=== PATIENT | male | born 1945 | race African-American/Black ===

== ENCOUNTER → 2017-08-14 | Outpatient (CLI) | payer MEDICARE ==
[2017-08-14] MEDS: REGADENOSON 0.4 MG/5 ML DISP.SYRIN. IV ×2 (11:06)
== END | disposition home or self-care (01) ==
LOC: ECHO 07:37
DX: R06.09 Other forms of dyspnea (principal); I10 Essential (primary) hypertension; E11.9 Type 2 diabetes mellitus without complications
CPT/HCPCS: 78452; 93017; 93306; 93925; 96374; 96375; 96376; A9500; J2785

== ENCOUNTER → 2018-01-22 | Outpatient (CLI) | payer MEDICARE ==
[~2018-01-22] MED LIST: BARIUM SULFATE 340 GM SUSPENSION. PO
[2018-01-22] MEDS: BARIUM SULFATE 60% 355 ML SUSP PO ×2 (11:15)
[2018-01-22] MEDS: BARIUM SULFATE 40% (APPLE) 148 GM PWD. PO ×2 (11:15)
== END | disposition home or self-care (01) ==
LOC: RAD 12:53
DX: R13.10 Dysphagia, unspecified (principal); I12.9 Hypertensive chronic kidney disease with stage 1 through stage 4 chronic kidney disease, or unspecified chronic kidney disease; E11.22 Type 2 diabetes mellitus with diabetic chronic kidney disease; N18.9 Chronic kidney disease, unspecified; E11.9 Type 2 diabetes mellitus without complications
CPT/HCPCS: 74220; 74230; 92611-GN

== ENCOUNTER 2018-02-06 13:49 | Emergency (ER) | payer MEDICARE ==
[2018-02-06 14:22] LABS: ADD MAN DIFF? NO
[2018-02-06 14:24] LABS: BASO # 0.1 x10^3/uL (0.0-0.2); BASO % 1 % (0-3); EOS # 0.2 x10^3/uL (0.0-0.7); EOS % 3 % (0-3); HEMATOCRIT 25.3 % (39.0-53.0); HEMOGLOBIN 8.8 g/dL (13.0-17.5); LYMPH # 0.8 x10^3/uL (1.0-4.8); LYMPH % 12 % (24-48); MEAN CORPUSCULAR HEMOGLOBIN 34 pg (25-35); MEAN CORPUSCULAR HGB CONC 35 g/dL (31-37); MEAN CORPUSCULAR VOLUME 99 fL (79-100); MONO # 0.7 x10^3/uL (0.0-1.1); MONO % 10 % (0-9); NEUT # 5.1 x10^3uL (1.8-7.7); NEUT % 74 % (31-73); PLATELET COUNT 162 x10^3/uL (140-400); RED BLOOD COUNT 2.56 x10^6/uL (4.30-5.70); RED CELL DISTRIBUTION WIDTH 18.8 % (11.5-14.5); WHITE BLOOD COUNT 6.9 x10^3/uL (4.0-11.0)
[2018-02-06 14:39] LABS: ANION GAP 15 (6-14); BLOOD UREA NITROGEN 51 mg/dL (8-26); BUN/CREATININE RATIO 3 (6-20); CALCIUM 9.8 mg/dL (8.5-10.1); CARBON DIOXIDE 26 mmol/L (21-32); CHLORIDE 97 mmol/L (98-107); CREATININE 16.9 mg/dL (0.7-1.3); GFR 3.4; GLUCOSE 186 mg/dL (70-99); POTASSIUM 4.1 mmol/L (3.5-5.1); SODIUM 138 mmol/L (136-145)
[2018-02-06 14:46] LABS: ALBUMIN 3.3 g/dL (3.4-5.0); ALBUMIN/GLOBULIN RATIO 0.8 (1.0-1.7); ALK PHOS 90 U/L (46-116); ALT (SGPT) 20 U/L (16-63); AST (SGOT) 12 U/L (15-37); MAGNESIUM 2.9 mg/dL (1.8-2.4); TOTAL BILIRUBIN 0.4 mg/dL (0.2-1.0); TOTAL PROTEIN 7.3 g/dL (6.4-8.2)
[2018-02-06 14:48] LABS: TROPONINI < 0.017 ng/mL (0.000-0.055)
[2018-02-06 14:54] LABS: NT-PRO BNP 1759 pg/mL (0-124)
== END 2018-02-06 16:02 | disposition home or self-care (01) ==
LOC: ER 13:49
DX: R53.1 Weakness (principal); I95.1 Orthostatic hypotension; E10.22 Type 1 diabetes mellitus with diabetic chronic kidney disease; I12.0 Hypertensive chronic kidney disease with stage 5 chronic kidney disease or end stage renal disease; N18.6 End stage renal disease; E78.00 Pure hypercholesterolemia, unspecified; Z99.2 Dependence on renal dialysis
CPT/HCPCS: 36415; 71045; 80053; 83735; 83880; 84484; 85025; 93005; 99285-25

== ENCOUNTER → 2018-03-11 | Outpatient (CLI) | payer MEDICARE ==
[2018-03-05 11:00] VITALS: BP 140/49
[~2018-03-11] MED LIST changes: +AMLO10TA6 PO; +ASPI-482 PO; -BARIUM SULFATE 340 GM SUSPENSION. PO; +CALC0.25 PO; +CHOL500016 PO; +CINA30TA2 PO; +CLON0.2T PO; +FERR210T PO; +FOLI0.8T3 PO; +HYDR-971 PO; +INSU100C4 SQ; +INSU100V31 CONT INF; +INSU100V31 SQ; +INSU100V8 SQ; +INSU200I4 SQ; +LIRA0.6P2 SQ; +LOPE2TAB27 PO; +LOSA100T7 PO; +OMEP40CA5 PO; +OXYC-323 PO; +POLY17PO29 PO; +POTA20TA84 PO; +SERT50TA8 PO; +SEVE800T9 PO
== END | disposition home or self-care (01) ==
LOC: PMGWOUND 11:25
PROVIDERS: ATTEND Emergency Medicine Undersea and Hyperbaric Medicine
DX: E11.622 Type 2 diabetes mellitus with other skin ulcer (principal); L97.324 Non-pressure chronic ulcer of left ankle with necrosis of bone; I12.0 Hypertensive chronic kidney disease with stage 5 chronic kidney disease or end stage renal disease; E11.22 Type 2 diabetes mellitus with diabetic chronic kidney disease; N18.6 End stage renal disease; E11.51 Type 2 diabetes mellitus with diabetic peripheral angiopathy without gangrene; E11.36 Type 2 diabetes mellitus with diabetic cataract; E11.42 Type 2 diabetes mellitus with diabetic polyneuropathy; E11.69 Type 2 diabetes mellitus with other specified complication; M86.8X6 Other osteomyelitis, lower leg; M86.172 Other acute osteomyelitis, left ankle and foot; K21.9 Gastro-esophageal reflux disease without esophagitis; G47.30 Sleep apnea, unspecified; E03.9 Hypothyroidism, unspecified; M19.90 Unspecified osteoarthritis, unspecified site; B96.5 Pseudomonas (aeruginosa) (mallei) (pseudomallei) as the cause of diseases classified elsewhere; E78.00 Pure hypercholesterolemia, unspecified; I25.10 Atherosclerotic heart disease of native coronary artery without angina pectoris; F32.9 Major depressive disorder, single episode, unspecified; Z90.5 Acquired absence of kidney; Z90.49 Acquired absence of other specified parts of digestive tract; Z99.2 Dependence on renal dialysis; Z79.4 Long term (current) use of insulin; Z85.528 Personal history of other malignant neoplasm of kidney
CPT/HCPCS: 11042; 93923; 97605

== ENCOUNTER → 2018-03-25 | Outpatient (CLI) | payer MEDICARE ==
[2018-03-05 11:00] VITALS: BP 140/49
== END | disposition home or self-care (01) ==
LOC: PMGWOUND 12:59
PROVIDERS: ATTEND Emergency Medicine Undersea and Hyperbaric Medicine
DX: E11.621 Type 2 diabetes mellitus with foot ulcer (principal); L97.324 Non-pressure chronic ulcer of left ankle with necrosis of bone; B96.5 Pseudomonas (aeruginosa) (mallei) (pseudomallei) as the cause of diseases classified elsewhere; E11.69 Type 2 diabetes mellitus with other specified complication; M86.172 Other acute osteomyelitis, left ankle and foot; I12.0 Hypertensive chronic kidney disease with stage 5 chronic kidney disease or end stage renal disease; E11.22 Type 2 diabetes mellitus with diabetic chronic kidney disease; N18.6 End stage renal disease; E11.36 Type 2 diabetes mellitus with diabetic cataract; E11.42 Type 2 diabetes mellitus with diabetic polyneuropathy; E11.51 Type 2 diabetes mellitus with diabetic peripheral angiopathy without gangrene; F32.9 Major depressive disorder, single episode, unspecified; E21.3 Hyperparathyroidism, unspecified; G47.30 Sleep apnea, unspecified; K21.9 Gastro-esophageal reflux disease without esophagitis; E03.9 Hypothyroidism, unspecified; E78.00 Pure hypercholesterolemia, unspecified; I25.10 Atherosclerotic heart disease of native coronary artery without angina pectoris; M19.90 Unspecified osteoarthritis, unspecified site; E66.9 Obesity, unspecified; Z68.35 Body mass index [BMI] 35.0-35.9, adult; Z79.4 Long term (current) use of insulin; Z99.2 Dependence on renal dialysis; Z90.49 Acquired absence of other specified parts of digestive tract; Z85.528 Personal history of other malignant neoplasm of kidney
CPT/HCPCS: 11042; 97605

== ENCOUNTER → 2018-04-01 | Outpatient (CLI) | payer MEDICARE ==
[2018-03-05 11:00] VITALS: BP 140/49
== END | disposition home or self-care (01) ==
LOC: PMGWOUND 13:16
PROVIDERS: ATTEND Emergency Medicine Undersea and Hyperbaric Medicine
DX: E11.622 Type 2 diabetes mellitus with other skin ulcer (principal); L97.414 Non-pressure chronic ulcer of right heel and midfoot with necrosis of bone; E11.69 Type 2 diabetes mellitus with other specified complication; M86.172 Other acute osteomyelitis, left ankle and foot; E11.51 Type 2 diabetes mellitus with diabetic peripheral angiopathy without gangrene; B96.5 Pseudomonas (aeruginosa) (mallei) (pseudomallei) as the cause of diseases classified elsewhere; E11.36 Type 2 diabetes mellitus with diabetic cataract; E11.42 Type 2 diabetes mellitus with diabetic polyneuropathy; I12.0 Hypertensive chronic kidney disease with stage 5 chronic kidney disease or end stage renal disease; E11.22 Type 2 diabetes mellitus with diabetic chronic kidney disease; N18.6 End stage renal disease; F32.9 Major depressive disorder, single episode, unspecified; K21.9 Gastro-esophageal reflux disease without esophagitis; E03.9 Hypothyroidism, unspecified; M19.90 Unspecified osteoarthritis, unspecified site; E78.00 Pure hypercholesterolemia, unspecified; G47.30 Sleep apnea, unspecified; E21.3 Hyperparathyroidism, unspecified; I25.10 Atherosclerotic heart disease of native coronary artery without angina pectoris; E66.9 Obesity, unspecified; Z68.35 Body mass index [BMI] 35.0-35.9, adult; Z99.2 Dependence on renal dialysis; Z79.4 Long term (current) use of insulin; Z90.49 Acquired absence of other specified parts of digestive tract; Z85.528 Personal history of other malignant neoplasm of kidney
CPT/HCPCS: 99214; G0463

== ENCOUNTER → 2018-04-08 | Outpatient (CLI) | payer MEDICARE ==
[2018-03-05 11:00] VITALS: BP 140/49
== END | disposition home or self-care (01) ==
LOC: PMGWOUND 13:00
PROVIDERS: ATTEND Emergency Medicine Undersea and Hyperbaric Medicine
DX: E11.622 Type 2 diabetes mellitus with other skin ulcer (principal); L97.414 Non-pressure chronic ulcer of right heel and midfoot with necrosis of bone; E11.69 Type 2 diabetes mellitus with other specified complication; M86.172 Other acute osteomyelitis, left ankle and foot; E11.51 Type 2 diabetes mellitus with diabetic peripheral angiopathy without gangrene; B96.5 Pseudomonas (aeruginosa) (mallei) (pseudomallei) as the cause of diseases classified elsewhere; E11.36 Type 2 diabetes mellitus with diabetic cataract; E11.42 Type 2 diabetes mellitus with diabetic polyneuropathy; I12.0 Hypertensive chronic kidney disease with stage 5 chronic kidney disease or end stage renal disease; E11.22 Type 2 diabetes mellitus with diabetic chronic kidney disease; N18.6 End stage renal disease; F32.9 Major depressive disorder, single episode, unspecified; K21.9 Gastro-esophageal reflux disease without esophagitis; E03.9 Hypothyroidism, unspecified; M19.90 Unspecified osteoarthritis, unspecified site; E78.00 Pure hypercholesterolemia, unspecified; G47.30 Sleep apnea, unspecified; E21.3 Hyperparathyroidism, unspecified; I25.10 Atherosclerotic heart disease of native coronary artery without angina pectoris; E66.9 Obesity, unspecified; Z68.35 Body mass index [BMI] 35.0-35.9, adult; Z99.2 Dependence on renal dialysis; Z79.4 Long term (current) use of insulin; Z90.49 Acquired absence of other specified parts of digestive tract; Z85.528 Personal history of other malignant neoplasm of kidney
CPT/HCPCS: 11042

== ENCOUNTER 2018-04-19 13:36 | Inpatient (IN) | payer MEDICARE ==
[~2018-04-19] VITALS: Ht 177.8 cm; Wt 104.9 kg
--- NOTE | 2018-04-19 14:02 | EKG ---
[facility] [address] [place] [address] Test Date: 2018-04-19 Test Time: 13:50:56 Pat Name: JUAN F MOLINA Department: Room: Gender: Male Wood Setter: : 1945 Requested By: TERRA MITCHELL Order Number: [id number] Reading MD: Heron Thorne MD Measurements Intervals [place] Rate: 44 P: 90 [place]: 164 QRS: -73 QRSD: 138 T: 60 QT: 580 QTc: 500 Interpretive Statements ATRIAL FIBRILLATION/FLUTTER SLOW VENTRICULAR RESPONSE RBBB Electronically Signed On 04-22-2018 11:08:11 CDT by Heron Thorne MD
[2018-04-19 14:09] LABS: BASO # 0.1 x10^3/uL (0.0-0.2); BASO % 1 % (0-3); EOS # 0.4 x10^3/uL (0.0-0.7); EOS % 6 % (0-3); HEMATOCRIT 35.5 % (39.0-53.0); HEMOGLOBIN 12.1 g/dL (13.0-17.5); LYMPH % 16 % (24-48); MEAN CORPUSCULAR HEMOGLOBIN 32 pg (25-35); MEAN CORPUSCULAR HGB CONC 34 g/dL (31-37); MEAN CORPUSCULAR VOLUME 95 fL (79-100); MONO # 0.7 x10^3/uL (0.0-1.1); MONO % 10 % (0-9); NEUT # 4.5 x10^3uL (1.8-7.7); NEUT % 68 % (31-73); PLATELET COUNT 152 x10^3/uL (140-400); RED BLOOD COUNT 3.73 x10^6/uL (4.30-5.70); RED CELL DISTRIBUTION WIDTH 16.2 % (11.5-14.5); WHITE BLOOD COUNT 6.7 x10^3/uL (4.0-11.0)
[2018-04-19 14:33] LABS: CREATININE 17.9 mg/dL (0.7-1.3); GFR 3.2; POTASSIUM 3.4 mmol/L (3.5-5.1)
--- NOTE | 2018-04-19 14:35 | RAD ---
Examination: PORTABLE CHEST 1V History: NEAR SYNCOPE, A-FIB. HX DIABETES, HTN, RENAL FAILURE Comparison/Correlation: 03/04/2018 two-view chest x-ray exam Findings: Portable upright frontal view of the chest was obtained. Heart size normal. Elevation of the right hemidiaphragm is notable but similar to the prior exam. No pneumothorax or definite effusion. Discoid atelectasis at the right lung base is present but less than prior exam. Right internal jugular catheter is overlying the superior vena cava-right atrium junction. Bony structures are unremarkable. Impression: No infiltrate. Electronically signed by: Luis Manuel Islas MD (04/19/2018 2:32 PM) [id number]
[2018-04-19 14:39] LABS: ALBUMIN 3.3 g/dL (3.4-5.0); ALBUMIN/GLOBULIN RATIO 0.8 (1.0-1.7); TOTAL BILIRUBIN 0.4 mg/dL (0.2-1.0); TOTAL PROTEIN 7.5 g/dL (6.4-8.2)
[2018-04-19] MEDS ORDERED: DOCUSATE SODIUM 100 MG CAPSULE. PO PRN (15:45)
[2018-04-19] MEDS ORDERED: MORPHINE SULFATE 2 MG/ML VIAL. IV PRN (15:45)
[2018-04-19] MEDS ORDERED: ONDANSETRON PF 4 MG/2 ML VIAL. IV PRN (15:45)
[2018-04-19] MEDS ORDERED: DEXTROSE 50% 25 GM / 50ML DISP.SYRIN. IV PRN (15:45)
[2018-04-19] MEDS ORDERED: cloNIDine HCL 0.1 MG TABLET PO PRN (15:45)
--- NOTE | 2018-04-19 15:46 | PDOC1 ---
History and Physical Date of Admission Date of Admission 04/19/18 Identification/Chief Complaint Chief Complaint syncope Source Source: Caregiver, Chart review, Patient History of Present Illness History of Present Illness 72yo M, was sent from wound clinic for syncope. Pt said he didnot sycope, said he was walking against the wall with help and dont know why just fell. at bedside said he might not remember. Pt denies dizzy, chest pain, sob, N/V, Pt syncoped 2 times at home with choking as per , lying on the ground and said he was not sure what happened. Pt was found aflutter in dr. Gerber office yesterday, cannot tell me if tachycardia, was given amiodarone to take and took his 1st dose today. HR 30-40s in ER, with aflutter/afib. HR 170-180s systolic. said his BP usually is low, not taking HTN meds. pt is on PD for 4years, CR baseline 16. has chronic loose BM/diarrhea. was dced 6weeks ago for left foot osteo with i and d with wound vac, just finished meropenum with HD yesterday as per , and said saw dr. John on Sun and said the wound was ok. Past Medical History Cardiovascular: CAD, HTN, Other Pulmonary: No pertinent hx GI: No pertinent hx Heme/Onc: Anemia NOS Psych: No pertinent hx Rheumatologic: No pertinent hx Infectious disease: No pertinent hx Renal/: Chronic renal failure Endocrine: Diabetes, Hyperparathyroidism Past Surgical History Past Surgical History: Other Family History Family History: Diabetes, Hypertension Social History Smoke: No ALCOHOL: none Drugs: None Allergies Allergies Allergies Coded Allergies Type Severity Reaction Last Updated Verified No Known Drug Allergies 02/27/18 No ROS Review of System CONSTITUTIONAL: No fever or chills EYES: No recent changes SKIN: No rash or itching CARDIOVASCULAR: No chest pain, syncope, palpitations, or edema RESPIRATORY: No SOB or cough GASTROINTESTINAL: No nausea, vomiting or abdominal pain NEUROLOGICAL: No headaches or weakness ENDOCRINE: No cold or heat intolerance GENITOURINARY: No urgency or frequency of urination MUSCULOSKELETAL: No back pain or joint pain LYMPHATICS: No enlarged lymph nodes PSYCHIATRIC: No anxiety or depression Physical Exam Physical Exam GEN.: No apparent distress. Alert and oriented. HEENT: Head is normocephalic, atraumatic NECK: Supple. LUNGS: Clear to auscultation. upper chest has a central line for iv access. HEART: RRR, S1, S2 present. Peripheral pulses intact ABDOMEN: Soft, nontender. Positive bowel sounds. has PD cath. EXTREMITIES: Without any cyanosis. left leg has wound vac on. no redness or warmth, + pulse. NEUROLOGIC: Normal speech, normal tone PSYCHIATRIC: Normal affect, normal mood. SKIN: No ulcerations Vitals Vitals Vital Signs Date Time Temp Pulse Resp B/P (MAP) Pulse Ox O2 Delivery O2 Flow Rate FiO2 04/19/18 13:47 97.0 50 18 174/63 (100) 100 Room Air 97.0 Labs Labs Laboratory Tests Test 04/19/18 13:57 White Blood Count 6.7 x10^3/uL (4.0-11.0) Red Blood Count 3.73 x10^6/uL (4.30-5.70) Hemoglobin 12.1 g/dL (13.0-17.5) Hematocrit 35.5 % (39.0-53.0) Mean Corpuscular Volume 95 fL (79-100) Mean Corpuscular Hemoglobin 32 pg (25-35) Mean Corpuscular Hemoglobin Concent 34 g/dL (31-37) Red Cell Distribution Width 16.2 % (11.5-14.5) Platelet Count 152 x10^3/uL (140-400) Neutrophils (%) (Auto) 68 % (31-73) Lymphocytes (%) (Auto) 16 % (24-48) Monocytes (%) (Auto) 10 % (0-9) Eosinophils (%) (Auto) 6 % (0-3) Basophils (%) (Auto) 1 % (0-3) Neutrophils # (Auto) 4.5 x10^3uL (1.8-7.7) Lymphocytes # (Auto) 1.0 x10^3/uL (1.0-4.8) Monocytes # (Auto) 0.7 x10^3/uL (0.0-1.1) Eosinophils # (Auto) 0.4 x10^3/uL (0.0-0.7) Basophils # (Auto) 0.1 x10^3/uL (0.0-0.2) Sodium Level 143 mmol/L (136-145) Potassium Level 3.4 mmol/L (3.5-5.1) Chloride Level 100 mmol/L (98-107) Carbon Dioxide Level 27 mmol/L (21-32) Anion Gap 16 (6-14) Blood Urea Nitrogen 62 mg/dL (8-26) Creatinine 17.9 mg/dL (0.7-1.3) Estimated GFR (Cockcroft-Gault) 3.2 BUN/Creatinine Ratio 3 (6-20) Glucose Level 144 mg/dL (70-99) Calcium Level 9.0 mg/dL (8.5-10.1) Total Bilirubin 0.4 mg/dL (0.2-1.0) Aspartate Amino Transf (AST/SGOT) 17 U/L (15-37) Alanine Aminotransferase (ALT/SGPT) 18 U/L (16-63) Alkaline Phosphatase 101 U/L (46-116) Troponin I Quantitative < 0.017 ng/mL (0.000-0.055) HV-Rod-O-Type Natriuretic Peptide 6162 pg/mL (0-124) Total Protein 7.5 g/dL (6.4-8.2) Albumin 3.3 g/dL (3.4-5.0) Albumin/Globulin Ratio 0.8 (1.0-1.7) Laboratory Tests Test 04/19/18 13:57 White Blood Count 6.7 x10^3/uL (4.0-11.0) Red Blood Count 3.73 x10^6/uL (4.30-5.70) Hemoglobin 12.1 g/dL (13.0-17.5) Hematocrit 35.5 % (39.0-53.0) Mean Corpuscular Volume 95 fL (79-100) Mean Corpuscular Hemoglobin 32 pg (25-35) Mean Corpuscular Hemoglobin Concent 34 g/dL (31-37) Red Cell Distribution Width 16.2 % (11.5-14.5) Platelet Count 152 x10^3/uL (140-400) Neutrophils (%) (Auto) 68 % (31-73) Lymphocytes (%) (Auto) 16 % (24-48) Monocytes (%) (Auto) 10 % (0-9) Eosinophils (%) (Auto) 6 % (0-3) Basophils (%) (Auto) 1 % (0-3) Neutrophils # (Auto) 4.5 x10^3uL (1.8-7.7) Lymphocytes # (Auto) 1.0 x10^3/uL (1.0-4.8) Monocytes # (Auto) 0.7 x10^3/uL (0.0-1.1) Eosinophils # (Auto) 0.4 x10^3/uL (0.0-0.7) Basophils # (Auto) 0.1 x10^3/uL (0.0-0.2) Sodium Level 143 mmol/L (136-145) Potassium Level 3.4 mmol/L (3.5-5.1) Chloride Level 100 mmol/L (98-107) Carbon Dioxide Level 27 mmol/L (21-32) Anion Gap 16 (6-14) Blood Urea Nitrogen 62 mg/dL (8-26) Creatinine 17.9 mg/dL (0.7-1.3) Estimated GFR (Cockcroft-Gault) 3.2 BUN/Creatinine Ratio 3 (6-20) Glucose Level 144 mg/dL (70-99) Calcium Level 9.0 mg/dL (8.5-10.1) Total Bilirubin 0.4 mg/dL (0.2-1.0) Aspartate Amino Transf (AST/SGOT) 17 U/L (15-37) Alanine Aminotransferase (ALT/SGPT) 18 U/L (16-63) Alkaline Phosphatase 101 U/L (46-116) Troponin I Quantitative < 0.017 ng/mL (0.000-0.055) SG-Gis-O-Type Natriuretic Peptide 6162 pg/mL (0-124) Total Protein 7.5 g/dL (6.4-8.2) Albumin 3.3 g/dL (3.4-5.0) Albumin/Globulin Ratio 0.8 (1.0-1.7) VTE Prophylaxis Ordered VTE Prophylaxis Devices: Yes VTE Pharmacological Prophylaxi: Yes Assessment/Plan Assessment/Plan syncope , likely 2/2 asymptomatic bradycardia aflutter/afib with bradycardia, was on amiodarone x1 today ESRD on PD hypokalemia moribid obesity dm2 on insulin htn urgency recent left leg osteo s/p i and d abx done, wound vac on plan; card, renal, wound care consult finished abx, wound vac care cont home meds, pt not on humalog as per pt , ssi, lantus 50u qhs hold amiodarone or bb, clonidine for HTN prn, if cont high , may need po meds ptot dvt ppx if pt has tachy/slow HR , may need PPM. discussed a little bit with pt and , defer to card. labs tmr ANISH LIZ MD Apr 19, 2018 15:46
--- NOTE | 2018-04-19 15:50 | PHYS DOC ---
Past Medical History Past Medical History: Diabetes-Type I, High Cholesterol, Hypertension, Renal Failure, Other Additional Past Medical Histor: RENAL CANCER, NIGHTLY PERITONEAL DIALYSIS Past Surgical History: Appendectomy, Cholecystectomy Additional Past Surgical Histo: LEFT NEPHRECTOMY, DIALYSIS SHUNT, RIGHT CHEST Alcohol Use: None Drug Use: None Adult General Chief Complaint Chief Complaint: NEAR SYNCOPE HPI HPI Patient is a 72 year old AA male who presents today to the emergency Department via wheelchair after syncopal episode while in wound care today. Patient denies and chest pain, or shortness of breath, he denies any complaints at this time. The wound care nurse reports that he also had a syncopal episode after coughing on water yesterday per his . He took his first dose of amiodarone 400 mg today. Pt states that he was seen in Dr. Gerber's office yesterday and he was prescribed the amiodarone then. Review of Systems Review of Systems Constitutional: Denies fever or chills [] Eyes: Denies change in visual acuity, redness, or eye pain [] HENT: Denies nasal congestion or sore throat [] Respiratory: Denies cough or shortness of breath [] Cardiovascular: denies chest pain or palpitations, reports syncopal episode at wound care GI: Denies abdominal pain, nausea, vomiting, or diarrhea [] Musculoskeletal: Denies back pain or joint pain [] Integument: Denies rash or skin lesions [] Neurologic: Denies headache, focal weakness or sensory changes [] All other systems were reviewed and found to be within normal limits, except as documented in this note. Current Medications Current Medications Allergies Allergies Allergies Coded Allergies Type Severity Reaction Last Updated Verified No Known Drug Allergies 02/27/18 No Physical Exam Physical Exam Constitutional: Well developed, well nourished, no acute distress, non-toxic appearance. [] HENT: Normocephalic, atraumatic, bilateral external ears normal, oropharynx moist, no oral exudates, nose normal. [] Eyes: PERRLA, conjunctiva normal, no discharge. [] Neck: Normal range of motion, no tenderness, supple, no stridor. [] Cardiovascular:Heart rate IRREGULAR, ATRIAL FLUTTER, no murmur [] Lungs & Thorax: Bilateral breath sounds clear to auscultation [] Abdomen: soft, no tenderness, no masses, no pulsatile masses. [] Skin: Warm, dry, no erythema, no rash. [] Extremities: No tenderness, no cyanosis, no clubbing, ROM intact, no edema; WOUND VAC IN PLACE TO LOWER LEFT EXTREMITY. [] Neurologic: Alert and oriented X 3, normal motor function, normal sensory function, no focal deficits noted. [] Psychologic: Affect normal, judgement normal, mood normal. [] Current Patient Data Vital Signs Vital Signs Date Time Temp Pulse Resp B/P (MAP) Pulse Ox O2 Delivery O2 Flow Rate FiO2 04/19/18 15:00 48 18 100 04/19/18 13:47 97.0 174/63 (100) Room Air 97.0 Lab Values Laboratory Tests Test 04/19/18 13:57 White Blood Count 6.7 x10^3/uL (4.0-11.0) Red Blood Count 3.73 x10^6/uL (4.30-5.70) L Hemoglobin 12.1 g/dL (13.0-17.5) L Hematocrit 35.5 % (39.0-53.0) L Mean Corpuscular Volume 95 fL (79-100) Mean Corpuscular Hemoglobin 32 pg (25-35) Mean Corpuscular Hemoglobin Concent 34 g/dL (31-37) Red Cell Distribution Width 16.2 % (11.5-14.5) H Platelet Count 152 x10^3/uL (140-400) Neutrophils (%) (Auto) 68 % (31-73) Lymphocytes (%) (Auto) 16 % (24-48) L Monocytes (%) (Auto) 10 % (0-9) H Eosinophils (%) (Auto) 6 % (0-3) H Basophils (%) (Auto) 1 % (0-3) Neutrophils # (Auto) 4.5 x10^3uL (1.8-7.7) Lymphocytes # (Auto) 1.0 x10^3/uL (1.0-4.8) Monocytes # (Auto) 0.7 x10^3/uL (0.0-1.1) Eosinophils # (Auto) 0.4 x10^3/uL (0.0-0.7) Basophils # (Auto) 0.1 x10^3/uL (0.0-0.2) Sodium Level 143 mmol/L (136-145) Potassium Level 3.4 mmol/L (3.5-5.1) L Chloride Level 100 mmol/L (98-107) Carbon Dioxide Level 27 mmol/L (21-32) Anion Gap 16 (6-14) H Blood Urea Nitrogen 62 mg/dL (8-26) H Creatinine 17.9 mg/dL (0.7-1.3) H Estimated GFR (Cockcroft-Gault) 3.2 BUN/Creatinine Ratio 3 (6-20) L Glucose Level 144 mg/dL (70-99) H Calcium Level 9.0 mg/dL (8.5-10.1) Total Bilirubin 0.4 mg/dL (0.2-1.0) Aspartate Amino Transferase (AST) 17 U/L (15-37) Alanine Aminotransferase (ALT) 18 U/L (16-63) Alkaline Phosphatase 101 U/L (46-116) Troponin I Quantitative < 0.017 ng/mL (0.000-0.055) YP-Iqx-K-Type Natriuretic Peptide 6162 pg/mL (0-124) H Total Protein 7.5 g/dL (6.4-8.2) Albumin 3.3 g/dL (3.4-5.0) L Albumin/Globulin Ratio 0.8 (1.0-1.7) L Thyroid Stimulating Hormone (TSH) 3.892 uIU/mL (0.358-3.74) H Laboratory Tests 04/19/18 13:57 Laboratory Tests 04/19/18 13:57 EKG EKG Atrial flutter, bradycardia, no STEMI read by Dr. Holcomb[] Radiology/Procedures Radiology/Procedures ROCEDURE: PORTABLE CHEST 1V Examination: PORTABLE CHEST 1V History: NEAR SYNCOPE, A-FIB. HX DIABETES, HTN, RENAL FAILURE Comparison/Correlation: 03/04/2018 two-view chest x-ray exam Findings: Portable upright frontal view of the chest was obtained. Heart size normal. Elevation of the right hemidiaphragm is notable but similar to the prior exam. No pneumothorax or definite effusion. Discoid atelectasis at the right lung base is present but less than prior exam. Right internal jugular catheter is overlying the superior vena cava-right atrium junction. Bony structures are unremarkable. Impression: No infiltrate.[] Course & Med Decision Making Course & Med Decision Making Pertinent Labs and Imaging studies reviewed. (See chart for details) Dx: syncope EKG changes and rate concerning for a-flutter and bradycardia. Labs reveal BNP 6162, normal troponin, potassium 3.4, Bun 62, Nail Making Machine Setter 17.9, anion gap 16, glucose 144. 1506- Spoke with Tiffani LOAD DROPPER gila Gerber about EKG, consulted infectious disease Dr. John, and nephrology Dr. John per research instructor request, as pt will likely need pacemaker placed. 1520- Spoke with Dr. Lowry will admit patient for syncope Dragon Disclaimer Dragon Disclaimer This electronic medical record was generated, in whole or in part, using a voice recognition dictation system. Departure Departure Impression: Primary Impression: Syncope Disposition: ADMITTED INPATIENT Admitting Physician: Xie. Stringer Condition: STABLE Referrals: ABDIFATAH GODFREY MD (PCP) Attending Signature Attending Signature I have reviewed the PA/LOAD DROPPER's note and plan of care. I was available for consultation as needed during the patient's visit in the emergency department. I agree with the clinical impression, plan, and disposition. Problem Qualifiers Primary Impression: Syncope Syncope type: unspecified Qualified Codes: R55 - Syncope and collapse TERRA MITCHELL APRN Apr 19, 2018 15:50 ERNESTO HOLCOMB DO Apr 21, 2018 11:58
--- NOTE | 2018-04-19 16:44 | PDOC2 ---
STEFANI SALAS WELL SITE DRILLING ENGINEER 04/19/18 1643: CARDIAC CONSULT DATE OF CONSULT Date of Consult DATE: 04/19/18 TIME: 16:16 REASON FOR CONSULT Reason for Consult: syncope REFERRING PHYSICIAN Referring Physician: Clarence SOURCE Source: Chart review, Patient HISTORY OF PRESENT ILLNESS HISTORY OF PRESENT ILLNESS This is a pleasant 72 yo male admitted for complains of passing out. In the last 6 months he has been having intermittent episodes of lightheadedness but no apparent injury. He has fallen 6 times since then. Sometimes he gets dizzy with positional changes but sometimes he gets dizzy after some walking. There was no associated palpitations, SOA or chest pain. Last night he was noted to be coughing after he drank some water and the next thing he remembered was waking up on the floor looking up seeing his . There was no seizure episodes related to this and no incontinence or significant confusion. He decided to stay home and not go to urgent care since he thought this is becoming his usual and no injury at that time. No hypoglycemic symptoms noted at that time although he did not check his BG, he did eat dinner. He is diabetic and compliant with his insulin. He also has 1-2 loose stools a day. His losartan was taken off a month ago due to low BP. To add he has been noted very recently during hyperbaric treatment for his left ankle wound with atrial flutter but rate controlled. No anticoagulation was started due to his multiple falls and high risk for injury. He was seen by Dr. Bundy yesterday and was noted still with atrial flutter so he was started on amiodarone which he took a dose at 9 AM today. He went to hyperbaric therapy today for his left heel wound which diabetic neuropathy is the contributor and no significant PAD was noted from past arterial study. He finished the therapy and while he was standing up he started leaning to the wall and he was told that he was caught by one of the staff and then he was brought to ED. This was sudden. He was noted with atrial flutter in the 30s and currently his HR fluctuates at 40 to 70. I also checked him for orthostasis and noted him with high BP supine and lower BP sitting. He also just got done with his 6 week antibiotic treatment and has a right chest central line. PAST MEDICAL HISTORY Cardiovascular: AFIB (atrial flutter), HTN, Hyperlipidemia Pulmonary: No pertinent hx CENTRAL NERVOUS SYSTEM: Periperal neuropathy GI: Other (chronic diarrhea) Heme/Onc: Anemia NOS, Cancer (renal) Hepatobiliary: Cholelithiasis Psych: No pertinent hx Musculoskeletal: Osteoarthritis Rheumatologic: No pertinent hx Infectious disease: Other (osteomyelitis) ENT: Other (cataract) Renal/: Chronic renal failure Endocrine: Diabetes, Other (hypogonadism) Dermatology: Other (left ankle wound with wound vac) PAST SURGICAL HISTORY Past Surgical History: Appendectomy, Cholecystectomy, Cataract Removal, Hernia Repair (left inguinal and right inguinal), Other (PD cath, right chest CL placement; left nephrectomy due to CA; vasectomy) FAMILY HISTORY Family History: Diabetes, Hypertension SOCIAL HISTORY Smoke: No ALCOHOL: none Drugs: None Lives: with Family ALLERGIES ALLERGIES: Coded Allergies: No Known Drug Allergies (Unverified , 02/27/18) ROS Review of System 14 point ROS evaluated with pertinent positives noted per HPI PHYSICAL EXAM General: Alert, Oriented X3, Cooperative, No acute distress HEENT: Atraumatic, Mucous membr. moist/pink Heart: Other (atrial flutter; 2/6 sytolic murmur to LLS border) Skin: Other (left ankle wound with wound vac) Neuro: Normal speech, Sensation intact Psych/Mental Status: Mental status NL, Mood NL MUSCULOSKELETAL: Osteoarthritic changes both hands VITALS VITALS Vital Signs Date Time Temp Pulse Resp B/P (MAP) Pulse Ox O2 Delivery O2 Flow Rate FiO2 04/19/18 16:00 48 16 100 04/19/18 13:47 97.0 174/63 (100) Room Air 97.0 LABS Lab: Laboratory Tests Test 04/19/18 13:57 White Blood Count 6.7 x10^3/uL (4.0-11.0) Red Blood Count 3.73 x10^6/uL (4.30-5.70) Hemoglobin 12.1 g/dL (13.0-17.5) Hematocrit 35.5 % (39.0-53.0) Mean Corpuscular Volume 95 fL (79-100) Mean Corpuscular Hemoglobin 32 pg (25-35) Mean Corpuscular Hemoglobin Concent 34 g/dL (31-37) Red Cell Distribution Width 16.2 % (11.5-14.5) Platelet Count 152 x10^3/uL (140-400) Neutrophils (%) (Auto) 68 % (31-73) Lymphocytes (%) (Auto) 16 % (24-48) Monocytes (%) (Auto) 10 % (0-9) Eosinophils (%) (Auto) 6 % (0-3) Basophils (%) (Auto) 1 % (0-3) Neutrophils # (Auto) 4.5 x10^3uL (1.8-7.7) Lymphocytes # (Auto) 1.0 x10^3/uL (1.0-4.8) Monocytes # (Auto) 0.7 x10^3/uL (0.0-1.1) Eosinophils # (Auto) 0.4 x10^3/uL (0.0-0.7) Basophils # (Auto) 0.1 x10^3/uL (0.0-0.2) Sodium Level 143 mmol/L (136-145) Potassium Level 3.4 mmol/L (3.5-5.1) Chloride Level 100 mmol/L (98-107) Carbon Dioxide Level 27 mmol/L (21-32) Anion Gap 16 (6-14) Blood Urea Nitrogen 62 mg/dL (8-26) Creatinine 17.9 mg/dL (0.7-1.3) Estimated GFR (Cockcroft-Gault) 3.2 BUN/Creatinine Ratio 3 (6-20) Glucose Level 144 mg/dL (70-99) Calcium Level 9.0 mg/dL (8.5-10.1) Total Bilirubin 0.4 mg/dL (0.2-1.0) Aspartate Amino Transf (AST/SGOT) 17 U/L (15-37) Alanine Aminotransferase (ALT/SGPT) 18 U/L (16-63) Alkaline Phosphatase 101 U/L (46-116) Troponin I Quantitative < 0.017 ng/mL (0.000-0.055) JN-Sye-I-Type Natriuretic Peptide 6162 pg/mL (0-124) Total Protein 7.5 g/dL (6.4-8.2) Albumin 3.3 g/dL (3.4-5.0) Albumin/Globulin Ratio 0.8 (1.0-1.7) IMAGES IMAGES <Conclusion> LE duplex 1. No significant obstructive disease noted on the right lower extremity with three-vessel runoff below the knee. 2. No significant objective disease noted in the left lower extremity with three -vessel runoff of the below-knee vessels, but there is mild to moderate velocity acceleration with monophasic waveforms suggestive of diffuse disease without any focal high-grade stenosis. DATE: 08/14/17 1053 ECHOCARDIOGRAM ECHOCARDIOGRAM <Conclusion> The left ventricular systolic function is normal. The ejection fraction is estimated at 65-70%. There is normal LV segmental wall motion. Transmitral Doppler flow pattern is Grade I-abnormal relaxation pattern. Trace to mild mitral regurgitation. Trace tricuspid regurgitation. There is no evidence of significant pericardial effusion. DATE: 08/14/17 1106 STRESS TEST STRESS TEST Conclusion 1. Regadenoson cardioisotope stress test did not show any evidence of ischemia or infarct. 2. Normal left ventricular systolic function with ejection fraction calculated at 71%. 3. Low risk for cardiac events. DATE: 08/14/17 1322 ASSESSMENT/PLAN ASSESSMENT/PLAN 1. Symptomatic persistent Atrial flutter: slow rate with syncope. QTc 500. 2. Suspect SSS: Past EKG noted with chronic RBBB/LAFB. 3. ESRD: PD 4. DM2 with DPN: per PCP 5. SH-OH syndrome 6. HLP 7. Chronic left ankle wound: sees wound care clinic 8. Left ankle Osteomyelitis: just completed 6 week of IV antibiotic therapy Recommendations 1. Replace K. Check TSH and lipids 2. Consult ID and will need clearance for PPM. Will benefit from CLS. 3. Consult nephrology 4. DC amiodarone. Hydralazine po PRN. Stop PRN clonidine. Will keep HOB at semi fowlers. 5. Would not be able to utilize compressions stockings and abdominal binder at this time with PD cath and wound vac in place. 6. Not a candidate for anticoagulation with multiple falls and high risk for injury. ASA for stroke prevention CARMELA BUNDY MD 04/19/18 3324: CARDIAC CONSULT ASSESSMENT/PLAN ASSESSMENT/PLAN Patient seen and examined. Agree with HEAD MEN'S TENNIS COACH's assessment and plan. Patient admitted with recurrent syncope most probably from sick sinus syndrome Atrial flutter, newly diagnosed recently, with slow ventricular response Patient had syncope even prior to initiation of amiodarone yesterday Recent 2-D echo showed normal LV function Agree with permanent pacemaker implantation once cleared by ID team Continue dialysis per nephrology team Thank you for your consultation STEFANI SALAS APRN Apr 19, 2018 16:43 CARMELA BUNDY MD Apr 19, 2018 16:47
[2018-04-19] MEDS ORDERED: POTASSIUM CHLORIDE 20 MEQ TABLET.ER. PO ONE (16:45)
[2018-04-19] MEDS ORDERED: hydrALAZINE 25 MG TABLET PO PRN (16:45)
[2018-04-19] MEDS: INSULIN LISPRO 300 UNITS/3 ML INSULN.PEN. SQ SCH (17:00)
[2018-04-19] MEDS: FERRIC CITRATE 210 MG PO SCH (17:00)
[2018-04-19 19:15] VITALS: BP 153/51
[2018-04-19] MEDS ORDERED: ALPR0.254 PO (19:32)
[2018-04-19] MEDS ORDERED: LOSA25TA5 PO (19:32)
[2018-04-19] MEDS ORDERED: INSULIN GLARGINE 300 UNITS/3 ML INSULN.PEN. SQ SCH (21:00)
[2018-04-19] MEDS: CINACALCET HCL 30 MG TABLET PO SCH (21:45)
[2018-04-19] MEDS: INSULIN GLARGINE 300 UNITS/3 ML INSULN.PEN. SQ SCH (21:48)
[2018-04-19] MEDS: HEPARIN PF for SUB-Q USE 5,000 UNIT/0.5 ML VIAL. SQ SCH (21:49)
[2018-04-19 23:43] VITALS: BP 131/53
[2018-04-20 03:10] VITALS: BP 147/53
[2018-04-20] MEDS: HEPARIN PF for SUB-Q USE 5,000 UNIT/0.5 ML VIAL. SQ SCH ×3 (06:05→21:39)
[2018-04-20 06:24] LABS: CALCIUM 8.4 mg/dL (8.5-10.1); CREATININE 17.1 mg/dL (0.7-1.3); GFR 3.4; POTASSIUM 3.3 mmol/L (3.5-5.1)
[2018-04-20 06:33] LABS: CHOLESTEROL/HDL RATIO 4.1
[2018-04-20 06:34] LABS: BASO # 0.1 x10^3/uL (0.0-0.2); BASO % 1 % (0-3); EOS # 0.3 x10^3/uL (0.0-0.7); EOS % 6 % (0-3); HEMATOCRIT 31.4 % (39.0-53.0); HEMOGLOBIN 10.7 g/dL (13.0-17.5); LYMPH % 20 % (24-48); MEAN CORPUSCULAR HEMOGLOBIN 33 pg (25-35); MEAN CORPUSCULAR HGB CONC 34 g/dL (31-37); MEAN CORPUSCULAR VOLUME 95 fL (79-100); MONO # 0.7 x10^3/uL (0.0-1.1); MONO % 13 % (0-9); NEUT # 3.1 x10^3uL (1.8-7.7); NEUT % 60 % (31-73); PLATELET COUNT 130 x10^3/uL (140-400); RED BLOOD COUNT 3.31 x10^6/uL (4.30-5.70); RED CELL DISTRIBUTION WIDTH 16.4 % (11.5-14.5); WHITE BLOOD COUNT 5.2 x10^3/uL (4.0-11.0)
[2018-04-20 07:00] VITALS: BP 135/59
[2018-04-20] MEDS: INSULIN LISPRO 300 UNITS/3 ML INSULN.PEN. SQ SCH ×3 (08:00→17:32)
[2018-04-20] MEDS: FERRIC CITRATE 210 MG PO SCH ×3 (08:00→17:29)
[2018-04-20] MEDS: SERTRALINE 50 MG TABLET. PO SCH (08:19)
[2018-04-20] MEDS: CHOLECALCIFEROL (VITAMIN D3) 5,000 UNIT CAPSULE PO SCH (08:20)
[2018-04-20] MEDS: FOLIC/VIT B COMP W-C (RENAL) TABLET. PO SCH (08:20)
[2018-04-20] MEDS: CALCITRIOL 0.25 MCG CAPSULE. PO SCH (08:20)
[2018-04-20] MEDS: ASPIRIN ENTERIC COATED 81 MG TABLET.DR. PO SCH (08:20)
--- NOTE | 2018-04-20 10:14 | PDOC ---
Infectious Disease Note Vital Sign Vital Signs Vital Signs Date Time Temp Pulse Resp B/P (MAP) Pulse Ox O2 Delivery O2 Flow Rate FiO2 04/20/18 07:40 Room Air 04/20/18 07:00 98.2 47 18 135/59 (84) 97 98.2 Labs Lab Laboratory Tests Test 04/19/18 13:57 04/19/18 17:46 04/19/18 20:40 04/20/18 06:00 White Blood Count 6.7 x10^3/uL (4.0-11.0) 5.2 x10^3/uL (4.0-11.0) Red Blood Count 3.73 x10^6/uL (4.30-5.70) 3.31 x10^6/uL (4.30-5.70) Hemoglobin 12.1 g/dL (13.0-17.5) 10.7 g/dL (13.0-17.5) Hematocrit 35.5 % (39.0-53.0) 31.4 % (39.0-53.0) Mean Corpuscular Volume 95 fL (79-100) 95 fL (79-100) Mean Corpuscular Hemoglobin 32 pg (25-35) 33 pg (25-35) Mean Corpuscular Hemoglobin Concent 34 g/dL (31-37) 34 g/dL (31-37) Red Cell Distribution Width 16.2 % (11.5-14.5) 16.4 % (11.5-14.5) Platelet Count 152 x10^3/uL (140-400) 130 x10^3/uL (140-400) Neutrophils (%) (Auto) 68 % (31-73) 60 % (31-73) Lymphocytes (%) (Auto) 16 % (24-48) 20 % (24-48) Monocytes (%) (Auto) 10 % (0-9) 13 % (0-9) Eosinophils (%) (Auto) 6 % (0-3) 6 % (0-3) Basophils (%) (Auto) 1 % (0-3) 1 % (0-3) Neutrophils # (Auto) 4.5 x10^3uL (1.8-7.7) 3.1 x10^3uL (1.8-7.7) Lymphocytes # (Auto) 1.0 x10^3/uL (1.0-4.8) 1.0 x10^3/uL (1.0-4.8) Monocytes # (Auto) 0.7 x10^3/uL (0.0-1.1) 0.7 x10^3/uL (0.0-1.1) Eosinophils # (Auto) 0.4 x10^3/uL (0.0-0.7) 0.3 x10^3/uL (0.0-0.7) Basophils # (Auto) 0.1 x10^3/uL (0.0-0.2) 0.1 x10^3/uL (0.0-0.2) Sodium Level 143 mmol/L (136-145) 144 mmol/L (136-145) Potassium Level 3.4 mmol/L (3.5-5.1) 3.3 mmol/L (3.5-5.1) Chloride Level 100 mmol/L (98-107) 102 mmol/L (98-107) Carbon Dioxide Level 27 mmol/L (21-32) 25 mmol/L (21-32) Anion Gap 16 (6-14) 17 (6-14) Blood Urea Nitrogen 62 mg/dL (8-26) 61 mg/dL (8-26) Creatinine 17.9 mg/dL (0.7-1.3) 17.1 mg/dL (0.7-1.3) Estimated GFR (Cockcroft-Gault) 3.2 3.4 BUN/Creatinine Ratio 3 (6-20) Glucose Level 144 mg/dL (70-99) 145 mg/dL (70-99) Calcium Level 9.0 mg/dL (8.5-10.1) 8.4 mg/dL (8.5-10.1) Total Bilirubin 0.4 mg/dL (0.2-1.0) Aspartate Amino Transf (AST/SGOT) 17 U/L (15-37) Alanine Aminotransferase (ALT/SGPT) 18 U/L (16-63) Alkaline Phosphatase 101 U/L (46-116) Troponin I Quantitative < 0.017 ng/mL (0.000-0.055) IK-Jjk-L-Type Natriuretic Peptide 6162 pg/mL (0-124) Total Protein 7.5 g/dL (6.4-8.2) Albumin 3.3 g/dL (3.4-5.0) Albumin/Globulin Ratio 0.8 (1.0-1.7) Thyroid Stimulating Hormone (TSH) 3.892 uIU/mL (0.358-3.74) Glucose (Fingerstick) 130 mg/dL (70-99) 182 mg/dL (70-99) Triglycerides Level 223 mg/dL (0-150) Cholesterol Level 147 mg/dL (0-200) LDL Cholesterol, Calculated 66 mg/dL (0-100) VLDL Cholesterol, Calculated 45 mg/dL (0-40) Non-HDL Cholesterol Calculated 111 mg/dL (0-129) HDL Cholesterol 36 mg/dL (40-60) Cholesterol/HDL Ratio 4.1 Test 04/20/18 07:49 Glucose (Fingerstick) 132 mg/dL (70-99) Objective Assessment 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 -Completed about 7 weeks of Merrem on 04/17. Tunnelled central line remains in place. -Followed by [facility] Recurrent syncope probably from sick sinus syndrome per cardiology A-flutter recent amiodarone CKD/peritoneal dialysis Thrombocytopenia Diabetes Plan Plan of Care Continue to observe off antibiotics Local wound care From ID standpoint may proceed with pacemaker placement Recommend pre-op dose of meropenem Thank you [id number] Attending Co-Sign Attending Co-Sign The patient was seen and interviewed as well as examined at the bedside. The chart was reviewed. The case was discussed. Agree with the plan of care. BRIA MATA APRN Apr 20, 2018 10:14 JANIS ORTIZ MD Apr 20, 2018 15:43
[2018-04-20 11:00] VITALS: BP 118/58
--- NOTE | 2018-04-20 13:18 | PDOC ---
PROGRESS NOTES Subjective Subjective No new complaints Objective Objective Vital Signs Date Time Temp Pulse Resp B/P (MAP) Pulse Ox O2 Delivery O2 Flow Rate FiO2 04/20/18 11:00 97.8 84 18 118/58 (78) 99 Room Air 97.8 Intake and Output 04/20/18 07:00 Intake Total 350 ml Balance 350 ml Intake Oral 350 ml Physical Exam Heart: Other (atrial flutter; 2/6 sytolic murmur to LLS border) General: Alert, Oriented X3, Cooperative, No acute distress HEENT: Atraumatic, Mucous membr. moist/pink Neuro: Normal speech, Sensation intact Psych/Mental Status: Mental status NL, Mood NL Skin: Other (left ankle wound with wound vac) Assessment Assessment 1. Persistent atrial flutter: Heart rate controlled. Patient poor candidate for long-term anticoagulation secondary to fall risk. Recent 2-D echo showed normal LV systolic function. 2. Sick sinus syndrome and recurrent syncope. Plan for permanent pacemaker implantation on Sunday. 3. ESRD: PD per nephrology team 4. DM2 with DPN: per IM 5. Chronic left ankle wound: sees wound care clinic 6. Left ankle Osteomyelitis: just completed 6 week of IV antibiotic therapy. Okay to proceed with PPM per ID team Comment Review of Relevant I have reviewed the following items roger (where applicable) has been applied. Labs Laboratory Tests Test 04/19/18 13:57 04/19/18 17:46 04/19/18 20:40 04/20/18 06:00 White Blood Count 6.7 x10^3/uL (4.0-11.0) 5.2 x10^3/uL (4.0-11.0) Red Blood Count 3.73 x10^6/uL (4.30-5.70) 3.31 x10^6/uL (4.30-5.70) Hemoglobin 12.1 g/dL (13.0-17.5) 10.7 g/dL (13.0-17.5) Hematocrit 35.5 % (39.0-53.0) 31.4 % (39.0-53.0) Mean Corpuscular Volume 95 fL (79-100) 95 fL (79-100) Mean Corpuscular Hemoglobin 32 pg (25-35) 33 pg (25-35) Mean Corpuscular Hemoglobin Concent 34 g/dL (31-37) 34 g/dL (31-37) Red Cell Distribution Width 16.2 % (11.5-14.5) 16.4 % (11.5-14.5) Platelet Count 152 x10^3/uL (140-400) 130 x10^3/uL (140-400) Neutrophils (%) (Auto) 68 % (31-73) 60 % (31-73) Lymphocytes (%) (Auto) 16 % (24-48) 20 % (24-48) Monocytes (%) (Auto) 10 % (0-9) 13 % (0-9) Eosinophils (%) (Auto) 6 % (0-3) 6 % (0-3) Basophils (%) (Auto) 1 % (0-3) 1 % (0-3) Neutrophils # (Auto) 4.5 x10^3uL (1.8-7.7) 3.1 x10^3uL (1.8-7.7) Lymphocytes # (Auto) 1.0 x10^3/uL (1.0-4.8) 1.0 x10^3/uL (1.0-4.8) Monocytes # (Auto) 0.7 x10^3/uL (0.0-1.1) 0.7 x10^3/uL (0.0-1.1) Eosinophils # (Auto) 0.4 x10^3/uL (0.0-0.7) 0.3 x10^3/uL (0.0-0.7) Basophils # (Auto) 0.1 x10^3/uL (0.0-0.2) 0.1 x10^3/uL (0.0-0.2) Sodium Level 143 mmol/L (136-145) 144 mmol/L (136-145) Potassium Level 3.4 mmol/L (3.5-5.1) 3.3 mmol/L (3.5-5.1) Chloride Level 100 mmol/L (98-107) 102 mmol/L (98-107) Carbon Dioxide Level 27 mmol/L (21-32) 25 mmol/L (21-32) Anion Gap 16 (6-14) 17 (6-14) Blood Urea Nitrogen 62 mg/dL (8-26) 61 mg/dL (8-26) Creatinine 17.9 mg/dL (0.7-1.3) 17.1 mg/dL (0.7-1.3) Estimated GFR (Cockcroft-Gault) 3.2 3.4 BUN/Creatinine Ratio 3 (6-20) Glucose Level 144 mg/dL (70-99) 145 mg/dL (70-99) Calcium Level 9.0 mg/dL (8.5-10.1) 8.4 mg/dL (8.5-10.1) Total Bilirubin 0.4 mg/dL (0.2-1.0) Aspartate Amino Transf (AST/SGOT) 17 U/L (15-37) Alanine Aminotransferase (ALT/SGPT) 18 U/L (16-63) Alkaline Phosphatase 101 U/L (46-116) Troponin I Quantitative < 0.017 ng/mL (0.000-0.055) AY-Wdp-A-Type Natriuretic Peptide 6162 pg/mL (0-124) Total Protein 7.5 g/dL (6.4-8.2) Albumin 3.3 g/dL (3.4-5.0) Albumin/Globulin Ratio 0.8 (1.0-1.7) Thyroid Stimulating Hormone (TSH) 3.892 uIU/mL (0.358-3.74) Glucose (Fingerstick) 130 mg/dL (70-99) 182 mg/dL (70-99) Triglycerides Level 223 mg/dL (0-150) Cholesterol Level 147 mg/dL (0-200) LDL Cholesterol, Calculated 66 mg/dL (0-100) VLDL Cholesterol, Calculated 45 mg/dL (0-40) Non-HDL Cholesterol Calculated 111 mg/dL (0-129) HDL Cholesterol 36 mg/dL (40-60) Cholesterol/HDL Ratio 4.1 Test 04/20/18 07:49 04/20/18 11:40 Glucose (Fingerstick) 132 mg/dL (70-99) 166 mg/dL (70-99) Medications Current Medications Acetaminophen (Tylenol) 650 mg PRN Q6HRS PRN PO FEVER; Start 04/19/18 at 15:45 Aspirin (Ecotrin) 81 mg DAILY08 PO Last administered on 04/20/18at 08:20; Start 04/20/18 at 08:00 Calcitriol (Rocaltrol) 0.25 mcg DAILY PO Last administered on 04/20/18at 08:20; Start 04/20/18 at 09:00 Cinacalcet (Sensipar) 30 mg HS PO Last administered on 04/19/18at 21:45; Start 04/19/18 at 21:00 Clonidine HCl (Catapres) 0.1 mg PRN Q2HR PRN PO HYPERTENSION, SEE COMMENTS; Start 04/19/18 at 15:45; Stop 04/19/18 at 16:42; Status DC Dextrose (Dextrose 50%-Water Syringe) 12.5 gm PRN Q15MIN PRN IV SEE COMMENTS; Start 04/19/18 at 15:45 Docusate Sodium (Colace) 100 mg PRN DAILY PRN PO HARD STOOLS; Start 04/19/18 at 15:45 Heparin Sodium (Porcine) (Heparin Sq) 5,000 unit Q8HRS SQ Last administered on 04/20/18at 06:05; Start 04/19/18 at 22:00 Hydralazine HCl (Apresoline) 25 mg PRN Q6HRS PRN PO ELEVATED BP, SEE COMMENTS; Start 04/19/18 at 16:45 Insulin Glargine (Lantus) 40 units QHS SQ Last administered on 04/19/18at 21:48 ; Start 04/19/18 at 21:00 Insulin Glargine (Lantus) 50 units QHS SQ ; Start 04/19/18 at 21:00; Stop at 21:00; Status DC Insulin Human Lispro (HumaLOG) 0-9 UNITS TIDWMEALS SQ Last administered on 04/20at 12:26; Start 04/19/18 at 17:00 Morphine Sulfate (Morphine Sulfate) 2 mg PRN Q2HR PRN IV MODERATE TO SEVERE PAIN; Start 04/19/18 at 15:45 Non-Formulary Medication (Ferric Citrate ) 2 tab TIDWMEALS PO ; Start 04/19/18 at 17:00 Ondansetron HCl (Zofran) 4 mg PRN Q6HRS PRN IV NAUSEA/VOMITING 1ST CHOICE; Start 04/19/18 at 15:45 Potassium Chloride (Klor-Con) 20 meq 1X ONCE PO Last administered on at 16:45; Start 04/19/18 at 16:45; Stop 04/19/18 at 16:48; Status DC Sertraline HCl (Zoloft) 50 mg DAILY PO Last administered on 04/20/18at 08:19; Start 04/20/18 at 09:00 Tramadol HCl (Ultram) 50 mg PRN Q6HRS PRN PO MILD TO MODERATE PAIN; Start 04/19 at 15:45 Vitamin B Complex/ Vitamin C (Rocio-Taylor) 1 tab DAILY PO Last administered on at 08:20; Start 04/20/18 at 09:00 Vitamin D (Vitamin D3) 5,000 unit DAILY PO Last administered on 04/20/18at 08:20 ; Start 04/20/18 at 09:00 Vitals/I & O Vital Sign - Last 24 Hours 04/19/18 04/19/18 04/19/18 04/19/18 13:47 14:00 14:30 15:00 Temp 97.0 97.0 Pulse 50 46 44 48 Resp 18 18 20 18 B/P (MAP) 174/63 (100) Pulse Ox 100 100 100 100 O2 Delivery Room Air 04/19/18 04/19/18 04/19/18 04/19/18 15:30 16:00 19:15 20:46 Temp 98.3 98.3 Pulse 48 48 50 Resp 16 16 22 B/P (MAP) 153/51 (85) Pulse Ox 100 100 93 O2 Delivery Room Air Room Air 04/19/18 04/20/18 04/20/18 04/20/18 23:43 03:10 07:00 07:40 Temp 98.9 98.1 98.2 98.9 98.1 98.2 Pulse 59 39 47 Resp 18 17 18 B/P (MAP) 131/53 (79) 147/53 (84) 135/59 (84) Pulse Ox 96 96 97 O2 Delivery Room Air Room Air Room Air Room Air 04/20/18 11:00 Temp 97.8 97.8 Pulse 84 Resp 18 B/P (MAP) 118/58 (78) Pulse Ox 99 O2 Delivery Room Air Intake and Output 04/19/18 04/19/18 04/20/18 15:00 23:00 07:00 Intake Total 350 ml Balance 350 ml PASNOORI,CARMELA R MD Apr 20, 2018 13:18
--- NOTE | 2018-04-20 13:21 | PDOC ---
PROGRESS NOTES Chief Complaint Chief Complaint syncope , likely 2/2 symptomatic bradycardia aflutter/afib with bradycardia, was on amiodarone x1 today at home ESRD on PD hypokalemia moribid obesity dm2 on insulin htn urgency recent left leg osteo s/p i and d abx done, wound vac on plan; card, renal, wound care consult finished abx, wound vac care cont home meds, pt not on humalog as per pt , ssi, lantus decreased to 40u qhs hold amiodarone or bb, clonidine for HTN prn, cont home med losartan ptot dvt ppx if pt has tachy/slow HR , may need PPM. discussed a little bit with pt and , defer to card. labs tmr PD daily Vitals Vitals Vital Signs Date Time Temp Pulse Resp B/P (MAP) Pulse Ox O2 Delivery O2 Flow Rate FiO2 04/20/18 11:00 97.8 84 18 118/58 (78) 99 Room Air 97.8 Physical Exam General: Alert, Oriented X3, Cooperative, No acute distress Heart: Normal S1, Normal S2, Other (irregular) Lungs: Clear Abdomen: Normal bowel sounds, Soft Extremities: No clubbing, No cyanosis Skin: No rashes, Other (left ankle wound with wound vac) Labs LABS Laboratory Tests Test 04/19/18 13:57 04/19/18 17:46 04/19/18 20:40 04/20/18 06:00 White Blood Count 6.7 x10^3/uL (4.0-11.0) 5.2 x10^3/uL (4.0-11.0) Red Blood Count 3.73 x10^6/uL (4.30-5.70) 3.31 x10^6/uL (4.30-5.70) Hemoglobin 12.1 g/dL (13.0-17.5) 10.7 g/dL (13.0-17.5) Hematocrit 35.5 % (39.0-53.0) 31.4 % (39.0-53.0) Mean Corpuscular Volume 95 fL (79-100) 95 fL (79-100) Mean Corpuscular Hemoglobin 32 pg (25-35) 33 pg (25-35) Mean Corpuscular Hemoglobin Concent 34 g/dL (31-37) 34 g/dL (31-37) Red Cell Distribution Width 16.2 % (11.5-14.5) 16.4 % (11.5-14.5) Platelet Count 152 x10^3/uL (140-400) 130 x10^3/uL (140-400) Neutrophils (%) (Auto) 68 % (31-73) 60 % (31-73) Lymphocytes (%) (Auto) 16 % (24-48) 20 % (24-48) Monocytes (%) (Auto) 10 % (0-9) 13 % (0-9) Eosinophils (%) (Auto) 6 % (0-3) 6 % (0-3) Basophils (%) (Auto) 1 % (0-3) 1 % (0-3) Neutrophils # (Auto) 4.5 x10^3uL (1.8-7.7) 3.1 x10^3uL (1.8-7.7) Lymphocytes # (Auto) 1.0 x10^3/uL (1.0-4.8) 1.0 x10^3/uL (1.0-4.8) Monocytes # (Auto) 0.7 x10^3/uL (0.0-1.1) 0.7 x10^3/uL (0.0-1.1) Eosinophils # (Auto) 0.4 x10^3/uL (0.0-0.7) 0.3 x10^3/uL (0.0-0.7) Basophils # (Auto) 0.1 x10^3/uL (0.0-0.2) 0.1 x10^3/uL (0.0-0.2) Sodium Level 143 mmol/L (136-145) 144 mmol/L (136-145) Potassium Level 3.4 mmol/L (3.5-5.1) 3.3 mmol/L (3.5-5.1) Chloride Level 100 mmol/L (98-107) 102 mmol/L (98-107) Carbon Dioxide Level 27 mmol/L (21-32) 25 mmol/L (21-32) Anion Gap 16 (6-14) 17 (6-14) Blood Urea Nitrogen 62 mg/dL (8-26) 61 mg/dL (8-26) Creatinine 17.9 mg/dL (0.7-1.3) 17.1 mg/dL (0.7-1.3) Estimated GFR (Cockcroft-Gault) 3.2 3.4 BUN/Creatinine Ratio 3 (6-20) Glucose Level 144 mg/dL (70-99) 145 mg/dL (70-99) Calcium Level 9.0 mg/dL (8.5-10.1) 8.4 mg/dL (8.5-10.1) Total Bilirubin 0.4 mg/dL (0.2-1.0) Aspartate Amino Transf (AST/SGOT) 17 U/L (15-37) Alanine Aminotransferase (ALT/SGPT) 18 U/L (16-63) Alkaline Phosphatase 101 U/L (46-116) Troponin I Quantitative < 0.017 ng/mL (0.000-0.055) VI-Xjm-O-Type Natriuretic Peptide 6162 pg/mL (0-124) Total Protein 7.5 g/dL (6.4-8.2) Albumin 3.3 g/dL (3.4-5.0) Albumin/Globulin Ratio 0.8 (1.0-1.7) Thyroid Stimulating Hormone (TSH) 3.892 uIU/mL (0.358-3.74) Glucose (Fingerstick) 130 mg/dL (70-99) 182 mg/dL (70-99) Triglycerides Level 223 mg/dL (0-150) Cholesterol Level 147 mg/dL (0-200) LDL Cholesterol, Calculated 66 mg/dL (0-100) VLDL Cholesterol, Calculated 45 mg/dL (0-40) Non-HDL Cholesterol Calculated 111 mg/dL (0-129) HDL Cholesterol 36 mg/dL (40-60) Cholesterol/HDL Ratio 4.1 Test 04/20/18 07:49 04/20/18 11:40 Glucose (Fingerstick) 132 mg/dL (70-99) 166 mg/dL (70-99) Comment Review of Relevant I have reviewed the following items roger (where applicable) has been applied. Labs Laboratory Tests Test 04/19/18 13:57 04/19/18 17:46 04/19/18 20:40 04/20/18 06:00 White Blood Count 6.7 x10^3/uL (4.0-11.0) 5.2 x10^3/uL (4.0-11.0) Red Blood Count 3.73 x10^6/uL (4.30-5.70) 3.31 x10^6/uL (4.30-5.70) Hemoglobin 12.1 g/dL (13.0-17.5) 10.7 g/dL (13.0-17.5) Hematocrit 35.5 % (39.0-53.0) 31.4 % (39.0-53.0) Mean Corpuscular Volume 95 fL (79-100) 95 fL (79-100) Mean Corpuscular Hemoglobin 32 pg (25-35) 33 pg (25-35) Mean Corpuscular Hemoglobin Concent 34 g/dL (31-37) 34 g/dL (31-37) Red Cell Distribution Width 16.2 % (11.5-14.5) 16.4 % (11.5-14.5) Platelet Count 152 x10^3/uL (140-400) 130 x10^3/uL (140-400) Neutrophils (%) (Auto) 68 % (31-73) 60 % (31-73) Lymphocytes (%) (Auto) 16 % (24-48) 20 % (24-48) Monocytes (%) (Auto) 10 % (0-9) 13 % (0-9) Eosinophils (%) (Auto) 6 % (0-3) 6 % (0-3) Basophils (%) (Auto) 1 % (0-3) 1 % (0-3) Neutrophils # (Auto) 4.5 x10^3uL (1.8-7.7) 3.1 x10^3uL (1.8-7.7) Lymphocytes # (Auto) 1.0 x10^3/uL (1.0-4.8) 1.0 x10^3/uL (1.0-4.8) Monocytes # (Auto) 0.7 x10^3/uL (0.0-1.1) 0.7 x10^3/uL (0.0-1.1) Eosinophils # (Auto) 0.4 x10^3/uL (0.0-0.7) 0.3 x10^3/uL (0.0-0.7) Basophils # (Auto) 0.1 x10^3/uL (0.0-0.2) 0.1 x10^3/uL (0.0-0.2) Sodium Level 143 mmol/L (136-145) 144 mmol/L (136-145) Potassium Level 3.4 mmol/L (3.5-5.1) 3.3 mmol/L (3.5-5.1) Chloride Level 100 mmol/L (98-107) 102 mmol/L (98-107) Carbon Dioxide Level 27 mmol/L (21-32) 25 mmol/L (21-32) Anion Gap 16 (6-14) 17 (6-14) Blood Urea Nitrogen 62 mg/dL (8-26) 61 mg/dL (8-26) Creatinine 17.9 mg/dL (0.7-1.3) 17.1 mg/dL (0.7-1.3) Estimated GFR (Cockcroft-Gault) 3.2 3.4 BUN/Creatinine Ratio 3 (6-20) Glucose Level 144 mg/dL (70-99) 145 mg/dL (70-99) Calcium Level 9.0 mg/dL (8.5-10.1) 8.4 mg/dL (8.5-10.1) Total Bilirubin 0.4 mg/dL (0.2-1.0) Aspartate Amino Transf (AST/SGOT) 17 U/L (15-37) Alanine Aminotransferase (ALT/SGPT) 18 U/L (16-63) Alkaline Phosphatase 101 U/L (46-116) Troponin I Quantitative < 0.017 ng/mL (0.000-0.055) EZ-Hjj-J-Type Natriuretic Peptide 6162 pg/mL (0-124) Total Protein 7.5 g/dL (6.4-8.2) Albumin 3.3 g/dL (3.4-5.0) Albumin/Globulin Ratio 0.8 (1.0-1.7) Thyroid Stimulating Hormone (TSH) 3.892 uIU/mL (0.358-3.74) Glucose (Fingerstick) 130 mg/dL (70-99) 182 mg/dL (70-99) Triglycerides Level 223 mg/dL (0-150) Cholesterol Level 147 mg/dL (0-200) LDL Cholesterol, Calculated 66 mg/dL (0-100) VLDL Cholesterol, Calculated 45 mg/dL (0-40) Non-HDL Cholesterol Calculated 111 mg/dL (0-129) HDL Cholesterol 36 mg/dL (40-60) Cholesterol/HDL Ratio 4.1 Test 04/20/18 07:49 04/20/18 11:40 Glucose (Fingerstick) 132 mg/dL (70-99) 166 mg/dL (70-99) Laboratory Tests Test 04/19/18 13:57 04/19/18 17:46 04/19/18 20:40 04/20/18 06:00 White Blood Count 6.7 x10^3/uL (4.0-11.0) 5.2 x10^3/uL (4.0-11.0) Red Blood Count 3.73 x10^6/uL (4.30-5.70) 3.31 x10^6/uL (4.30-5.70) Hemoglobin 12.1 g/dL (13.0-17.5) 10.7 g/dL (13.0-17.5) Hematocrit 35.5 % (39.0-53.0) 31.4 % (39.0-53.0) Mean Corpuscular Volume 95 fL (79-100) 95 fL (79-100) Mean Corpuscular Hemoglobin 32 pg (25-35) 33 pg (25-35) Mean Corpuscular Hemoglobin Concent 34 g/dL (31-37) 34 g/dL (31-37) Red Cell Distribution Width 16.2 % (11.5-14.5) 16.4 % (11.5-14.5) Platelet Count 152 x10^3/uL (140-400) 130 x10^3/uL (140-400) Neutrophils (%) (Auto) 68 % (31-73) 60 % (31-73) Lymphocytes (%) (Auto) 16 % (24-48) 20 % (24-48) Monocytes (%) (Auto) 10 % (0-9) 13 % (0-9) Eosinophils (%) (Auto) 6 % (0-3) 6 % (0-3) Basophils (%) (Auto) 1 % (0-3) 1 % (0-3) Neutrophils # (Auto) 4.5 x10^3uL (1.8-7.7) 3.1 x10^3uL (1.8-7.7) Lymphocytes # (Auto) 1.0 x10^3/uL (1.0-4.8) 1.0 x10^3/uL (1.0-4.8) Monocytes # (Auto) 0.7 x10^3/uL (0.0-1.1) 0.7 x10^3/uL (0.0-1.1) Eosinophils # (Auto) 0.4 x10^3/uL (0.0-0.7) 0.3 x10^3/uL (0.0-0.7) Basophils # (Auto) 0.1 x10^3/uL (0.0-0.2) 0.1 x10^3/uL (0.0-0.2) Sodium Level 143 mmol/L (136-145) 144 mmol/L (136-145) Potassium Level 3.4 mmol/L (3.5-5.1) 3.3 mmol/L (3.5-5.1) Chloride Level 100 mmol/L (98-107) 102 mmol/L (98-107) Carbon Dioxide Level 27 mmol/L (21-32) 25 mmol/L (21-32) Anion Gap 16 (6-14) 17 (6-14) Blood Urea Nitrogen 62 mg/dL (8-26) 61 mg/dL (8-26) Creatinine 17.9 mg/dL (0.7-1.3) 17.1 mg/dL (0.7-1.3) Estimated GFR (Cockcroft-Gault) 3.2 3.4 BUN/Creatinine Ratio 3 (6-20) Glucose Level 144 mg/dL (70-99) 145 mg/dL (70-99) Calcium Level 9.0 mg/dL (8.5-10.1) 8.4 mg/dL (8.5-10.1) Total Bilirubin 0.4 mg/dL (0.2-1.0) Aspartate Amino Transf (AST/SGOT) 17 U/L (15-37) Alanine Aminotransferase (ALT/SGPT) 18 U/L (16-63) Alkaline Phosphatase 101 U/L (46-116) Troponin I Quantitative < 0.017 ng/mL (0.000-0.055) EM-Yim-T-Type Natriuretic Peptide 6162 pg/mL (0-124) Total Protein 7.5 g/dL (6.4-8.2) Albumin 3.3 g/dL (3.4-5.0) Albumin/Globulin Ratio 0.8 (1.0-1.7) Thyroid Stimulating Hormone (TSH) 3.892 uIU/mL (0.358-3.74) Glucose (Fingerstick) 130 mg/dL (70-99) 182 mg/dL (70-99) Triglycerides Level 223 mg/dL (0-150) Cholesterol Level 147 mg/dL (0-200) LDL Cholesterol, Calculated 66 mg/dL (0-100) VLDL Cholesterol, Calculated 45 mg/dL (0-40) Non-HDL Cholesterol Calculated 111 mg/dL (0-129) HDL Cholesterol 36 mg/dL (40-60) Cholesterol/HDL Ratio 4.1 Test 04/20/18 07:49 04/20/18 11:40 Glucose (Fingerstick) 132 mg/dL (70-99) 166 mg/dL (70-99) Medications Current Medications Aspirin (Ecotrin) 81 mg DAILY08 PO Last administered on 04/20/18 08:20; Start 04/20/18 at 08:00 Cinacalcet (Sensipar) 30 mg HS PO Last administered on 04/19/18at 21:45; Start 04/19/18 at 21:00 Vitamin B Complex/ Vitamin C (Rocio-Taylor) 1 tab DAILY PO Last administered on 08:20; Start 04/20/18 at 09:00 Sertraline HCl (Zoloft) 50 mg DAILY PO Last administered on 04/20/18 08:19; Start 04/20/18 at 09:00 Calcitriol (Rocaltrol) 0.25 mcg DAILY PO Last administered on 04/20/18 08:20; Start 04/20/18 at 09:00 Vitamin D (Vitamin D3) 5,000 unit DAILY PO Last administered on 04/20/18 08:20 ; Start 04/20/18 at 09:00 Non-Formulary Medication (Ferric Citrate ) 2 tab TIDWMEALS PO ; Start 04/19/18 at 17:00 Insulin Glargine (Lantus) 50 units QHS SQ ; Start 04/19/18 at 21:00; Stop at 21:00; Status DC Acetaminophen (Tylenol) 650 mg PRN Q6HRS PRN PO FEVER; Start 04/19/18 at 15:45 Ondansetron HCl (Zofran) 4 mg PRN Q6HRS PRN IV NAUSEA/VOMITING 1ST CHOICE; Start 04/19/18 at 15:45 Morphine Sulfate (Morphine Sulfate) 2 mg PRN Q2HR PRN IV MODERATE TO SEVERE PAIN; Start 04/19/18 at 15:45 Tramadol HCl (Ultram) 50 mg PRN Q6HRS PRN PO MILD TO MODERATE PAIN; Start 04/19 at 15:45 Docusate Sodium (Colace) 100 mg PRN DAILY PRN PO HARD STOOLS; Start 04/19/18 at 15:45 Clonidine HCl (Catapres) 0.1 mg PRN Q2HR PRN PO HYPERTENSION, SEE COMMENTS; Start 04/19/18 at 15:45; Stop 04/19/18 at 16:42; Status DC Insulin Human Lispro (HumaLOG) 0-9 UNITS TIDWMEALS SQ Last administered on 04/20at 12:26; Start 04/19/18 at 17:00 Dextrose (Dextrose 50%-Water Syringe) 12.5 gm PRN Q15MIN PRN IV SEE COMMENTS; Start 04/19/18 at 15:45 Heparin Sodium (Porcine) (Heparin Sq) 5,000 unit Q8HRS SQ Last administered on 04/20/18at 06:05; Start 04/19/18 at 22:00 Potassium Chloride (Klor-Con) 20 meq 1X ONCE PO Last administered on at 16:45; Start 04/19/18 at 16:45; Stop 04/19/18 at 16:48; Status DC Hydralazine HCl (Apresoline) 25 mg PRN Q6HRS PRN PO ELEVATED BP, SEE COMMENTS; Start 04/19/18 at 16:45 Insulin Glargine (Lantus) 40 units QHS SQ Last administered on 04/19/18at 21:48 ; Start 04/19/18 at 21:00 Active Scripts Active Reported Alprazolam 0.25 Mg Tablet 1 Tab PO DAILY Losartan Potassium 25 Mg Tablet 25 Mg PO DAILY Novolog (Insulin Aspart) 100 Unit/1 Ml Vial 40 Unit CONT INF HS Loperamide (Loperamide Hcl) 2 Mg Tablet 2 Mg PO PRN PRN Sensipar (Cinacalcet Hcl) 30 Mg Tablet 30 Mg PO HS Sertraline Hcl 50 Mg Tablet 50 Mg PO DAILY Miralax (Polyethylene Glycol 3350) 17 Gm Powd.pack 1 Pkt PO DAILY PRN Vitamin D3 (Cholecalciferol (Vitamin D3)) 5,000 Unit Tablet 1 Tab PO DAILY Calcitriol 0.25 Mcg Capsule 1 Cap PO DAILY Ferric Citrate 210 Mg Tablet 2 Tab PO TIDWMEALS K-Tab ER (Potassium Chloride) 20 Meq Tablet.er 20 Meq PO PRN 1X PRN Tresiba Flextouch U-200 (Insulin Degludec) 200 Unit/1 Ml Insuln.pen 50 Units SQ HS Aspir 81 (Aspirin) 81 Mg Tablet.dr 81 Mg PO DAILY Vitals/I & O Vital Sign - Last 24 Hours 04/19/18 04/19/18 04/19/18 04/19/18 13:47 14:00 14:30 15:00 Temp 97.0 97.0 Pulse 50 46 44 48 Resp 18 18 20 18 B/P (MAP) 174/63 (100) Pulse Ox 100 100 100 100 O2 Delivery Room Air 04/19/18 04/19/18 04/19/18 04/19/18 15:30 16:00 19:15 20:46 Temp 98.3 98.3 Pulse 48 48 50 Resp 16 16 22 B/P (MAP) 153/51 (85) Pulse Ox 100 100 93 O2 Delivery Room Air Room Air 04/19/18 04/20/18 04/20/18 04/20/18 23:43 03:10 07:00 07:40 Temp 98.9 98.1 98.2 98.9 98.1 98.2 Pulse 59 39 47 Resp 18 17 18 B/P (MAP) 131/53 (79) 147/53 (84) 135/59 (84) Pulse Ox 96 96 97 O2 Delivery Room Air Room Air Room Air Room Air 04/20/18 11:00 Temp 97.8 97.8 Pulse 84 Resp 18 B/P (MAP) 118/58 (78) Pulse Ox 99 O2 Delivery Room Air Intake and Output 04/19/18 04/19/18 04/20/18 15:00 23:00 07:00 Intake Total 350 ml Balance 350 ml ANISH LIZ MD Apr 20, 2018 13:21
--- NOTE | 2018-04-20 14:23 | PDOC2 ---
CONSULT Date of Consult Date of Consult DATE: 04/20/18 TIME: 14:11 Reason for Consult Reason for Consult: ESRD on PD Identification/Chief Complaint Chief Complaint Syncope/dizziness Source Source: Chart review, Patient History of Present Illness Reason for Visit: Pt is 72yo AAM, was sent from wound clinic for syncope. He reported he did not had syncope , said he was walking against the wall with help and just fell. In the last 6 months he has been having intermittent episodes of lightheadedness but no apparent injury. He has fallen 6 times since then. He is diabetic and compliant with his insulin. His losartan was taken off a month ago due to low BP. Pt was found aflutter in Dr Gerebr office was given amiodarone . He has been receiving hyperbaric therapy today for his left heel wound .He was dced 6weeks ago for left foot osteo with i and d with wound vac He has been on PD for 4years, Currently pt denies dizziness , chest pain, sob, N/V,He has chronic loose BM/ diarrhea. Doesn't have RRF Past Medical History Cardiovascular: AFIB (atrial flutter), HTN, Hyperlipidemia Pulmonary: No pertinent hx CENTRAL NERVOUS SYSTEM: Periperal neuropathy GI: Other (chronic diarrhea) Heme/Onc: Anemia NOS, Cancer (renal) Hepatobiliary: Cholelithiasis Psych: No pertinent hx Musculoskeletal: Osteoarthritis Rheumatologic: No pertinent hx Infectious disease: Other (osteomyelitis) ENT: Other (cataract) Renal/: Chronic renal failure Endocrine: Diabetes, Other (hypogonadism) Dermatology: Other (left ankle wound with wound vac) Past Surgical History Past Surgical History: Appendectomy, Cholecystectomy, Cataract Removal, Hernia Repair (left inguinal and right inguinal), Other (PD cath, right chest CL placement; left nephrectomy due to CA; vasectomy) Family History Family History: Diabetes, Hypertension Social History No ALCOHOL: none Drugs: None Lives: with Family Current Medications Current Medications Current Medications Aspirin (Ecotrin) 81 mg DAILY08 PO Last administered on 04/20/18at 08:20; Start 04/20/18 at 08:00 Cinacalcet (Sensipar) 30 mg HS PO Last administered on 04/19/18at 21:45; Start 04/19/18 at 21:00 Vitamin B Complex/ Vitamin C (Rocio-Taylor) 1 tab DAILY PO Last administered on at 08:20; Start 04/20/18 at 09:00 Sertraline HCl (Zoloft) 50 mg DAILY PO Last administered on 04/20/18at 08:19; Start 04/20/18 at 09:00 Calcitriol (Rocaltrol) 0.25 mcg DAILY PO Last administered on 04/20/18at 08:20; Start 04/20/18 at 09:00 Vitamin D (Vitamin D3) 5,000 unit DAILY PO Last administered on 04/20/18at 08:20 ; Start 04/20/18 at 09:00 Non-Formulary Medication (Ferric Citrate ) 2 tab TIDWMEALS PO ; Start 04/19/18 at 17:00 Insulin Glargine (Lantus) 50 units QHS SQ ; Start 04/19/18 at 21:00; Stop at 21:00; Status DC Acetaminophen (Tylenol) 650 mg PRN Q6HRS PRN PO FEVER; Start 04/19/18 at 15:45 Ondansetron HCl (Zofran) 4 mg PRN Q6HRS PRN IV NAUSEA/VOMITING 1ST CHOICE; Start 04/19/18 at 15:45 Morphine Sulfate (Morphine Sulfate) 2 mg PRN Q2HR PRN IV MODERATE TO SEVERE PAIN; Start 04/19/18 at 15:45 Tramadol HCl (Ultram) 50 mg PRN Q6HRS PRN PO MILD TO MODERATE PAIN; Start 04/19 at 15:45 Docusate Sodium (Colace) 100 mg PRN DAILY PRN PO HARD STOOLS; Start 04/19/18 at 15:45 Clonidine HCl (Catapres) 0.1 mg PRN Q2HR PRN PO HYPERTENSION, SEE COMMENTS; Start 04/19/18 at 15:45; Stop 04/19/18 at 16:42; Status DC Insulin Human Lispro (HumaLOG) 0-9 UNITS TIDWMEALS SQ Last administered on 04/20at 12:26; Start 04/19/18 at 17:00 Dextrose (Dextrose 50%-Water Syringe) 12.5 gm PRN Q15MIN PRN IV SEE COMMENTS; Start 04/19/18 at 15:45 Heparin Sodium (Porcine) (Heparin Sq) 5,000 unit Q8HRS SQ Last administered on 04/20/18at 06:05; Start 04/19/18 at 22:00 Potassium Chloride (Klor-Con) 20 meq 1X ONCE PO Last administered on at 16:45; Start 04/19/18 at 16:45; Stop 04/19/18 at 16:48; Status DC Hydralazine HCl (Apresoline) 25 mg PRN Q6HRS PRN PO ELEVATED BP, SEE COMMENTS; Start 04/19/18 at 16:45 Insulin Glargine (Lantus) 40 units QHS SQ Last administered on 04/19/18at 21:48 ; Start 04/19/18 at 21:00 Losartan Potassium (Cozaar) 25 mg DAILY PO ; Start 04/20/18 at 14:00 Active Scripts Active Reported Alprazolam 0.25 Mg Tablet 1 Tab PO DAILY Losartan Potassium 25 Mg Tablet 25 Mg PO DAILY Novolog (Insulin Aspart) 100 Unit/1 Ml Vial 40 Unit CONT INF HS Loperamide (Loperamide Hcl) 2 Mg Tablet 2 Mg PO PRN PRN Sensipar (Cinacalcet Hcl) 30 Mg Tablet 30 Mg PO HS Sertraline Hcl 50 Mg Tablet 50 Mg PO DAILY Miralax (Polyethylene Glycol 3350) 17 Gm Powd.pack 1 Pkt PO DAILY PRN Vitamin D3 (Cholecalciferol (Vitamin D3)) 5,000 Unit Tablet 1 Tab PO DAILY Calcitriol 0.25 Mcg Capsule 1 Cap PO DAILY Ferric Citrate 210 Mg Tablet 2 Tab PO TIDWMEALS K-Tab ER (Potassium Chloride) 20 Meq Tablet.er 20 Meq PO PRN 1X PRN Tresiba Flextouch U-200 (Insulin Degludec) 200 Unit/1 Ml Insuln.pen 50 Units SQ HS Aspir 81 (Aspirin) 81 Mg Tablet.dr 81 Mg PO DAILY Allergies Allergies: Coded Allergies: No Known Drug Allergies (Unverified , 02/27/18) ROS Review of System As per HPI Physical Exam Physical Exam General: No acute distress HEENT: , Mucous membr. moist/pink Heart: atrial flutter; 2/6 sytolic murmur Abd- Soft, PD catheter in place Skin left ankle wound with wound vac Gu No atkinson Ext- No Edema Neuro: Normal speech, Sensation intact Psych/Mental Status: Mental status NL, Mood NL Vital Signs Vital Signs Date Time Temp Pulse Resp B/P (MAP) Pulse Ox O2 Delivery O2 Flow Rate FiO2 04/20/18 11:00 97.8 84 18 118/58 (78) 99 Room Air 97.8 Assessment & Plan ESRD- On PD x 4 Years Continue as ordered , to [facility] (LBF at home, no LBF today and tomorrow) UF 1.2 Lts with 2 x 2.5 % Hypokalemia- mild, replace as needed Atrial flutter - Symptomatic Cardiology following HTN- back on Losartan as per the Med list Diabetes- as per primary Discussed Plan of care with patient Labs Labs Laboratory Tests Test 04/19/18 13:57 04/19/18 17:46 04/19/18 20:40 04/20/18 06:00 White Blood Count 6.7 x10^3/uL (4.0-11.0) 5.2 x10^3/uL (4.0-11.0) Red Blood Count 3.73 x10^6/uL (4.30-5.70) 3.31 x10^6/uL (4.30-5.70) Hemoglobin 12.1 g/dL (13.0-17.5) 10.7 g/dL (13.0-17.5) Hematocrit 35.5 % (39.0-53.0) 31.4 % (39.0-53.0) Mean Corpuscular Volume 95 fL (79-100) 95 fL (79-100) Mean Corpuscular Hemoglobin 32 pg (25-35) 33 pg (25-35) Mean Corpuscular Hemoglobin Concent 34 g/dL (31-37) 34 g/dL (31-37) Red Cell Distribution Width 16.2 % (11.5-14.5) 16.4 % (11.5-14.5) Platelet Count 152 x10^3/uL (140-400) 130 x10^3/uL (140-400) Neutrophils (%) (Auto) 68 % (31-73) 60 % (31-73) Lymphocytes (%) (Auto) 16 % (24-48) 20 % (24-48) Monocytes (%) (Auto) 10 % (0-9) 13 % (0-9) Eosinophils (%) (Auto) 6 % (0-3) 6 % (0-3) Basophils (%) (Auto) 1 % (0-3) 1 % (0-3) Neutrophils # (Auto) 4.5 x10^3uL (1.8-7.7) 3.1 x10^3uL (1.8-7.7) Lymphocytes # (Auto) 1.0 x10^3/uL (1.0-4.8) 1.0 x10^3/uL (1.0-4.8) Monocytes # (Auto) 0.7 x10^3/uL (0.0-1.1) 0.7 x10^3/uL (0.0-1.1) Eosinophils # (Auto) 0.4 x10^3/uL (0.0-0.7) 0.3 x10^3/uL (0.0-0.7) Basophils # (Auto) 0.1 x10^3/uL (0.0-0.2) 0.1 x10^3/uL (0.0-0.2) Sodium Level 143 mmol/L (136-145) 144 mmol/L (136-145) Potassium Level 3.4 mmol/L (3.5-5.1) 3.3 mmol/L (3.5-5.1) Chloride Level 100 mmol/L (98-107) 102 mmol/L (98-107) Carbon Dioxide Level 27 mmol/L (21-32) 25 mmol/L (21-32) Anion Gap 16 (6-14) 17 (6-14) Blood Urea Nitrogen 62 mg/dL (8-26) 61 mg/dL (8-26) Creatinine 17.9 mg/dL (0.7-1.3) 17.1 mg/dL (0.7-1.3) Estimated GFR (Cockcroft-Gault) 3.2 3.4 BUN/Creatinine Ratio 3 (6-20) Glucose Level 144 mg/dL (70-99) 145 mg/dL (70-99) Calcium Level 9.0 mg/dL (8.5-10.1) 8.4 mg/dL (8.5-10.1) Total Bilirubin 0.4 mg/dL (0.2-1.0) Aspartate Amino Transf (AST/SGOT) 17 U/L (15-37) Alanine Aminotransferase (ALT/SGPT) 18 U/L (16-63) Alkaline Phosphatase 101 U/L (46-116) Troponin I Quantitative < 0.017 ng/mL (0.000-0.055) KC-Cmz-S-Type Natriuretic Peptide 6162 pg/mL (0-124) Total Protein 7.5 g/dL (6.4-8.2) Albumin 3.3 g/dL (3.4-5.0) Albumin/Globulin Ratio 0.8 (1.0-1.7) Thyroid Stimulating Hormone (TSH) 3.892 uIU/mL (0.358-3.74) Glucose (Fingerstick) 130 mg/dL (70-99) 182 mg/dL (70-99) Triglycerides Level 223 mg/dL (0-150) Cholesterol Level 147 mg/dL (0-200) LDL Cholesterol, Calculated 66 mg/dL (0-100) VLDL Cholesterol, Calculated 45 mg/dL (0-40) Non-HDL Cholesterol Calculated 111 mg/dL (0-129) HDL Cholesterol 36 mg/dL (40-60) Cholesterol/HDL Ratio 4.1 Test 04/20/18 07:49 04/20/18 11:40 Glucose (Fingerstick) 132 mg/dL (70-99) 166 mg/dL (70-99) Laboratory Tests Test 04/19/18 17:46 04/19/18 20:40 04/20/18 06:00 04/20/18 07:49 Glucose (Fingerstick) 130 mg/dL (70-99) 182 mg/dL (70-99) 132 mg/dL (70-99) White Blood Count 5.2 x10^3/uL (4.0-11.0) Red Blood Count 3.31 x10^6/uL (4.30-5.70) Hemoglobin 10.7 g/dL (13.0-17.5) Hematocrit 31.4 % (39.0-53.0) Mean Corpuscular Volume 95 fL (79-100) Mean Corpuscular Hemoglobin 33 pg (25-35) Mean Corpuscular Hemoglobin Concent 34 g/dL (31-37) Red Cell Distribution Width 16.4 % (11.5-14.5) Platelet Count 130 x10^3/uL (140-400) Neutrophils (%) (Auto) 60 % (31-73) Lymphocytes (%) (Auto) 20 % (24-48) Monocytes (%) (Auto) 13 % (0-9) Eosinophils (%) (Auto) 6 % (0-3) Basophils (%) (Auto) 1 % (0-3) Neutrophils # (Auto) 3.1 x10^3uL (1.8-7.7) Lymphocytes # (Auto) 1.0 x10^3/uL (1.0-4.8) Monocytes # (Auto) 0.7 x10^3/uL (0.0-1.1) Eosinophils # (Auto) 0.3 x10^3/uL (0.0-0.7) Basophils # (Auto) 0.1 x10^3/uL (0.0-0.2) Sodium Level 144 mmol/L (136-145) Potassium Level 3.3 mmol/L (3.5-5.1) Chloride Level 102 mmol/L (98-107) Carbon Dioxide Level 25 mmol/L (21-32) Anion Gap 17 (6-14) Blood Urea Nitrogen 61 mg/dL (8-26) Creatinine 17.1 mg/dL (0.7-1.3) Estimated GFR (Cockcroft-Gault) 3.4 Glucose Level 145 mg/dL (70-99) Calcium Level 8.4 mg/dL (8.5-10.1) Triglycerides Level 223 mg/dL (0-150) Cholesterol Level 147 mg/dL (0-200) LDL Cholesterol, Calculated 66 mg/dL (0-100) VLDL Cholesterol, Calculated 45 mg/dL (0-40) Non-HDL Cholesterol Calculated 111 mg/dL (0-129) HDL Cholesterol 36 mg/dL (40-60) Cholesterol/HDL Ratio 4.1 Test 04/20/18 11:40 Glucose (Fingerstick) 166 mg/dL (70-99) Review All relevant outside records, renal labs, imaging studies, telemetry/EKG's were reviewed. SHERLEY ALBERTS MD Apr 20, 2018 14:23
--- NOTE | 2018-04-20 14:37 | PDOC ---
Infectious Disease Note Vital Sign Vital Signs Vital Signs Date Time Temp Pulse Resp B/P (MAP) Pulse Ox O2 Delivery O2 Flow Rate FiO2 04/20/18 11:00 97.8 84 18 118/58 (78) 99 Room Air 97.8 Labs Lab Laboratory Tests Test 04/19/18 17:46 04/19/18 20:40 04/20/18 06:00 04/20/18 07:49 Glucose (Fingerstick) 130 mg/dL (70-99) 182 mg/dL (70-99) 132 mg/dL (70-99) White Blood Count 5.2 x10^3/uL (4.0-11.0) Red Blood Count 3.31 x10^6/uL (4.30-5.70) Hemoglobin 10.7 g/dL (13.0-17.5) Hematocrit 31.4 % (39.0-53.0) Mean Corpuscular Volume 95 fL (79-100) Mean Corpuscular Hemoglobin 33 pg (25-35) Mean Corpuscular Hemoglobin Concent 34 g/dL (31-37) Red Cell Distribution Width 16.4 % (11.5-14.5) Platelet Count 130 x10^3/uL (140-400) Neutrophils (%) (Auto) 60 % (31-73) Lymphocytes (%) (Auto) 20 % (24-48) Monocytes (%) (Auto) 13 % (0-9) Eosinophils (%) (Auto) 6 % (0-3) Basophils (%) (Auto) 1 % (0-3) Neutrophils # (Auto) 3.1 x10^3uL (1.8-7.7) Lymphocytes # (Auto) 1.0 x10^3/uL (1.0-4.8) Monocytes # (Auto) 0.7 x10^3/uL (0.0-1.1) Eosinophils # (Auto) 0.3 x10^3/uL (0.0-0.7) Basophils # (Auto) 0.1 x10^3/uL (0.0-0.2) Sodium Level 144 mmol/L (136-145) Potassium Level 3.3 mmol/L (3.5-5.1) Chloride Level 102 mmol/L (98-107) Carbon Dioxide Level 25 mmol/L (21-32) Anion Gap 17 (6-14) Blood Urea Nitrogen 61 mg/dL (8-26) Creatinine 17.1 mg/dL (0.7-1.3) Estimated GFR (Cockcroft-Gault) 3.4 Glucose Level 145 mg/dL (70-99) Calcium Level 8.4 mg/dL (8.5-10.1) Triglycerides Level 223 mg/dL (0-150) Cholesterol Level 147 mg/dL (0-200) LDL Cholesterol, Calculated 66 mg/dL (0-100) VLDL Cholesterol, Calculated 45 mg/dL (0-40) Non-HDL Cholesterol Calculated 111 mg/dL (0-129) HDL Cholesterol 36 mg/dL (40-60) Cholesterol/HDL Ratio 4.1 Test 04/20/18 11:40 Glucose (Fingerstick) 166 mg/dL (70-99) Objective Assessment Left ankle wound w/ h/o PSA osteo. -Completed about 7 weeks of Merrem on 04/17. -Followed by [facility] Recurrent syncope probably from sick sinus syndrome per cardiology A-flutter recent amiodarone CKD/peritoneal dialysis Thrombocytopenia Diabetes Plan Plan of Care BRIA MATA APRN Apr 20, 2018 14:37
[2018-04-20] MEDS: LOSARTAN POTASSIUM 25 MG TABLET. PO SCH (14:52)
[2018-04-20 15:52] VITALS: BP 139/47
[2018-04-20] MEDS ORDERED: PHENYLEPH/MINERAL OIL/PETROLAT RECTAL OINTMENT 28GM TUBE. RC PRN (16:00)
[2018-04-20 19:19] VITALS: BP 131/49
[2018-04-20] MEDS: CINACALCET HCL 30 MG TABLET PO SCH (21:38)
[2018-04-20] MEDS: INSULIN GLARGINE 300 UNITS/3 ML INSULN.PEN. SQ SCH (21:41)
[2018-04-20 22:34] VITALS: BP 133/54
--- NOTE | 2018-04-21 00:29 | CONS ---
DATE OF CONSULTATION: 04/20/2018 REFERRING PHYSICIAN: Dr. Kilgore. REASON FOR CONSULTATION: Leg wound and needing pacemaker. HISTORY OF PRESENT ILLNESS: The patient is a 72-year-old -[place] male with history of osteomyelitis of the left lateral malleolus with growth of Pseudomonas (resistant to piperacillin, cefepime, imipenem, and intermediate to ceftazidime). He had undergone and I and D on 02/27 and completed 7 weeks of meropenem on 04/17/2018. He is followed by [facility] and is currently undergoing hyperbaric therapy. He has since been admitted for recurrent syncope, probably from sick sinus syndrome and he is needing a pacemaker. ID has been asked to consult for clearance. The patient says he is feeling alright. He denies fevers, chills, sweats or body aches. He denies headaches, dizziness or sinus issues. Denies sore throat or difficulty swallowing. Denies cough, shortness of air or chest discomfort. He has been having some ongoing loose stools. Denies nausea, vomiting or abdominal cramps. He is on peritoneal dialysis and reports no issues with his PD catheter. His tunneled central venous catheter that was placed in February is still in place. PAST MEDICAL HISTORY: Peripheral neuropathy, heart murmur, hypertension, sleep apnea, gastroesophageal reflux, chronic kidney disease, on peritoneal dialysis, arthritis, type 2 diabetes, carpal tunnel syndrome, anemia, a-flutter PAST SURGICAL HISTORY: Irrigation and debridement for osteomyelitis of left lateral malleolus on 02/27/2018. Cataract extraction, laparoscopic peritoneal dialysis catheter placement in 05/2015, appendectomy, cholecystectomy, vasectomy, left nephrectomy. SOCIAL HISTORY: The patient lives at home. Nonsmoker. FAMILY HISTORY: Noncontributory. ALLERGIES: No known drug allergies. MEDICATIONS: Off the antibiotics. Recently completed a 2-week course of meropenem on 04/17. REVIEW OF SYSTEMS: Per HPI, otherwise all other review of systems are negative. PHYSICAL EXAMINATION: GENERAL: The patient slightly propped up in bed, alert, appears comfortable. VITAL SIGNS: Temperature is 98.2, blood pressure 135/59, heart rate 47, respiratory rate 18, pulse oximetry is 97% on room air. HEENT: Pupils equally round, normal conjunctivae. Oral cavity: Pharynx pink and moist. NECK: Supple. LUNGS: Clear to auscultation. HEART: S1 and S2 irregular, bradycardic, 40s. ABDOMEN: Obese, bowel sounds active, soft, nontender. PD catheter intact. EXTREMITIES: No gross edema or cyanosis. SKIN: Warm without rash. Left lateral appears clean without signs of infection. NEUROLOGIC: Alert and oriented times 3. LINES: Right-sided chest tunneled central line without signs of any complications. LABORATORY DATA: WBC 5.2, hemoglobin 10.7, platelet count 130,000. Sodium 144, potassium 3.3, creatinine 17.1, BUN 61, glucose 145. TSH 3.892. BNP 6162. Troponin less than 0.017, total bilirubin 0.4, AST 17, ALT 18. IMAGING DATA: Chest x-ray shows no infiltrates, pneumothorax or definite effusion. Discoid atelectasis at the right lung base is present, but less than prior exam. ASSESSMENT: 1. Left ankle wound with history of osteomyelitis with growth of Pseudomonas. 2. Recurrent syncope. 3. Atrial flutter. 4. Chronic kidney disease, on peritoneal dialysis. 5. Thrombocytopenia. 6. Diabetes. PLAN: The patient completed 7-week course of meropenem and on 04/17. Continue to observe off antibiotics. From an ID standpoint, may proceed with pacemaker placement. We would recommend a preoperative dose of meropenem. Follow up with [facility] as directed. Thank you, Dr. Kilgore, for allowing us to participate in this patient's care. Should you have further questions or concerns, please call. The patient seen and examined and plan of care implemented by Dr. Julio Ortiz. JULIO ORTIZ MD DR: JULIO/katty JOB#: [id number] / [id number]
[2018-04-21 03:42] VITALS: BP 133/56
[2018-04-21] MEDS: HEPARIN PF for SUB-Q USE 5,000 UNIT/0.5 ML VIAL. SQ SCH ×3 (06:01→21:41)
[2018-04-21 06:09] LABS: BASO # 0.1 x10^3/uL (0.0-0.2); BASO % 1 % (0-3); EOS # 0.3 x10^3/uL (0.0-0.7); EOS % 6 % (0-3); HEMATOCRIT 32.9 % (39.0-53.0); LYMPH # 1.1 x10^3/uL (1.0-4.8); LYMPH % 20 % (24-48); MEAN CORPUSCULAR HEMOGLOBIN 32 pg (25-35); MEAN CORPUSCULAR HGB CONC 34 g/dL (31-37); MEAN CORPUSCULAR VOLUME 95 fL (79-100); MONO # 0.6 x10^3/uL (0.0-1.1); MONO % 12 % (0-9); NEUT # 3.2 x10^3uL (1.8-7.7); NEUT % 61 % (31-73); PLATELET COUNT 130 x10^3/uL (140-400); RED BLOOD COUNT 3.47 x10^6/uL (4.30-5.70); RED CELL DISTRIBUTION WIDTH 16.3 % (11.5-14.5); WHITE BLOOD COUNT 5.2 x10^3/uL (4.0-11.0)
[2018-04-21 06:17] LABS: CALCIUM 8.7 mg/dL (8.5-10.1); CREATININE 18.2 mg/dL (0.7-1.3); GFR 3.1; POTASSIUM 3.2 mmol/L (3.5-5.1)
[2018-04-21 07:36] VITALS: BP 122/58
[2018-04-21] MEDS: INSULIN LISPRO 300 UNITS/3 ML INSULN.PEN. SQ SCH ×3 (08:00→17:00)
[2018-04-21] MEDS: SERTRALINE 50 MG TABLET. PO SCH (08:20)
[2018-04-21] MEDS: FERRIC CITRATE 210 MG PO SCH ×3 (08:20→17:12)
[2018-04-21] MEDS: CHOLECALCIFEROL (VITAMIN D3) 5,000 UNIT CAPSULE PO SCH (08:21)
[2018-04-21] MEDS: CALCITRIOL 0.25 MCG CAPSULE. PO SCH ×2 (08:21→21:39)
[2018-04-21] MEDS: FOLIC/VIT B COMP W-C (RENAL) TABLET. PO SCH (08:21)
[2018-04-21] MEDS: ASPIRIN ENTERIC COATED 81 MG TABLET.DR. PO SCH (08:21)
[2018-04-21] MEDS: LOSARTAN POTASSIUM 25 MG TABLET. PO SCH (08:21)
[2018-04-21] MEDS ORDERED: POTASSIUM CHLORIDE 20 MEQ TABLET.ER. PO ONE (09:45)
[2018-04-21 11:12] VITALS: BP 155/52
--- NOTE | 2018-04-21 12:04 | PDOC ---
PROGRESS NOTES Subjective Subjective Patient denied any dizziness or palpitations Objective Objective Vital Signs Date Time Temp Pulse Resp B/P (MAP) Pulse Ox O2 Delivery O2 Flow Rate FiO2 04/21/18 11:12 98.0 41 18 155/52 (86) 97 Room Air 98.0 Intake and Output 04/21/18 07:00 Intake Total 1620 ml Balance 1620 ml Intake Oral 1620 ml # Voids 2 # Bowel Movements 1 Physical Exam Abdomen: Normal bowel sounds, Soft Heart: Normal S1, Normal S2, Other (irregular) Extremities: No clubbing, No cyanosis General: Alert, Oriented X3, Cooperative, No acute distress HEENT: Atraumatic, Mucous membr. moist/pink Neuro: Normal speech, Sensation intact Psych/Mental Status: Mental status NL, Mood NL Skin: No rashes, Other (left ankle wound with wound vac) Assessment Assessment 1. Persistent atrial flutter: Heart rate controlled. Patient poor candidate for long-term anticoagulation secondary to fall risk. Recent 2-D echo showed normal LV systolic function. 2. Sick sinus syndrome and recurrent syncope. Plan for permanent pacemaker implantation tomorrow 3. ESRD: PD per nephrology team 4. DM2 with DPN: per IM 5. Chronic left ankle wound: sees wound care clinic 6. Left ankle Osteomyelitis: just completed 6 week of IV antibiotic therapy. Okay to proceed with PPM per ID team Comment Review of Relevant I have reviewed the following items roger (where applicable) has been applied. Labs Laboratory Tests Test 04/20/18 16:56 04/20/18 20:50 04/21/18 06:00 04/21/18 07:42 Glucose (Fingerstick) 154 mg/dL (70-99) 140 mg/dL (70-99) 134 mg/dL (70-99) White Blood Count 5.2 x10^3/uL (4.0-11.0) Red Blood Count 3.47 x10^6/uL (4.30-5.70) Hemoglobin 11.0 g/dL (13.0-17.5) Hematocrit 32.9 % (39.0-53.0) Mean Corpuscular Volume 95 fL (79-100) Mean Corpuscular Hemoglobin 32 pg (25-35) Mean Corpuscular Hemoglobin Concent 34 g/dL (31-37) Red Cell Distribution Width 16.3 % (11.5-14.5) Platelet Count 130 x10^3/uL (140-400) Neutrophils (%) (Auto) 61 % (31-73) Lymphocytes (%) (Auto) 20 % (24-48) Monocytes (%) (Auto) 12 % (0-9) Eosinophils (%) (Auto) 6 % (0-3) Basophils (%) (Auto) 1 % (0-3) Neutrophils # (Auto) 3.2 x10^3uL (1.8-7.7) Lymphocytes # (Auto) 1.1 x10^3/uL (1.0-4.8) Monocytes # (Auto) 0.6 x10^3/uL (0.0-1.1) Eosinophils # (Auto) 0.3 x10^3/uL (0.0-0.7) Basophils # (Auto) 0.1 x10^3/uL (0.0-0.2) Sodium Level 143 mmol/L (136-145) Potassium Level 3.2 mmol/L (3.5-5.1) Chloride Level 100 mmol/L (98-107) Carbon Dioxide Level 27 mmol/L (21-32) Anion Gap 16 (6-14) Blood Urea Nitrogen 67 mg/dL (8-26) Creatinine 18.2 mg/dL (0.7-1.3) Estimated GFR (Cockcroft-Gault) 3.1 Glucose Level 165 mg/dL (70-99) Calcium Level 8.7 mg/dL (8.5-10.1) Test 04/21/18 11:16 Glucose (Fingerstick) 167 mg/dL (70-99) Medications Current Medications Losartan Potassium (Cozaar) 25 mg DAILY PO Last administered on 04/21/18at 08:21 ; Start 04/20/18 at 14:00 Phenyleph/Shark Oil/Min Oil/Petrol (Preparation H) 1 zoila PRN Q2HR PRN RC RECTAL PAIN; Start 04/20/18 at 16:00 Potassium Chloride (Klor-Con) 40 meq 1X ONCE PO ; Start 04/21/18 at 09:45; Stop 04/21/18 at 09:46; Status DC Vitals/I & O Vital Sign - Last 24 Hours 04/20/18 04/20/18 04/20/18 04/20/18 14:52 15:52 19:19 19:22 Temp 97.7 98.1 97.7 98.1 Pulse 84 40 45 Resp 18 16 B/P (MAP) 118/58 139/47 (77) 131/49 (76) Pulse Ox 97 97 O2 Delivery Room Air Room Air Room Air 04/20/18 04/21/18 04/21/18 04/21/18 22:34 03:42 07:36 08:00 Temp 98.1 98.5 98.3 98.1 98.5 98.3 Pulse 48 49 47 Resp 16 16 18 B/P (MAP) 133/54 (80) 133/56 (81) 122/58 (79) Pulse Ox 97 99 98 O2 Delivery Room Air Room Air Room Air Room Air 04/21/18 04/21/18 08:21 11:12 Temp 98.0 98.0 Pulse 47 41 Resp 18 B/P (MAP) 122/58 155/52 (86) Pulse Ox 97 O2 Delivery Room Air Intake and Output 04/20/18 04/20/18 04/21/18 15:00 23:00 07:00 Intake Total 220 ml 700 ml 700 ml Balance 220 ml 700 ml 700 ml CARMELA BUNDY MD Apr 21, 2018 12:04
--- NOTE | 2018-04-21 13:12 | PDOC ---
PROGRESS NOTES Chief Complaint Chief Complaint syncope , likely 2/2 symptomatic bradycardia aflutter/afib with bradycardia, was on amiodarone x1 today at home ESRD on PD hypokalemia moribid obesity dm2 on insulin htn urgency recent left leg osteo s/p i and d abx done, wound vac on plan; card, renal, wound care consult finished abx, wound vac care cont home meds, pt not on humalog as per pt , ssi, lantus decreased to 40u qhs hold amiodarone or bb, clonidine for HTN prn, cont home med losartan ptot dvt ppx labs tmr PD daily PPm tmr Vitals Vitals Vital Signs Date Time Temp Pulse Resp B/P (MAP) Pulse Ox O2 Delivery O2 Flow Rate FiO2 04/21/18 11:12 98.0 41 18 155/52 (86) 97 Room Air 98.0 Physical Exam General: Alert, Oriented X3, Cooperative, No acute distress Heart: Normal S1, Normal S2, Other (irregular) Lungs: Clear Abdomen: Normal bowel sounds, Soft Extremities: No clubbing, No cyanosis Skin: No rashes, Other (left ankle wound with wound vac) Labs LABS Laboratory Tests Test 04/20/18 16:56 04/20/18 20:50 04/21/18 06:00 04/21/18 07:42 Glucose (Fingerstick) 154 mg/dL (70-99) 140 mg/dL (70-99) 134 mg/dL (70-99) White Blood Count 5.2 x10^3/uL (4.0-11.0) Red Blood Count 3.47 x10^6/uL (4.30-5.70) Hemoglobin 11.0 g/dL (13.0-17.5) Hematocrit 32.9 % (39.0-53.0) Mean Corpuscular Volume 95 fL (79-100) Mean Corpuscular Hemoglobin 32 pg (25-35) Mean Corpuscular Hemoglobin Concent 34 g/dL (31-37) Red Cell Distribution Width 16.3 % (11.5-14.5) Platelet Count 130 x10^3/uL (140-400) Neutrophils (%) (Auto) 61 % (31-73) Lymphocytes (%) (Auto) 20 % (24-48) Monocytes (%) (Auto) 12 % (0-9) Eosinophils (%) (Auto) 6 % (0-3) Basophils (%) (Auto) 1 % (0-3) Neutrophils # (Auto) 3.2 x10^3uL (1.8-7.7) Lymphocytes # (Auto) 1.1 x10^3/uL (1.0-4.8) Monocytes # (Auto) 0.6 x10^3/uL (0.0-1.1) Eosinophils # (Auto) 0.3 x10^3/uL (0.0-0.7) Basophils # (Auto) 0.1 x10^3/uL (0.0-0.2) Sodium Level 143 mmol/L (136-145) Potassium Level 3.2 mmol/L (3.5-5.1) Chloride Level 100 mmol/L (98-107) Carbon Dioxide Level 27 mmol/L (21-32) Anion Gap 16 (6-14) Blood Urea Nitrogen 67 mg/dL (8-26) Creatinine 18.2 mg/dL (0.7-1.3) Estimated GFR (Cockcroft-Gault) 3.1 Glucose Level 165 mg/dL (70-99) Calcium Level 8.7 mg/dL (8.5-10.1) Test 04/21/18 11:16 Glucose (Fingerstick) 167 mg/dL (70-99) Comment Review of Relevant I have reviewed the following items roger (where applicable) has been applied. Labs Laboratory Tests Test 04/19/18 13:57 04/19/18 17:46 04/19/18 20:40 04/20/18 06:00 White Blood Count 6.7 x10^3/uL (4.0-11.0) 5.2 x10^3/uL (4.0-11.0) Red Blood Count 3.73 x10^6/uL (4.30-5.70) 3.31 x10^6/uL (4.30-5.70) Hemoglobin 12.1 g/dL (13.0-17.5) 10.7 g/dL (13.0-17.5) Hematocrit 35.5 % (39.0-53.0) 31.4 % (39.0-53.0) Mean Corpuscular Volume 95 fL (79-100) 95 fL (79-100) Mean Corpuscular Hemoglobin 32 pg (25-35) 33 pg (25-35) Mean Corpuscular Hemoglobin Concent 34 g/dL (31-37) 34 g/dL (31-37) Red Cell Distribution Width 16.2 % (11.5-14.5) 16.4 % (11.5-14.5) Platelet Count 152 x10^3/uL (140-400) 130 x10^3/uL (140-400) Neutrophils (%) (Auto) 68 % (31-73) 60 % (31-73) Lymphocytes (%) (Auto) 16 % (24-48) 20 % (24-48) Monocytes (%) (Auto) 10 % (0-9) 13 % (0-9) Eosinophils (%) (Auto) 6 % (0-3) 6 % (0-3) Basophils (%) (Auto) 1 % (0-3) 1 % (0-3) Neutrophils # (Auto) 4.5 x10^3uL (1.8-7.7) 3.1 x10^3uL (1.8-7.7) Lymphocytes # (Auto) 1.0 x10^3/uL (1.0-4.8) 1.0 x10^3/uL (1.0-4.8) Monocytes # (Auto) 0.7 x10^3/uL (0.0-1.1) 0.7 x10^3/uL (0.0-1.1) Eosinophils # (Auto) 0.4 x10^3/uL (0.0-0.7) 0.3 x10^3/uL (0.0-0.7) Basophils # (Auto) 0.1 x10^3/uL (0.0-0.2) 0.1 x10^3/uL (0.0-0.2) Sodium Level 143 mmol/L (136-145) 144 mmol/L (136-145) Potassium Level 3.4 mmol/L (3.5-5.1) 3.3 mmol/L (3.5-5.1) Chloride Level 100 mmol/L (98-107) 102 mmol/L (98-107) Carbon Dioxide Level 27 mmol/L (21-32) 25 mmol/L (21-32) Anion Gap 16 (6-14) 17 (6-14) Blood Urea Nitrogen 62 mg/dL (8-26) 61 mg/dL (8-26) Creatinine 17.9 mg/dL (0.7-1.3) 17.1 mg/dL (0.7-1.3) Estimated GFR (Cockcroft-Gault) 3.2 3.4 BUN/Creatinine Ratio 3 (6-20) Glucose Level 144 mg/dL (70-99) 145 mg/dL (70-99) Calcium Level 9.0 mg/dL (8.5-10.1) 8.4 mg/dL (8.5-10.1) Total Bilirubin 0.4 mg/dL (0.2-1.0) Aspartate Amino Transf (AST/SGOT) 17 U/L (15-37) Alanine Aminotransferase (ALT/SGPT) 18 U/L (16-63) Alkaline Phosphatase 101 U/L (46-116) Troponin I Quantitative < 0.017 ng/mL (0.000-0.055) VW-Mwi-C-Type Natriuretic Peptide 6162 pg/mL (0-124) Total Protein 7.5 g/dL (6.4-8.2) Albumin 3.3 g/dL (3.4-5.0) Albumin/Globulin Ratio 0.8 (1.0-1.7) Thyroid Stimulating Hormone (TSH) 3.892 uIU/mL (0.358-3.74) Glucose (Fingerstick) 130 mg/dL (70-99) 182 mg/dL (70-99) Triglycerides Level 223 mg/dL (0-150) Cholesterol Level 147 mg/dL (0-200) LDL Cholesterol, Calculated 66 mg/dL (0-100) VLDL Cholesterol, Calculated 45 mg/dL (0-40) Non-HDL Cholesterol Calculated 111 mg/dL (0-129) HDL Cholesterol 36 mg/dL (40-60) Cholesterol/HDL Ratio 4.1 Test 04/20/18 07:49 04/20/18 11:40 04/20/18 16:56 04/20/18 20:50 Glucose (Fingerstick) 132 mg/dL (70-99) 166 mg/dL (70-99) 154 mg/dL (70-99) 140 mg/dL (70-99) Test 04/21/18 06:00 04/21/18 07:42 04/21/18 11:16 White Blood Count 5.2 x10^3/uL (4.0-11.0) Red Blood Count 3.47 x10^6/uL (4.30-5.70) Hemoglobin 11.0 g/dL (13.0-17.5) Hematocrit 32.9 % (39.0-53.0) Mean Corpuscular Volume 95 fL (79-100) Mean Corpuscular Hemoglobin 32 pg (25-35) Mean Corpuscular Hemoglobin Concent 34 g/dL (31-37) Red Cell Distribution Width 16.3 % (11.5-14.5) Platelet Count 130 x10^3/uL (140-400) Neutrophils (%) (Auto) 61 % (31-73) Lymphocytes (%) (Auto) 20 % (24-48) Monocytes (%) (Auto) 12 % (0-9) Eosinophils (%) (Auto) 6 % (0-3) Basophils (%) (Auto) 1 % (0-3) Neutrophils # (Auto) 3.2 x10^3uL (1.8-7.7) Lymphocytes # (Auto) 1.1 x10^3/uL (1.0-4.8) Monocytes # (Auto) 0.6 x10^3/uL (0.0-1.1) Eosinophils # (Auto) 0.3 x10^3/uL (0.0-0.7) Basophils # (Auto) 0.1 x10^3/uL (0.0-0.2) Sodium Level 143 mmol/L (136-145) Potassium Level 3.2 mmol/L (3.5-5.1) Chloride Level 100 mmol/L (98-107) Carbon Dioxide Level 27 mmol/L (21-32) Anion Gap 16 (6-14) Blood Urea Nitrogen 67 mg/dL (8-26) Creatinine 18.2 mg/dL (0.7-1.3) Estimated GFR (Cockcroft-Gault) 3.1 Glucose Level 165 mg/dL (70-99) Calcium Level 8.7 mg/dL (8.5-10.1) Glucose (Fingerstick) 134 mg/dL (70-99) 167 mg/dL (70-99) Laboratory Tests Test 04/20/18 16:56 04/20/18 20:50 04/21/18 06:00 04/21/18 07:42 Glucose (Fingerstick) 154 mg/dL (70-99) 140 mg/dL (70-99) 134 mg/dL (70-99) White Blood Count 5.2 x10^3/uL (4.0-11.0) Red Blood Count 3.47 x10^6/uL (4.30-5.70) Hemoglobin 11.0 g/dL (13.0-17.5) Hematocrit 32.9 % (39.0-53.0) Mean Corpuscular Volume 95 fL (79-100) Mean Corpuscular Hemoglobin 32 pg (25-35) Mean Corpuscular Hemoglobin Concent 34 g/dL (31-37) Red Cell Distribution Width 16.3 % (11.5-14.5) Platelet Count 130 x10^3/uL (140-400) Neutrophils (%) (Auto) 61 % (31-73) Lymphocytes (%) (Auto) 20 % (24-48) Monocytes (%) (Auto) 12 % (0-9) Eosinophils (%) (Auto) 6 % (0-3) Basophils (%) (Auto) 1 % (0-3) Neutrophils # (Auto) 3.2 x10^3uL (1.8-7.7) Lymphocytes # (Auto) 1.1 x10^3/uL (1.0-4.8) Monocytes # (Auto) 0.6 x10^3/uL (0.0-1.1) Eosinophils # (Auto) 0.3 x10^3/uL (0.0-0.7) Basophils # (Auto) 0.1 x10^3/uL (0.0-0.2) Sodium Level 143 mmol/L (136-145) Potassium Level 3.2 mmol/L (3.5-5.1) Chloride Level 100 mmol/L (98-107) Carbon Dioxide Level 27 mmol/L (21-32) Anion Gap 16 (6-14) Blood Urea Nitrogen 67 mg/dL (8-26) Creatinine 18.2 mg/dL (0.7-1.3) Estimated GFR (Cockcroft-Gault) 3.1 Glucose Level 165 mg/dL (70-99) Calcium Level 8.7 mg/dL (8.5-10.1) Test 04/21/18 11:16 Glucose (Fingerstick) 167 mg/dL (70-99) Medications Current Medications Aspirin (Ecotrin) 81 mg DAILY08 PO Last administered on 04/21/18 08:21; Start 04/20/18 at 08:00 Cinacalcet (Sensipar) 30 mg HS PO Last administered on 04/20/18at 21:38; Start 04/19/18 at 21:00 Vitamin B Complex/ Vitamin C (Rocio-Taylor) 1 tab DAILY PO Last administered on 08:21; Start 04/20/18 at 09:00 Sertraline HCl (Zoloft) 50 mg DAILY PO Last administered on 04/21/18 08:20; Start 04/20/18 at 09:00 Calcitriol (Rocaltrol) 0.25 mcg DAILY PO Last administered on 04/21/18 08:21; Start 04/20/18 at 09:00 Vitamin D (Vitamin D3) 5,000 unit DAILY PO Last administered on 04/21/18 08:21 ; Start 04/20/18 at 09:00 Non-Formulary Medication (Ferric Citrate ) 2 tab TIDWMEALS PO Last administered on 04/21/18at 12:24; Start 04/19/18 at 17:00 Insulin Glargine (Lantus) 50 units QHS SQ ; Start 04/19/18 at 21:00; Stop at 21:00; Status DC Acetaminophen (Tylenol) 650 mg PRN Q6HRS PRN PO FEVER; Start 04/19/18 at 15:45 Ondansetron HCl (Zofran) 4 mg PRN Q6HRS PRN IV NAUSEA/VOMITING 1ST CHOICE; Start 04/19/18 at 15:45 Morphine Sulfate (Morphine Sulfate) 2 mg PRN Q2HR PRN IV MODERATE TO SEVERE PAIN; Start 04/19/18 at 15:45 Tramadol HCl (Ultram) 50 mg PRN Q6HRS PRN PO MILD TO MODERATE PAIN; Start 04/19 at 15:45 Docusate Sodium (Colace) 100 mg PRN DAILY PRN PO HARD STOOLS; Start 04/19/18 at 15:45 Clonidine HCl (Catapres) 0.1 mg PRN Q2HR PRN PO HYPERTENSION, SEE COMMENTS; Start 04/19/18 at 15:45; Stop 04/19/18 at 16:42; Status DC Insulin Human Lispro (HumaLOG) 0-9 UNITS TIDWMEALS SQ Last administered on 04/21at 12:27; Start 04/19/18 at 17:00 Dextrose (Dextrose 50%-Water Syringe) 12.5 gm PRN Q15MIN PRN IV SEE COMMENTS; Start 04/19/18 at 15:45 Heparin Sodium (Porcine) (Heparin Sq) 5,000 unit Q8HRS SQ Last administered on 04/21/18at 06:01; Start 04/19/18 at 22:00 Potassium Chloride (Klor-Con) 20 meq 1X ONCE PO Last administered on at 16:45; Start 04/19/18 at 16:45; Stop 04/19/18 at 16:48; Status DC Hydralazine HCl (Apresoline) 25 mg PRN Q6HRS PRN PO ELEVATED BP, SEE COMMENTS; Start 04/19/18 at 16:45 Insulin Glargine (Lantus) 40 units QHS SQ Last administered on 04/20/18at 21:41 ; Start 04/19/18 at 21:00 Losartan Potassium (Cozaar) 25 mg DAILY PO Last administered on 04/21/18at 08:21 ; Start 04/20/18 at 14:00 Phenyleph/Shark Oil/Min Oil/Petrol (Preparation H) 1 zoila PRN Q2HR PRN RC RECTAL PAIN; Start 04/20/18 at 16:00 Potassium Chloride (Klor-Con) 40 meq 1X ONCE PO Last administered on at 12:24; Start 04/21/18 at 09:45; Stop 04/21/18 at 09:46; Status DC Active Scripts Active Reported Alprazolam 0.25 Mg Tablet 1 Tab PO DAILY Losartan Potassium 25 Mg Tablet 25 Mg PO DAILY Novolog (Insulin Aspart) 100 Unit/1 Ml Vial 40 Unit CONT INF HS Loperamide (Loperamide Hcl) 2 Mg Tablet 2 Mg PO PRN PRN Sensipar (Cinacalcet Hcl) 30 Mg Tablet 30 Mg PO HS Sertraline Hcl 50 Mg Tablet 50 Mg PO DAILY Miralax (Polyethylene Glycol 3350) 17 Gm Powd.pack 1 Pkt PO DAILY PRN Vitamin D3 (Cholecalciferol (Vitamin D3)) 5,000 Unit Tablet 1 Tab PO DAILY Calcitriol 0.25 Mcg Capsule 1 Cap PO DAILY Ferric Citrate 210 Mg Tablet 2 Tab PO TIDWMEALS K-Tab ER (Potassium Chloride) 20 Meq Tablet.er 20 Meq PO PRN 1X PRN Tresiba Flextouch U-200 (Insulin Degludec) 200 Unit/1 Ml Insuln.pen 50 Units SQ HS Aspir 81 (Aspirin) 81 Mg Tablet.dr 81 Mg PO DAILY Vitals/I & O Vital Sign - Last 24 Hours 04/20/18 04/20/18 04/20/18 04/20/18 14:52 15:52 19:19 19:22 Temp 97.7 98.1 97.7 98.1 Pulse 84 40 45 Resp 18 16 B/P (MAP) 118/58 139/47 (77) 131/49 (76) Pulse Ox 97 97 O2 Delivery Room Air Room Air Room Air 04/20/18 04/21/18 04/21/18 04/21/18 22:34 03:42 07:36 08:00 Temp 98.1 98.5 98.3 98.1 98.5 98.3 Pulse 48 49 47 Resp 16 16 18 B/P (MAP) 133/54 (80) 133/56 (81) 122/58 (79) Pulse Ox 97 99 98 O2 Delivery Room Air Room Air Room Air Room Air 04/21/18 04/21/18 08:21 11:12 Temp 98.0 98.0 Pulse 47 41 Resp 18 B/P (MAP) 122/58 155/52 (86) Pulse Ox 97 O2 Delivery Room Air Intake and Output 04/20/18 04/20/18 04/21/18 15:00 23:00 07:00 Intake Total 220 ml 700 ml 700 ml Balance 220 ml 700 ml 700 ml ANISH LIZ MD Apr 21, 2018 13:12
--- NOTE | 2018-04-21 14:33 | PDOC ---
SUBJECTIVE ROS Stable OBJECTIVE Vital Signs Vital Signs Date Time Temp Pulse Resp B/P (MAP) Pulse Ox O2 Delivery O2 Flow Rate FiO2 04/21/18 11:12 98.0 41 18 155/52 (86) 97 Room Air 98.0 I & 0 Intake and Output 04/21/18 07:00 Intake Total 1620 ml Balance 1620 ml Intake Oral 1620 ml # Voids 2 # Bowel Movements 1 PHYSICAL EXAM Physical Exam General: No acute distress HEENT: , Mucous membr. moist/pink Heart: atrial flutter; 2/6 sytolic murmur Abd- Soft, PD catheter in place Skin left ankle wound with wound vac Gu No atkinson Ext- No Edema Neuro: Normal speech, Sensation intact Psych/Mental Status: Mental status NL, Mood NL DIAGNOSIS/ASSESSMENT Assessment & Plan ESRD- On PD x 4 Years Continue as ordered , to [facility] (LBF at home, no LBF today and tomorrow) UF 1.4 Lts with 2 x 2.5 % Hypokalemia- mild, replace as needed Atrial flutter - Symptomatic Cardiology following HTN- back on Losartan as per the Med list Diabetes- as per primary Discussed Plan of care with patient COMMENT/RELEVANT DATA Meds Current Medications Medications (Trade) Dose Ordered Sig/Deacon Start Time Stop Time Status Last Admin Dose Admin Acetaminophen (Tylenol) 650 mg PRN Q6HRS PRN 04/19/18 15:45 Aspirin (Ecotrin) 81 mg DAILY08 04/20/18 08:00 04/21/18 08:21 81 MG Calcitriol (Rocaltrol) 0.25 mcg DAILY 04/20/18 09:00 04/21/18 08:21 0.25 MCG Cinacalcet (Sensipar) 30 mg HS 04/19/18 21:00 04/20/18 21:38 30 MG Clonidine HCl (Catapres) 0.1 mg PRN Q2HR PRN 04/19/18 15:45 04/19/18 16:42 DC Dextrose (Dextrose 50%-Water Syringe) 12.5 gm PRN Q15MIN PRN 04/19/18 15:45 Docusate Sodium (Colace) 100 mg PRN DAILY PRN 04/19/18 15:45 Heparin Sodium (Porcine) (Heparin Sq) 5,000 unit Q8HRS 04/19/18 22:00 04/21/18 06:01 5,000 UNIT Hydralazine HCl (Apresoline) 25 mg PRN Q6HRS PRN 04/19/18 16:45 Insulin Glargine (Lantus) 40 units QHS 04/19/18 21:00 04/20/18 21:41 40 UNITS Insulin Human Lispro (HumaLOG) 0-9 UNITS TIDWMEALS 04/19/18 17:00 04/21/18 12:27 4 UNITS Losartan Potassium (Cozaar) 25 mg DAILY 04/20/18 14:00 04/21/18 08:21 25 MG Morphine Sulfate (Morphine Sulfate) 2 mg PRN Q2HR PRN 04/19/18 15:45 Non-Formulary Medication (Ferric Citrate ) 2 tab TIDWMEALS 04/19/18 17:00 04/21/18 12:24 2 TAB Ondansetron HCl (Zofran) 4 mg PRN Q6HRS PRN 04/19/18 15:45 Phenyleph/Shark Oil/Min Oil/Petrol (Preparation H) 1 zoila PRN Q2HR PRN 04/20/18 16:00 Potassium Chloride (Klor-Con) 40 meq 1X ONCE 04/21/18 09:45 04/21/18 09:46 DC 04/21/18 12:24 40 MEQ Sertraline HCl (Zoloft) 50 mg DAILY 04/20/18 09:00 04/21/18 08:20 50 MG Tramadol HCl (Ultram) 50 mg PRN Q6HRS PRN 04/19/18 15:45 Vitamin B Complex/ Vitamin C (Rocio-Taylor) 1 tab DAILY 04/20/18 09:00 04/21/18 08:21 1 TAB Vitamin D (Vitamin D3) 5,000 unit DAILY 04/20/18 09:00 04/21/18 08:21 5,000 UNIT Lab Laboratory Tests Test 04/20/18 16:56 04/20/18 20:50 04/21/18 06:00 04/21/18 07:42 Glucose (Fingerstick) 154 mg/dL (70-99) 140 mg/dL (70-99) 134 mg/dL (70-99) White Blood Count 5.2 x10^3/uL (4.0-11.0) Red Blood Count 3.47 x10^6/uL (4.30-5.70) Hemoglobin 11.0 g/dL (13.0-17.5) Hematocrit 32.9 % (39.0-53.0) Mean Corpuscular Volume 95 fL (79-100) Mean Corpuscular Hemoglobin 32 pg (25-35) Mean Corpuscular Hemoglobin Concent 34 g/dL (31-37) Red Cell Distribution Width 16.3 % (11.5-14.5) Platelet Count 130 x10^3/uL (140-400) Neutrophils (%) (Auto) 61 % (31-73) Lymphocytes (%) (Auto) 20 % (24-48) Monocytes (%) (Auto) 12 % (0-9) Eosinophils (%) (Auto) 6 % (0-3) Basophils (%) (Auto) 1 % (0-3) Neutrophils # (Auto) 3.2 x10^3uL (1.8-7.7) Lymphocytes # (Auto) 1.1 x10^3/uL (1.0-4.8) Monocytes # (Auto) 0.6 x10^3/uL (0.0-1.1) Eosinophils # (Auto) 0.3 x10^3/uL (0.0-0.7) Basophils # (Auto) 0.1 x10^3/uL (0.0-0.2) Sodium Level 143 mmol/L (136-145) Potassium Level 3.2 mmol/L (3.5-5.1) Chloride Level 100 mmol/L (98-107) Carbon Dioxide Level 27 mmol/L (21-32) Anion Gap 16 (6-14) Blood Urea Nitrogen 67 mg/dL (8-26) Creatinine 18.2 mg/dL (0.7-1.3) Estimated GFR (Cockcroft-Gault) 3.1 Glucose Level 165 mg/dL (70-99) Calcium Level 8.7 mg/dL (8.5-10.1) Test 04/21/18 11:16 Glucose (Fingerstick) 167 mg/dL (70-99) Results All relevant outside records, renal labs, imaging studies, telemetry/EKG's were reviewed. SHERLEY ALBERTS MD Apr 21, 2018 14:33
[2018-04-21 14:53] VITALS: BP 113/32
[2018-04-21 19:30] VITALS: BP 123/56
[2018-04-21] MEDS: INSULIN GLARGINE 300 UNITS/3 ML INSULN.PEN. SQ SCH (21:40)
[2018-04-21] MEDS: CINACALCET HCL 30 MG TABLET PO SCH (21:54)
[2018-04-21 22:50] VITALS: BP 123/66
[2018-04-22 03:28] VITALS: BP 118/57
[2018-04-22 05:20] LABS: BASO # 0.1 x10^3/uL (0.0-0.2); BASO % 1 % (0-3); EOS # 0.3 x10^3/uL (0.0-0.7); EOS % 6 % (0-3); HEMATOCRIT 33.6 % (39.0-53.0); HEMOGLOBIN 11.6 g/dL (13.0-17.5); LYMPH % 21 % (24-48); MEAN CORPUSCULAR HEMOGLOBIN 32 pg (25-35); MEAN CORPUSCULAR HGB CONC 34 g/dL (31-37); MEAN CORPUSCULAR VOLUME 94 fL (79-100); MONO # 0.5 x10^3/uL (0.0-1.1); MONO % 10 % (0-9); NEUT # 3.1 x10^3uL (1.8-7.7); NEUT % 62 % (31-73); PLATELET COUNT 138 x10^3/uL (140-400); RED BLOOD COUNT 3.58 x10^6/uL (4.30-5.70); RED CELL DISTRIBUTION WIDTH 16.2 % (11.5-14.5); WHITE BLOOD COUNT 5.1 x10^3/uL (4.0-11.0)
[2018-04-22 05:46] LABS: CALCIUM 8.7 mg/dL (8.5-10.1); CREATININE 17.8 mg/dL (0.7-1.3); GFR 3.2; POTASSIUM 3.2 mmol/L (3.5-5.1)
[2018-04-22] MEDS: HEPARIN PF for SUB-Q USE 5,000 UNIT/0.5 ML VIAL. SQ SCH (06:00)
[2018-04-22 07:35] VITALS: BP 140/54
[2018-04-22] MEDS: INSULIN LISPRO 300 UNITS/3 ML INSULN.PEN. SQ SCH ×3 (08:00→17:10)
[2018-04-22] MEDS: FERRIC CITRATE 210 MG PO SCH ×3 (08:00→16:58)
[2018-04-22 08:33] LABS: PROTHROMBIN TIME PATIENT 13.9 SEC (11.7-14.0)
--- NOTE | 2018-04-22 09:24 | PDOC ---
PROGRESS NOTES Chief Complaint Chief Complaint syncope , likely 2/2 symptomatic bradycardia aflutter/afib with bradycardia, was on amiodarone x1 today at home ESRD on PD hypokalemia moribid obesity dm2 on insulin htn urgency recent left leg osteo s/p i and d abx done, wound vac on History of Present Illness History of Present Illness Having permanent pacemaker today Chart reviewed Plan we'll see patient post pacemaker Vitals Vitals Vital Signs Date Time Temp Pulse Resp B/P (MAP) Pulse Ox O2 Delivery O2 Flow Rate FiO2 04/22/18 07:52 Room Air 04/22/18 07:35 98.3 47 15 140/54 (82) 98 98.3 04/22/18 03:28 Physical Exam General: Alert, Oriented X3, Cooperative, No acute distress Heart: Normal S1, Normal S2, Other (irregular) Lungs: Clear Abdomen: Normal bowel sounds, Soft Extremities: No clubbing, No cyanosis Skin: No rashes, Other (left ankle wound with wound vac) Labs LABS Laboratory Tests Test 04/21/18 11:16 04/21/18 17:04 04/21/18 20:57 04/22/18 05:00 Glucose (Fingerstick) 167 mg/dL (70-99) 127 mg/dL (70-99) 202 mg/dL (70-99) White Blood Count 5.1 x10^3/uL (4.0-11.0) Red Blood Count 3.58 x10^6/uL (4.30-5.70) Hemoglobin 11.6 g/dL (13.0-17.5) Hematocrit 33.6 % (39.0-53.0) Mean Corpuscular Volume 94 fL (79-100) Mean Corpuscular Hemoglobin 32 pg (25-35) Mean Corpuscular Hemoglobin Concent 34 g/dL (31-37) Red Cell Distribution Width 16.2 % (11.5-14.5) Platelet Count 138 x10^3/uL (140-400) Neutrophils (%) (Auto) 62 % (31-73) Lymphocytes (%) (Auto) 21 % (24-48) Monocytes (%) (Auto) 10 % (0-9) Eosinophils (%) (Auto) 6 % (0-3) Basophils (%) (Auto) 1 % (0-3) Neutrophils # (Auto) 3.1 x10^3uL (1.8-7.7) Lymphocytes # (Auto) 1.0 x10^3/uL (1.0-4.8) Monocytes # (Auto) 0.5 x10^3/uL (0.0-1.1) Eosinophils # (Auto) 0.3 x10^3/uL (0.0-0.7) Basophils # (Auto) 0.1 x10^3/uL (0.0-0.2) Sodium Level 141 mmol/L (136-145) Potassium Level 3.2 mmol/L (3.5-5.1) Chloride Level 99 mmol/L (98-107) Carbon Dioxide Level 25 mmol/L (21-32) Anion Gap 17 (6-14) Blood Urea Nitrogen 60 mg/dL (8-26) Creatinine 17.8 mg/dL (0.7-1.3) Estimated GFR (Cockcroft-Gault) 3.2 Glucose Level 180 mg/dL (70-99) Calcium Level 8.7 mg/dL (8.5-10.1) Test 04/22/18 07:12 Glucose (Fingerstick) 144 mg/dL (70-99) Comment Review of Relevant I have reviewed the following items roger (where applicable) has been applied. Labs Laboratory Tests Test 04/20/18 11:40 04/20/18 16:56 04/20/18 20:50 04/21/18 06:00 Glucose (Fingerstick) 166 mg/dL (70-99) 154 mg/dL (70-99) 140 mg/dL (70-99) White Blood Count 5.2 x10^3/uL (4.0-11.0) Red Blood Count 3.47 x10^6/uL (4.30-5.70) Hemoglobin 11.0 g/dL (13.0-17.5) Hematocrit 32.9 % (39.0-53.0) Mean Corpuscular Volume 95 fL (79-100) Mean Corpuscular Hemoglobin 32 pg (25-35) Mean Corpuscular Hemoglobin Concent 34 g/dL (31-37) Red Cell Distribution Width 16.3 % (11.5-14.5) Platelet Count 130 x10^3/uL (140-400) Neutrophils (%) (Auto) 61 % (31-73) Lymphocytes (%) (Auto) 20 % (24-48) Monocytes (%) (Auto) 12 % (0-9) Eosinophils (%) (Auto) 6 % (0-3) Basophils (%) (Auto) 1 % (0-3) Neutrophils # (Auto) 3.2 x10^3uL (1.8-7.7) Lymphocytes # (Auto) 1.1 x10^3/uL (1.0-4.8) Monocytes # (Auto) 0.6 x10^3/uL (0.0-1.1) Eosinophils # (Auto) 0.3 x10^3/uL (0.0-0.7) Basophils # (Auto) 0.1 x10^3/uL (0.0-0.2) Sodium Level 143 mmol/L (136-145) Potassium Level 3.2 mmol/L (3.5-5.1) Chloride Level 100 mmol/L (98-107) Carbon Dioxide Level 27 mmol/L (21-32) Anion Gap 16 (6-14) Blood Urea Nitrogen 67 mg/dL (8-26) Creatinine 18.2 mg/dL (0.7-1.3) Estimated GFR (Cockcroft-Gault) 3.1 Glucose Level 165 mg/dL (70-99) Calcium Level 8.7 mg/dL (8.5-10.1) Test 04/21/18 07:42 04/21/18 11:16 04/21/18 17:04 04/21/18 20:57 Glucose (Fingerstick) 134 mg/dL (70-99) 167 mg/dL (70-99) 127 mg/dL (70-99) 202 mg/dL (70-99) Test 04/22/18 05:00 04/22/18 07:12 White Blood Count 5.1 x10^3/uL (4.0-11.0) Red Blood Count 3.58 x10^6/uL (4.30-5.70) Hemoglobin 11.6 g/dL (13.0-17.5) Hematocrit 33.6 % (39.0-53.0) Mean Corpuscular Volume 94 fL (79-100) Mean Corpuscular Hemoglobin 32 pg (25-35) Mean Corpuscular Hemoglobin Concent 34 g/dL (31-37) Red Cell Distribution Width 16.2 % (11.5-14.5) Platelet Count 138 x10^3/uL (140-400) Neutrophils (%) (Auto) 62 % (31-73) Lymphocytes (%) (Auto) 21 % (24-48) Monocytes (%) (Auto) 10 % (0-9) Eosinophils (%) (Auto) 6 % (0-3) Basophils (%) (Auto) 1 % (0-3) Neutrophils # (Auto) 3.1 x10^3uL (1.8-7.7) Lymphocytes # (Auto) 1.0 x10^3/uL (1.0-4.8) Monocytes # (Auto) 0.5 x10^3/uL (0.0-1.1) Eosinophils # (Auto) 0.3 x10^3/uL (0.0-0.7) Basophils # (Auto) 0.1 x10^3/uL (0.0-0.2) Sodium Level 141 mmol/L (136-145) Potassium Level 3.2 mmol/L (3.5-5.1) Chloride Level 99 mmol/L (98-107) Carbon Dioxide Level 25 mmol/L (21-32) Anion Gap 17 (6-14) Blood Urea Nitrogen 60 mg/dL (8-26) Creatinine 17.8 mg/dL (0.7-1.3) Estimated GFR (Cockcroft-Gault) 3.2 Glucose Level 180 mg/dL (70-99) Calcium Level 8.7 mg/dL (8.5-10.1) Glucose (Fingerstick) 144 mg/dL (70-99) Laboratory Tests Test 04/21/18 11:16 04/21/18 17:04 04/21/18 20:57 04/22/18 05:00 Glucose (Fingerstick) 167 mg/dL (70-99) 127 mg/dL (70-99) 202 mg/dL (70-99) White Blood Count 5.1 x10^3/uL (4.0-11.0) Red Blood Count 3.58 x10^6/uL (4.30-5.70) Hemoglobin 11.6 g/dL (13.0-17.5) Hematocrit 33.6 % (39.0-53.0) Mean Corpuscular Volume 94 fL (79-100) Mean Corpuscular Hemoglobin 32 pg (25-35) Mean Corpuscular Hemoglobin Concent 34 g/dL (31-37) Red Cell Distribution Width 16.2 % (11.5-14.5) Platelet Count 138 x10^3/uL (140-400) Neutrophils (%) (Auto) 62 % (31-73) Lymphocytes (%) (Auto) 21 % (24-48) Monocytes (%) (Auto) 10 % (0-9) Eosinophils (%) (Auto) 6 % (0-3) Basophils (%) (Auto) 1 % (0-3) Neutrophils # (Auto) 3.1 x10^3uL (1.8-7.7) Lymphocytes # (Auto) 1.0 x10^3/uL (1.0-4.8) Monocytes # (Auto) 0.5 x10^3/uL (0.0-1.1) Eosinophils # (Auto) 0.3 x10^3/uL (0.0-0.7) Basophils # (Auto) 0.1 x10^3/uL (0.0-0.2) Sodium Level 141 mmol/L (136-145) Potassium Level 3.2 mmol/L (3.5-5.1) Chloride Level 99 mmol/L (98-107) Carbon Dioxide Level 25 mmol/L (21-32) Anion Gap 17 (6-14) Blood Urea Nitrogen 60 mg/dL (8-26) Creatinine 17.8 mg/dL (0.7-1.3) Estimated GFR (Cockcroft-Gault) 3.2 Glucose Level 180 mg/dL (70-99) Calcium Level 8.7 mg/dL (8.5-10.1) Test 04/22/18 07:12 Glucose (Fingerstick) 144 mg/dL (70-99) Medications Current Medications Aspirin (Ecotrin) 81 mg DAILY08 PO Last administered on 04/21/18at 08:21; Start 04/20/18 at 08:00 Cinacalcet (Sensipar) 30 mg HS PO Last administered on 04/21/18at 21:54; Start 04/19/18 at 21:00 Vitamin B Complex/ Vitamin C (Rocio-Taylor) 1 tab DAILY PO Last administered on at 08:21; Start 04/20/18 at 09:00 Sertraline HCl (Zoloft) 50 mg DAILY PO Last administered on 04/21/18at 08:20; Start 04/20/18 at 09:00 Calcitriol (Rocaltrol) 0.25 mcg DAILY PO Last administered on 04/21/18at 21:39; Start 04/20/18 at 09:00 Vitamin D (Vitamin D3) 5,000 unit DAILY PO Last administered on 04/21/18 08:21 ; Start 04/20/18 at 09:00 Non-Formulary Medication (Ferric Citrate ) 2 tab TIDWMEALS PO Last administered on 04/21/18at 17:12; Start 04/19/18 at 17:00 Insulin Glargine (Lantus) 50 units QHS SQ ; Start 04/19/18 at 21:00; Stop at 21:00; Status DC Acetaminophen (Tylenol) 650 mg PRN Q6HRS PRN PO FEVER; Start 04/19/18 at 15:45 Ondansetron HCl (Zofran) 4 mg PRN Q6HRS PRN IV NAUSEA/VOMITING 1ST CHOICE; Start 04/19/18 at 15:45 Morphine Sulfate (Morphine Sulfate) 2 mg PRN Q2HR PRN IV MODERATE TO SEVERE PAIN; Start 04/19/18 at 15:45 Tramadol HCl (Ultram) 50 mg PRN Q6HRS PRN PO MILD TO MODERATE PAIN; Start 04/19 at 15:45 Docusate Sodium (Colace) 100 mg PRN DAILY PRN PO HARD STOOLS; Start 04/19/18 at 15:45 Clonidine HCl (Catapres) 0.1 mg PRN Q2HR PRN PO HYPERTENSION, SEE COMMENTS; Start 04/19/18 at 15:45; Stop 04/19/18 at 16:42; Status DC Insulin Human Lispro (HumaLOG) 0-9 UNITS TIDWMEALS SQ Last administered on 04/21at 12:27; Start 04/19/18 at 17:00 Dextrose (Dextrose 50%-Water Syringe) 12.5 gm PRN Q15MIN PRN IV SEE COMMENTS; Start 04/19/18 at 15:45 Heparin Sodium (Porcine) (Heparin Sq) 5,000 unit Q8HRS SQ Last administered on 04/21/18at 21:41; Start 04/19/18 at 22:00 Potassium Chloride (Klor-Con) 20 meq 1X ONCE PO Last administered on at 16:45; Start 04/19/18 at 16:45; Stop 04/19/18 at 16:48; Status DC Hydralazine HCl (Apresoline) 25 mg PRN Q6HRS PRN PO ELEVATED BP, SEE COMMENTS; Start 04/19/18 at 16:45 Insulin Glargine (Lantus) 40 units QHS SQ Last administered on 04/21/18at 21:40 ; Start 04/19/18 at 21:00 Losartan Potassium (Cozaar) 25 mg DAILY PO Last administered on 04/21/18at 08:21 ; Start 04/20/18 at 14:00 Phenyleph/Shark Oil/Min Oil/Petrol (Preparation H) 1 zoila PRN Q2HR PRN RC RECTAL PAIN; Start 04/20/18 at 16:00 Potassium Chloride (Klor-Con) 40 meq 1X ONCE PO Last administered on at 12:24; Start 04/21/18 at 09:45; Stop 04/21/18 at 09:46; Status DC Cefazolin Sodium/ Dextrose 50 ml @ 100 mls/hr 1X ONCE IV ; Start 04/22/18 at 06:00; Stop 04/22/18 at 06:29; Status DC Bacitracin 04616 unit/Sodium Chloride 250 ml @ 250 mls/hr 1X ONCE IRR ; Start 04/22/18 at 10:00; Stop 04/22/18 at 10:59 Active Scripts Active Reported Alprazolam 0.25 Mg Tablet 1 Tab PO DAILY Losartan Potassium 25 Mg Tablet 25 Mg PO DAILY Novolog (Insulin Aspart) 100 Unit/1 Ml Vial 40 Unit CONT INF HS Loperamide (Loperamide Hcl) 2 Mg Tablet 2 Mg PO PRN PRN Sensipar (Cinacalcet Hcl) 30 Mg Tablet 30 Mg PO HS Sertraline Hcl 50 Mg Tablet 50 Mg PO DAILY Miralax (Polyethylene Glycol 3350) 17 Gm Powd.pack 1 Pkt PO DAILY PRN Vitamin D3 (Cholecalciferol (Vitamin D3)) 5,000 Unit Tablet 1 Tab PO DAILY Calcitriol 0.25 Mcg Capsule 1 Cap PO DAILY Ferric Citrate 210 Mg Tablet 2 Tab PO TIDWMEALS K-Tab ER (Potassium Chloride) 20 Meq Tablet.er 20 Meq PO PRN 1X PRN Tresiba Flextouch U-200 (Insulin Degludec) 200 Unit/1 Ml Insuln.pen 50 Units SQ HS Aspir 81 (Aspirin) 81 Mg Tablet.dr 81 Mg PO DAILY Vitals/I & O Vital Sign - Last 24 Hours 04/21/18 04/21/18 04/21/18 04/21/18 11:12 14:53 19:30 19:45 Temp 98.0 98.1 98.2 98.0 98.1 98.2 Pulse 41 37 43 Resp 18 20 20 B/P (MAP) 155/52 (86) 113/32 (59) 123/56 (78) Pulse Ox 97 98 98 O2 Delivery Room Air Room Air Room Air Room Air 04/21/18 04/22/18 04/22/18 04/22/18 22:50 03:28 07:35 07:52 Temp 98.1 97.9 98.3 98.1 97.9 98.3 Pulse 63 52 47 Resp 18 15 15 B/P (MAP) 123/66 (85) 118/57 (77) 140/54 (82) Pulse Ox 98 98 98 O2 Delivery Room Air Room Air Room Air Room Air O2 Flow Rate Intake and Output 04/21/18 04/21/18 04/22/18 15:00 23:00 07:00 Intake Total 1400 ml 100 ml Balance 1400 ml 100 ml JUAN ANTONIO PABON MD Apr 22, 2018 09:24
[2018-04-22] MEDS ORDERED: MIDAZOLAM HCL/PF 2 MG/2 ML VIAL. ONE (09:30)
[2018-04-22] MEDS ORDERED: fentaNYL PF VIAL 100 MCG/2 ML VIAL ONE ×2 (09:30→10:12)
--- NOTE | 2018-04-22 09:39 | PDOC ---
MODERATE SEDATION ASSESSMENT RISKS/ALTERNATIVES Risks/Alternatives Risks and alternatives of this type of sedation and procedure discussed with: RISK/ALTERNATIVES: Patient H & P ON CHART H & P H & P on chart and reviewed for co-morbid conditions and appropriate labs. H&P ON CHART: Yes STATUS PREG STATUS ASSESSED: N/A MEDS/ALLERGIES REVIEWED Meds/Allergies Reviewed Medications and Allergies including time and route of recently administered narcotics and sedatives. MEDS/ALLERGIES REVIEWED: Yes ASA RATING ASA RATING: III AIRWAY ASSESSMENT Airway Assessment Airway patency, oral function limitations, presence of caps, crowns, dentures, partials, and ability to extend neck assessed. AIRWAY ASSESSMENT: Yes MALLAMPATI SCORE MALLAMPATI SCORE: II PRE-SEDATION ASSESSMENT PRE-SEDATION ASSESSMENT: Yes CARMELA BUNDY MD Apr 22, 2018 09:39
[2018-04-22] MEDS ORDERED: LIDOCAINE 2%/EPI 1:100,000 20 ML VIAL. ONE (09:48)
[2018-04-22] MEDS ORDERED: BACITRACIN 50,000 UNIT in IV NORMAL SALINE 250ML 250 ML IRR ONE (10:00)
[2018-04-22] MEDS ORDERED: LIDOCAINE 2%/EPI 1:100,000 20 ML VIAL. IJ ONE (10:00)
[2018-04-22] MEDS ORDERED: MIDAZOLAM HCL/PF 2 MG/2 ML VIAL. IV ONE (10:00)
[2018-04-22] MEDS ORDERED: fentaNYL PF VIAL 100 MCG/2 ML VIAL IV ONE (10:00)
[2018-04-22] MEDS ORDERED: IODIXANOL 320 MG/ML 100 ML VIAL. ONE (10:05)
[2018-04-22 10:40] VITALS: BP 141/61
[2018-04-22] MEDS ORDERED: NO ANTICOAGULANT THERAPY. MC PRN (11:00)
--- NOTE | 2018-04-22 11:02 | CARD ---
MR#: [id number] Date of Study: 04/22/2018 Ordering Physician: CARMELA GERBER, Referring Physician: ANISH LIZ Tech: APPROVED REPORT PROCEDURES Successful implantation of Biotronik dual-chamber permanent pacemaker Moderate Sedation time: 53 minutes INDICATIONS Sick sinus syndrome and severe symptomatic bradycardia PROCEDURE After explaining the risks, benefits, and alternative options, informed consent was obtained from the patient. The patient was brought to the cardiac catheterization lab and the [facility] chest and shoulder were pre pped and draped in a sterile manner. 30 mL of 2% lidocaine was infiltrated into the skin and subcutaneous tissues for local anesthesia. An incision was made over the right infraclavicular fossa and using blunt dissection and cautery a pock et was created (patient had AV fistula in left UE and hence right SC was used for access). Venous ac cess was obtained in the right subclavian vein and 8 and 6 Italian sheath inserted. A Biotronik bipolar active fixation right ventricular lead model Solia, serial #[id number] was advanced under fluoroscopy guidance and the tip was positioned in the right ventricle apex. Following this, a Biotronik bipolar active fixation right atrial lead model Solia, serial #[id number] was positioned in the right atrial appendage under fluoroscopy guidance. The leads were secured into place and attached to a Biotronik dual-chamber permanent pacemaker generator model Eluna 8 DR-T ProMRI, serial #[id number]. This was placed in the pocket that was subsequently closed in 3 layers. Hemostasis was secured. At the end of procedure, the right ventricular lead showed a sensing amplitude of 6.5 mV, impedance o f 507 ohms and a threshold of 0.8 V. The right atrial lead showed sensing amplitude for flutter waves at 1.3 mV, impedance of 487 ohms. Patient tolerated the procedure well. There were no immediate comp lications. CONCLUSION Successful implantation of Biotronik dual-chamber permanent pacemaker for sick sinus syndrome and sev ere symptomatic bradycardia Signed by : Carmela Gerber, Electronically Approved : 04/22/2018 11:02:37
--- NOTE | 2018-04-22 11:40 | PDOC ---
Renal-Progress Notes Subjective Notes Notes NONE History of Present Illness Hx of present illness PPM TODAY Vitals Vitals Vital Signs Date Time Temp Pulse Resp B/P (MAP) Pulse Ox O2 Delivery O2 Flow Rate FiO2 04/22/18 10:40 69 11 100 Nasal Cannula 2.0 04/22/18 07:35 98.3 140/54 (82) 98.3 Weight Weight [ ] I.O. Intake and Output Intake and Output 04/22/18 07:00 Intake Total 1500 ml Balance 1500 ml Intake Oral 1500 ml Labs Labs Laboratory Tests Test 04/21/18 17:04 04/21/18 20:57 04/22/18 05:00 04/22/18 07:12 Glucose (Fingerstick) 127 mg/dL (70-99) 202 mg/dL (70-99) 144 mg/dL (70-99) White Blood Count 5.1 x10^3/uL (4.0-11.0) Red Blood Count 3.58 x10^6/uL (4.30-5.70) Hemoglobin 11.6 g/dL (13.0-17.5) Hematocrit 33.6 % (39.0-53.0) Mean Corpuscular Volume 94 fL (79-100) Mean Corpuscular Hemoglobin 32 pg (25-35) Mean Corpuscular Hemoglobin Concent 34 g/dL (31-37) Red Cell Distribution Width 16.2 % (11.5-14.5) Platelet Count 138 x10^3/uL (140-400) Neutrophils (%) (Auto) 62 % (31-73) Lymphocytes (%) (Auto) 21 % (24-48) Monocytes (%) (Auto) 10 % (0-9) Eosinophils (%) (Auto) 6 % (0-3) Basophils (%) (Auto) 1 % (0-3) Neutrophils # (Auto) 3.1 x10^3uL (1.8-7.7) Lymphocytes # (Auto) 1.0 x10^3/uL (1.0-4.8) Monocytes # (Auto) 0.5 x10^3/uL (0.0-1.1) Eosinophils # (Auto) 0.3 x10^3/uL (0.0-0.7) Basophils # (Auto) 0.1 x10^3/uL (0.0-0.2) Sodium Level 141 mmol/L (136-145) Potassium Level 3.2 mmol/L (3.5-5.1) Chloride Level 99 mmol/L (98-107) Carbon Dioxide Level 25 mmol/L (21-32) Anion Gap 17 (6-14) Blood Urea Nitrogen 60 mg/dL (8-26) Creatinine 17.8 mg/dL (0.7-1.3) Estimated GFR (Cockcroft-Gault) 3.2 Glucose Level 180 mg/dL (70-99) Calcium Level 8.7 mg/dL (8.5-10.1) Test 04/22/18 07:45 04/22/18 11:14 Prothrombin Time 13.9 SEC (11.7-14.0) Prothromb Time International Ratio 1.1 (0.8-1.1) Glucose (Fingerstick) 144 mg/dL (70-99) Review of Systems Constitutional: yes: alert, oriented Ears/Nose/Throat: Yes: no symptom reported Eyes: Yes: no symptom reported Pulmonary: Yes no symptom reported Cardiovascular: Yes no symptom reported Gastrointestional: Yes: no symptom reported Genitourinary: Yes: no symptom reported Musculoskeletal: Yes: no symptom reported Psychiatric/Neurological: Yes: pre-existing deficit Physical Exam General Appearance: no apparent distress Skin: other Heart: S1S2 Abdomen: soft, bowel sounds present Genitourinary: bladder flat Extremities: pulses present Neurology: alert, oriented Musculoskeletal: Osteoarthritis Assessment Assessment IMP ESRD ARRHYTHMIA SYNCOPE DM II HTN FOOT WOUND ANEMIA PLAN PPM TODAY CONT WITH CCPD THIS PM WILL USE ALL 2.5% DIANEAL MILO ROE MD Apr 22, 2018 11:40
--- NOTE | 2018-04-22 11:59 | RAD ---
Portable chest, 04/22/2018: HISTORY: Check pacemaker placement Comparison is made to a study from 04/19/2018. A right-sided transvenous pacemaker has been placed with one lead extending into the right ventricle while the tip of the other lead is projected over the superior aspect of the right atrium. A right sided central venous catheter remains in place extending into the inferior aspect of the superior vena cava. The left ventricle is mildly prominent. The pulmonary vascularity is normal. The right hemidiaphragm remains mildly elevated with mild linear atelectasis or scarring in the right base. The left chest remains clear. There is no evidence of pleural fluid or pneumothorax. IMPRESSION: 1. Unchanged elevation of right hemidiaphragm with mild left basilar atelectasis or scarring. 2. No new cardiopulmonary abnormality is detected. Electronically signed by: Garcia Donovan MD (04/22/2018 11:56 AM) [facility]
[2018-04-22] MEDS: CALCITRIOL 0.25 MCG CAPSULE. PO SCH (12:38)
[2018-04-22] MEDS: CHOLECALCIFEROL (VITAMIN D3) 5,000 UNIT CAPSULE PO SCH (12:38)
[2018-04-22] MEDS: ASPIRIN ENTERIC COATED 81 MG TABLET.DR. PO SCH (12:39)
[2018-04-22] MEDS: FOLIC/VIT B COMP W-C (RENAL) TABLET. PO SCH (12:39)
[2018-04-22] MEDS: SERTRALINE 50 MG TABLET. PO SCH (12:40)
[2018-04-22] MEDS: LOSARTAN POTASSIUM 25 MG TABLET. PO SCH (12:40)
[2018-04-22 14:45] VITALS: BP 137/60
[2018-04-22 19:40] VITALS: BP 123/56
[2018-04-22] MEDS: CINACALCET HCL 30 MG TABLET PO SCH (20:44)
[2018-04-22] MEDS: INSULIN GLARGINE 300 UNITS/3 ML INSULN.PEN. SQ SCH (22:03)
[2018-04-22 23:43] VITALS: BP 106/56
[2018-04-23] VITALS (12 sets, daily range): BP systolic 95–143; BP diastolic 54–85
[2018-04-23] MEDS ORDERED: TRAM50TA PO (07:59)
[2018-04-23] MEDS ORDERED: FOLI0.8T21 PO (07:59)
[2018-04-23] MEDS: INSULIN LISPRO 300 UNITS/3 ML INSULN.PEN. SQ SCH ×3 (08:00→16:45)
[2018-04-23] MEDS: ASPIRIN ENTERIC COATED 81 MG TABLET.DR. PO SCH (08:34)
[2018-04-23] MEDS: FOLIC/VIT B COMP W-C (RENAL) TABLET. PO SCH (08:35)
[2018-04-23] MEDS: SERTRALINE 50 MG TABLET. PO SCH (08:35)
[2018-04-23] MEDS: LOSARTAN POTASSIUM 25 MG TABLET. PO SCH (08:35)
[2018-04-23] MEDS: CHOLECALCIFEROL (VITAMIN D3) 5,000 UNIT CAPSULE PO SCH (08:35)
[2018-04-23] MEDS: FERRIC CITRATE 210 MG PO SCH ×4 (08:37→17:23)
--- NOTE | 2018-04-23 09:47 | PDOC ---
STEFANI SALAS TECHNOLOGY APPLICATIONS ENGINEER 04/23/18 0946: CARDIO Progress Notes Date and Time Date of Service 04/23/2018 Time of Evaluation 0930 Subjective Subjective: No Chest Pain, No shortness of breath, No Palpitations Vitals Vitals Vital Signs Date Time Temp Pulse Resp B/P (MAP) Pulse Ox O2 Delivery O2 Flow Rate FiO2 04/23/18 08:35 69 129/85 04/23/18 07:00 98.5 20 97 Room Air 98.5 04/22/18 10:40 2.0 Weight Weight [ ] Input and Output Intake and Output Intake and Output 04/23/18 07:00 Intake Total 1540 ml Balance 1540 ml Intake Oral 1540 ml # Voids 1 Laboratory Labs Laboratory Tests Test 04/22/18 11:14 04/22/18 17:01 04/22/18 21:58 04/23/18 08:06 Glucose (Fingerstick) 144 mg/dL (70-99) 159 mg/dL (70-99) 218 mg/dL (70-99) 109 mg/dL (70-99) Review of Systems Constitutional: yes: alert, oriented Ears/Nose/Throat: Yes: no symptom reported Eyes: Yes: no symptom reported Pulmonary: Yes no symptom reported Cardiovascular: Yes no symptom reported Gastrointestional: Yes: no symptom reported Genitourinary: Yes: no symptom reported Musculoskeletal: Yes: no symptom reported Psychiatric/Neurological: Yes: pre-existing deficit Physical Exam HEENT: Neck Supple W Full Motion Chest: Symmetric LUNGS: Other (diminsihed bases) Heart: irregularly irregular (atrial flutter with intermittent pacing) Abdomen: Soft N/T Extremities: No Calf Tenderness, Other (left ankle wound vac in place) Neurology: alert, oriented, follow commands Other Exams right chest incision intact with steristrips with incision well approximated, no erythema or swelling, neurovascular status to RUE intact. Assessment Assessment 1. Persistent atrial flutter: rate controlled 2. Sick sinus syndrome and recurrent syncope: S/P Biotronik dual chamber PPM. Tolerated procedure well. 3. ESRD: PD per nephrology 4. DM2 with DPN 5. SH-OH syndrome 6. Chronic left ankle wound/left ankle osteomyelitis: sees wound care clinic and ID. Antibiotic regimen completed recently. Recommendations 1. Not an OAC/NOAC candidate for high for falls and injury. ASA for stroke prevention 2. Restart amiodarone 400 mg for 2 weeks then daily. Follow TSH in 6-8 weeks 3. Continue with home BP regimen. 4. Follow up in office in 2 weeks for incision check 5. Post PPM instructions. 6. Potential SNU today. CARMELA BUNDY MD 04/23/18 1527: CARDIO Progress Notes Assessment Assessment Patient seen and examined. Agree with METAL PAINTER's assessment and plan. Chest x-ray without any pneumothorax. Persistent atrial fibrillation rate controlled. Hold amiodarone till he completes hyperbaric treatments for nonhealing wound The permanent pacemaker generator patient has currently in place apparently has not been tested for hyperbaric treatments We will change this to a new generator today that as previous to been tested for these situations Okay for discharge later today or tomorrow STEFANI SALAS APRN Apr 23, 2018 09:46 CARMELA BUNDY MD Apr 23, 2018 15:27
[2018-04-23] MEDS ORDERED: AMIODARONE HCL 200 MG TABLET. PO SCH (10:00)
--- NOTE | 2018-04-23 10:19 | PDOC3 ---
Discharge Summary Visit Information Date of Admission: Apr 19, 2018 Date of Discharge: Apr 23, 2018 Admitting Diagnosis Comment: syncope , symptomatic bradycardia s/ post permanent pacemaker 04/22/18) ESRD on PD moribid obesity dm2 on insulin htn urgency resolved Brief Hospital Course Allergies Allergies Coded Allergies Type Severity Reaction Last Updated Verified No Known Drug Allergies 02/27/18 No Vital Signs Vital Signs Date Time Temp Pulse Resp B/P (MAP) Pulse Ox O2 Delivery O2 Flow Rate FiO2 04/23/18 09:48 Room Air 04/23/18 08:35 69 129/85 04/23/18 07:00 98.5 20 97 98.5 04/22/18 10:40 2.0 Lab Results Laboratory Tests Test 04/21/18 11:16 04/21/18 17:04 04/21/18 20:57 04/22/18 05:00 Glucose (Fingerstick) 167 mg/dL (70-99) 127 mg/dL (70-99) 202 mg/dL (70-99) White Blood Count 5.1 x10^3/uL (4.0-11.0) Red Blood Count 3.58 x10^6/uL (4.30-5.70) Hemoglobin 11.6 g/dL (13.0-17.5) Hematocrit 33.6 % (39.0-53.0) Mean Corpuscular Volume 94 fL (79-100) Mean Corpuscular Hemoglobin 32 pg (25-35) Mean Corpuscular Hemoglobin Concent 34 g/dL (31-37) Red Cell Distribution Width 16.2 % (11.5-14.5) Platelet Count 138 x10^3/uL (140-400) Neutrophils (%) (Auto) 62 % (31-73) Lymphocytes (%) (Auto) 21 % (24-48) Monocytes (%) (Auto) 10 % (0-9) Eosinophils (%) (Auto) 6 % (0-3) Basophils (%) (Auto) 1 % (0-3) Neutrophils # (Auto) 3.1 x10^3uL (1.8-7.7) Lymphocytes # (Auto) 1.0 x10^3/uL (1.0-4.8) Monocytes # (Auto) 0.5 x10^3/uL (0.0-1.1) Eosinophils # (Auto) 0.3 x10^3/uL (0.0-0.7) Basophils # (Auto) 0.1 x10^3/uL (0.0-0.2) Sodium Level 141 mmol/L (136-145) Potassium Level 3.2 mmol/L (3.5-5.1) Chloride Level 99 mmol/L (98-107) Carbon Dioxide Level 25 mmol/L (21-32) Anion Gap 17 (6-14) Blood Urea Nitrogen 60 mg/dL (8-26) Creatinine 17.8 mg/dL (0.7-1.3) Estimated GFR (Cockcroft-Gault) 3.2 Glucose Level 180 mg/dL (70-99) Calcium Level 8.7 mg/dL (8.5-10.1) Test 04/22/18 07:12 04/22/18 07:45 04/22/18 11:14 04/22/18 17:01 Glucose (Fingerstick) 144 mg/dL (70-99) 144 mg/dL (70-99) 159 mg/dL (70-99) Prothrombin Time 13.9 SEC (11.7-14.0) Prothromb Time International Ratio 1.1 (0.8-1.1) Test 04/22/18 21:58 04/23/18 08:06 Glucose (Fingerstick) 218 mg/dL (70-99) 109 mg/dL (70-99) Laboratory Tests Test 04/22/18 11:14 04/22/18 17:01 04/22/18 21:58 04/23/18 08:06 Glucose (Fingerstick) 144 mg/dL (70-99) 159 mg/dL (70-99) 218 mg/dL (70-99) 109 mg/dL (70-99) Brief Hospital Course Mr. Garza is a 72 old Vietnamese Vietnamese male on PD, admitted because of syncope and symptomatic bradycardia received a pacer on 05/02/18. Pacemaker functioning fine. We'll go home today with no PT needs. Rx on chart. Follow-up with cardiology as instructed, Rx written for him today are Rocio-Taylor folic acid and some tramadol when necessary for pain Consults performed cardiology/renal Procedure performed PD, permanent pacer 04/22/18 Discharge Information Condition at Discharge: Improved, Stable Disposition/Orders: D/C to Home Scheduled Alprazolam (Alprazolam) 0.25 Mg Tablet, 1 TAB PO DAILY, #30 (Reported) Entered as Reported by: PILO MURCIA on 04/19/181931 Last Taken: Unknown Dose on Unknown Date & Time Last Action: HELD on 04/20 by ANISH LIZ MD Aspirin (Aspir 81) 81 Mg Tablet.dr, 81 MG PO DAILY, (Reported) Entered as Reported by: UMANG GIL on 11/14/131949 Last Action: Reviewed on 04/19/181931 by PILO MURCIA Calcitriol (Calcitriol) 0.25 Mcg Capsule, 1 CAP PO DAILY, #90 Ref 3 (Reported) Entered as Reported by: LETI RIVAS on 02/26/182200 Last Action: Reviewed on 04/19/181931 by PILO MURCIA Cholecalciferol (Vitamin D3) (Vitamin D3) 5,000 Unit Tablet, 1 TAB PO DAILY, # 30 Ref 3 (Reported) Entered as Reported by: LETI RIVAS on 02/26/182200 Last Action: Reviewed on 04/19/181931 by PILO MURCIA Cinacalcet Hcl (Sensipar) 30 Mg Tablet, 30 MG PO HS, (Reported) Entered as Reported by: LETI RIVAS on 02/26/182200 Last Action: Reviewed on 04/19/181931 by PILO MURCIA Ferric Citrate (Ferric Citrate) 210 Mg Tablet, 2 TAB PO TIDWMEALS, (Reported) Entered as Reported by: LETI RIVAS on 02/26/182200 Last Action: Reviewed on 04/19/181931 by PILO MURCIA Folic Acid/Vitamin B Comp W-C (Rocio-Taylor Tablet) 0.8 Mg Tablet, 1 TAB PO DAILY for 30 Days, #30 Prescribed by: JUAN ANTONIO PABON on 04/23/18 0029 Insulin Aspart (Novolog) 100 Unit/1 Ml Vial, 40 UNIT CONT INF HS, (Reported) Entered as Reported by: LETI RIVAS on 02/26/182200 Last Action: HELD on 04/20/181318 by ANISH LIZ MD Insulin Degludec (Tresiba Flextouch U-200) 200 Unit/1 Ml Insuln.pen, 50 UNITS SQ HS, (Reported) Entered as Reported by: LETI RIVAS on 02/26/182200 Last Action: Reviewed on 04/19/181931 by PILO MURCIA Losartan Potassium (Losartan Potassium) 25 Mg Tablet, 25 MG PO DAILY, (Reported) Entered as Reported by: PILO MURCIA on 04/19/181931 Last Taken: Unknown Dose on Unknown Date & Time Last Action: Continued on 04/20/181318 by ANISH LIZ MD Sertraline Hcl (Sertraline Hcl) 50 Mg Tablet, 50 MG PO DAILY, (Reported) Entered as Reported by: LETI RIVAS on 02/26/182200 Last Action: Reviewed on 04/19/181931 by PILO MURCIA Scheduled PRN Loperamide Hcl (Loperamide) 2 Mg Tablet, 2 MG PO PRN PRN for DIARRHEA, (Reported ) Entered as Reported by: LETI RIVAS on 02/26/182200 Last Action: HELD on 04/20/181318 by ANISH LIZ MD Polyethylene Glycol 3350 (Miralax) 17 Gm Powd.pack, 1 PKT PO DAILY PRN for CONSTIPATION, (Reported) Entered as Reported by: LETI RIVAS on 02/26/182200 Last Action: HELD on 04/20/181318 by ANISH LIZ MD Potassium Chloride (K-Tab ER) 20 Meq Tablet.er, 20 MEQ PO PRN 1X PRN for PER PROTOCOL, (Reported) Entered as Reported by: LETI RIVAS on 02/26/182200 Last Action: HELD on 04/20/181318 by ANISH LIZ MD Tramadol Hcl (Tramadol Hcl) 50 Mg Tablet, 50 MG PO PRN Q6HRS PRN for MILD TO MODERATE PAIN for 7 Days Prescribed by: JUAN ANTONIO PABON on 04/23/18 0759 Discontinued Medications Folic Acid/Vitamin B Comp W-C (Nephro-Taylor Tablet) 0.8 Mg Tablet, 0.8 MG PO DAILY, (Reported) Entered as Reported by: UMANG GIL on 11/14/131949 Last Action: Discontinued on 04/19/181931 by JUAN ANTONIO GONSALES MD Apr 23, 2018 10:19
--- NOTE | 2018-04-23 10:39 | RAD ---
Chest, 2 views, 04/23/2018: HISTORY: Post pacemaker insertion Comparison is made to yesterday's study. The right-sided transvenous pacemaker and the right sided central venous catheter are unchanged in positions. The heart size and pulmonary vascularity are normal. The right hemidiaphragm is elevated with mild persistent streaky atelectasis or scarring in the right base. No new pulmonary abnormality is seen. There is no evidence of pneumothorax or pleural fluid. Pneumoperitoneum is now evident in the upper abdomen. This is apparently secondary to the patient's known peritoneal dialysis. IMPRESSION: 1. Unchanged mild right basilar atelectasis/scarring. 2. No new cardiopulmonary abnormality. 3. Pneumoperitoneum related to peritoneal dialysis. Electronically signed by: Garcia Donovan MD (04/23/2018 10:36 AM) [facility]
[2018-04-23] MEDS: traMADol 50 MG TABLET PO PRN (10:40)
--- NOTE | 2018-04-23 12:32 | PDOC ---
Renal-Progress Notes Subjective Notes Notes NO NEW COMPLAINTS History of Present Illness Hx of present illness STABLE Vitals Vitals Vital Signs Date Time Temp Pulse Resp B/P (MAP) Pulse Ox O2 Delivery O2 Flow Rate FiO2 04/23/18 11:40 16 Room Air 04/23/18 11:00 98.5 69 137/54 (81) 100 98.5 04/22/18 10:40 2.0 Weight Weight [ ] I.O. Intake and Output Intake and Output 04/23/18 07:00 Intake Total 1540 ml Balance 1540 ml Intake Oral 1540 ml # Voids 1 Labs Labs Laboratory Tests Test 04/22/18 17:01 04/22/18 21:58 04/23/18 08:06 04/23/18 11:45 Glucose (Fingerstick) 159 mg/dL (70-99) 218 mg/dL (70-99) 109 mg/dL (70-99) 146 mg/dL (70-99) Review of Systems Constitutional: yes: alert, oriented Ears/Nose/Throat: Yes: no symptom reported Eyes: Yes: no symptom reported Pulmonary: Yes no symptom reported Cardiovascular: Yes no symptom reported Gastrointestional: Yes: no symptom reported Genitourinary: Yes: no symptom reported Musculoskeletal: Yes: no symptom reported Psychiatric/Neurological: Yes: pre-existing deficit Physical Exam General Appearance: no apparent distress Skin: other Heart: S1S2 Abdomen: soft, bowel sounds present Genitourinary: bladder flat Extremities: pulses present Neurology: alert, oriented Musculoskeletal: Osteoarthritis Assessment Assessment IMP ESRD ARRHYTHMIA SYNCOPE DM II HTN FOOT WOUND ANEMIA S/P PPM PLAN DOING WELL OK TO D/C FROM RENAL STANDPOINT PT WILL DO CCPD WITH ONE DAY TIME FILL AFTER GOING HOME HE WILL F/U IN PD CLINIC MILO ROE MD Apr 23, 2018 12:32
--- NOTE | 2018-04-23 13:07 | DISCH ---
DISCHARGE DISCHARGE INFORMATION: CONDITION ON DISCHARGE: Stable CODE STATUS: Code Status: Full LONG TERM: SNF STAY <30 DAYS: Yes HOSPICE: HOSPICE: No HOSPICE EVAL & TREAT: No LTAC: ADMIT TO LTAC: No POST DISCHARGE ORDERS: ACTIVITY ORDERS: Activity as tolerated WEIGHT BEARING STATUS: As tolerated BATHING ORDERS: Shower-keep dressing dry DIET AFTER DISCHARGE: Cardiac WOUND/INCISION CARE: Other, see below CHECKS AFTER DISCHARGE: CHECKS AFTER DISCHARGE: Check blood press - daily, Check blood sugar, ac/hs FOLLOW-UP: PHYSICIAN FOLLOW-UP: Outpatient wound care ADDITIONAL FOLLOW-UP: Wound Check in cardiology office on 05/08 at 115pm TREATMENT/EQUIPMENT ORDERS: ADAPTIVE EQUIPMENT NEEDED: None Physical Therapy For: Evalulation/Treatment Occupational Therapy For: Evaluation/Treatment DISCHARGE MEDICATIONS: Home Meds Active Scripts Tramadol Hcl (TRAMADOL HCL) 50 Mg Tablet, 50 MG PO PRN Q6HRS PRN for MILD TO MODERATE PAIN for 7 Days, TAB Prov:JUAN ANTONIO PABON MD 04/23/18 Folic Acid/Vitamin B Comp W-C (MIKEL-BEST TABLET) 0.8 Mg Tablet, 1 TAB PO DAILY for 30 Days, #30 TAB Prov:JUAN ANTONIO PABON MD 04/23/18 Reported Medications Alprazolam (ALPRAZOLAM) 0.25 Mg Tablet, 1 TAB PO DAILY, #30 TAB 04/19/18 Losartan Potassium (LOSARTAN POTASSIUM) 25 Mg Tablet, 25 MG PO DAILY, TAB 04/19/18 Insulin Aspart (NOVOLOG) 100 Unit/1 Ml Vial, 40 UNIT CONT INF HS, VIAL 02/26/18 Loperamide Hcl (LOPERAMIDE) 2 Mg Tablet, 2 MG PO PRN PRN for DIARRHEA, TAB 02/26/18 Cinacalcet Hcl (SENSIPAR) 30 Mg Tablet, 30 MG PO HS, TAB 02/26/18 Sertraline Hcl (SERTRALINE HCL) 50 Mg Tablet, 50 MG PO DAILY 02/26/18 Polyethylene Glycol 3350 (MIRALAX) 17 Gm Powd.pack, 1 PKT PO DAILY PRN for CONSTIPATION, PKT 02/26/18 Cholecalciferol (Vitamin D3) (VITAMIN D3) 5,000 Unit Tablet, 1 TAB PO DAILY, # 30 TAB 3 Refills 02/26/18 Calcitriol (CALCITRIOL) 0.25 Mcg Capsule, 1 CAP PO DAILY, #90 CAP 3 Refills 02/26/18 Ferric Citrate (Ferric Citrate) 210 Mg Tablet, 2 TAB PO TIDWMEALS 02/26/18 Insulin Degludec (Tresiba Flextouch U-200) 200 Unit/1 Ml Insuln.pen, 50 UNITS SQ HS 02/26/18 Aspirin (ASPIR 81) 81 Mg Tablet.dr, 81 MG PO DAILY, TAB 11/14/13 Discontinued Reported Medications Potassium Chloride (K-Tab ER) 20 Meq Tablet.er, 20 MEQ PO PRN 1X PRN for PER PROTOCOL 02/26/18 Folic Acid/Vitamin B Comp W-C (NEPHRO-BEST TABLET) 0.8 Mg Tablet, 0.8 MG PO DAILY 11/14/13 JUAN ANTONIO PABON MD Apr 23, 2018 13:07
[2018-04-23] MEDS ORDERED: BACITRACIN 50,000 UNIT in IV NORMAL SALINE 250ML 250 ML IRR ONE (13:15)
[2018-04-23] MEDS ORDERED: MIDAZOLAM HCL/PF 2 MG/2 ML VIAL. IV ONE (13:15)
[2018-04-23] MEDS ORDERED: LIDOCAINE 2%/EPI 1:100,000 20 ML VIAL. IJ ONE (13:15)
[2018-04-23] MEDS ORDERED: fentaNYL PF VIAL 100 MCG/2 ML VIAL IV ONE (13:15)
[2018-04-23] MEDS ORDERED: fentaNYL PF VIAL 100 MCG/2 ML VIAL ONE (13:16)
[2018-04-23] MEDS ORDERED: MIDAZOLAM HCL/PF 2 MG/2 ML VIAL. ONE (13:17)
[2018-04-23] MEDS ORDERED: LIDOCAINE 2%/EPI 1:100,000 20 ML VIAL. ONE (13:52)
[2018-04-23] MEDS: CINACALCET HCL 30 MG TABLET PO SCH (20:05)
[2018-04-23] MEDS: INSULIN GLARGINE 300 UNITS/3 ML INSULN.PEN. SQ SCH (20:10)
[2018-04-24 03:44] VITALS: BP 144/65
[2018-04-24 07:32] VITALS: BP 132/67
[2018-04-24] MEDS: INSULIN LISPRO 300 UNITS/3 ML INSULN.PEN. SQ SCH ×3 (08:00→17:00)
[2018-04-24] MEDS: FERRIC CITRATE 210 MG PO SCH ×3 (08:35→17:06)
[2018-04-24] MEDS: ACETAMINOPHEN 325 MG TABLET. PO PRN ×2 (08:37→21:35)
[2018-04-24] MEDS: FOLIC/VIT B COMP W-C (RENAL) TABLET. PO SCH (08:37)
[2018-04-24] MEDS: LOSARTAN POTASSIUM 25 MG TABLET. PO SCH (08:38)
[2018-04-24] MEDS: CHOLECALCIFEROL (VITAMIN D3) 5,000 UNIT CAPSULE PO SCH (08:38)
[2018-04-24] MEDS: CALCITRIOL 0.25 MCG CAPSULE. PO SCH (08:38)
[2018-04-24] MEDS: ASPIRIN ENTERIC COATED 81 MG TABLET.DR. PO SCH (08:38)
[2018-04-24] MEDS: SERTRALINE 50 MG TABLET. PO SCH (08:39)
--- NOTE | 2018-04-24 08:41 | DISCH ---
DISCHARGE WITH HOME HEALTH DISCHARGE INFORMATION: Discharge Date: Apr 24, 2018 Condition on Discharge: Stable CODE STATUS: Code Status: Full HOME HEALTH: Face to Face: I certify this patient is under my care and that I, or a nurse practitioner or physician's surgeon's assistant working with me, had a face to face encounter that meets the physician face to face encounter requirements with this patient on []. Medical Complications: Other (bradycardia s/p pacemaker) Physical Therapy For: Evalulation/Treatment Occupational Therapy For: Evaluation/Treatment Home Health Aide For: Self-care Pt Meets Homebound Status: Unsteady balance w/ amb,, Limited distance walking POST DISCHARGE ORDERS: Activity Instructions for Disc: Activity as tolerated Weight Bearing Status after Di: As tolerated Bathing Instructions: Shower-keep dressing dry DIET AFTER DISCHARGE: Cardiac Wound/Incision Care: Other, see below CHECKS AFTER DISCHARGE: Checks after discharge: Check blood press - daily, Check blood sugar, ac/hs FOLLOW-UP: Follow up with: Outpatient wound care Follow Up With: Wound Check in cardiology office on 05/08 at 115pm TREATMENT/EQUIPMENT ORDERS: Adaptive Equipment Issued: None CERTIFICATION STATEMENT: Certification Statement: Certification Statement: Based on the above finding, I certify that this patient is confined to the home and needs intermittent long term care, physical therapy and/or speech therapy, or continues to need occupational therapy.~ This patient is under my care, and I have initiated the establishment of the plan of care.~ This patient will be followed by myself or a community physician who will periodically review the plan of care. Home Meds Active Scripts Tramadol Hcl (TRAMADOL HCL) 50 Mg Tablet, 50 MG PO PRN Q6HRS PRN for MILD TO MODERATE PAIN for 7 Days, TAB Prov:JUAN ANTONIO PABON MD 04/23/18 Folic Acid/Vitamin B Comp W-C (MIKEL-BEST TABLET) 0.8 Mg Tablet, 1 TAB PO DAILY for 30 Days, #30 TAB Prov:JUAN ANTONIO PABON MD 04/23/18 Reported Medications Alprazolam (ALPRAZOLAM) 0.25 Mg Tablet, 1 TAB PO DAILY, #30 TAB 04/19/18 Losartan Potassium (LOSARTAN POTASSIUM) 25 Mg Tablet, 25 MG PO DAILY, TAB 04/19/18 Insulin Aspart (NOVOLOG) 100 Unit/1 Ml Vial, 40 UNIT CONT INF HS, VIAL 02/26/18 Loperamide Hcl (LOPERAMIDE) 2 Mg Tablet, 2 MG PO PRN PRN for DIARRHEA, TAB 02/26/18 Cinacalcet Hcl (SENSIPAR) 30 Mg Tablet, 30 MG PO HS, TAB 02/26/18 Sertraline Hcl (SERTRALINE HCL) 50 Mg Tablet, 50 MG PO DAILY 02/26/18 Polyethylene Glycol 3350 (MIRALAX) 17 Gm Powd.pack, 1 PKT PO DAILY PRN for CONSTIPATION, PKT 02/26/18 Cholecalciferol (Vitamin D3) (VITAMIN D3) 5,000 Unit Tablet, 1 TAB PO DAILY, # 30 TAB 3 Refills 02/26/18 Calcitriol (CALCITRIOL) 0.25 Mcg Capsule, 1 CAP PO DAILY, #90 CAP 3 Refills 02/26/18 Ferric Citrate (Ferric Citrate) 210 Mg Tablet, 2 TAB PO TIDWMEALS 02/26/18 Insulin Degludec (Tresiba Flextouch U-200) 200 Unit/1 Ml Insuln.pen, 50 UNITS SQ HS 02/26/18 Aspirin (ASPIR 81) 81 Mg Tablet.dr, 81 MG PO DAILY, TAB 11/14/13 Discontinued Reported Medications Potassium Chloride (K-Tab ER) 20 Meq Tablet.er, 20 MEQ PO PRN 1X PRN for PER PROTOCOL 02/26/18 Folic Acid/Vitamin B Comp W-C (NEPHRO-BEST TABLET) 0.8 Mg Tablet, 0.8 MG PO DAILY 11/14/13 JUAN ANTONIO PABON MD Apr 24, 2018 08:41
--- NOTE | 2018-04-24 10:47 | PDOC ---
PROGRESS NOTES Chief Complaint Chief Complaint syncope , likely 2/2 symptomatic bradycardia aflutter/afib with bradycardia, was on amiodarone x1 today at home ESRD on PD hypokalemia moribid obesity dm2 on insulin htn urgency recent left leg osteo s/p i and d abx done, wound vac on Near fall 04/23 History of Present Illness History of Present Illness AlMost fell yesterday 04/23/18 No dizziness, claims his legs gave out and was weak has been noticing weakness for one and half years now-now has a walker and cane at home SNU cannot accept patient's on PD He does his own PD Patient is agreeable to home health Renal has held discharge-recommended neurology consult for the dizziness, and select screen Discussed with social work-unlikely to fulfill Criteria for select Plan: Hold discharge Likely home with home health tomorrow Check orthostatics 1 more day of PT OT Patient wants to go home Vitals Vitals Vital Signs Date Time Temp Pulse Resp B/P (MAP) Pulse Ox O2 Delivery O2 Flow Rate FiO2 04/24/18 08:38 69 132/67 04/24/18 07:32 99 Room Air 04/24/18 03:44 97.4 12 97.4 04/23/18 14:22 2.0 Physical Exam General: Alert, Oriented X3, Cooperative, No acute distress Heart: Normal S1, Normal S2, Other (irregular) Lungs: Clear Abdomen: Normal bowel sounds, Soft Extremities: No clubbing, No cyanosis Skin: No rashes, Other (left ankle wound with wound vac) Labs LABS Laboratory Tests Test 04/23/18 11:45 04/23/18 16:31 04/23/18 20:07 04/24/18 07:11 Glucose (Fingerstick) 146 mg/dL (70-99) 129 mg/dL (70-99) 166 mg/dL (70-99) 81 mg/dL (70-99) Review of Systems Review of Systems legs are Weak, right arm has a sling from the pacer The rest of ROS 14 point negative Comment Review of Relevant I have reviewed the following items roger (where applicable) has been applied. Labs Laboratory Tests Test 04/22/18 11:14 04/22/18 17:01 04/22/18 21:58 04/23/18 08:06 Glucose (Fingerstick) 144 mg/dL (70-99) 159 mg/dL (70-99) 218 mg/dL (70-99) 109 mg/dL (70-99) Test 04/23/18 11:45 04/23/18 16:31 04/23/18 20:07 04/24/18 07:11 Glucose (Fingerstick) 146 mg/dL (70-99) 129 mg/dL (70-99) 166 mg/dL (70-99) 81 mg/dL (70-99) Laboratory Tests Test 04/23/18 11:45 04/23/18 16:31 04/23/18 20:07 04/24/18 07:11 Glucose (Fingerstick) 146 mg/dL (70-99) 129 mg/dL (70-99) 166 mg/dL (70-99) 81 mg/dL (70-99) Medications Current Medications Aspirin (Ecotrin) 81 mg DAILY08 PO Last administered on 04/24/18 08:38; Start 04/20/18 at 08:00 Cinacalcet (Sensipar) 30 mg HS PO Last administered on 04/23/18at 20:05; Start 04/19/18 at 21:00 Vitamin B Complex/ Vitamin C (Rocio-Taylor) 1 tab DAILY PO Last administered on 08:37; Start 04/20/18 at 09:00 Sertraline HCl (Zoloft) 50 mg DAILY PO Last administered on 04/24/18 08:39; Start 04/20/18 at 09:00 Calcitriol (Rocaltrol) 0.25 mcg DAILY PO Last administered on 04/24/18 08:38 ; Start 04/20/18 at 09:00 Vitamin D (Vitamin D3) 5,000 unit DAILY PO Last administered on 04/24/18 08: 38; Start 04/20/18 at 09:00 Non-Formulary Medication (Ferric Citrate ) 2 tab TIDWMEALS PO Last administered on 04/24/18 08:35; Start 04/19/18 at 17:00 Insulin Glargine (Lantus) 50 units QHS SQ ; Start 04/19/18 at 21:00; Stop at 21:00; Status DC Acetaminophen (Tylenol) 650 mg PRN Q6HRS PRN PO FEVER Last administered on 05/02at 08:37; Start 04/19/18 at 15:45 Ondansetron HCl (Zofran) 4 mg PRN Q6HRS PRN IV NAUSEA/VOMITING 1ST CHOICE; Start 04/19/18 at 15:45 Morphine Sulfate (Morphine Sulfate) 2 mg PRN Q2HR PRN IV MODERATE TO SEVERE PAIN; Start 04/19/18 at 15:45 Tramadol HCl (Ultram) 50 mg PRN Q6HRS PRN PO MILD TO MODERATE PAIN Last administered on 04/23/18at 10:40; Start 04/19/18 at 15:45 Docusate Sodium (Colace) 100 mg PRN DAILY PRN PO HARD STOOLS; Start 04/19/18 at 15:45 Clonidine HCl (Catapres) 0.1 mg PRN Q2HR PRN PO HYPERTENSION, SEE COMMENTS; Start 04/19/18 at 15:45; Stop 04/19/18 at 16:42; Status DC Insulin Human Lispro (HumaLOG) 0-9 UNITS TIDWMEALS SQ Last administered on 04/22at 17:10; Start 04/19/18 at 17:00 Dextrose (Dextrose 50%-Water Syringe) 12.5 gm PRN Q15MIN PRN IV SEE COMMENTS; Start 04/19/18 at 15:45 Heparin Sodium (Porcine) (Heparin Sq) 5,000 unit Q8HRS SQ Last administered on 04/21/18at 21:41; Start 04/19/18 at 22:00; Stop 04/22/18 at 10:53; Status DC Potassium Chloride (Klor-Con) 20 meq 1X ONCE PO Last administered on at 16:45; Start 04/19/18 at 16:45; Stop 04/19/18 at 16:48; Status DC Hydralazine HCl (Apresoline) 25 mg PRN Q6HRS PRN PO ELEVATED BP, SEE COMMENTS; Start 04/19/18 at 16:45 Insulin Glargine (Lantus) 40 units QHS SQ Last administered on 04/23/18at 20:10 ; Start 04/19/18 at 21:00 Losartan Potassium (Cozaar) 25 mg DAILY PO Last administered on 04/24/18at 08: 38; Start 04/20/18 at 14:00 Phenyleph/Shark Oil/Min Oil/Petrol (Preparation H) 1 zoila PRN Q2HR PRN RC RECTAL PAIN; Start 04/20/18 at 16:00 Potassium Chloride (Klor-Con) 40 meq 1X ONCE PO Last administered on at 12:24; Start 04/21/18 at 09:45; Stop 04/21/18 at 09:46; Status DC Cefazolin Sodium/ Dextrose 50 ml @ 100 mls/hr 1X ONCE IV Last administered on 04/22/18at 06:00; Start 04/22/18 at 06:00; Stop 04/22/18 at 06:29; Status DC Bacitracin 78158 unit/Sodium Chloride 250 ml @ 250 mls/hr 1X ONCE IRR Last administered on 04/22/18at 10:00; Start 04/22/18 at 10:00; Stop 04/22/18 at 10:59 ; Status DC Fentanyl Citrate (Fentanyl 2ml Vial) 100 mcg STK-MED ONCE .ROUTE ; Start at 09:30; Stop 04/22/18 at 09:31; Status DC Midazolam HCl (Versed) 2 mg STK-MED ONCE .ROUTE ; Start 04/22/18 at 09:30; Stop 04/22/18 at 09:31; Status DC Lidocaine/ Epinephrine (LIDOCAINE 2%-EPI 1:100,000 multi-dose) 20 ml STK-MED ONCE .ROUTE ; Start 04/22/18 at 09:48; Stop 04/22/18 at 09:49; Status DC Midazolam HCl (Versed) 2 mg 1X ONCE IV Last administered on 04/22/18at 10:00; Start 04/22/18 at 10:00; Stop 04/22/18 at 10:01; Status DC Fentanyl Citrate (Fentanyl 2ml Vial) 100 mcg 1X ONCE IV Last administered on 04/22/18at 10:00; Start 04/22/18 at 10:00; Stop 04/22/18 at 10:01; Status DC Lidocaine/ Epinephrine (LIDOCAINE 2%-EPI 1:100,000 multi-dose) 20 ml 1X ONCE IJ Last administered on 04/22/18at 10:00; Start 04/22/18 at 10:00; Stop at 10:01; Status DC Iodixanol (Visipaque 320) 100 ml STK-MED ONCE .ROUTE ; Start 04/22/18 at 10:05; Stop 04/22/18 at 10:06; Status DC Fentanyl Citrate (Fentanyl 2ml Vial) 100 mcg STK-MED ONCE .ROUTE ; Start at 10:12; Stop 04/22/18 at 10:13; Status DC Info (No Anticoagulant Therapy) 1 ea CONT PRN PRN MC PER PROTOCOL; Start at 11:00 Cefazolin Sodium/ Dextrose 50 ml @ 100 mls/hr 1X ONCE IV Last administered on 04/22/18at 16:57; Start 04/22/18 at 16:00; Stop 04/22/18 at 16:29; Status DC Amiodarone HCl (Cordarone) 400 mg DAILY PO Last administered on 04/23/18at 10:39 ; Start 04/23/18 at 10:00; Stop 04/23/18 at 15:29; Status DC Midazolam HCl (Versed) 2 mg 1X ONCE IV Last administered on 04/23/18at 13:15; Start 04/23/18 at 13:15; Stop 04/23/18 at 13:16; Status DC Fentanyl Citrate (Fentanyl 2ml Vial) 100 mcg 1X ONCE IV Last administered on 04/23/18at 13:15; Start 04/23/18 at 13:15; Stop 04/23/18 at 13:16; Status DC Lidocaine/ Epinephrine (LIDOCAINE 2%-EPI 1:100,000 multi-dose) 20 ml 1X ONCE IJ Last administered on 04/23/18at 13:15; Start 04/23/18 at 13:15; Stop at 13:16; Status DC Bacitracin 14337 unit/Sodium Chloride 250 ml @ 0 mls/hr 1X ONCE IRR Last administered on 04/23/18at 13:15; Start 04/23/18 at 13:15; Stop 04/23/18 at 13:16 ; Status DC Cefazolin Sodium/ Dextrose 50 ml @ 100 mls/hr 1X ONCE IV Last administered on 04/23/18at 13:15; Start 04/23/18 at 13:15; Stop 04/23/18 at 13:44; Status DC Fentanyl Citrate (Fentanyl 2ml Vial) 100 mcg STK-MED ONCE .ROUTE ; Start at 13:16; Stop 04/23/18 at 13:17; Status DC Midazolam HCl (Versed) 2 mg STK-MED ONCE .ROUTE ; Start 04/23/18 at 13:17; Stop 04/23/18 at 13:18; Status DC Lidocaine/ Epinephrine (LIDOCAINE 2%-EPI 1:100,000 multi-dose) 20 ml STK-MED ONCE .ROUTE ; Start 04/23/18 at 13:52; Stop 04/23/18 at 13:53; Status DC Active Scripts Active Tramadol Hcl 50 Mg Tablet 50 Mg PO PRN Q6HRS PRN 7 Days Rocio-Taylor Tablet (Folic Acid/Vitamin B Comp W-C) 0.8 Mg Tablet 1 Tab PO DAILY 30 Days Reported Alprazolam 0.25 Mg Tablet 1 Tab PO DAILY Losartan Potassium 25 Mg Tablet 25 Mg PO DAILY Novolog (Insulin Aspart) 100 Unit/1 Ml Vial 40 Unit CONT INF HS Loperamide (Loperamide Hcl) 2 Mg Tablet 2 Mg PO PRN PRN Sensipar (Cinacalcet Hcl) 30 Mg Tablet 30 Mg PO HS Sertraline Hcl 50 Mg Tablet 50 Mg PO DAILY Miralax (Polyethylene Glycol 3350) 17 Gm Powd.pack 1 Pkt PO DAILY PRN Vitamin D3 (Cholecalciferol (Vitamin D3)) 5,000 Unit Tablet 1 Tab PO DAILY Calcitriol 0.25 Mcg Capsule 1 Cap PO DAILY Ferric Citrate 210 Mg Tablet 2 Tab PO TIDWMEALS Tresiba Flextouch U-200 (Insulin Degludec) 200 Unit/1 Ml Insuln.pen 50 Units SQ HS Aspir 81 (Aspirin) 81 Mg Tablet.dr 81 Mg PO DAILY Vitals/I & O Vital Sign - Last 24 Hours 04/23/18 04/23/18 04/23/18 04/23/18 11:00 11:40 13:15 14:22 Temp 98.5 98.5 Pulse 69 70 Resp 18 16 16 17 B/P (MAP) 137/54 (81) Pulse Ox 100 100 O2 Delivery Room Air Room Air Nasal Cannula O2 Flow Rate 2.0 04/23/18 04/23/18 04/23/18 04/23/18 14:42 14:45 14:57 15:12 Pulse 69 69 70 Resp 16 B/P (MAP) 126/58 (80) 95/54 (68) 101/60 (74) Pulse Ox 97 97 O2 Delivery Room Air Room Air Room Air 04/23/18 04/23/18 04/23/18 04/23/18 15:27 15:45 16:12 19:38 Temp 96.8 96.8 Pulse 69 68 69 69 Resp 18 B/P (MAP) 127/60 (82) 134/70 (91) 129/65 (86) 110/59 (76) Pulse Ox 99 98 99 97 O2 Delivery Room Air Room Air Room Air Room Air 04/23/18 04/23/18 04/24/18 04/24/18 20:00 23:14 03:44 07:30 Temp 97.8 97.4 97.8 97.4 Pulse 69 69 Resp 16 12 B/P (MAP) 143/67 (92) 144/65 (91) Pulse Ox 100 99 O2 Delivery Room Air Room Air Room Air Room Air 04/24/18 04/24/18 07:32 08:38 Pulse 69 69 B/P (MAP) 132/67 (88) 132/67 Pulse Ox 99 O2 Delivery Room Air Intake and Output 04/23/18 04/23/18 04/24/18 15:00 23:00 07:00 Intake Total 360 ml 475 ml 700 ml Balance 360 ml 475 ml 700 ml JUAN ANTONIO PABON MD Apr 24, 2018 10:47
--- NOTE | 2018-04-24 10:57 | PDOC ---
Renal-Progress Notes Subjective Notes Notes STILL DIZZY AND FALLING IN HIS ROOM, UNABLE TO HOLD HIMSELF UP SINCE HE CANT USE HIS RIGHT ARM WHICH IS IN A SLING History of Present Illness Hx of present illness STABLE Vitals Vitals Vital Signs Date Time Temp Pulse Resp B/P (MAP) Pulse Ox O2 Delivery O2 Flow Rate FiO2 04/24/18 08:38 69 132/67 04/24/18 07:32 99 Room Air 04/24/18 03:44 97.4 12 97.4 04/23/18 14:22 2.0 Weight Weight [ ] I.O. Intake and Output Intake and Output 04/24/18 07:00 Intake Total 1535 ml Balance 1535 ml Intake Oral 1535 ml Labs Labs Laboratory Tests Test 04/23/18 11:45 04/23/18 16:31 04/23/18 20:07 04/24/18 07:11 Glucose (Fingerstick) 146 mg/dL (70-99) 129 mg/dL (70-99) 166 mg/dL (70-99) 81 mg/dL (70-99) Review of Systems Constitutional: yes: alert, oriented Ears/Nose/Throat: Yes: no symptom reported Eyes: Yes: no symptom reported Pulmonary: Yes no symptom reported Cardiovascular: Yes no symptom reported Gastrointestional: Yes: no symptom reported Genitourinary: Yes: no symptom reported Musculoskeletal: Yes: no symptom reported Psychiatric/Neurological: Yes: pre-existing deficit Physical Exam General Appearance: no apparent distress Skin: other Heart: S1S2 Abdomen: soft, bowel sounds present Genitourinary: bladder flat Extremities: pulses present Neurology: alert, oriented, follow commands Musculoskeletal: Osteoarthritis Assessment Assessment IMP ESRD ARRHYTHMIA SYNCOPE DM II HTN FOOT WOUND ANEMIA S/P PPM PLAN WILL ASK NEURO TO SEE PER STILL FALLING AND HAS SOME INCONTINENCE WELL CCPD TONIGHT HAVE ASKED SW TO SEE IF HE WILL QUALITY FOR SELECT UNABLE TO GO TO SNF DUE TO AVAILABILITY OF PD IN THIS SETTING MILO ROE MD Apr 24, 2018 10:57
[2018-04-24 11:07] VITALS: BP 155/72
[2018-04-24 12:08] LABS: CALCIUM 8.4 mg/dL (8.5-10.1); CREATININE 19.7 mg/dL (0.7-1.3); GFR 2.9; POTASSIUM 3.8 mmol/L (3.5-5.1)
[2018-04-24] MEDS: traMADol 50 MG TABLET PO PRN ×2 (12:10→21:35)
--- NOTE | 2018-04-24 12:53 | PDOC2 ---
NEUROLOGY CONSULT Date of Admission Date of Admission DATE: 04/24/18 TIME: 12:45 Reason for Consult Reason for Consult: Dizziness and new incontinence Referring Physician Referring Physician: Dr. Duncan PCP: Dr. Mcdonald Source Source: Caregiver (), Chart review, Patient History of Present Illness History of Present Illness The patient is a 72-year-old right-handed male admitted for pacemaker insertion regarding sick sinus syndrome. For the past 2 years his legs give out on him without warning. He has trouble walking and uses a walker. Incontinence is not new, it has been going on for at least 2 years. He has had both fecal, and when he was urinating, urinary incontinence. He also has some mental fogginess at times. There is no history of stroke, seizure, head injury, diplopia, dysphagia , or dysarthria. 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 Past Surgical History Past Surgical History: Pacemaker, Appendectomy, Cholecystectomy, Cataract Removal, Other (peritoneal dialysis placement, vasectomy, left nephrectomy) Family History Family History: Cancer Social History Social History , no tobacco or alcohol Current Medications Current Medications Current Medications Aspirin (Ecotrin) 81 mg DAILY08 PO Last administered on 04/24/18 08:38; Start 04/20/18 at 08:00 Cinacalcet (Sensipar) 30 mg HS PO Last administered on 04/23/18at 20:05; Start 04/19/18 at 21:00 Vitamin B Complex/ Vitamin C (Rocio-Taylor) 1 tab DAILY PO Last administered on 08:37; Start 04/20/18 at 09:00 Sertraline HCl (Zoloft) 50 mg DAILY PO Last administered on 04/24/18 08:39; Start 04/20/18 at 09:00 Calcitriol (Rocaltrol) 0.25 mcg DAILY PO Last administered on 04/24/18 08:38 ; Start 04/20/18 at 09:00 Vitamin D (Vitamin D3) 5,000 unit DAILY PO Last administered on 10/10/18at 08: 38; Start 04/20/18 at 09:00 Non-Formulary Medication (Ferric Citrate ) 2 tab TIDWMEALS PO Last administered on 04/24/18at 12:10; Start 04/19/18 at 17:00 Insulin Glargine (Lantus) 50 units QHS SQ ; Start 04/19/18 at 21:00; Stop at 21:00; Status DC Acetaminophen (Tylenol) 650 mg PRN Q6HRS PRN PO FEVER Last administered on 05/02at 08:37; Start 04/19/18 at 15:45 Ondansetron HCl (Zofran) 4 mg PRN Q6HRS PRN IV NAUSEA/VOMITING 1ST CHOICE; Start 04/19/18 at 15:45 Morphine Sulfate (Morphine Sulfate) 2 mg PRN Q2HR PRN IV MODERATE TO SEVERE PAIN; Start 04/19/18 at 15:45 Tramadol HCl (Ultram) 50 mg PRN Q6HRS PRN PO MILD TO MODERATE PAIN Last administered on 04/24/18at 12:10; Start 04/19/18 at 15:45 Docusate Sodium (Colace) 100 mg PRN DAILY PRN PO HARD STOOLS; Start 04/19/18 at 15:45 Clonidine HCl (Catapres) 0.1 mg PRN Q2HR PRN PO HYPERTENSION, SEE COMMENTS; Start 04/19/18 at 15:45; Stop 04/19/18 at 16:42; Status DC Insulin Human Lispro (HumaLOG) 0-9 UNITS TIDWMEALS SQ Last administered on 04/22at 17:10; Start 04/19/18 at 17:00 Dextrose (Dextrose 50%-Water Syringe) 12.5 gm PRN Q15MIN PRN IV SEE COMMENTS; Start 04/19/18 at 15:45 Heparin Sodium (Porcine) (Heparin Sq) 5,000 unit Q8HRS SQ Last administered on 04/21/18at 21:41; Start 04/19/18 at 22:00; Stop 04/22/18 at 10:53; Status DC Potassium Chloride (Klor-Con) 20 meq 1X ONCE PO Last administered on at 16:45; Start 04/19/18 at 16:45; Stop 04/19/18 at 16:48; Status DC Hydralazine HCl (Apresoline) 25 mg PRN Q6HRS PRN PO ELEVATED BP, SEE COMMENTS; Start 04/19/18 at 16:45 Insulin Glargine (Lantus) 40 units QHS SQ Last administered on 04/23/18at 20:10 ; Start 04/19/18 at 21:00 Losartan Potassium (Cozaar) 25 mg DAILY PO Last administered on 04/24/18at 08: 38; Start 04/20/18 at 14:00 Phenyleph/Shark Oil/Min Oil/Petrol (Preparation H) 1 zoila PRN Q2HR PRN RC RECTAL PAIN; Start 04/20/18 at 16:00 Potassium Chloride (Klor-Con) 40 meq 1X ONCE PO Last administered on at 12:24; Start 04/21/18 at 09:45; Stop 04/21/18 at 09:46; Status DC Cefazolin Sodium/ Dextrose 50 ml @ 100 mls/hr 1X ONCE IV Last administered on 04/22/18at 06:00; Start 04/22/18 at 06:00; Stop 04/22/18 at 06:29; Status DC Bacitracin 02202 unit/Sodium Chloride 250 ml @ 250 mls/hr 1X ONCE IRR Last administered on 04/22/18at 10:00; Start 04/22/18 at 10:00; Stop 04/22/18 at 10:59 ; Status DC Fentanyl Citrate (Fentanyl 2ml Vial) 100 mcg STK-MED ONCE .ROUTE ; Start at 09:30; Stop 04/22/18 at 09:31; Status DC Midazolam HCl (Versed) 2 mg STK-MED ONCE .ROUTE ; Start 04/22/18 at 09:30; Stop 04/22/18 at 09:31; Status DC Lidocaine/ Epinephrine (LIDOCAINE 2%-EPI 1:100,000 multi-dose) 20 ml STK-MED ONCE .ROUTE ; Start 04/22/18 at 09:48; Stop 04/22/18 at 09:49; Status DC Midazolam HCl (Versed) 2 mg 1X ONCE IV Last administered on 04/22/18at 10:00; Start 04/22/18 at 10:00; Stop 04/22/18 at 10:01; Status DC Fentanyl Citrate (Fentanyl 2ml Vial) 100 mcg 1X ONCE IV Last administered on 04/22/18at 10:00; Start 04/22/18 at 10:00; Stop 04/22/18 at 10:01; Status DC Lidocaine/ Epinephrine (LIDOCAINE 2%-EPI 1:100,000 multi-dose) 20 ml 1X ONCE IJ Last administered on 04/22/18at 10:00; Start 04/22/18 at 10:00; Stop at 10:01; Status DC Iodixanol (Visipaque 320) 100 ml STK-MED ONCE .ROUTE ; Start 04/22/18 at 10:05; Stop 04/22/18 at 10:06; Status DC Fentanyl Citrate (Fentanyl 2ml Vial) 100 mcg STK-MED ONCE .ROUTE ; Start at 10:12; Stop 04/22/18 at 10:13; Status DC Info (No Anticoagulant Therapy) 1 ea CONT PRN PRN MC PER PROTOCOL; Start at 11:00 Cefazolin Sodium/ Dextrose 50 ml @ 100 mls/hr 1X ONCE IV Last administered on 04/22/18at 16:57; Start 04/22/18 at 16:00; Stop 04/22/18 at 16:29; Status DC Amiodarone HCl (Cordarone) 400 mg DAILY PO Last administered on 04/23/18at 10:39 ; Start 04/23/18 at 10:00; Stop 04/23/18 at 15:29; Status DC Midazolam HCl (Versed) 2 mg 1X ONCE IV Last administered on 04/23/18at 13:15; Start 04/23/18 at 13:15; Stop 04/23/18 at 13:16; Status DC Fentanyl Citrate (Fentanyl 2ml Vial) 100 mcg 1X ONCE IV Last administered on 04/23/18at 13:15; Start 04/23/18 at 13:15; Stop 04/23/18 at 13:16; Status DC Lidocaine/ Epinephrine (LIDOCAINE 2%-EPI 1:100,000 multi-dose) 20 ml 1X ONCE IJ Last administered on 04/23/18at 13:15; Start 04/23/18 at 13:15; Stop at 13:16; Status DC Bacitracin 56099 unit/Sodium Chloride 250 ml @ 0 mls/hr 1X ONCE IRR Last administered on 04/23/18at 13:15; Start 04/23/18 at 13:15; Stop 04/23/18 at 13:16 ; Status DC Cefazolin Sodium/ Dextrose 50 ml @ 100 mls/hr 1X ONCE IV Last administered on 04/23/18at 13:15; Start 04/23/18 at 13:15; Stop 04/23/18 at 13:44; Status DC Fentanyl Citrate (Fentanyl 2ml Vial) 100 mcg STK-MED ONCE .ROUTE ; Start at 13:16; Stop 04/23/18 at 13:17; Status DC Midazolam HCl (Versed) 2 mg STK-MED ONCE .ROUTE ; Start 04/23/18 at 13:17; Stop 04/23/18 at 13:18; Status DC Lidocaine/ Epinephrine (LIDOCAINE 2%-EPI 1:100,000 multi-dose) 20 ml STK-MED ONCE .ROUTE ; Start 04/23/18 at 13:52; Stop 04/23/18 at 13:53; Status DC Active Scripts Active Tramadol Hcl 50 Mg Tablet 50 Mg PO PRN Q6HRS PRN 7 Days Rocio-Taylor Tablet (Folic Acid/Vitamin B Comp W-C) 0.8 Mg Tablet 1 Tab PO DAILY 30 Days Reported Alprazolam 0.25 Mg Tablet 1 Tab PO DAILY Losartan Potassium 25 Mg Tablet 25 Mg PO DAILY Novolog (Insulin Aspart) 100 Unit/1 Ml Vial 40 Unit CONT INF HS Loperamide (Loperamide Hcl) 2 Mg Tablet 2 Mg PO PRN PRN Sensipar (Cinacalcet Hcl) 30 Mg Tablet 30 Mg PO HS Sertraline Hcl 50 Mg Tablet 50 Mg PO DAILY Miralax (Polyethylene Glycol 3350) 17 Gm Powd.pack 1 Pkt PO DAILY PRN Vitamin D3 (Cholecalciferol (Vitamin D3)) 5,000 Unit Tablet 1 Tab PO DAILY Calcitriol 0.25 Mcg Capsule 1 Cap PO DAILY Ferric Citrate 210 Mg Tablet 2 Tab PO TIDWMEALS Tresiba Flextouch U-200 (Insulin Degludec) 200 Unit/1 Ml Insuln.pen 50 Units SQ HS Aspir 81 (Aspirin) 81 Mg Tablet.dr 81 Mg PO DAILY Allergies Allergies: Coded Allergies: No Known Drug Allergies (Unverified , 02/27/18) ROS Review of System Patient denies fevers, chills, weight loss, dyspnea, angina, abdominal pain, change in bowels, or dysuria. 14-point review of systems is negative. Physical Exam Physical Examination General: Well-developed, well-nourished, black male, in no acute distress HEENT: Normocephalic andatraumatic.Temporal arteriespulsatile and nontender. Neck: Supple without bruit, no meningismus Musculoskeletal: Stability:see neurologic. Gait exam:see neurologic. Tone:see neurologic. Strength:see neurologic. Neurological: Mental Status:intact, orientation, memory, attention span/concentration, language, fund of knowledge normal. Cranial Nerves:Pupils equal and reactive to light, extraocular movements areintact, visual moeller are full to confrontation. Facial sensation is normal. There is no facial asymmetry. Vestibulo-ocular reflex is intact. Palate elevates and tongue protrudes in midline. All other cranial related problems are negative except as mentioned before.Reflexes:0+ and symmetric with flexor plantar responses. Motor:4/5 strength with normal tone and bulk. Coordination:Finger-nose finger and heel-to -jade testing are normal. Rapid alternating movements and fine finger movements are intact. Gait:Apraxic (uses a walker at home). Sensory:Severe stocking- glove loss. Vitals VITALS Vital Signs Date Time Temp Pulse Resp B/P (MAP) Pulse Ox O2 Delivery O2 Flow Rate FiO2 04/24/18 12:10 Room Air 04/24/18 11:07 97.7 69 18 155/72 (99) 97 97.7 04/23/18 14:22 2.0 Labs Labs Laboratory Tests Test 04/22/18 17:01 04/22/18 21:58 04/23/18 08:06 04/23/18 11:45 Glucose (Fingerstick) 159 mg/dL (70-99) 218 mg/dL (70-99) 109 mg/dL (70-99) 146 mg/dL (70-99) Test 04/23/18 16:31 04/23/18 20:07 04/24/18 07:11 04/24/18 11:40 Glucose (Fingerstick) 129 mg/dL (70-99) 166 mg/dL (70-99) 81 mg/dL (70-99) Sodium Level 138 mmol/L (136-145) Potassium Level 3.8 mmol/L (3.5-5.1) Chloride Level 97 mmol/L (98-107) Carbon Dioxide Level 24 mmol/L (21-32) Anion Gap 17 (6-14) Blood Urea Nitrogen 75 mg/dL (8-26) Creatinine 19.7 mg/dL (0.7-1.3) Estimated GFR (Cockcroft-Gault) 2.9 Glucose Level 122 mg/dL (70-99) Calcium Level 8.4 mg/dL (8.5-10.1) Test 04/24/18 11:44 Glucose (Fingerstick) 120 mg/dL (70-99) Laboratory Tests Test 04/23/18 16:31 04/23/18 20:07 04/24/18 07:11 04/24/18 11:40 Glucose (Fingerstick) 129 mg/dL (70-99) 166 mg/dL (70-99) 81 mg/dL (70-99) Sodium Level 138 mmol/L (136-145) Potassium Level 3.8 mmol/L (3.5-5.1) Chloride Level 97 mmol/L (98-107) Carbon Dioxide Level 24 mmol/L (21-32) Anion Gap 17 (6-14) Blood Urea Nitrogen 75 mg/dL (8-26) Creatinine 19.7 mg/dL (0.7-1.3) Estimated GFR (Cockcroft-Gault) 2.9 Glucose Level 122 mg/dL (70-99) Calcium Level 8.4 mg/dL (8.5-10.1) Test 04/24/18 11:44 Glucose (Fingerstick) 120 mg/dL (70-99) Assessment/Plan Assessment/Plan Impression: Diabetic neuropathy, explains the gait disorder as well as the incontinence. Rule out other causes of neuropathy. No examination evidence of any central nervous system disease although does describe some memory loss. I find no evidence of myelopathy. Recommendations: CT of the head, does not have a MRI-compatible pacemaker and was placed very recently anyway Laboratory studies for other reversible causes of dementia. Rehabilitation Consider GI evaluation regarding the fecal incontinence but again I think this is related to the neuropathy. I discussed with the patient and his . Thank you for letting me help with the patient's care. CANDIS LEZAMA MD Apr 24, 2018 12:52
--- NOTE | 2018-04-24 14:22 | RAD ---
Examination: CT head and cervical spine without contrast HISTORY: History of gait disorder COMPARISON: None available TECHNIQUE: Axial CT images of the head was performed without contrast. Axial CT images of the cervical spine was performed without contrast. Coronal and sagittal reformats are performed Exposure: One or more of the following individualized dose reduction techniques were utilized for this examination: 1. Automated exposure control 2. Adjustment of the mA and/or kV according to patient size 3. Use of iterative reconstruction technique FINDINGS: There is no evidence of midline shift. The delgadillo-white matter differentiation is maintained. There is a subtle tiny 4 mm hyperdensity identified in the left frontal lobe just anterior to the left frontal horn of the lateral ventricle. Mild prominent appearing lateral ventricles. The basal cisterns are uneffaced The visualized paranasal sinuses, mastoid air cells are clear. Cervical vertebral body heights are maintained. There is no evidence of listhesis. The bilateral facets are well aligned. There is a subtle bony density identified in the right inferior facet of C2 could be a age indeterminate fracture or unfused ossicle. Moderate intervertebral disc height loss identified throughout the cervical spine. The lateral masses of C1 are aligned with C2 vertebra. The C2 dens appears intact. The visualized apical lungs are clear. IMPRESSION: 1. Tiny 4 mm hyperdensity identified in the left frontal lobe just anterior to the frontal horn of the left lateral ventricle could be a small focus of bleed. Close interval follow-up examination or MRI is recommended for further evaluation. 2. A small bony density in the right inferior facet of C2 could be an age indeterminate fracture or unfused ossicle. Correlate for point tenderness. If there is a acute injury MRI can be considered. Patient's nurse was informed at time of dictation. Electronically signed by: Paco Montes MD (04/24/2018 2:19 PM) [place] [id number]
[2018-04-24 14:28] VITALS: BP 142/65
[2018-04-24] MEDS ORDERED: oxyCODONE/APAP 5/325 1 TAB TABLET PO PRN (16:45)
[2018-04-24 19:00] VITALS: BP 123/56
[2018-04-24] MEDS: CINACALCET HCL 30 MG TABLET PO SCH (21:36)
[2018-04-24] MEDS: INSULIN GLARGINE 300 UNITS/3 ML INSULN.PEN. SQ SCH (21:42)
[2018-04-24 23:48] VITALS: BP 116/50
[2018-04-25 03:00] VITALS: BP 121/63
[2018-04-25 06:02] LABS: CALCIUM 8.6 mg/dL (8.5-10.1); POTASSIUM 3.6 mmol/L (3.5-5.1)
[2018-04-25 07:00] VITALS: BP 131/60
[2018-04-25] MEDS: INSULIN LISPRO 300 UNITS/3 ML INSULN.PEN. SQ SCH (08:00)
[2018-04-25] MEDS: FERRIC CITRATE 210 MG PO SCH (08:00)
[2018-04-25] MEDS: FOLIC/VIT B COMP W-C (RENAL) TABLET. PO SCH (09:04)
[2018-04-25] MEDS: SERTRALINE 50 MG TABLET. PO SCH (09:04)
[2018-04-25] MEDS: ASPIRIN ENTERIC COATED 81 MG TABLET.DR. PO SCH (09:04)
[2018-04-25] MEDS: CALCITRIOL 0.25 MCG CAPSULE. PO SCH (09:04)
[2018-04-25 09:05] VITALS: BP 131/60
[2018-04-25] MEDS: LOSARTAN POTASSIUM 25 MG TABLET. PO SCH (09:05)
[2018-04-25] MEDS: CHOLECALCIFEROL (VITAMIN D3) 5,000 UNIT CAPSULE PO SCH (09:08)
--- NOTE | 2018-04-25 09:49 | PDOC3 ---
Discharge Summary Visit Information Date of Admission: Apr 19, 2018 Date of Discharge: Apr 25, 2018 Admitting Diagnosis Comment: syncope , symptomatic bradycardia s/ post permanent pacemaker 04/22/18) ESRD on PD moribid obesity dm2 on insulin htn urgency resolved small 4 mm bleed? - rpt CT in 1 week per neuro - no FNDs Brief Hospital Course Allergies Allergies Coded Allergies Type Severity Reaction Last Updated Verified No Known Drug Allergies 02/27/18 No Vital Signs Vital Signs Date Time Temp Pulse Resp B/P (MAP) Pulse Ox O2 Delivery O2 Flow Rate FiO2 04/25/18 09:05 69 131/60 04/25/18 07:00 97.6 9 98 Room Air 97.6 04/24/18 22:40 2.0 Lab Results Laboratory Tests Test 04/23/18 11:45 04/23/18 16:31 04/23/18 20:07 04/24/18 07:11 Glucose (Fingerstick) 146 mg/dL (70-99) 129 mg/dL (70-99) 166 mg/dL (70-99) 81 mg/dL (70-99) Test 04/24/18 11:40 04/24/18 11:44 04/24/18 16:53 04/24/18 20:31 Sodium Level 138 mmol/L (136-145) Potassium Level 3.8 mmol/L (3.5-5.1) Chloride Level 97 mmol/L (98-107) Carbon Dioxide Level 24 mmol/L (21-32) Anion Gap 17 (6-14) Blood Urea Nitrogen 75 mg/dL (8-26) Creatinine 19.7 mg/dL (0.7-1.3) Estimated GFR (Cockcroft-Gault) 2.9 Glucose Level 122 mg/dL (70-99) Calcium Level 8.4 mg/dL (8.5-10.1) Glucose (Fingerstick) 120 mg/dL (70-99) 111 mg/dL (70-99) 162 mg/dL (70-99) Test 04/25/18 05:10 04/25/18 07:33 Erythrocyte Sedimentation Rate 70 (0-15) Sodium Level 140 mmol/L (136-145) Potassium Level 3.6 mmol/L (3.5-5.1) Chloride Level 98 mmol/L (98-107) Carbon Dioxide Level 26 mmol/L (21-32) Anion Gap 16 (6-14) Blood Urea Nitrogen 72 mg/dL (8-26) Creatinine 19.0 mg/dL (0.7-1.3) Estimated GFR (Cockcroft-Gault) 3.0 Glucose Level 184 mg/dL (70-99) Calcium Level 8.6 mg/dL (8.5-10.1) Vitamin B12 Level 635 pg/mL (247-911) Glucose (Fingerstick) 116 mg/dL (70-99) Laboratory Tests Test 04/24/18 11:40 04/24/18 11:44 04/24/18 16:53 04/24/18 20:31 Sodium Level 138 mmol/L (136-145) Potassium Level 3.8 mmol/L (3.5-5.1) Chloride Level 97 mmol/L (98-107) Carbon Dioxide Level 24 mmol/L (21-32) Anion Gap 17 (6-14) Blood Urea Nitrogen 75 mg/dL (8-26) Creatinine 19.7 mg/dL (0.7-1.3) Estimated GFR (Cockcroft-Gault) 2.9 Glucose Level 122 mg/dL (70-99) Calcium Level 8.4 mg/dL (8.5-10.1) Glucose (Fingerstick) 120 mg/dL (70-99) 111 mg/dL (70-99) 162 mg/dL (70-99) Test 04/25/18 05:10 04/25/18 07:33 Erythrocyte Sedimentation Rate 70 (0-15) Sodium Level 140 mmol/L (136-145) Potassium Level 3.6 mmol/L (3.5-5.1) Chloride Level 98 mmol/L (98-107) Carbon Dioxide Level 26 mmol/L (21-32) Anion Gap 16 (6-14) Blood Urea Nitrogen 72 mg/dL (8-26) Creatinine 19.0 mg/dL (0.7-1.3) Estimated GFR (Cockcroft-Gault) 3.0 Glucose Level 184 mg/dL (70-99) Calcium Level 8.6 mg/dL (8.5-10.1) Vitamin B12 Level 635 pg/mL (247-911) Glucose (Fingerstick) 116 mg/dL (70-99) Brief Hospital Course Mr. Garza is a 72 old [place] Indian male on PD, admitted because of syncope and symptomatic bradycardia received a pacer on 05/02/18. Pacemaker functioning fine. Was initially planned for discharge with home health, but patient fell 1 day or 2 days prior to discharge. But [facility] cannot take patient's on PD hence arrange for home health. But had some dizziness and gait unsteadiness. LTAC screen done and he was accepted. Neurology consulted for the dizziness. CT scan of the head was done which showed maybe a 4 mm brain bleed-but neurology is not convinced this is so. Advise CT scan in 1 week's time Okay to continue aspirin 81. NO FNds Consults performed cardiology/renal, neuro Procedure performed PD, permanent pacer 04/22/18 Dc dispO; LTAC Rpt CT head (no contrast) 1 week Discharge Information Condition at Discharge: Improved, Stable Disposition/Orders: Other (ltac) Scheduled Alprazolam (Alprazolam) 0.25 Mg Tablet, 1 TAB PO DAILY, #30 (Reported) Entered as Reported by: PILO MURCIA on 04/19/181931 Last Taken: Unknown Dose on Unknown Date & Time Last Action: HELD on 04/20 1319 by ANISH LIZ MD Aspirin (Aspir 81) 81 Mg Tablet.dr, 81 MG PO DAILY, (Reported) Entered as Reported by: UMANG GIL on 11/14/131949 Last Action: Reviewed on 04/19/181931 by PILO MURCIA Calcitriol (Calcitriol) 0.25 Mcg Capsule, 1 CAP PO DAILY, #90 Ref 3 (Reported) Entered as Reported by: LETI RIVAS on 02/26/182200 Last Action: Reviewed on 04/19/181931 by PILO MURCIA Cholecalciferol (Vitamin D3) (Vitamin D3) 5,000 Unit Tablet, 1 TAB PO DAILY, # 30 Ref 3 (Reported) Entered as Reported by: LETI RIVAS on 02/26/182200 Last Action: Reviewed on 04/19/181931 by PILO MURCIA Cinacalcet Hcl (Sensipar) 30 Mg Tablet, 30 MG PO HS, (Reported) Entered as Reported by: LETI RIVAS on 02/26/182200 Last Action: Reviewed on 04/19/181931 by PILO MURCIA Ferric Citrate (Ferric Citrate) 210 Mg Tablet, 2 TAB PO TIDWMEALS, (Reported) Entered as Reported by: LETI RIVAS on 02/26/182200 Last Action: Reviewed on 04/19/181931 by PILO MURCIA Folic Acid/Vitamin B Comp W-C (Rocio-Taylor Tablet) 0.8 Mg Tablet, 1 TAB PO DAILY for 30 Days, #30 Prescribed by: JUAN ANTONIO PABON on 04/23/18 0759 Insulin Aspart (Novolog) 100 Unit/1 Ml Vial, 40 UNIT CONT INF HS, (Reported) Entered as Reported by: LETI RIVAS on 02/26/182200 Last Action: HELD on 04/20/181318 by ANISH LIZ MD Insulin Degludec (Tresiba Flextouch U-200) 200 Unit/1 Ml Insuln.pen, 50 UNITS SQ HS, (Reported) Entered as Reported by: LETI RIVAS on 02/26/182200 Last Action: Reviewed on 04/19/181931 by PILO MURCIA Losartan Potassium (Losartan Potassium) 25 Mg Tablet, 25 MG PO DAILY, (Reported) Entered as Reported by: PILO MURCIA on 04/19/181931 Last Taken: Unknown Dose on Unknown Date & Time Last Action: Continued on 04/20/181318 by ANISH LIZ MD Sertraline Hcl (Sertraline Hcl) 50 Mg Tablet, 50 MG PO DAILY, (Reported) Entered as Reported by: LETI RIVAS on 02/26/182200 Last Action: Reviewed on 04/19/181931 by PILO MURCIA Scheduled PRN Loperamide Hcl (Loperamide) 2 Mg Tablet, 2 MG PO PRN PRN for DIARRHEA, (Reported ) Entered as Reported by: LETI RIVAS on 02/26/182200 Last Action: HELD on 04/20/181318 by ANISH LIZ MD Polyethylene Glycol 3350 (Miralax) 17 Gm Powd.pack, 1 PKT PO DAILY PRN for CONSTIPATION, (Reported) Entered as Reported by: LETI RIVAS on 02/26/182200 Last Action: HELD on 04/20/181318 by ANISH LIZ MD Tramadol Hcl (Tramadol Hcl) 50 Mg Tablet, 50 MG PO PRN Q6HRS PRN for MILD TO MODERATE PAIN for 7 Days Prescribed by: JUAN ANTONIO PABON on 04/23/18 0759 Discontinued Medications Folic Acid/Vitamin B Comp W-C (Nephro-Taylor Tablet) 0.8 Mg Tablet, 0.8 MG PO DAILY, (Reported) Entered as Reported by: UMANG GIL on 11/14/131949 Last Action: Discontinued on 04/19/18 193 by PILO MURCIA Potassium Chloride (K-Tab ER) 20 Meq Tablet.er, 20 MEQ PO PRN 1X PRN for PER PROTOCOL, (Reported) Entered as Reported by: LETI RIVAS on 02/26/182200 Last Action: HELD on 04/20/18 1319 by MD PEPPER BARTLETT CHERRIE Y MD Apr 25, 2018 09:49
--- NOTE | 2018-04-25 11:10 | PDOC ---
Renal-Progress Notes Subjective Notes Notes STABLE History of Present Illness Hx of present illness BETTER Vitals Vitals Vital Signs Date Time Temp Pulse Resp B/P (MAP) Pulse Ox O2 Delivery O2 Flow Rate FiO2 04/25/18 09:05 69 131/60 04/25/18 08:00 Room Air 04/25/18 07:00 97.6 9 98 97.6 04/24/18 22:40 2.0 Weight Weight [ ] I.O. Intake and Output Intake and Output 04/25/18 07:00 Intake Total 1740 ml Balance 1740 ml Intake Oral 1740 ml # Voids 2 # Bowel Movements 1 Labs Labs Laboratory Tests Test 04/24/18 11:40 04/24/18 11:44 04/24/18 16:53 04/24/18 20:31 Sodium Level 138 mmol/L (136-145) Potassium Level 3.8 mmol/L (3.5-5.1) Chloride Level 97 mmol/L (98-107) Carbon Dioxide Level 24 mmol/L (21-32) Anion Gap 17 (6-14) Blood Urea Nitrogen 75 mg/dL (8-26) Creatinine 19.7 mg/dL (0.7-1.3) Estimated GFR (Cockcroft-Gault) 2.9 Glucose Level 122 mg/dL (70-99) Calcium Level 8.4 mg/dL (8.5-10.1) Glucose (Fingerstick) 120 mg/dL (70-99) 111 mg/dL (70-99) 162 mg/dL (70-99) Test 04/25/18 05:10 04/25/18 07:33 Erythrocyte Sedimentation Rate 70 (0-15) Sodium Level 140 mmol/L (136-145) Potassium Level 3.6 mmol/L (3.5-5.1) Chloride Level 98 mmol/L (98-107) Carbon Dioxide Level 26 mmol/L (21-32) Anion Gap 16 (6-14) Blood Urea Nitrogen 72 mg/dL (8-26) Creatinine 19.0 mg/dL (0.7-1.3) Estimated GFR (Cockcroft-Gault) 3.0 Glucose Level 184 mg/dL (70-99) Calcium Level 8.6 mg/dL (8.5-10.1) Vitamin B12 Level 635 pg/mL (247-911) Glucose (Fingerstick) 116 mg/dL (70-99) Review of Systems Constitutional: yes: alert, oriented Ears/Nose/Throat: Yes: no symptom reported Eyes: Yes: no symptom reported Pulmonary: Yes no symptom reported Cardiovascular: Yes no symptom reported Gastrointestional: Yes: no symptom reported Genitourinary: Yes: no symptom reported Musculoskeletal: Yes: no symptom reported Psychiatric/Neurological: Yes: pre-existing deficit Physical Exam General Appearance: no apparent distress Skin: other Heart: S1S2 Abdomen: soft, bowel sounds present Genitourinary: bladder flat Extremities: pulses present Neurology: alert, oriented, follow commands Musculoskeletal: Osteoarthritis Assessment Assessment IMP ESRD ARRHYTHMIA SYNCOPE DM II HTN FOOT WOUND ANEMIA S/P PPM PLAN PT TO SS TODAY WILL DO CCPD THERE ALONG WITH DAY TIME FILLS MILO ROE MD Apr 25, 2018 11:10
[2018-04-29 18:14] LABS: ANA INTERP Negative (.)
[2018-04-29 20:13] LABS: IMMUNOGLOBULIN A 96 mg/dL (61-437); IMMUNOGLOBULIN G 917 mg/dL (700-1600); IMMUNOGLOBULIN M 30 mg/dL (15-143)
== END 2018-04-25 11:58 | DRG 242 ==
LOC: ER 13:36 → 2 NORTH 15:20
PROVIDERS: ADMIT Internal Medicine; ATTEND Internal Medicine
PROC: 0JH606Z Insertion of Pacemaker, Dual Chamber into Chest Subcutaneous Tissue and Fascia, Open Approach (ICD-10-PCS; principal; 2018-04-22)
PROC: 02HK3JZ Insertion of Pacemaker Lead into Right Ventricle, Percutaneous Approach (ICD-10-PCS; 2018-04-22)
PROC: 02H63JZ Insertion of Pacemaker Lead into Right Atrium, Percutaneous Approach (ICD-10-PCS; 2018-04-23)
PROC: 0JPT0PZ Removal of Cardiac Rhythm Related Device from Trunk Subcutaneous Tissue and Fascia, Open Approach (ICD-10-PCS; 2018-04-23)
PROC: 0JH606Z Insertion of Pacemaker, Dual Chamber into Chest Subcutaneous Tissue and Fascia, Open Approach (ICD-10-PCS; 2018-04-23)
DX: I49.5 Sick sinus syndrome (principal); N18.6 End stage renal disease; I48.92 Unspecified atrial flutter; I12.0 Hypertensive chronic kidney disease with stage 5 chronic kidney disease or end stage renal disease; I48.1 Persistent atrial fibrillation; M86.8X6 Other osteomyelitis, lower leg; R29.6 Repeated falls; D64.9 Anemia, unspecified; D69.6 Thrombocytopenia, unspecified; E66.9 Obesity, unspecified; E78.00 Pure hypercholesterolemia, unspecified; E78.5 Hyperlipidemia, unspecified; E87.6 Hypokalemia; G47.30 Sleep apnea, unspecified; I16.0 Hypertensive urgency; I25.10 Atherosclerotic heart disease of native coronary artery without angina pectoris; K21.9 Gastro-esophageal reflux disease without esophagitis; E21.3 Hyperparathyroidism, unspecified; F32.9 Major depressive disorder, single episode, unspecified; M19.90 Unspecified osteoarthritis, unspecified site; E11.22 Type 2 diabetes mellitus with diabetic chronic kidney disease; E11.40 Type 2 diabetes mellitus with diabetic neuropathy, unspecified; E11.69 Type 2 diabetes mellitus with other specified complication; R32 Unspecified urinary incontinence; Z79.4 Long term (current) use of insulin; Z79.82 Long term (current) use of aspirin; Z82.49 Family history of ischemic heart disease and other diseases of the circulatory system; Z85.528 Personal history of other malignant neoplasm of kidney; Z90.49 Acquired absence of other specified parts of digestive tract; Z90.5 Acquired absence of kidney; Z95.0 Presence of cardiac pacemaker; Z99.2 Dependence on renal dialysis; Z83.3 Family history of diabetes mellitus; Z68.33 Body mass index [BMI] 33.0-33.9, adult; Z98.49 Cataract extraction status, unspecified eye; Z79.899 Other long term (current) drug therapy
CPT/HCPCS: 33208; 36415; 70450; 71045; 71046; 72125; 80048; 80053; 80061; 82607; 82962; 83880; 84443; 84484; 85025; 85610; 85651; 86038; 86334; 93005; 93922; 99152; 99153; C1785; C1898; J0690; J1815; J2250; J3010; J3490; J7050; 97110; 97116; 97535; 99285-25; J7030

== ENCOUNTER → 2018-05-07 | Outpatient (CLI) | payer MEDICARE ==
[2018-04-25 09:05] VITALS: BP 131/60
[~2018-05-07] MED LIST changes: +ALPR0.254 PO; +FOLI0.8T21 PO; +LOSA25TA5 PO; +TRAM50TA PO
== END | disposition home or self-care (01) ==
LOC: PMGWOUND 08:44
PROVIDERS: ATTEND Emergency Medicine Undersea and Hyperbaric Medicine
DX: E11.622 Type 2 diabetes mellitus with other skin ulcer (principal); L97.324 Non-pressure chronic ulcer of left ankle with necrosis of bone; E11.69 Type 2 diabetes mellitus with other specified complication; M86.172 Other acute osteomyelitis, left ankle and foot; E11.36 Type 2 diabetes mellitus with diabetic cataract; E11.51 Type 2 diabetes mellitus with diabetic peripheral angiopathy without gangrene; E11.40 Type 2 diabetes mellitus with diabetic neuropathy, unspecified; B96.5 Pseudomonas (aeruginosa) (mallei) (pseudomallei) as the cause of diseases classified elsewhere; F32.9 Major depressive disorder, single episode, unspecified; I48.0 Paroxysmal atrial fibrillation; E78.00 Pure hypercholesterolemia, unspecified; G47.30 Sleep apnea, unspecified; E03.9 Hypothyroidism, unspecified; E78.5 Hyperlipidemia, unspecified; E21.3 Hyperparathyroidism, unspecified; K21.9 Gastro-esophageal reflux disease without esophagitis; M19.90 Unspecified osteoarthritis, unspecified site; I25.10 Atherosclerotic heart disease of native coronary artery without angina pectoris; E66.9 Obesity, unspecified; Z68.35 Body mass index [BMI] 35.0-35.9, adult; Z99.2 Dependence on renal dialysis; Z79.4 Long term (current) use of insulin; Z90.49 Acquired absence of other specified parts of digestive tract; Z85.528 Personal history of other malignant neoplasm of kidney
CPT/HCPCS: 11042

== ENCOUNTER 2018-05-13 08:32 | Outpatient (CLI) | payer MEDICARE ==
[~2018-05-13] VITALS: Ht 177.8 cm; Wt 108.9 kg
[2018-05-13 09:29] VITALS: BP 156/72
[2018-05-13 09:38] LABS: BASO # 0.1 x10^3/uL (0.0-0.2); BASO % 1 % (0-3); EOS # 0.3 x10^3/uL (0.0-0.7); EOS % 4 % (0-3); HEMATOCRIT 31.9 % (39.0-53.0); LYMPH # 1.1 x10^3/uL (1.0-4.8); LYMPH % 15 % (24-48); MEAN CORPUSCULAR HEMOGLOBIN 32 pg (25-35); MEAN CORPUSCULAR HGB CONC 34 g/dL (31-37); MEAN CORPUSCULAR VOLUME 92 fL (79-100); MONO # 0.7 x10^3/uL (0.0-1.1); MONO % 10 % (0-9); NEUT # 5.1 x10^3uL (1.8-7.7); NEUT % 71 % (31-73); PLATELET COUNT 145 x10^3/uL (140-400); RED BLOOD COUNT 3.47 x10^6/uL (4.30-5.70); RED CELL DISTRIBUTION WIDTH 15.2 % (11.5-14.5); WHITE BLOOD COUNT 7.2 x10^3/uL (4.0-11.0)
[2018-05-13] MEDS ORDERED: LIDOCAINE WITH 8.4% SOD BICARB 3 ML DISP.SYRIN. ONE (09:51)
[2018-05-13] MEDS ORDERED: fentaNYL PF VIAL 100 MCG/2 ML VIAL ONE (09:51)
[2018-05-13 09:56] LABS: PROTHROMBIN TIME PATIENT 14.1 SEC (11.7-14.0)
[2018-05-13] MEDS ORDERED: LIDOCAINE WITH 8.4% SOD BICARB 3 ML DISP.SYRIN. IJ ONE (10:00)
[2018-05-13] MEDS ORDERED: fentaNYL PF VIAL 100 MCG/2 ML VIAL IV ONE (10:00)
[2018-05-13 10:11] VITALS: BP 155/75
--- NOTE | 2018-05-13 11:24 | RAD ---
Removal of right internal jugular tunneled central venous catheter 05/13/2018 Indication: Catheter no longer needed Discussion: The risks and benefits of the procedure were discussed the patient. Informed consent was obtained. A timeout procedure was performed. The right neck and chest were prepped and draped using sterile barrier technique. 1% lidocaine was administered for local anesthesia. Using a combination of traction and mild blunt dissection the pre-existing catheter was removed intact. This was confirmed with fluoroscopically. Manual pressure was held. Sterile dressings were applied. No immediate complications were identified. Fluoroscopy time:: 0.3 min Dose area product: 2 Gycm2 Impression: Removal of right internal jugular tunneled central venous catheter
== END 2018-05-13 10:30 | disposition home or self-care (01) ==
LOC: INTRAD 08:32
PROVIDERS: ATTEND Internal Medicine Infectious Disease
DX: Z45.2 Encounter for adjustment and management of vascular access device (principal); Z79.01 Long term (current) use of anticoagulants; Z79.82 Long term (current) use of aspirin; Z79.899 Other long term (current) drug therapy
CPT/HCPCS: 36415; 36589; 77001; 85025; 85610; J3010

== ENCOUNTER → 2018-05-13 | Outpatient (CLI) | payer MEDICARE ==
[2018-05-13 10:11] VITALS: BP 155/75
== END | disposition home or self-care (01) ==
LOC: PMGWOUND 11:19
PROVIDERS: ATTEND Emergency Medicine Undersea and Hyperbaric Medicine
DX: E11.622 Type 2 diabetes mellitus with other skin ulcer (principal); L97.324 Non-pressure chronic ulcer of left ankle with necrosis of bone; E11.621 Type 2 diabetes mellitus with foot ulcer; L97.414 Non-pressure chronic ulcer of right heel and midfoot with necrosis of bone; E11.69 Type 2 diabetes mellitus with other specified complication; M86.172 Other acute osteomyelitis, left ankle and foot; M86.8X6 Other osteomyelitis, lower leg; E11.36 Type 2 diabetes mellitus with diabetic cataract; E11.51 Type 2 diabetes mellitus with diabetic peripheral angiopathy without gangrene; E11.42 Type 2 diabetes mellitus with diabetic polyneuropathy; F32.9 Major depressive disorder, single episode, unspecified; I48.0 Paroxysmal atrial fibrillation; E78.00 Pure hypercholesterolemia, unspecified; G47.30 Sleep apnea, unspecified; E03.9 Hypothyroidism, unspecified; E78.5 Hyperlipidemia, unspecified; E21.3 Hyperparathyroidism, unspecified; K21.9 Gastro-esophageal reflux disease without esophagitis; M19.90 Unspecified osteoarthritis, unspecified site; I25.10 Atherosclerotic heart disease of native coronary artery without angina pectoris; E66.9 Obesity, unspecified; I48.92 Unspecified atrial flutter; E11.22 Type 2 diabetes mellitus with diabetic chronic kidney disease; I12.0 Hypertensive chronic kidney disease with stage 5 chronic kidney disease or end stage renal disease; N18.6 End stage renal disease; Z68.35 Body mass index [BMI] 35.0-35.9, adult; Z99.2 Dependence on renal dialysis; Z79.4 Long term (current) use of insulin; Z90.49 Acquired absence of other specified parts of digestive tract; Z85.528 Personal history of other malignant neoplasm of kidney; Z79.01 Long term (current) use of anticoagulants; Z79.82 Long term (current) use of aspirin; Z79.899 Other long term (current) drug therapy
CPT/HCPCS: 11042

== ENCOUNTER → 2018-05-20 | Outpatient (CLI) | payer MEDICARE ==
[2018-05-13 10:11] VITALS: BP 155/75
== END | disposition home or self-care (01) ==
LOC: PMGWOUND 11:54
PROVIDERS: ATTEND Emergency Medicine Undersea and Hyperbaric Medicine
DX: E11.622 Type 2 diabetes mellitus with other skin ulcer (principal); L97.321 Non-pressure chronic ulcer of left ankle limited to breakdown of skin; E11.621 Type 2 diabetes mellitus with foot ulcer; L97.424 Non-pressure chronic ulcer of left heel and midfoot with necrosis of bone; L97.414 Non-pressure chronic ulcer of right heel and midfoot with necrosis of bone; E11.36 Type 2 diabetes mellitus with diabetic cataract; E11.42 Type 2 diabetes mellitus with diabetic polyneuropathy; E11.51 Type 2 diabetes mellitus with diabetic peripheral angiopathy without gangrene; I13.2 Hypertensive heart and chronic kidney disease with heart failure and with stage 5 chronic kidney disease, or end stage renal disease; E11.22 Type 2 diabetes mellitus with diabetic chronic kidney disease; E11.69 Type 2 diabetes mellitus with other specified complication; M86.172 Other acute osteomyelitis, left ankle and foot; N18.6 End stage renal disease; I50.9 Heart failure, unspecified; F32.9 Major depressive disorder, single episode, unspecified; K21.9 Gastro-esophageal reflux disease without esophagitis; M19.90 Unspecified osteoarthritis, unspecified site; E21.3 Hyperparathyroidism, unspecified; E03.9 Hypothyroidism, unspecified; I48.0 Paroxysmal atrial fibrillation; E78.5 Hyperlipidemia, unspecified; I48.1 Persistent atrial fibrillation; B96.5 Pseudomonas (aeruginosa) (mallei) (pseudomallei) as the cause of diseases classified elsewhere; I25.10 Atherosclerotic heart disease of native coronary artery without angina pectoris; Z90.49 Acquired absence of other specified parts of digestive tract; E66.9 Obesity, unspecified; Z68.35 Body mass index [BMI] 35.0-35.9, adult; Z79.4 Long term (current) use of insulin; Z85.528 Personal history of other malignant neoplasm of kidney; Z99.2 Dependence on renal dialysis
CPT/HCPCS: 11042

== ENCOUNTER → 2018-05-27 | Outpatient (CLI) | payer MEDICARE ==
[2018-05-13 10:11] VITALS: BP 155/75
== END | disposition home or self-care (01) ==
LOC: PMGWOUND 11:58
PROVIDERS: ATTEND Emergency Medicine Undersea and Hyperbaric Medicine
DX: E11.622 Type 2 diabetes mellitus with other skin ulcer (principal); L97.324 Non-pressure chronic ulcer of left ankle with necrosis of bone; E11.69 Type 2 diabetes mellitus with other specified complication; M86.172 Other acute osteomyelitis, left ankle and foot; E11.36 Type 2 diabetes mellitus with diabetic cataract; E11.42 Type 2 diabetes mellitus with diabetic polyneuropathy; E11.51 Type 2 diabetes mellitus with diabetic peripheral angiopathy without gangrene; B96.5 Pseudomonas (aeruginosa) (mallei) (pseudomallei) as the cause of diseases classified elsewhere; I13.2 Hypertensive heart and chronic kidney disease with heart failure and with stage 5 chronic kidney disease, or end stage renal disease; E11.22 Type 2 diabetes mellitus with diabetic chronic kidney disease; N18.6 End stage renal disease; I50.9 Heart failure, unspecified; L84 Corns and callosities; F32.9 Major depressive disorder, single episode, unspecified; I48.0 Paroxysmal atrial fibrillation; I48.1 Persistent atrial fibrillation; E78.5 Hyperlipidemia, unspecified; E21.3 Hyperparathyroidism, unspecified; G47.30 Sleep apnea, unspecified; M19.90 Unspecified osteoarthritis, unspecified site; E78.00 Pure hypercholesterolemia, unspecified; K21.9 Gastro-esophageal reflux disease without esophagitis; I25.10 Atherosclerotic heart disease of native coronary artery without angina pectoris; E66.9 Obesity, unspecified; Z68.35 Body mass index [BMI] 35.0-35.9, adult; Z99.2 Dependence on renal dialysis; Z79.4 Long term (current) use of insulin; Z85.528 Personal history of other malignant neoplasm of kidney; Z90.49 Acquired absence of other specified parts of digestive tract
CPT/HCPCS: 11042

== ENCOUNTER → 2018-06-03 | Outpatient (CLI) | payer MEDICARE ==
[2018-05-13 10:11] VITALS: BP 155/75
[~2018-06-03] MED LIST changes: +HYDR-3164 PO; -HYDR-971 PO
== END | disposition home or self-care (01) ==
LOC: PMGWOUND 11:50
PROVIDERS: ATTEND Emergency Medicine Undersea and Hyperbaric Medicine
DX: E11.621 Type 2 diabetes mellitus with foot ulcer (principal); L97.324 Non-pressure chronic ulcer of left ankle with necrosis of bone; B96.5 Pseudomonas (aeruginosa) (mallei) (pseudomallei) as the cause of diseases classified elsewhere; E11.69 Type 2 diabetes mellitus with other specified complication; M86.172 Other acute osteomyelitis, left ankle and foot; E11.36 Type 2 diabetes mellitus with diabetic cataract; E11.42 Type 2 diabetes mellitus with diabetic polyneuropathy; E11.51 Type 2 diabetes mellitus with diabetic peripheral angiopathy without gangrene; I13.2 Hypertensive heart and chronic kidney disease with heart failure and with stage 5 chronic kidney disease, or end stage renal disease; E11.22 Type 2 diabetes mellitus with diabetic chronic kidney disease; N18.6 End stage renal disease; I50.9 Heart failure, unspecified; L84 Corns and callosities; F32.9 Major depressive disorder, single episode, unspecified; E78.5 Hyperlipidemia, unspecified; E21.3 Hyperparathyroidism, unspecified; I48.0 Paroxysmal atrial fibrillation; I48.1 Persistent atrial fibrillation; G47.30 Sleep apnea, unspecified; E78.00 Pure hypercholesterolemia, unspecified; K21.9 Gastro-esophageal reflux disease without esophagitis; M19.90 Unspecified osteoarthritis, unspecified site; E03.9 Hypothyroidism, unspecified; I25.10 Atherosclerotic heart disease of native coronary artery without angina pectoris; Z79.4 Long term (current) use of insulin; Z99.2 Dependence on renal dialysis; Z68.35 Body mass index [BMI] 35.0-35.9, adult; Z90.49 Acquired absence of other specified parts of digestive tract; Z85.528 Personal history of other malignant neoplasm of kidney
CPT/HCPCS: 11042

== ENCOUNTER → 2018-06-10 | Outpatient (CLI) | payer MEDICARE ==
[2018-05-13 10:11] VITALS: BP 155/75
[~2018-06-10] MED LIST changes: -OXYC-323 PO; +OXYC1TAB15 PO
== END | disposition home or self-care (01) ==
LOC: PMGWOUND 11:53
PROVIDERS: ATTEND Emergency Medicine Undersea and Hyperbaric Medicine
DX: E11.622 Type 2 diabetes mellitus with other skin ulcer (principal); L97.324 Non-pressure chronic ulcer of left ankle with necrosis of bone; E11.69 Type 2 diabetes mellitus with other specified complication; M86.172 Other acute osteomyelitis, left ankle and foot; E11.42 Type 2 diabetes mellitus with diabetic polyneuropathy; E11.36 Type 2 diabetes mellitus with diabetic cataract; E11.51 Type 2 diabetes mellitus with diabetic peripheral angiopathy without gangrene; B96.5 Pseudomonas (aeruginosa) (mallei) (pseudomallei) as the cause of diseases classified elsewhere; I13.2 Hypertensive heart and chronic kidney disease with heart failure and with stage 5 chronic kidney disease, or end stage renal disease; E11.22 Type 2 diabetes mellitus with diabetic chronic kidney disease; N18.6 End stage renal disease; I50.9 Heart failure, unspecified; L84 Corns and callosities; G47.30 Sleep apnea, unspecified; K21.9 Gastro-esophageal reflux disease without esophagitis; M19.90 Unspecified osteoarthritis, unspecified site; F32.9 Major depressive disorder, single episode, unspecified; E78.5 Hyperlipidemia, unspecified; E21.3 Hyperparathyroidism, unspecified; E03.9 Hypothyroidism, unspecified; I48.0 Paroxysmal atrial fibrillation; I48.1 Persistent atrial fibrillation; E78.00 Pure hypercholesterolemia, unspecified; I25.10 Atherosclerotic heart disease of native coronary artery without angina pectoris; E66.9 Obesity, unspecified; Z68.35 Body mass index [BMI] 35.0-35.9, adult; Z99.2 Dependence on renal dialysis; Z79.4 Long term (current) use of insulin; Z90.49 Acquired absence of other specified parts of digestive tract; Z85.528 Personal history of other malignant neoplasm of kidney
CPT/HCPCS: 97597

== ENCOUNTER → 2018-06-17 | Outpatient (CLI) | payer MEDICARE ==
[~2018-06-17] MED LIST changes: +LOSA100T14 PO; -LOSA100T7 PO; -LOSA25TA5 PO; +LOSA25TA54 PO
== END | disposition home or self-care (01) ==
LOC: PMGWOUND 10:52
PROVIDERS: ATTEND Emergency Medicine Undersea and Hyperbaric Medicine
DX: E11.621 Type 2 diabetes mellitus with foot ulcer (principal); L97.324 Non-pressure chronic ulcer of left ankle with necrosis of bone; E11.69 Type 2 diabetes mellitus with other specified complication; M86.172 Other acute osteomyelitis, left ankle and foot; E11.36 Type 2 diabetes mellitus with diabetic cataract; E11.42 Type 2 diabetes mellitus with diabetic polyneuropathy; E11.51 Type 2 diabetes mellitus with diabetic peripheral angiopathy without gangrene; E11.40 Type 2 diabetes mellitus with diabetic neuropathy, unspecified; I13.2 Hypertensive heart and chronic kidney disease with heart failure and with stage 5 chronic kidney disease, or end stage renal disease; E11.22 Type 2 diabetes mellitus with diabetic chronic kidney disease; N18.6 End stage renal disease; I50.9 Heart failure, unspecified; B96.5 Pseudomonas (aeruginosa) (mallei) (pseudomallei) as the cause of diseases classified elsewhere; L84 Corns and callosities; E03.9 Hypothyroidism, unspecified; I48.0 Paroxysmal atrial fibrillation; I48.1 Persistent atrial fibrillation; G47.30 Sleep apnea, unspecified; F32.9 Major depressive disorder, single episode, unspecified; E78.5 Hyperlipidemia, unspecified; E21.3 Hyperparathyroidism, unspecified; K21.9 Gastro-esophageal reflux disease without esophagitis; M19.90 Unspecified osteoarthritis, unspecified site; E78.00 Pure hypercholesterolemia, unspecified; I25.10 Atherosclerotic heart disease of native coronary artery without angina pectoris; E66.9 Obesity, unspecified; Z68.35 Body mass index [BMI] 35.0-35.9, adult; Z99.2 Dependence on renal dialysis; Z79.4 Long term (current) use of insulin; Z90.49 Acquired absence of other specified parts of digestive tract; Z85.528 Personal history of other malignant neoplasm of kidney
CPT/HCPCS: 11042

== ENCOUNTER → 2018-06-24 | Outpatient (CLI) | payer MEDICARE | END | disposition home or self-care (01) | LOC: PMGWOUND 12:30 | PROVIDERS: ATTEND Emergency Medicine Undersea and Hyperbaric Medicine | DX: E11.621 Type 2 diabetes mellitus with foot ulcer (principal); L97.324 Non-pressure chronic ulcer of left ankle with necrosis of bone; E11.69 Type 2 diabetes mellitus with other specified complication; M86.172 Other acute osteomyelitis, left ankle and foot; E11.36 Type 2 diabetes mellitus with diabetic cataract; E11.42 Type 2 diabetes mellitus with diabetic polyneuropathy; E11.51 Type 2 diabetes mellitus with diabetic peripheral angiopathy without gangrene; I13.2 Hypertensive heart and chronic kidney disease with heart failure and with stage 5 chronic kidney disease, or end stage renal disease; E11.22 Type 2 diabetes mellitus with diabetic chronic kidney disease; N18.6 End stage renal disease; I50.9 Heart failure, unspecified; L84 Corns and callosities; B96.5 Pseudomonas (aeruginosa) (mallei) (pseudomallei) as the cause of diseases classified elsewhere; G47.30 Sleep apnea, unspecified; K21.9 Gastro-esophageal reflux disease without esophagitis; F32.9 Major depressive disorder, single episode, unspecified; E78.00 Pure hypercholesterolemia, unspecified; E78.5 Hyperlipidemia, unspecified; E03.9 Hypothyroidism, unspecified; E66.9 Obesity, unspecified; I48.0 Paroxysmal atrial fibrillation; I48.1 Persistent atrial fibrillation; E21.3 Hyperparathyroidism, unspecified; M19.90 Unspecified osteoarthritis, unspecified site; Z68.35 Body mass index [BMI] 35.0-35.9, adult; Z99.2 Dependence on renal dialysis; Z79.4 Long term (current) use of insulin; Z85.528 Personal history of other malignant neoplasm of kidney; Z90.49 Acquired absence of other specified parts of digestive tract; I25.10 Atherosclerotic heart disease of native coronary artery without angina pectoris | CPT/HCPCS: 11042 ==

== ENCOUNTER → 2018-07-01 | Outpatient (CLI) | payer MEDICARE | END | disposition home or self-care (01) | LOC: PMGWOUND 12:22 | PROVIDERS: ATTEND Emergency Medicine Undersea and Hyperbaric Medicine | DX: E11.621 Type 2 diabetes mellitus with foot ulcer (principal); L97.324 Non-pressure chronic ulcer of left ankle with necrosis of bone; E11.36 Type 2 diabetes mellitus with diabetic cataract; E11.42 Type 2 diabetes mellitus with diabetic polyneuropathy; E11.51 Type 2 diabetes mellitus with diabetic peripheral angiopathy without gangrene; E11.69 Type 2 diabetes mellitus with other specified complication; M86.172 Other acute osteomyelitis, left ankle and foot; E11.22 Type 2 diabetes mellitus with diabetic chronic kidney disease; I13.2 Hypertensive heart and chronic kidney disease with heart failure and with stage 5 chronic kidney disease, or end stage renal disease; N18.6 End stage renal disease; I50.9 Heart failure, unspecified; B96.5 Pseudomonas (aeruginosa) (mallei) (pseudomallei) as the cause of diseases classified elsewhere; L84 Corns and callosities; I48.0 Paroxysmal atrial fibrillation; I48.1 Persistent atrial fibrillation; G47.30 Sleep apnea, unspecified; E78.5 Hyperlipidemia, unspecified; E03.9 Hypothyroidism, unspecified; E21.3 Hyperparathyroidism, unspecified; E78.00 Pure hypercholesterolemia, unspecified; F32.9 Major depressive disorder, single episode, unspecified; K21.9 Gastro-esophageal reflux disease without esophagitis; M19.90 Unspecified osteoarthritis, unspecified site; I25.10 Atherosclerotic heart disease of native coronary artery without angina pectoris; E66.9 Obesity, unspecified; Z68.35 Body mass index [BMI] 35.0-35.9, adult; Z99.2 Dependence on renal dialysis; Z79.4 Long term (current) use of insulin; Z85.528 Personal history of other malignant neoplasm of kidney; Z90.49 Acquired absence of other specified parts of digestive tract | CPT/HCPCS: 97597 ==

== ENCOUNTER → 2018-07-15 | Outpatient (CLI) | payer MEDICARE | END | disposition home or self-care (01) | LOC: PMGWOUND 11:15 | PROVIDERS: ATTEND Emergency Medicine Undersea and Hyperbaric Medicine | DX: E11.622 Type 2 diabetes mellitus with other skin ulcer (principal); L97.324 Non-pressure chronic ulcer of left ankle with necrosis of bone; E11.69 Type 2 diabetes mellitus with other specified complication; M86.171 Other acute osteomyelitis, right ankle and foot; M86.172 Other acute osteomyelitis, left ankle and foot; E11.36 Type 2 diabetes mellitus with diabetic cataract; E11.42 Type 2 diabetes mellitus with diabetic polyneuropathy; I13.2 Hypertensive heart and chronic kidney disease with heart failure and with stage 5 chronic kidney disease, or end stage renal disease; E11.22 Type 2 diabetes mellitus with diabetic chronic kidney disease; N18.6 End stage renal disease; I50.9 Heart failure, unspecified; L84 Corns and callosities; B96.5 Pseudomonas (aeruginosa) (mallei) (pseudomallei) as the cause of diseases classified elsewhere; G47.30 Sleep apnea, unspecified; F32.9 Major depressive disorder, single episode, unspecified; E78.5 Hyperlipidemia, unspecified; E03.9 Hypothyroidism, unspecified; E21.3 Hyperparathyroidism, unspecified; I48.0 Paroxysmal atrial fibrillation; I48.1 Persistent atrial fibrillation; K21.9 Gastro-esophageal reflux disease without esophagitis; M19.90 Unspecified osteoarthritis, unspecified site; I25.10 Atherosclerotic heart disease of native coronary artery without angina pectoris; E78.00 Pure hypercholesterolemia, unspecified; E66.9 Obesity, unspecified; Z68.35 Body mass index [BMI] 35.0-35.9, adult; Z79.4 Long term (current) use of insulin; Z99.2 Dependence on renal dialysis; Z90.49 Acquired absence of other specified parts of digestive tract; Z85.528 Personal history of other malignant neoplasm of kidney | CPT/HCPCS: 11042 ==

== ENCOUNTER → 2018-07-22 | Outpatient (CLI) | payer MEDICARE | END | disposition home or self-care (01) | LOC: PMGWOUND 11:48 | PROVIDERS: ATTEND Emergency Medicine Undersea and Hyperbaric Medicine | DX: E11.621 Type 2 diabetes mellitus with foot ulcer (principal); L97.324 Non-pressure chronic ulcer of left ankle with necrosis of bone; E11.69 Type 2 diabetes mellitus with other specified complication; M86.171 Other acute osteomyelitis, right ankle and foot; M86.172 Other acute osteomyelitis, left ankle and foot; E11.51 Type 2 diabetes mellitus with diabetic peripheral angiopathy without gangrene; E11.36 Type 2 diabetes mellitus with diabetic cataract; E11.42 Type 2 diabetes mellitus with diabetic polyneuropathy; B96.5 Pseudomonas (aeruginosa) (mallei) (pseudomallei) as the cause of diseases classified elsewhere; I13.2 Hypertensive heart and chronic kidney disease with heart failure and with stage 5 chronic kidney disease, or end stage renal disease; E11.22 Type 2 diabetes mellitus with diabetic chronic kidney disease; N18.6 End stage renal disease; I50.9 Heart failure, unspecified; L84 Corns and callosities; G47.30 Sleep apnea, unspecified; E78.5 Hyperlipidemia, unspecified; E21.3 Hyperparathyroidism, unspecified; E03.9 Hypothyroidism, unspecified; I48.0 Paroxysmal atrial fibrillation; I48.1 Persistent atrial fibrillation; K21.9 Gastro-esophageal reflux disease without esophagitis; M19.90 Unspecified osteoarthritis, unspecified site; F32.9 Major depressive disorder, single episode, unspecified; E78.00 Pure hypercholesterolemia, unspecified; I25.10 Atherosclerotic heart disease of native coronary artery without angina pectoris; E66.9 Obesity, unspecified; Z68.35 Body mass index [BMI] 35.0-35.9, adult; Z99.2 Dependence on renal dialysis; Z79.4 Long term (current) use of insulin; Z85.528 Personal history of other malignant neoplasm of kidney; Z90.49 Acquired absence of other specified parts of digestive tract | CPT/HCPCS: 99214; G0463 ==

== ENCOUNTER → 2018-08-05 | Outpatient (CLI) | payer MEDICARE | END | disposition home or self-care (01) | LOC: PMGWOUND 12:15 | PROVIDERS: ATTEND Emergency Medicine Undersea and Hyperbaric Medicine | DX: E11.622 Type 2 diabetes mellitus with other skin ulcer (principal); L97.324 Non-pressure chronic ulcer of left ankle with necrosis of bone; B96.5 Pseudomonas (aeruginosa) (mallei) (pseudomallei) as the cause of diseases classified elsewhere; E11.69 Type 2 diabetes mellitus with other specified complication; M86.172 Other acute osteomyelitis, left ankle and foot; M86.171 Other acute osteomyelitis, right ankle and foot; E11.36 Type 2 diabetes mellitus with diabetic cataract; E11.42 Type 2 diabetes mellitus with diabetic polyneuropathy; E11.51 Type 2 diabetes mellitus with diabetic peripheral angiopathy without gangrene; I13.2 Hypertensive heart and chronic kidney disease with heart failure and with stage 5 chronic kidney disease, or end stage renal disease; E11.22 Type 2 diabetes mellitus with diabetic chronic kidney disease; N18.6 End stage renal disease; I50.9 Heart failure, unspecified; L84 Corns and callosities; F32.9 Major depressive disorder, single episode, unspecified; E78.5 Hyperlipidemia, unspecified; E21.3 Hyperparathyroidism, unspecified; E03.9 Hypothyroidism, unspecified; E66.9 Obesity, unspecified; I48.0 Paroxysmal atrial fibrillation; I48.1 Persistent atrial fibrillation; E78.00 Pure hypercholesterolemia, unspecified; G47.30 Sleep apnea, unspecified; M19.90 Unspecified osteoarthritis, unspecified site; K21.9 Gastro-esophageal reflux disease without esophagitis; I25.10 Atherosclerotic heart disease of native coronary artery without angina pectoris; Z85.528 Personal history of other malignant neoplasm of kidney; Z68.35 Body mass index [BMI] 35.0-35.9, adult; Z90.49 Acquired absence of other specified parts of digestive tract; Z99.2 Dependence on renal dialysis; Z79.4 Long term (current) use of insulin | CPT/HCPCS: 11042 ==

== ENCOUNTER → 2018-08-19 | Outpatient (CLI) | payer MEDICARE ==
[~2018-08-19] MED LIST changes: -AMLO10TA6 PO; +AMLO10TA8 PO
--- NOTE | 2018-08-19 13:13 | CARD ---
MR#: [id number] Date of Study: 08/19/2018 Ordering Physician: CARMELA BUNDY, Referring Physician: CARMELA BUNDY, Tech: Gemma Giraldo APPROVED REPORT EXAM: Two-dimensional and M-mode echocardiogram with Doppler and color Doppler. Other Information Quality : AverageHR: 69bpm INDICATION Hypertension/HCVD Surgery/Intervention Pacemaker: RISK FACTORS Diabetes 2D DIMENSIONS RVDd3.0 (2.9-3.5cm)Left Atrium(2D)4.0 (1.6-4.0cm) IVSd1.0 (0.7-1.1cm)Aortic Root(2D)3.3 (2.0-3.7cm) LVDd5.1 (3.9-5.9cm)LVOT Diameter2.2 (1.8-2.4cm) PWd1.2 (0.7-1.1cm)LVDs3.0 (2.5-4.0cm) FS (%) 42.1 %SV90.8 ml Aortic Valve AoV Peak Bakari.115.4cm/sAoV VTI22.8cm AO Peak GR.5.3mmHgLVOT Peak Bakari.71.4cm/s LVOT VTI 15.50cmAO Mean GR.2mmHg ANDI (VMAX)1.43an3DFL (VTI)2.49cm2 Mitral Valve MV E Rawtibbi855.4cm/sMV E Peak Gr.114mmHg MV DECEL [id number] A Tnoctrgn82.7cm/s MV CXN43mlH/A Ratio1.5 MVA (PHT)4.68cm2 TDI E/Lateral E'7.7E/Medial E'10.3 Pulmonary Valve PV Peak Eoilrjak621.2cm/sPV Peak Grad.4mmHg Tricuspid Valve TR P. Shtwvlxi489rn/sRAP HFFLTUHO7uwNl TR Peak Gr.31jpOcKOJP29spBa Pulmonary Vein S1 Mghhlwxj22.1cm/sD2 Ucninrag04.5cm/s PVa [id number] LEFT VENTRICLE The left ventricle is normal size. There is borderline concentric left ventricular hypertrophy. The l eft ventricular systolic function is normal and the ejection fraction is within normal range. The Eje ction Fraction is 55-60%. There is normal LV segmental wall motion. The left ventricular diastolic fu nction and filling is normal for age. RIGHT VENTRICLE The right ventricle is borderline dilated. There is normal right ventricular wall thickness. The righ t ventricular systolic function is normal. There is a possible pacemaker lead in the right ventricle. ATRIA The left atrium is mildly dilated. The right atrium size is normal. The interatrial septum is intact with no evidence for an atrial septal defect or patent foramen ovale as noted on 2-D or Doppler imagi ng. AORTIC VALVE The aortic valve is thickened but opens well. Doppler and Color Flow revealed trace aortic regurgitat ion. There is no significant aortic valvular stenosis. MITRAL VALVE The mitral valve is normal in structure and function. There is no evidence of mitral valve prolapse. There is no mitral valve stenosis. Doppler and Color-flow revealed mild to moderate mitral regurgitat ion. TRICUSPID VALVE The tricuspid valve is normal in structure and function. Doppler and Color Flow revealed mild tricusp id regurgitation. There is no tricuspid valve stenosis. PULMONIC VALVE The pulmonic valve is not well visualized. Doppler and Color Flow revealed trace pulmonic valvular re gurgitation. GREAT VESSELS The aortic root is normal in size. The IVC is normal in size and collapses >50% with inspiration. PERICARDIAL EFFUSION There is no evidence of significant pericardial effusion. Critical Notification Critical Value: No <Conclusion> The left ventricle is normal size. The left ventricular systolic function is normal and the ejection fraction is within normal range. The Ejection Fraction is 55-60%. There is borderline concentric left ventricular hypertrophy. There is a possible pacemaker lead in the right ventricle. There is no significant aortic valvular stenosis. Doppler and Color Flow revealed trace aortic regurgitation. Doppler and Color-flow revealed mild to moderate mitral regurgitation. Doppler and Color Flow revealed mild tricuspid regurgitation. Signed by : Gurvinder Persaud MD Electronically Approved : 08/19/2018 13:11:54
== END | disposition home or self-care (01) ==
LOC: ECHO 11:21
PROVIDERS: ATTEND Internal Medicine Cardiovascular Disease
DX: I08.1 Rheumatic disorders of both mitral and tricuspid valves (principal); E11.9 Type 2 diabetes mellitus without complications; I10 Essential (primary) hypertension
CPT/HCPCS: 93306

== ENCOUNTER → 2018-09-02 | Outpatient (CLI) | payer MEDICARE | END | disposition home or self-care (01) | LOC: PMGWOUND 11:57 | PROVIDERS: ATTEND Emergency Medicine Undersea and Hyperbaric Medicine | DX: E11.621 Type 2 diabetes mellitus with foot ulcer (principal); L97.324 Non-pressure chronic ulcer of left ankle with necrosis of bone; B96.5 Pseudomonas (aeruginosa) (mallei) (pseudomallei) as the cause of diseases classified elsewhere; E11.36 Type 2 diabetes mellitus with diabetic cataract; E11.42 Type 2 diabetes mellitus with diabetic polyneuropathy; E11.51 Type 2 diabetes mellitus with diabetic peripheral angiopathy without gangrene; E11.69 Type 2 diabetes mellitus with other specified complication; M86.172 Other acute osteomyelitis, left ankle and foot; M86.171 Other acute osteomyelitis, right ankle and foot; I13.2 Hypertensive heart and chronic kidney disease with heart failure and with stage 5 chronic kidney disease, or end stage renal disease; E11.22 Type 2 diabetes mellitus with diabetic chronic kidney disease; N18.6 End stage renal disease; I50.9 Heart failure, unspecified; L84 Corns and callosities; I48.0 Paroxysmal atrial fibrillation; I48.1 Persistent atrial fibrillation; E78.5 Hyperlipidemia, unspecified; E21.3 Hyperparathyroidism, unspecified; E03.9 Hypothyroidism, unspecified; G47.30 Sleep apnea, unspecified; E78.00 Pure hypercholesterolemia, unspecified; M19.90 Unspecified osteoarthritis, unspecified site; K21.9 Gastro-esophageal reflux disease without esophagitis; F32.9 Major depressive disorder, single episode, unspecified; I25.10 Atherosclerotic heart disease of native coronary artery without angina pectoris; E66.9 Obesity, unspecified; Z68.35 Body mass index [BMI] 35.0-35.9, adult; Z79.4 Long term (current) use of insulin; Z99.2 Dependence on renal dialysis; Z90.49 Acquired absence of other specified parts of digestive tract; Z85.528 Personal history of other malignant neoplasm of kidney | CPT/HCPCS: 99214; G0463 ==

== ENCOUNTER → 2018-09-30 | Outpatient (CLI) | payer MEDICARE | END | disposition home or self-care (01) | LOC: PMGWOUND 11:53 | PROVIDERS: ATTEND Emergency Medicine Undersea and Hyperbaric Medicine | DX: E11.622 Type 2 diabetes mellitus with other skin ulcer (principal); L97.324 Non-pressure chronic ulcer of left ankle with necrosis of bone; E11.69 Type 2 diabetes mellitus with other specified complication; M86.172 Other acute osteomyelitis, left ankle and foot; M86.171 Other acute osteomyelitis, right ankle and foot; E11.36 Type 2 diabetes mellitus with diabetic cataract; E11.42 Type 2 diabetes mellitus with diabetic polyneuropathy; E11.51 Type 2 diabetes mellitus with diabetic peripheral angiopathy without gangrene; I13.2 Hypertensive heart and chronic kidney disease with heart failure and with stage 5 chronic kidney disease, or end stage renal disease; E11.22 Type 2 diabetes mellitus with diabetic chronic kidney disease; N18.6 End stage renal disease; I50.9 Heart failure, unspecified; B96.5 Pseudomonas (aeruginosa) (mallei) (pseudomallei) as the cause of diseases classified elsewhere; L84 Corns and callosities; I48.0 Paroxysmal atrial fibrillation; I48.1 Persistent atrial fibrillation; G47.30 Sleep apnea, unspecified; E78.5 Hyperlipidemia, unspecified; E03.9 Hypothyroidism, unspecified; E21.3 Hyperparathyroidism, unspecified; E78.00 Pure hypercholesterolemia, unspecified; M19.90 Unspecified osteoarthritis, unspecified site; K21.9 Gastro-esophageal reflux disease without esophagitis; I25.10 Atherosclerotic heart disease of native coronary artery without angina pectoris; F32.9 Major depressive disorder, single episode, unspecified; E66.9 Obesity, unspecified; Z68.35 Body mass index [BMI] 35.0-35.9, adult; Z99.2 Dependence on renal dialysis; Z79.4 Long term (current) use of insulin; Z85.528 Personal history of other malignant neoplasm of kidney; Z90.49 Acquired absence of other specified parts of digestive tract | CPT/HCPCS: 99213; G0463 ==

== ENCOUNTER 2019-01-22 12:27 | Emergency (ER) | payer MEDICARE ==
[~2019-01-22] VITALS: Ht 177.8 cm; Wt 111.1 kg
[2019-01-22 13:59] LABS: BASO # 0.1 x10^3/uL (0.0-0.2); BASO % 1 % (0-3); EOS # 0.2 x10^3/uL (0.0-0.7); EOS % 4 % (0-3); HEMOGLOBIN 7.7 g/dL (13.0-17.5); LYMPH # 0.6 x10^3/uL (1.0-4.8); LYMPH % 10 % (24-48); MEAN CORPUSCULAR HEMOGLOBIN 34 pg (25-35); MEAN CORPUSCULAR HGB CONC 35 g/dL (31-37); MEAN CORPUSCULAR VOLUME 95 fL (79-100); MONO # 0.7 x10^3/uL (0.0-1.1); MONO % 11 % (0-9); NEUT % 75 % (31-73); PLATELET COUNT 132 x10^3/uL (140-400); RED CELL DISTRIBUTION WIDTH 16.7 % (11.5-14.5); WHITE BLOOD COUNT 6.6 x10^3/uL (4.0-11.0)
[2019-01-22 14:09] LABS: PROTHROMBIN TIME PATIENT 13.3 SEC (11.7-14.0)
[2019-01-22 14:17] LABS: CALCIUM 10.3 mg/dL (8.5-10.1); CREATININE 15.1 mg/dL (0.7-1.3); GFR 3.9; POTASSIUM 3.9 mmol/L (3.5-5.1)
[2019-01-22 14:23] LABS: ALBUMIN 2.9 g/dL (3.4-5.0); ALBUMIN/GLOBULIN RATIO 0.8 (1.0-1.7); MAGNESIUM 3.1 mg/dL (1.8-2.4); TOTAL BILIRUBIN 0.4 mg/dL (0.2-1.0); TOTAL PROTEIN 6.7 g/dL (6.4-8.2)
[2019-01-22 15:17] VITALS: BP 170/76
--- NOTE | 2019-01-22 16:13 | PHYS DOC ---
Past Medical History Past Medical History: Arrhythmia, Diabetes-Type I, Diabetes-Type II, High Cholesterol, Hypertension, Renal Failure, Other Additional Past Medical Histor: RENAL CANCER, NIGHTLY PERITONEAL DIALYSIS Past Surgical History: Appendectomy, Cholecystectomy, Pacemaker Additional Past Surgical Histo: LEFT NEPHRECTOMY, DIALYSIS SHUNT, RIGHT CHEST Alcohol Use: None Drug Use: None Adult General Chief Complaint Chief Complaint: ABNORMAL LABS [facility] HPI Patient is a 73 year old [f__sex] who presents with [] Review of Systems Review of Systems Constitutional: Denies fever or chills [] Eyes: Denies change in visual acuity, redness, or eye pain [] HENT: Denies nasal congestion or sore throat [] Respiratory: Denies cough or shortness of breath [] Cardiovascular: No additional information not addressed in HPI [] GI: Denies abdominal pain, nausea, vomiting, bloody stools or diarrhea [] : Denies dysuria or hematuria [] Musculoskeletal: Denies back pain or joint pain [] Integument: Denies rash or skin lesions [] Neurologic: Denies headache, focal weakness or sensory changes [] Endocrine: Denies polyuria or polydipsia [] All other systems were reviewed and found to be within normal limits, except as documented in this note. Allergies Allergies Allergies Coded Allergies Type Severity Reaction Last Updated Verified No Known Drug Allergies 02/27/18 No Physical Exam Physical Exam Constitutional: Well developed, well nourished, no acute distress, non-toxic appearance. [] HENT: Normocephalic, atraumatic, bilateral external ears normal, oropharynx m oist, no oral exudates, nose normal. [] Eyes: PERRLA, EOMI, conjunctiva normal, no discharge. [] Neck: Normal range of motion, no tenderness, supple, no stridor. [] Cardiovascular:Heart rate regular rhythm, no murmur [] Lungs & Thorax: Bilateral breath sounds clear to auscultation [] Abdomen: Bowel sounds normal, soft, no tenderness, no masses, no pulsatile masses. [] Skin: Warm, dry, no erythema, no rash. [] Back: No tenderness, no CVA tenderness. [] Extremities: No tenderness, no cyanosis, no clubbing, ROM intact, no edema. [] Neurologic: Alert and oriented X 3, normal motor function, normal sensory function, no focal deficits noted. [] Psychologic: Affect normal, judgement normal, mood normal. [] Current Patient Data Vital Signs Vital Signs Date Time Temp Pulse Resp B/P (MAP) Pulse Ox O2 Delivery O2 Flow Rate FiO2 01/22/19 12:30 97.7 75 19 152/70 (97) 100 Room Air 97.7 Lab Values Laboratory Tests Test 01/22/19 13:36 White Blood Count 6.6 x10^3/uL (4.0-11.0) Red Blood Count 2.30 x10^6/uL (4.30-5.70) L Hemoglobin 7.7 g/dL (13.0-17.5) L Hematocrit 22.0 % (39.0-53.0) L Mean Corpuscular Volume 95 fL (79-100) Mean Corpuscular Hemoglobin 34 pg (25-35) Mean Corpuscular Hemoglobin Concent 35 g/dL (31-37) Red Cell Distribution Width 16.7 % (11.5-14.5) H Platelet Count 132 x10^3/uL (140-400) L Neutrophils (%) (Auto) 75 % (31-73) H Lymphocytes (%) (Auto) 10 % (24-48) L Monocytes (%) (Auto) 11 % (0-9) H Eosinophils (%) (Auto) 4 % (0-3) H Basophils (%) (Auto) 1 % (0-3) Neutrophils # (Auto) 5.0 x10^3/uL (1.8-7.7) Lymphocytes # (Auto) 0.6 x10^3/uL (1.0-4.8) L Monocytes # (Auto) 0.7 x10^3/uL (0.0-1.1) Eosinophils # (Auto) 0.2 x10^3/uL (0.0-0.7) Basophils # (Auto) 0.1 x10^3/uL (0.0-0.2) Prothrombin Time 13.3 SEC (11.7-14.0) Prothrombin Time INR 1.0 (0.8-1.1) PTT 22 SEC (24-38) L Sodium Level 136 mmol/L (136-145) Potassium Level 3.9 mmol/L (3.5-5.1) Chloride Level 95 mmol/L (98-107) L Carbon Dioxide Level 30 mmol/L (21-32) Anion Gap 11 (6-14) Blood Urea Nitrogen 53 mg/dL (8-26) H Creatinine 15.1 mg/dL (0.7-1.3) H Estimated GFR (Cockcroft-Gault) 3.9 BUN/Creatinine Ratio 4 (6-20) L Glucose Level 151 mg/dL (70-99) H Lactic Acid Level 2.8 mmol/L (0.4-2.0) H Calcium Level 10.3 mg/dL (8.5-10.1) H Magnesium Level 3.1 mg/dL (1.8-2.4) H Total Bilirubin 0.4 mg/dL (0.2-1.0) Aspartate Amino Transferase (AST) 15 U/L (15-37) Alanine Aminotransferase (ALT) 19 U/L (16-63) Alkaline Phosphatase 92 U/L (46-116) Creatine Kinase 133 U/L (39-308) Creatine Kinase MB (Mass) 2.8 ng/mL (0.0-3.6) Creatine Kinase MB Relative Index 2.1 % (0-4) Total Protein 6.7 g/dL (6.4-8.2) Albumin 2.9 g/dL (3.4-5.0) L Albumin/Globulin Ratio 0.8 (1.0-1.7) L Lipase 191 U/L (73-393) Laboratory Tests 01/22/19 13:36 Laboratory Tests 01/22/19 13:36 EKG EKG [] Radiology/Procedures Radiology/Procedures [] Course & Med Decision Making Course & Med Decision Making Pertinent Labs and Imaging studies reviewed. (See chart for details) [] Dragon Disclaimer Dragon Disclaimer This electronic medical record was generated, in whole or in part, using a voice recognition dictation system. Departure Departure Impression: Primary Impression: Anemia Disposition: 01 HOME, SELF-CARE Condition: STABLE Referrals: ABDIFATAH GODFREY MD (PCP) MILO ROE MD Patient Instructions: Anemia, FAQs Problem Qualifiers Primary Impression: Anemia Anemia type: unspecified type Qualified Codes: D64.9 - Anemia, unspecified ERNESTO HOLCOMB DO Jan 22, 2019 16:13
== END 2019-01-22 17:00 | disposition home or self-care (01) ==
LOC: ER 12:27
DX: D64.9 Anemia, unspecified (principal); I12.9 Hypertensive chronic kidney disease with stage 1 through stage 4 chronic kidney disease, or unspecified chronic kidney disease; N18.9 Chronic kidney disease, unspecified; E11.22 Type 2 diabetes mellitus with diabetic chronic kidney disease; Z99.2 Dependence on renal dialysis; Z90.5 Acquired absence of kidney; Z85.528 Personal history of other malignant neoplasm of kidney; Z90.49 Acquired absence of other specified parts of digestive tract; Z90.89 Acquired absence of other organs; Z95.0 Presence of cardiac pacemaker; E78.00 Pure hypercholesterolemia, unspecified
CPT/HCPCS: 36415; 80053; 82553; 83605; 83690; 83735; 85025; 85610; 85730; 86850; 86900; 86901; 99284

== ENCOUNTER 2019-05-06 21:52 | Inpatient (IN) | payer MEDICARE ==
[~2019-05-06] VITALS: Ht 177.8 cm; Wt 103.4 kg
[~2019-05-06 21:52] MED LIST changes: +CALC667T4 PO; +DULO30CA2 PO; +LISI10TA2 PO; +OMEP40CA45 PO; -OMEP40CA5 PO; +[UNRECOGNIZED DRUG - CODE] SQ
--- NOTE | 2019-05-06 23:22 | RAD ---
PQRS Compliance statement: One or more of the following individualized dose reduction techniques were utilized for this examination: 1. Automated exposure control. 2. Adjustment of the mA and/or kV according to patient size. 3. Use of iterative reconstruction technique. Indication:Confusion. TECHNIQUE: CT head without IV contrast COMPARISON: 02/03/2019 FINDINGS: No pathologic extra-axial or intra-axial fluid collection. There is mild atrophy. Stable dilation of the ventricles. No acute intracranial bleed. Stable focus of high attenuation adjacent to the frontal horn of the left lateral ventricle most likely punctate calcification. No focal loss of delgadillo-white differentiation. Orbits are within normal limits. No suspicious calvarial lesion. The visualized paranasal sinuses and mastoid air cells are clear. IMPRESSION: No acute intracranial bleed. If concern for acute ischemic stroke is high, please consider MRI brain. Stable diffuse dilation of the ventricles. Clinically correlate for symptoms of normal pressure hydrocephalus. Electronically signed by: Justus Kelly DO (05/06/2019 11:19 PM) [facility]
[2019-05-06 23:41] LABS: BASO % 0 % (0-3); EOS # 0.3 x10^3/uL (0.0-0.7); EOS % 3 % (0-3); HEMATOCRIT 29.2 % (39.0-53.0); HEMOGLOBIN 9.9 g/dL (13.0-17.5); LYMPH # 0.8 x10^3/uL (1.0-4.8); LYMPH % 8 % (24-48); MEAN CORPUSCULAR HEMOGLOBIN 32 pg (25-35); MEAN CORPUSCULAR HGB CONC 34 g/dL (31-37); MEAN CORPUSCULAR VOLUME 93 fL (79-100); MONO # 0.9 x10^3/uL (0.0-1.1); MONO % 9 % (0-9); NEUT # 7.7 x10^3/uL (1.8-7.7); NEUT % 79 % (31-73); PLATELET COUNT 139 x10^3/uL (140-400); RED BLOOD COUNT 3.13 x10^6/uL (4.30-5.70); WHITE BLOOD COUNT 9.8 x10^3/uL (4.0-11.0)
[2019-05-06 23:48] LABS: PROTHROMBIN TIME PATIENT 14.2 SEC (11.7-14.0)
[2019-05-06 23:50] LABS: ANION GAP 13 (6-14); BLOOD UREA NITROGEN 54 mg/dL (8-26); BUN/CREATININE RATIO 4 (6-20); CALCIUM 9.2 mg/dL (8.5-10.1); CARBON DIOXIDE 28 mmol/L (21-32); CHLORIDE 98 mmol/L (98-107); CREATININE 13.2 mg/dL (0.7-1.3); GFR 4.5; GLUCOSE 177 mg/dL (70-99); POTASSIUM 3.5 mmol/L (3.5-5.1); SODIUM 139 mmol/L (136-145)
[2019-05-06 23:58] LABS: ALBUMIN 2.9 g/dL (3.4-5.0); ALBUMIN/GLOBULIN RATIO 0.8 (1.0-1.7); ALK PHOS 90 U/L (46-116); AST (SGOT) 13 U/L (15-37); MAGNESIUM 2.9 mg/dL (1.8-2.4); TOTAL BILIRUBIN 0.5 mg/dL (0.2-1.0); TOTAL PROTEIN 6.5 g/dL (6.4-8.2)
[2019-05-06 23:59] LABS: ALT (SGPT) < 6 U/L (16-63)
[2019-05-07] VITALS (7 sets, daily range): BP systolic 136–175; BP diastolic 43–59
[2019-05-07] MEDS ORDERED: cloNIDine HCL 0.1 MG TABLET PO ONE (00:15)
[2019-05-07] MEDS ORDERED: MIDO5TAB4 PO (00:17)
[2019-05-07] MEDS ORDERED: CLOP75TA PO (00:17)
--- NOTE | 2019-05-07 00:43 | PHYS DOC ---
Past Medical History Past Medical History: A-Fib, Diabetes-Type II, Hypertension Additional Past Medical Histor: RENAL CANCER, NIGHTLY PERITONEAL DIALYSIS Past Surgical History: Appendectomy, Cholecystectomy, Pacemaker Additional Past Surgical Histo: LEFT NEPHRECTOMY, DIALYSIS SHUNT, RIGHT CHEST Alcohol Use: None Drug Use: None Adult General Chief Complaint Chief Complaint: ALTERED MENTAL STATUS HPI HPI Patient is a 73 year old male who presents to the due to chief complaint of difficulty in walking and mild confusion. states that patient recently had a procedure done on May 05 for access for dialysis. Patient previously was on peritoneal dialysis but was not converted to hemodialysis. Patient also recently had a procedure called the watchman procedure. states that patient is unable to take blood thinners secondary to frequent falls. Patient does have difficulty in walking sometimes bed tonight is unable to walk at all. Vital states that patient has a history of orthostatic hypotension and currently is on mididrone. Review of Systems Review of Systems Constitutional: Denies fever or chills [] Eyes: Denies change in visual acuity, redness, or eye pain [] HENT: Denies nasal congestion or sore throat [] Respiratory: Denies cough or shortness of breath [] Cardiovascular: Patient denies chest pain GI: Denies abdominal pain, nausea, vomiting, bloody stools or diarrhea [] : Denies dysuria or hematuria [] Musculoskeletal: Veins or weakness in both lower Neurologic: states that patient has mild altered mental status All other systems were reviewed and found to be within normal limits, except as documented in this note. Allergies Allergies Allergies Coded Allergies Type Severity Reaction Last Updated Verified No Known Drug Allergies 02/27/18 No Physical Exam Physical Exam Constitutional: Well developed, well nourished, no acute distress, non-toxic appearance. [] HENT: Normocephalic, atraumatic Eyes: PERRLA, EOMI Neck: Normal range of motion, no tenderness, supple, no stridor. [] Cardiovascular:Heart rate regular rhythm, no murmur [] Lungs & Thorax: Bilateral breath sounds clear to auscultation [] Abdomen: Bowel sounds normal, soft, no tenderness Extremities: No tenderness, no cyanosis, no clubbing, ROM intact Neurologic: Alert and oriented X 3, normal motor function, normal sensory function, no focal deficits noted. [] Current Patient Data Vital Signs Vital Signs Date Time Temp Pulse Resp B/P (MAP) Pulse Ox O2 Delivery O2 Flow Rate FiO2 05/06/19 21:57 97.9 71 17 223/81 (128) 100 Room Air 97.9 Lab Values Laboratory Tests Test 05/06/19 23:24 White Blood Count 9.8 x10^3/uL (4.0-11.0) Red Blood Count 3.13 x10^6/uL (4.30-5.70) L Hemoglobin 9.9 g/dL (13.0-17.5) L Hematocrit 29.2 % (39.0-53.0) L Mean Corpuscular Volume 93 fL (79-100) Mean Corpuscular Hemoglobin 32 pg (25-35) Mean Corpuscular Hemoglobin Concent 34 g/dL (31-37) Red Cell Distribution Width 20.0 % (11.5-14.5) H Platelet Count 139 x10^3/uL (140-400) L Neutrophils (%) (Auto) 79 % (31-73) H Lymphocytes (%) (Auto) 8 % (24-48) L Monocytes (%) (Auto) 9 % (0-9) Eosinophils (%) (Auto) 3 % (0-3) Basophils (%) (Auto) 0 % (0-3) Neutrophils # (Auto) 7.7 x10^3/uL (1.8-7.7) Lymphocytes # (Auto) 0.8 x10^3/uL (1.0-4.8) L Monocytes # (Auto) 0.9 x10^3/uL (0.0-1.1) Eosinophils # (Auto) 0.3 x10^3/uL (0.0-0.7) Basophils # (Auto) 0.0 x10^3/uL (0.0-0.2) Prothrombin Time 14.2 SEC (11.7-14.0) H Prothrombin Time INR 1.1 (0.8-1.1) Sodium Level 139 mmol/L (136-145) Potassium Level 3.5 mmol/L (3.5-5.1) Chloride Level 98 mmol/L (98-107) Carbon Dioxide Level 28 mmol/L (21-32) Anion Gap 13 (6-14) Blood Urea Nitrogen 54 mg/dL (8-26) H Creatinine 13.2 mg/dL (0.7-1.3) H Estimated GFR (Cockcroft-Gault) 4.5 BUN/Creatinine Ratio 4 (6-20) L Glucose Level 177 mg/dL (70-99) H Calcium Level 9.2 mg/dL (8.5-10.1) Magnesium Level 2.9 mg/dL (1.8-2.4) H Total Bilirubin 0.5 mg/dL (0.2-1.0) Aspartate Amino Transferase (AST) 13 U/L (15-37) L Alanine Aminotransferase (ALT) < 6 U/L (16-63) L Alkaline Phosphatase 90 U/L (46-116) Troponin I Quantitative < 0.017 ng/mL (0.000-0.055) VI-Fyw-N-Type Natriuretic Peptide 48325 pg/mL (0-124) H Total Protein 6.5 g/dL (6.4-8.2) Albumin 2.9 g/dL (3.4-5.0) L Albumin/Globulin Ratio 0.8 (1.0-1.7) L Laboratory Tests 05/06/19 23:24 Laboratory Tests 05/06/19 23:24 EKG EKG EKG interpretation: HR: 68 Sinus rhythm Regular intervals Left axis deviation LAFB Nonspecific ST changes Radiology/Procedures Radiology/Procedures Ordered chest x-ray and CT head without contrast CT head shows no acute disease. Chest x-ray shows no acute disease. Course & Med Decision Making Course & Med Decision Making Pertinent Labs and Imaging studies reviewed. (See chart for details) Ordered labs, chest x-ray, CT head EKG does not show any acute changes. Labs are within normal limits except creatinine which is elevated secondary to end-stage renal disease Troponin is negative. Potassium is within normal limits CT head shows no acute disease. Chest x-ray shows no acute disease. Blood pressure was mildly elevated to patient is given Catapres 0.1 mg oral tablet Patient is still unable to walk in the ED. Patient will be admitted for ataxia, end-stage renal disease, altered mental status. states that patient is scheduled for dialysis tomorrow. Patient's postal service window clerk is Dr. Umanzor Discussed results and plan of care with patient and family We'll discussed with hospitalist service for admission Dragon Disclaimer Dragon Disclaimer This electronic medical record was generated, in whole or in part, using a voice recognition dictation system. Departure Departure Impression: Primary Impression: Ataxia Additional Impressions: ESRD (end stage renal disease) HTN (hypertension) Disposition: ADMITTED INPATIENT Condition: STABLE Referrals: ABDIFATAH GODFREY MD (PCP) Problem Qualifiers JUANITA GRECO DO May 07, 2019 00:43
--- NOTE | 2019-05-07 02:01 | NUR ---
Received ok orders to hold tresiba insulin for tonight.
--- NOTE | 2019-05-07 07:02 | EKG ---
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
[2019-05-07] MEDS ORDERED: HYDROcodone/APAP 5/325MG 1 TAB TABLET PO PRN (07:45)
[2019-05-07] MEDS ORDERED: MECLIZINE HCL 12.5 MG TABLET. PO PRN (07:45)
[2019-05-07] MEDS ORDERED: ACETAMINOPHEN 500 MG TABLET PO PRN (07:45)
[2019-05-07] MEDS ORDERED: ONDANSETRON PF 4 MG/2 ML VIAL. IVP PRN (07:45)
[2019-05-07] MEDS ORDERED: DEXTROSE 50% 25 GM / 50ML DISP.SYRIN. IV PRN (07:45)
[2019-05-07] MEDS ORDERED: POLYETHYLENE GLYCOL 3350 17 GM PACKET. PO PRN (07:45)
[2019-05-07] MEDS ORDERED: hydrALAZINE 20 MG/ML VIAL. IVP PRN ×2 (07:45→08:00)
[2019-05-07] MEDS: INSULIN LISPRO 300 UNITS/3 ML VIAL. SQ SCH ×3 (08:00→16:50)
[2019-05-07] MEDS ORDERED: LOPERAMIDE 2 MG CAPSULE PO PRN (08:00)
[2019-05-07] MEDS: MIDODRINE 5 MG TABLET PO SCH ×3 (08:00→17:00)
[2019-05-07] MEDS: CALCIUM ACETATE 667 MG CAPSULE PO SCH ×3 (08:30→17:00)
[2019-05-07] MEDS: POTASSIUM CHLORIDE 20 MEQ TABLET.ER. PO SCH (08:30)
[2019-05-07] MEDS: CLOPIDOGREL BISULFATE 75 MG TABLET PO SCH (08:31)
[2019-05-07] MEDS: FOLIC/VIT B COMP W-C (RENAL) TABLET. PO SCH (08:31)
[2019-05-07] MEDS: CHOLECALCIFEROL (VITAMIN D3) 5,000 UNIT CAPSULE PO SCH (08:31)
[2019-05-07] MEDS: PANTOPRAZOLE 40 MG TABLET.DR. PO SCH (08:31)
[2019-05-07] MEDS: CALCITRIOL 0.25 MCG CAPSULE. PO SCH (08:31)
[2019-05-07] MEDS: ASPIRIN ENTERIC COATED 81 MG TABLET.DR. PO SCH (08:31)
[2019-05-07] MEDS: DULoxetine HCL 30 MG CAPSULE.DR PO SCH (08:34)
--- NOTE | 2019-05-07 09:56 | PDOC1 ---
History and Physical Date of Admission Date of Admission DATE: 05/07/19 TIME: 09:51 Identification/Chief Complaint Chief Complaint confusion x 24 hrs and gait ataxia Source Source: Caregiver, Chart review, Patient History of Present Illness History of Present Illness NOt the best historian, 73 AA female, brought in by bec of confusion x 24 hrs and ER reports to me gait ataxia, HE was previously PD but now HD via left arm fistula. not at bedside and he is the worst historian, Calm but seems to be sleepy. LAbs are UR with UR CXR and CT head, VS ok LAbs consistent with ESRD numbers Will add neuro and MRI brain and esr b12 check, I am unsure as to the cause of all his CC Past Medical History Cardiovascular: HTN Pulmonary: Other CENTRAL NERVOUS SYSTEM: Periperal neuropathy GI: GERD Heme/Onc: Anemia NOS Hepatobiliary: Cholelithiasis Psych: Depression Musculoskeletal: Osteoarthritis Rheumatologic: No pertinent hx Infectious disease: Other Renal/: Chronic renal failure, Renal Ca. Endocrine: Diabetes, Hyperparathyroidism, Other Past Surgical History Past Surgical History: Pacemaker, Appendectomy, Cholecystectomy, Cataract Removal, Other Family History Family History: Diabetes, Hypertension Social History Smoke: No ALCOHOL: none Drugs: None Current Medications Current Medications Current Medications Clonidine HCl (Catapres) 0.1 mg 1X ONCE PO Last administered on 05/07/19at 00:24; Start 05/07/19 at 00:15; Stop 05/07/19 at 00:16; Status DC Hydralazine HCl (Apresoline Inj) 10 mg PRN Q4HRS PRN IVP ELEVATED BP, SEE COMMENTS; Start 05/07/19 at 07:45; Stop 05/07/19 at 07:51; Status DC Aspirin (Ecotrin) 81 mg DAILY PO Last administered on 05/07/19at 08:31; Start 05/07/19 at 09:00 Calcitriol (Rocaltrol) 0.25 mcg DAILY PO Last administered on 05/07/19at 08:31; Start 05/07/19 at 09:00 Clopidogrel Bisulfate (Plavix) 75 mg DAILY PO Last administered on 05/07/19at 08:31; Start 05/07/19 at 09:00 Duloxetine HCl (Cymbalta) 30 mg DAILY PO Last administered on 05/07/19at 08:34; Start 05/07/19 at 09:00 Vitamin B Complex/ Vitamin C (Rocio-Taylor) 1 tab DAILY PO Last administered on 05/07/19at 08:31; Start 05/07/19 at 09:00 Midodrine (Proamatine) 5 mg TID@0800,1200,1700 PO ; Start 05/07/19 at 08:00 Polyethylene Glycol (miraLAX PACKET) 17 gm DAILY PRN PO CONSTIPATION; Start 05/07/19 at 07:45 Calcium Acetate (Phoslo) 2,001 mg TIDWMEALS PO Last administered on 05/07/19at 08:30; Start 05/07/19 at 08:00 Vitamin D (Vitamin D3) 5,000 unit DAILY PO Last administered on 05/07/19at 08:31; Start 05/07/19 at 09:00 Darbepoetin José (ARANESP for DIALYSIS PTS) 100 mcg WEEKLYHS SQ ; Start 05/08/19 at 21:00 Insulin Glargine (Lantus Syringe) 50 unit QHS SQ ; Start 05/07/19 at 21:00 Loperamide HCl (Imodium) 2 mg PRN Q15MIN PRN PO DIARRHEA; Start 05/07/19 at 08:00 Pantoprazole Sodium (Protonix) 40 mg DAILYAC PO Last administered on 05/07/19at 08:31; Start 05/07/19 at 08:00 Potassium Chloride (Klor-Con) 20 meq DAILYWBKFT PO Last administered on 05/07/19at 08:30; Start 05/07/19 at 08:00 Ondansetron HCl (Zofran) 4 mg PRN Q6HRS PRN IVP NAUSEA/VOMITING; Start 04/16 10/01 at 07:45 Acetaminophen/ Hydrocodone Bitart (Lortab 5/325) 1 tab PRN Q4HRS PRN PO MODERATE PAIN, SEVERE PAIN; Start 05/07/19 at 07:45 Acetaminophen (Tylenol) 500 mg PRN Q6HRS PRN PO MILD PAIN / TEMP; Start 05/07/19 at 07:45 Meclizine HCl (Antivert) 12.5 mg PRN Q6HRS PRN PO DIZZINESS; Start 05/07/19 at 07:45 Insulin Human Lispro (HumaLOG) 0-9 UNITS TIDWMEALS SQ ; Start 05/07/19 at 08:00 Dextrose (Dextrose 50%-Water Syringe) 12.5 gm PRN Q15MIN PRN IV SEE COMMENTS; Start 05/07/19 at 07:45 Hydralazine HCl (Apresoline Inj) 5 mg PRN Q4HRS PRN IVP ELEVATED BP, SEE COMMENTS; Start 05/07/19 at 08:00 Active Scripts Active Rocio-Taylor Tablet (Folic Acid/Vitamin B Comp W-C) 0.8 Mg Tablet 1 Tab PO DAILY 30 Days Reported Clopidogrel (Clopidogrel Bisulfate) 75 Mg Tablet 1 Tab PO DAILY 45 Days Midodrine Hcl 5 Mg Tablet 5 Mg PO TID Epogen (Epoetin José) 20,000 Unit/2 Ml Vial 40,000 Unit SQ QTH K-Tab ER (Potassium Chloride) 20 Meq Tablet.er 20 Meq PO DAILY Omeprazole 40 Mg Capsule.dr 1 Cap PO DAILY Cymbalta (Duloxetine Hcl) 30 Mg Capsule.dr 1 Cap PO DAILY Calcium Acetate 667 Mg Tablet 667 Mg PO TID PRN MDD 2001 MG Calcium Acetate 667 Mg Tablet 2,001 Mg PO TIDWMEALS Loperamide (Loperamide Hcl) 2 Mg Tablet 2 Mg PO PRN PRN Miralax (Polyethylene Glycol 3350) 17 Gm Powd.pack 1 Pkt PO DAILY PRN Vitamin D3 (Cholecalciferol (Vitamin D3)) 5,000 Unit Tablet 1 Tab PO DAILY Calcitriol 0.25 Mcg Capsule 1 Cap PO DAILY Tresiba Flextouch U-200 (Insulin Degludec) 200 Unit/1 Ml Insuln.pen 50 Units SQ HS Aspir 81 (Aspirin) 81 Mg Tablet.dr 81 Mg PO DAILY Allergies Allergies: Coded Allergies: No Known Drug Allergies (Unverified , 02/27/18) ROS Review of System limited, sleepy but calmly confused Physical Exam General: No acute distress, Other (sleepy) HEENT: Atraumatic, PERRLA Lungs: Clear to auscultation, Normal air movement Heart: S1S2, RRR, no thrills, no rubs, no gallops, no murmurs Abdomen: Normal bowel sounds, Soft, No tenderness, No hepatosplenomegaly, No masses Rectal Exam: not examined PELVIC: Nml ext genitalia Extremities: Other (left arm fistula with good bruit and pulses distally) Skin: No rashes, No breakdown, No significant lesion Neuro: Normal gait, Normal speech, Strength at 5/5 X4 ext, Normal tone, Sensation intact, Cranial nerves 3-12 NL, Reflexes 2+ Psych/Mental Status: Mental status NL, Mood NL Vitals Vitals Vital Signs Date Time Temp Pulse Resp B/P (MAP) Pulse Ox O2 Delivery O2 Flow Rate FiO2 05/07/19 08:00 66 148/49 05/07/19 07:00 98.5 16 97 Room Air 98.5 Labs Labs Laboratory Tests Test 05/06/19 23:24 05/07/19 08:28 White Blood Count 9.8 x10^3/uL (4.0-11.0) Red Blood Count 3.13 x10^6/uL (4.30-5.70) Hemoglobin 9.9 g/dL (13.0-17.5) Hematocrit 29.2 % (39.0-53.0) Mean Corpuscular Volume 93 fL (79-100) Mean Corpuscular Hemoglobin 32 pg (25-35) Mean Corpuscular Hemoglobin Concent 34 g/dL (31-37) Red Cell Distribution Width 20.0 % (11.5-14.5) Platelet Count 139 x10^3/uL (140-400) Neutrophils (%) (Auto) 79 % (31-73) Lymphocytes (%) (Auto) 8 % (24-48) Monocytes (%) (Auto) 9 % (0-9) Eosinophils (%) (Auto) 3 % (0-3) Basophils (%) (Auto) 0 % (0-3) Neutrophils # (Auto) 7.7 x10^3/uL (1.8-7.7) Lymphocytes # (Auto) 0.8 x10^3/uL (1.0-4.8) Monocytes # (Auto) 0.9 x10^3/uL (0.0-1.1) Eosinophils # (Auto) 0.3 x10^3/uL (0.0-0.7) Basophils # (Auto) 0.0 x10^3/uL (0.0-0.2) Prothrombin Time 14.2 SEC (11.7-14.0) Prothromb Time International Ratio 1.1 (0.8-1.1) Sodium Level 139 mmol/L (136-145) Potassium Level 3.5 mmol/L (3.5-5.1) Chloride Level 98 mmol/L (98-107) Carbon Dioxide Level 28 mmol/L (21-32) Anion Gap 13 (6-14) Blood Urea Nitrogen 54 mg/dL (8-26) Creatinine 13.2 mg/dL (0.7-1.3) Estimated GFR (Cockcroft-Gault) 4.5 BUN/Creatinine Ratio 4 (6-20) Glucose Level 177 mg/dL (70-99) Calcium Level 9.2 mg/dL (8.5-10.1) Magnesium Level 2.9 mg/dL (1.8-2.4) Total Bilirubin 0.5 mg/dL (0.2-1.0) Aspartate Amino Transf (AST/SGOT) 13 U/L (15-37) Alanine Aminotransferase (ALT/SGPT) < 6 U/L (16-63) Alkaline Phosphatase 90 U/L (46-116) Troponin I Quantitative < 0.017 ng/mL (0.000-0.055) WO-Mzg-W-Type Natriuretic Peptide 85068 pg/mL (0-124) Total Protein 6.5 g/dL (6.4-8.2) Albumin 2.9 g/dL (3.4-5.0) Albumin/Globulin Ratio 0.8 (1.0-1.7) Glucose (Fingerstick) 138 mg/dL (70-99) Laboratory Tests Test 05/06/19 23:24 05/07/19 08:28 White Blood Count 9.8 x10^3/uL (4.0-11.0) Red Blood Count 3.13 x10^6/uL (4.30-5.70) Hemoglobin 9.9 g/dL (13.0-17.5) Hematocrit 29.2 % (39.0-53.0) Mean Corpuscular Volume 93 fL (79-100) Mean Corpuscular Hemoglobin 32 pg (25-35) Mean Corpuscular Hemoglobin Concent 34 g/dL (31-37) Red Cell Distribution Width 20.0 % (11.5-14.5) Platelet Count 139 x10^3/uL (140-400) Neutrophils (%) (Auto) 79 % (31-73) Lymphocytes (%) (Auto) 8 % (24-48) Monocytes (%) (Auto) 9 % (0-9) Eosinophils (%) (Auto) 3 % (0-3) Basophils (%) (Auto) 0 % (0-3) Neutrophils # (Auto) 7.7 x10^3/uL (1.8-7.7) Lymphocytes # (Auto) 0.8 x10^3/uL (1.0-4.8) Monocytes # (Auto) 0.9 x10^3/uL (0.0-1.1) Eosinophils # (Auto) 0.3 x10^3/uL (0.0-0.7) Basophils # (Auto) 0.0 x10^3/uL (0.0-0.2) Prothrombin Time 14.2 SEC (11.7-14.0) Prothromb Time International Ratio 1.1 (0.8-1.1) Sodium Level 139 mmol/L (136-145) Potassium Level 3.5 mmol/L (3.5-5.1) Chloride Level 98 mmol/L (98-107) Carbon Dioxide Level 28 mmol/L (21-32) Anion Gap 13 (6-14) Blood Urea Nitrogen 54 mg/dL (8-26) Creatinine 13.2 mg/dL (0.7-1.3) Estimated GFR (Cockcroft-Gault) 4.5 BUN/Creatinine Ratio 4 (6-20) Glucose Level 177 mg/dL (70-99) Calcium Level 9.2 mg/dL (8.5-10.1) Magnesium Level 2.9 mg/dL (1.8-2.4) Total Bilirubin 0.5 mg/dL (0.2-1.0) Aspartate Amino Transf (AST/SGOT) 13 U/L (15-37) Alanine Aminotransferase (ALT/SGPT) < 6 U/L (16-63) Alkaline Phosphatase 90 U/L (46-116) Troponin I Quantitative < 0.017 ng/mL (0.000-0.055) ME-Ihy-Y-Type Natriuretic Peptide 04219 pg/mL (0-124) Total Protein 6.5 g/dL (6.4-8.2) Albumin 2.9 g/dL (3.4-5.0) Albumin/Globulin Ratio 0.8 (1.0-1.7) Glucose (Fingerstick) 138 mg/dL (70-99) VTE Prophylaxis Ordered VTE Prophylaxis Devices: Yes VTE Pharmacological Prophylaxi: Yes Assessment/Plan Assessment/Plan ESRD on HD AOCD Gait ataxia new onset and met enceph started 24 hrs ago and seems persisting Afebrile, no sepsis HTN now with hx ORTHOSTATIC HYPOTENSION on MIDODRINE (per acct) PLAn: Check MRI brain, ESR b12, neuro consult HD per renal PT.OT Ok to eat korin when more awake, renal diet MAy dc tele SSI - home insulin and other home meds Hydralazine prn just 5 mgs (has hx orthostasis) Abdominal binder if needed FULL CODE JUAN ANTONIO PABON MD May 07, 2019 09:56
--- NOTE | 2019-05-07 10:11 | PDOC2 ---
CONSULT Date of Consult Date of Consult DATE: 05/07/19 TIME: 10:01 Reason for Consult Reason for Consult: ESRD Source Source: Chart review History of Present Illness Reason for Visit: 73 AA male brought in by because of confusion x 24 hrs and gait ataxia, HE was previously on PD but now HD via left arm fistula, and was scheduled to have 1st HD today as OP Pt is not a good historian, history obtained from chart review . Currently No complaints . Past Medical History Cardiovascular: HTN Pulmonary: Other CENTRAL NERVOUS SYSTEM: Periperal neuropathy GI: GERD Heme/Onc: Anemia NOS Hepatobiliary: Cholelithiasis Psych: Depression Musculoskeletal: Osteoarthritis Rheumatologic: No pertinent hx Infectious disease: Other Renal/: Chronic renal failure, Renal Ca. Endocrine: Diabetes, Hyperparathyroidism, Other Past Surgical History Past Surgical History: Pacemaker, Appendectomy, Cholecystectomy, Cataract Removal, Other Family History Family History: Diabetes, Hypertension Social History No ALCOHOL: none Drugs: None Lives: with Family Current Medications Current Medications Current Medications Clonidine HCl (Catapres) 0.1 mg 1X ONCE PO Last administered on 05/07/19at 00:24; Start 05/07/19 at 00:15; Stop 05/07/19 at 00:16; Status DC Hydralazine HCl (Apresoline Inj) 10 mg PRN Q4HRS PRN IVP ELEVATED BP, SEE COMMENTS; Start 05/07/19 at 07:45; Stop 05/07/19 at 07:51; Status DC Aspirin (Ecotrin) 81 mg DAILY PO Last administered on 05/07/19at 08:31; Start 05/07/19 at 09:00 Calcitriol (Rocaltrol) 0.25 mcg DAILY PO Last administered on 05/07/19at 08:31; Start 05/07/19 at 09:00 Clopidogrel Bisulfate (Plavix) 75 mg DAILY PO Last administered on 05/07/19at 08:31; Start 05/07/19 at 09:00 Duloxetine HCl (Cymbalta) 30 mg DAILY PO Last administered on 05/07/19at 08:34; Start 05/07/19 at 09:00 Vitamin B Complex/ Vitamin C (Rocio-Taylor) 1 tab DAILY PO Last administered on 05/07/19at 08:31; Start 05/07/19 at 09:00 Midodrine (Proamatine) 5 mg TID@0800,1200,1700 PO ; Start 05/07/19 at 08:00 Polyethylene Glycol (miraLAX PACKET) 17 gm DAILY PRN PO CONSTIPATION; Start 05/07/19 at 07:45 Calcium Acetate (Phoslo) 2,001 mg TIDWMEALS PO Last administered on 05/07/19at 08:30; Start 05/07/19 at 08:00 Vitamin D (Vitamin D3) 5,000 unit DAILY PO Last administered on 05/07/19at 08:31; Start 05/07/19 at 09:00 Darbepoetin José (ARANESP for DIALYSIS PTS) 100 mcg WEEKLYHS SQ ; Start 05/08/19 at 21:00 Insulin Glargine (Lantus Syringe) 50 unit QHS SQ ; Start 05/07/19 at 21:00 Loperamide HCl (Imodium) 2 mg PRN Q15MIN PRN PO DIARRHEA; Start 05/07/19 at 08:00 Pantoprazole Sodium (Protonix) 40 mg DAILYAC PO Last administered on 05/07/19at 08:31; Start 05/07/19 at 08:00 Potassium Chloride (Klor-Con) 20 meq DAILYWBKFT PO Last administered on 05/07/19at 08:30; Start 05/07/19 at 08:00 Ondansetron HCl (Zofran) 4 mg PRN Q6HRS PRN IVP NAUSEA/VOMITING; Start 05/07/19 at 07:45 Acetaminophen/ Hydrocodone Bitart (Lortab 5/325) 1 tab PRN Q4HRS PRN PO MODERATE PAIN, SEVERE PAIN; Start 05/07/19 at 07:45 Acetaminophen (Tylenol) 500 mg PRN Q6HRS PRN PO MILD PAIN / TEMP; Start 05/07/19 at 07:45 Meclizine HCl (Antivert) 12.5 mg PRN Q6HRS PRN PO DIZZINESS; Start 05/07/19 at 07:45 Insulin Human Lispro (HumaLOG) 0-9 UNITS TIDWMEALS SQ ; Start 05/07/19 at 08:00 Dextrose (Dextrose 50%-Water Syringe) 12.5 gm PRN Q15MIN PRN IV SEE COMMENTS; Start 05/07/19 at 07:45 Hydralazine HCl (Apresoline Inj) 5 mg PRN Q4HRS PRN IVP ELEVATED BP, SEE COMMENTS; Start 05/07/19 at 08:00 Active Scripts Active Rocio-Taylor Tablet (Folic Acid/Vitamin B Comp W-C) 0.8 Mg Tablet 1 Tab PO DAILY 30 Days Reported Clopidogrel (Clopidogrel Bisulfate) 75 Mg Tablet 1 Tab PO DAILY 45 Days Midodrine Hcl 5 Mg Tablet 5 Mg PO TID Epogen (Epoetin José) 20,000 Unit/2 Ml Vial 40,000 Unit SQ QTH K-Tab ER (Potassium Chloride) 20 Meq Tablet.er 20 Meq PO DAILY Omeprazole 40 Mg Capsule.dr 1 Cap PO DAILY Cymbalta (Duloxetine Hcl) 30 Mg Capsule. 1 Cap PO DAILY Calcium Acetate 667 Mg Tablet 667 Mg PO TID PRN MDD 2001 MG Calcium Acetate 667 Mg Tablet 2,001 Mg PO TIDWMEALS Loperamide (Loperamide Hcl) 2 Mg Tablet 2 Mg PO PRN PRN Miralax (Polyethylene Glycol 3350) 17 Gm Powd.pack 1 Pkt PO DAILY PRN Vitamin D3 (Cholecalciferol (Vitamin D3)) 5,000 Unit Tablet 1 Tab PO DAILY Calcitriol 0.25 Mcg Capsule 1 Cap PO DAILY Tresiba Flextouch U-200 (Insulin Degludec) 200 Unit/1 Ml Insuln.pen 50 Units SQ HS Aspir 81 (Aspirin) 81 Mg Tablet. 81 Mg PO DAILY Allergies Allergies: Coded Allergies: No Known Drug Allergies (Unverified , 02/27/18) ROS Review of System Per HPI- Unable to obtain details Physical Exam Physical Exam General: No acute distress HEENT: OM moist Neck Supple Lungs: Clear to auscultation, Non labored Heart: S1S2, RRR, Abdomen: Soft, No tenderness, Extremities: left arm fistula with good bruit and thrill Skin: No rashes, Neuro: Grossly normal -no Rollins Vital Signs Vital Signs Date Time Temp Pulse Resp B/P (MAP) Pulse Ox O2 Delivery O2 Flow Rate FiO2 05/07/19 08:00 66 148/49 05/07/19 07:00 98.5 16 97 Room Air 98.5 Assessment & Plan ESRD- was on PD switching to HD, was scheduled for 1st OP Hemo today Dialysis today as ordered, [facility] Seen on HD, tolerating well Gait ataxia new onset and met enceph HTN now with hx orthostatic hypotension on Midodrine DM Anemia- On ASHISH Labs Labs Laboratory Tests Test 05/06/19 23:24 05/07/19 08:28 White Blood Count 9.8 x10^3/uL (4.0-11.0) Red Blood Count 3.13 x10^6/uL (4.30-5.70) Hemoglobin 9.9 g/dL (13.0-17.5) Hematocrit 29.2 % (39.0-53.0) Mean Corpuscular Volume 93 fL (79-100) Mean Corpuscular Hemoglobin 32 pg (25-35) Mean Corpuscular Hemoglobin Concent 34 g/dL (31-37) Red Cell Distribution Width 20.0 % (11.5-14.5) Platelet Count 139 x10^3/uL (140-400) Neutrophils (%) (Auto) 79 % (31-73) Lymphocytes (%) (Auto) 8 % (24-48) Monocytes (%) (Auto) 9 % (0-9) Eosinophils (%) (Auto) 3 % (0-3) Basophils (%) (Auto) 0 % (0-3) Neutrophils # (Auto) 7.7 x10^3/uL (1.8-7.7) Lymphocytes # (Auto) 0.8 x10^3/uL (1.0-4.8) Monocytes # (Auto) 0.9 x10^3/uL (0.0-1.1) Eosinophils # (Auto) 0.3 x10^3/uL (0.0-0.7) Basophils # (Auto) 0.0 x10^3/uL (0.0-0.2) Prothrombin Time 14.2 SEC (11.7-14.0) Prothromb Time International Ratio 1.1 (0.8-1.1) Sodium Level 139 mmol/L (136-145) Potassium Level 3.5 mmol/L (3.5-5.1) Chloride Level 98 mmol/L (98-107) Carbon Dioxide Level 28 mmol/L (21-32) Anion Gap 13 (6-14) Blood Urea Nitrogen 54 mg/dL (8-26) Creatinine 13.2 mg/dL (0.7-1.3) Estimated GFR (Cockcroft-Gault) 4.5 BUN/Creatinine Ratio 4 (6-20) Glucose Level 177 mg/dL (70-99) Calcium Level 9.2 mg/dL (8.5-10.1) Magnesium Level 2.9 mg/dL (1.8-2.4) Total Bilirubin 0.5 mg/dL (0.2-1.0) Aspartate Amino Transf (AST/SGOT) 13 U/L (15-37) Alanine Aminotransferase (ALT/SGPT) < 6 U/L (16-63) Alkaline Phosphatase 90 U/L (46-116) Troponin I Quantitative < 0.017 ng/mL (0.000-0.055) QF-Orv-C-Type Natriuretic Peptide 12769 pg/mL (0-124) Total Protein 6.5 g/dL (6.4-8.2) Albumin 2.9 g/dL (3.4-5.0) Albumin/Globulin Ratio 0.8 (1.0-1.7) Glucose (Fingerstick) 138 mg/dL (70-99) Laboratory Tests Test 05/06/19 23:24 05/07/19 08:28 White Blood Count 9.8 x10^3/uL (4.0-11.0) Red Blood Count 3.13 x10^6/uL (4.30-5.70) Hemoglobin 9.9 g/dL (13.0-17.5) Hematocrit 29.2 % (39.0-53.0) Mean Corpuscular Volume 93 fL (79-100) Mean Corpuscular Hemoglobin 32 pg (25-35) Mean Corpuscular Hemoglobin Concent 34 g/dL (31-37) Red Cell Distribution Width 20.0 % (11.5-14.5) Platelet Count 139 x10^3/uL (140-400) Neutrophils (%) (Auto) 79 % (31-73) Lymphocytes (%) (Auto) 8 % (24-48) Monocytes (%) (Auto) 9 % (0-9) Eosinophils (%) (Auto) 3 % (0-3) Basophils (%) (Auto) 0 % (0-3) Neutrophils # (Auto) 7.7 x10^3/uL (1.8-7.7) Lymphocytes # (Auto) 0.8 x10^3/uL (1.0-4.8) Monocytes # (Auto) 0.9 x10^3/uL (0.0-1.1) Eosinophils # (Auto) 0.3 x10^3/uL (0.0-0.7) Basophils # (Auto) 0.0 x10^3/uL (0.0-0.2) Prothrombin Time 14.2 SEC (11.7-14.0) Prothromb Time International Ratio 1.1 (0.8-1.1) Sodium Level 139 mmol/L (136-145) Potassium Level 3.5 mmol/L (3.5-5.1) Chloride Level 98 mmol/L (98-107) Carbon Dioxide Level 28 mmol/L (21-32) Anion Gap 13 (6-14) Blood Urea Nitrogen 54 mg/dL (8-26) Creatinine 13.2 mg/dL (0.7-1.3) Estimated GFR (Cockcroft-Gault) 4.5 BUN/Creatinine Ratio 4 (6-20) Glucose Level 177 mg/dL (70-99) Calcium Level 9.2 mg/dL (8.5-10.1) Magnesium Level 2.9 mg/dL (1.8-2.4) Total Bilirubin 0.5 mg/dL (0.2-1.0) Aspartate Amino Transf (AST/SGOT) 13 U/L (15-37) Alanine Aminotransferase (ALT/SGPT) < 6 U/L (16-63) Alkaline Phosphatase 90 U/L (46-116) Troponin I Quantitative < 0.017 ng/mL (0.000-0.055) SX-Mnl-X-Type Natriuretic Peptide 81047 pg/mL (0-124) Total Protein 6.5 g/dL (6.4-8.2) Albumin 2.9 g/dL (3.4-5.0) Albumin/Globulin Ratio 0.8 (1.0-1.7) Glucose (Fingerstick) 138 mg/dL (70-99) Review All relevant outside records, renal labs, imaging studies, telemetry/EKG's were reviewed. Images Images No acute intracranial bleed. If concern for acute ischemic stroke is high, please consider MRI brain. Stable diffuse dilation of the ventricles. Clinically correlate for symptoms of normal pressure hydrocephalus. SHERLEY ALBERTS MD May 07, 2019 10:11
--- NOTE | 2019-05-07 14:29 | RAD ---
EXAM: Lumbar spine CT without contrast. HISTORY: Stenosis. Leg weakness. TECHNIQUE: Computed tomographic images of the lumbar spine were obtained without contrast. Multiplanar reformatting was performed.. *One or more of the following individualized dose reduction techniques were utilized for this examination: 1. Automated exposure control. 2. Adjustment of the mA and/or kV according to patient size. 3. Use of iterative reconstruction technique. COMPARISON: None. FINDINGS: There is grade 1 anterolisthesis of L4 and L5. There is minimal lumbar scoliosis. There is endplate remodeling at all levels. The disc spaces are preserved. There is prominent dorsal epidural fat contributing to narrowing of the thecal sac at L4-L5. There is severe facet arthropathy at the lower lumbar levels. There is no fracture or suspicious osseous lesion. There is nodular thickening of the adrenal glands, primarily involving the inferior lateral limb of the left adrenal gland. The left kidney is surgically absent. There is suspected right renal cortical scarring. There are few nonobstructing right renal stones and right renal cysts, difficult to assess in the absence of contrast. There are nonspecific retroperitoneal lymph nodes. The sacroiliac joints are intact. At L1-L2, there is a disc bulge and endplate remodeling. There is mild bilateral facet arthropathy. There is no stenosis. At L2-L3, there is a disc bulge and endplate remodeling. There is mild bilateral facet arthropathy. There is no stenosis. At L3-L4, there is a disc bulge and endplate remodeling. There is a superimposed left extraforaminal disc osteophyte complex. There is mild bilateral facet arthropathy. There is mild left foraminal stenosis. At L4-L5, there is a disc bulge and endplate remodeling. There is severe bilateral facet arthropathy. There is hypertrophy of the ligamentum flavum. There is prominent dorsal epidural fat. There is grade 1 anterolisthesis. There is moderate bilateral foraminal stenosis. There is moderate central canal stenosis. At L5-S1, there is a disc bulge and endplate osteophytosis. There is mild right facet arthropathy. There is mild left greater than right foraminal stenosis. IMPRESSION: 1. Multilevel degenerative change involving the lumbar spine, described in detail above. This is associated with mild left foraminal stenosis at L3-L4, moderate bilateral foraminal and central canal stenosis at L4-5 and mild left greater than right foraminal stenosis at L5-S1. 2. Grade 1 anterolisthesis of L4 and L5. 3. Nodular thickening of the adrenal glands with possible superimposed 2.1 cm nodule within the inferior lateral limb of the left adrenal gland. This is similar compared to an MRI dated 01/12/2016, allowing for differences in imaging modality. 4. Multiple suspected right renal cysts. Electronically signed by: Alejandra Deng MD (05/07/2019 2:25 PM) [place] [id number]
[2019-05-07] MEDS ORDERED: IV NORMAL SALINE 1000ML BAG 1,000 ML IV PRN ×2 (15:36)
[2019-05-07] MEDS ORDERED: LIDOCAINE 1% PF 2 ML VIAL. ID STA (15:38)
--- NOTE | 2019-05-07 15:42 | NUR ---
Report received from JAVIER Harding on 6S. Pt transported to dialysis at 1530. Pt belongings put in pt's room per JAVIER Harding.
[2019-05-07] MEDS ORDERED: DIALYSIS PATIENT. MC PRN (15:45)
[2019-05-07] MEDS ORDERED: diphenhydrAMINE 50 MG/ML VIAL IV PRN ×2 (15:45)
--- NOTE | 2019-05-07 15:45 | NUR ---
The patient blood pressure ranges 140s-170s systolic, non administered midodrine.
--- NOTE | 2019-05-07 17:13 | PDOC2 ---
NEUROLOGY CONSULT Date of Admission Date of Admission DATE: 05/07/19 TIME: 16:48 Reason for Consult Reason for Consult: IMPRESSION: Gait instability for over a year worse recently. Metabolic encephalopathy. Intermittent confusion. Right failure on dialysis planned. LE weakness for 2-3 months, R>L. Falls. AFib. DM. HTN. Orthostatic hypotension. Renal cancer, per Hx. NPH? HLD. Spinal stenosis. Degenerative spine and joint disease. Pacemaker in place. RECOMMENDATIONS/PLAN: L-spine CT w/o contrast. EEG. Lab: see orders. Treat medical diseases. OT/PT. History of Present Illness This is a 73-year-old AA male patient with multiple medical diseases complained worsening of chronic gait instability. He and his stated he has been having gait unsteadiness for over a year but it became worse recently. He also has symptoms of weakness in his LE for several months and was seen on [facility] in 01/31 and was diagnosed as having diabetic polyneuropathy. He had spine imaging there and was told to have spine stenosis. He said his right LE weakness is worse, but no urinary of bowel dysfunction. He had 13 falls so far this year per his . Past Medical History Cardiovascular: HTN Pulmonary: Other CENTRAL NERVOUS SYSTEM: Peripheral neuropathy GI: GERD Heme/Onc: Anemia NOS Hepatobiliary: Cholelithiasis Psych: Depression Musculoskeletal: Osteoarthritis Rheumatologic: No pertinent hx Infectious disease: Other Renal/: Chronic renal failure, Renal Ca. Endocrine: Diabetes, Hyperparathyroidism, Other Past Surgical History Pacemaker, Appendectomy, Cholecystectomy, Cataract Removal, Other Family History Diabetes, Hypertension ALLERGY: NKDA MEDICATIONS: Refer to MAR SOCIAL HISTORY: Lives with his . Denies current smoking, drinking, and illicit drug use. REVIEW OF SYSTEMS: Constitutional: Obese. Head: No recent traumatic brain or head injury. Skin: No edema, or rash. Ear: No infection, tinnitus. Eyes: No vision loss or color blindness. Nose: No bleeding or purulent discharges. Hearing: Mild hearing decrease. Neck: No injury. Cardiac: AFib, Pacemaker Placement, HLD, orthostatic hypotension. Pulmonary: No COPD. GI: No GI ulcer, GI bleeding. Urinary/genital: Renal failure. Endocrinologic: Diabetes Mellitus, obesity. Skeletomuscular: Generalized weakness. Neurological: see HP. Psychiatric: Denies drug use/abuse. Otherwise, not [id number] review of systems. PHYSICAL EXAMINATION: General appearance is in subacute on chronic distress. HEENT: Normocephalic and nontraumatic. Eyes, nose, ears, and throat are unremarkable. Neck is supple. No lymphadenopathy. No crepitus. Cardiovascular: S1, S2 Pulmonary: mildly decreased to auscultation bilaterally. Abdomen: Bowel sounds are positive. Extremities: No rash, lesions. No restriction of range of motion NEUROLOGICAL EXAMINATION: Awake. Oriented partially to time, place and person. PERRL. EOMI. CN: no focal findings. Muscle tone: within normal. Muscle strength: 5 UE, 4+ right LE, 5 left LE. DTR: 2- UE, 0 at knee. Plantar reflex: Neutral response bilaterally Gait: Able to walk with a walker. Sensory exam: no abnormal findings in UE, but decreased temperature and light tough below the knee. No cerebellar signs elicited. F-T-N test fine. Current Medications Current Medications Current Medications Clonidine HCl (Catapres) 0.1 mg 1X ONCE PO Last administered on 05/07/19at 00:24; Start 05/07/19 at 00:15; Stop 05/07/19 at 00:16; Status DC Hydralazine HCl (Apresoline Inj) 10 mg PRN Q4HRS PRN IVP ELEVATED BP, SEE COMMENTS; Start 05/07/19 at 07:45; Stop 05/07/19 at 07:51; Status DC Aspirin (Ecotrin) 81 mg DAILY PO Last administered on 05/07/19 08:31; Start 05/07/19 at 09:00 Calcitriol (Rocaltrol) 0.25 mcg DAILY PO Last administered on 05/07/19 08:31; Start 05/07/19 at 09:00 Clopidogrel Bisulfate (Plavix) 75 mg DAILY PO Last administered on 05/07/19 08:31; Start 05/07/19 at 09:00 Duloxetine HCl (Cymbalta) 30 mg DAILY PO Last administered on 05/07/19at 08:34; Start 05/07/19 at 09:00 Vitamin B Complex/ Vitamin C (Rocio-Taylor) 1 tab DAILY PO Last administered on 05/07/19at 08:31; Start 05/07/19 at 09:00 Midodrine (Proamatine) 5 mg TID@0800,1200,1700 PO ; Start 05/07/19 at 08:00 Polyethylene Glycol (miraLAX PACKET) 17 gm DAILY PRN PO CONSTIPATION; Start 05/07/19 at 07:45 Calcium Acetate (Phoslo) 2,001 mg TIDWMEALS PO Last administered on 05/07/19at 12:02; Start 05/07/19 at 08:00 Vitamin D (Vitamin D3) 5,000 unit DAILY PO Last administered on 05/07/19at 08:31; Start 05/07/19 at 09:00 Darbepoetin José (ARANESP for DIALYSIS PTS) 100 mcg WEEKLYHS SQ ; Start 05/08/19 at 21:00 Insulin Glargine (Lantus Syringe) 50 unit QHS SQ ; Start 05/07/19 at 21:00 Loperamide HCl (Imodium) 2 mg PRN Q15MIN PRN PO DIARRHEA; Start 05/07/19 at 08:00 Pantoprazole Sodium (Protonix) 40 mg DAILYAC PO Last administered on 05/07/19at 08:31; Start 05/07/19 at 08:00 Potassium Chloride (Klor-Con) 20 meq DAILYWBKFT PO Last administered on 05/07/19at 08:30; Start 05/07/19 at 08:00 Ondansetron HCl (Zofran) 4 mg PRN Q6HRS PRN IVP NAUSEA/VOMITING; Start 05/07/19 at 07:45 Acetaminophen/ Hydrocodone Bitart (Lortab 5/325) 1 tab PRN Q4HRS PRN PO MODERATE PAIN, SEVERE PAIN; Start 05/07/19 at 07:45 Acetaminophen (Tylenol) 500 mg PRN Q6HRS PRN PO MILD PAIN / TEMP; Start 05/07/19 at 07:45 Meclizine HCl (Antivert) 12.5 mg PRN Q6HRS PRN PO DIZZINESS; Start 05/07/19 at 07:45 Insulin Human Lispro (HumaLOG) 0-9 UNITS TIDWMEALS SQ Last administered on 05/07/19at 12:15; Start 05/07/19 at 08:00 Dextrose (Dextrose 50%-Water Syringe) 12.5 gm PRN Q15MIN PRN IV SEE COMMENTS; Start 05/07/19 at 07:45 Hydralazine HCl (Apresoline Inj) 5 mg PRN Q4HRS PRN IVP ELEVATED BP, SEE COMMENTS; Start 05/07/19 at 08:00 Sodium Chloride 1,000 ml @ 1,000 mls/hr Q1H PRN IV hypotension; Start 05/07/19 at 15:36; Stop 05/07/19 at 21:35 Diphenhydramine HCl (Benadryl) 25 mg 1X PRN PRN IV ITCHING; Start 05/07/19 at 15:45; Stop 05/07/19 at 21:00 Diphenhydramine HCl (Benadryl) 25 mg 1X PRN PRN IV ITCHING; Start 05/07/19 at 15:45; Stop 05/07/19 at 21:00 Sodium Chloride 1,000 ml @ 400 mls/hr Q2H30M PRN IV PATENCY; Start 05/07/19 at 15:36; Stop 05/08/19 at 03:35 Info (PHARMACY MONITORING -- do not chart) 1 each PRN DAILY PRN MC SEE COMM ENTS; Start 05/07/19 at 15:45 Lidocaine HCl (Xylocaine-Mpf 1% 2ml Vial) 0.5 ml 1X STAT ID Last administered on 05/07/19at 15:47; Start 05/07/19 at 15:38; Stop 05/07/19 at 15:41; Status DC Active Scripts Active Rocio-Taylor Tablet (Folic Acid/Vitamin B Comp W-C) 0.8 Mg Tablet 1 Tab PO DAILY 30 Days Reported Clopidogrel (Clopidogrel Bisulfate) 75 Mg Tablet 1 Tab PO DAILY 45 Days Midodrine Hcl 5 Mg Tablet 5 Mg PO TID Epogen (Epoetin José) 20,000 Unit/2 Ml Vial 40,000 Unit SQ QTH K-Tab ER (Potassium Chloride) 20 Meq Tablet.er 20 Meq PO DAILY Omeprazole 40 Mg Capsule.dr 1 Cap PO DAILY Cymbalta (Duloxetine Hcl) 30 Mg Capsule.dr 1 Cap PO DAILY Calcium Acetate 667 Mg Tablet 667 Mg PO TID PRN MDD 2001 MG Calcium Acetate 667 Mg Tablet 2,001 Mg PO TIDWMEALS Loperamide (Loperamide Hcl) 2 Mg Tablet 2 Mg PO PRN PRN Miralax (Polyethylene Glycol 3350) 17 Gm Powd.pack 1 Pkt PO DAILY PRN Vitamin D3 (Cholecalciferol (Vitamin D3)) 5,000 Unit Tablet 1 Tab PO DAILY Calcitriol 0.25 Mcg Capsule 1 Cap PO DAILY Tresiba Flextouch U-200 (Insulin Degludec) 200 Unit/1 Ml Insuln.pen 50 Units SQ HS Aspir 81 (Aspirin) 81 Mg Tablet.dr 81 Mg PO DAILY Allergies Allergies: Allergies Coded Allergies Type Severity Reaction Last Updated Verified No Known Drug Allergies 02/27/18 No ROS Review of System The patient denies any associated fevers, chills, headache, ear pain, rhinorrhea, sore throat, stiff neck, productive cough, chest pain, shortness of breath, back or flank pain, abdominal pain, nausea, vomiting, diarrhea, co nstipation, dysuria, rash, numbness, weakness, tingling, incontinence, difficulty ambulating, or diaphoresis. Physical Exam Physical Exam General: Well developed, well nourished, no acute distress, well appearing HEENT: Pupils equally round and reactive to light, EOMI, no discharge, normal conjunctiva Neck: Supple, no nuchal rigidity, no JVD, trachea midline, no tenderness Cardiac: RRR, no murmurs, no gallops, no rubs Chest/Lungs: CTAB, no wheeze, no rhonchi, no crackles Abdomen: soft, non-distended, no guarding, no peritoneal signs, non-tender Back: No tenderness Extremities: no edema, pulses intact, non-tender,capillary refill <3 sec bilateral upper and lower extremities, Neuro: Alert and oriented x 4, no focal deficits, normal speech Vitals Vitals: Vital Signs Date Time Temp Pulse Resp B/P (MAP) Pulse Ox O2 Delivery O2 Flow Rate FiO2 05/07/19 14:46 97.8 66 14 175/56 (95) 98 Room Air 97.8 Labs Labs Laboratory Tests Test 05/06/19 23:24 05/07/19 08:10 05/07/19 08:28 05/07/19 12:04 White Blood Count 9.8 x10^3/uL (4.0-11.0) Red Blood Count 3.13 x10^6/uL (4.30-5.70) Hemoglobin 9.9 g/dL (13.0-17.5) Hematocrit 29.2 % (39.0-53.0) Mean Corpuscular Volume 93 fL (79-100) Mean Corpuscular Hemoglobin 32 pg (25-35) Mean Corpuscular Hemoglobin Concent 34 g/dL (31-37) Red Cell Distribution Width 20.0 % (11.5-14.5) Platelet Count 139 x10^3/uL (140-400) Neutrophils (%) (Auto) 79 % (31-73) Lymphocytes (%) (Auto) 8 % (24-48) Monocytes (%) (Auto) 9 % (0-9) Eosinophils (%) (Auto) 3 % (0-3) Basophils (%) (Auto) 0 % (0-3) Neutrophils # (Auto) 7.7 x10^3/uL (1.8-7.7) Lymphocytes # (Auto) 0.8 x10^3/uL (1.0-4.8) Monocytes # (Auto) 0.9 x10^3/uL (0.0-1.1) Eosinophils # (Auto) 0.3 x10^3/uL (0.0-0.7) Basophils # (Auto) 0.0 x10^3/uL (0.0-0.2) Prothrombin Time 14.2 SEC (11.7-14.0) Prothromb Time International Ratio 1.1 (0.8-1.1) Sodium Level 139 mmol/L (136-145) Potassium Level 3.5 mmol/L (3.5-5.1) Chloride Level 98 mmol/L (98-107) Carbon Dioxide Level 28 mmol/L (21-32) Anion Gap 13 (6-14) Blood Urea Nitrogen 54 mg/dL (8-26) Creatinine 13.2 mg/dL (0.7-1.3) Estimated GFR (Cockcroft-Gault) 4.5 BUN/Creatinine Ratio 4 (6-20) Glucose Level 177 mg/dL (70-99) Calcium Level 9.2 mg/dL (8.5-10.1) Magnesium Level 2.9 mg/dL (1.8-2.4) Total Bilirubin 0.5 mg/dL (0.2-1.0) Aspartate Amino Transf (AST/SGOT) 13 U/L (15-37) Alanine Aminotransferase (ALT/SGPT) < 6 U/L (16-63) Alkaline Phosphatase 90 U/L (46-116) Troponin I Quantitative < 0.017 ng/mL (0.000-0.055) XY-Dde-H-Type Natriuretic Peptide 12471 pg/mL (0-124) Total Protein 6.5 g/dL (6.4-8.2) Albumin 2.9 g/dL (3.4-5.0) Albumin/Globulin Ratio 0.8 (1.0-1.7) Erythrocyte Sedimentation Rate 56 (0-15) Vitamin B12 Level 722 pg/mL (247-911) Hepatitis B Surface Antigen Nonreactive (Nonreactive) Glucose (Fingerstick) 138 mg/dL (70-99) 206 mg/dL (70-99) Test 05/07/19 16:44 Glucose (Fingerstick) 111 mg/dL (70-99) Laboratory Tests Test 05/06/19 23:24 05/07/19 08:10 05/07/19 08:28 05/07/19 12:04 White Blood Count 9.8 x10^3/uL (4.0-11.0) Red Blood Count 3.13 x10^6/uL (4.30-5.70) Hemoglobin 9.9 g/dL (13.0-17.5) Hematocrit 29.2 % (39.0-53.0) Mean Corpuscular Volume 93 fL (79-100) Mean Corpuscular Hemoglobin 32 pg (25-35) Mean Corpuscular Hemoglobin Concent 34 g/dL (31-37) Red Cell Distribution Width 20.0 % (11.5-14.5) Platelet Count 139 x10^3/uL (140-400) Neutrophils (%) (Auto) 79 % (31-73) Lymphocytes (%) (Auto) 8 % (24-48) Monocytes (%) (Auto) 9 % (0-9) Eosinophils (%) (Auto) 3 % (0-3) Basophils (%) (Auto) 0 % (0-3) Neutrophils # (Auto) 7.7 x10^3/uL (1.8-7.7) Lymphocytes # (Auto) 0.8 x10^3/uL (1.0-4.8) Monocytes # (Auto) 0.9 x10^3/uL (0.0-1.1) Eosinophils # (Auto) 0.3 x10^3/uL (0.0-0.7) Basophils # (Auto) 0.0 x10^3/uL (0.0-0.2) Prothrombin Time 14.2 SEC (11.7-14.0) Prothromb Time International Ratio 1.1 (0.8-1.1) Sodium Level 139 mmol/L (136-145) Potassium Level 3.5 mmol/L (3.5-5.1) Chloride Level 98 mmol/L (98-107) Carbon Dioxide Level 28 mmol/L (21-32) Anion Gap 13 (6-14) Blood Urea Nitrogen 54 mg/dL (8-26) Creatinine 13.2 mg/dL (0.7-1.3) Estimated GFR (Cockcroft-Gault) 4.5 BUN/Creatinine Ratio 4 (6-20) Glucose Level 177 mg/dL (70-99) Calcium Level 9.2 mg/dL (8.5-10.1) Magnesium Level 2.9 mg/dL (1.8-2.4) Total Bilirubin 0.5 mg/dL (0.2-1.0) Aspartate Amino Transf (AST/SGOT) 13 U/L (15-37) Alanine Aminotransferase (ALT/SGPT) < 6 U/L (16-63) Alkaline Phosphatase 90 U/L (46-116) Troponin I Quantitative < 0.017 ng/mL (0.000-0.055) AT-Tgh-R-Type Natriuretic Peptide 98010 pg/mL (0-124) Total Protein 6.5 g/dL (6.4-8.2) Albumin 2.9 g/dL (3.4-5.0) Albumin/Globulin Ratio 0.8 (1.0-1.7) Erythrocyte Sedimentation Rate 56 (0-15) Vitamin B12 Level 722 pg/mL (247-911) Hepatitis B Surface Antigen Nonreactive (Nonreactive) Glucose (Fingerstick) 138 mg/dL (70-99) 206 mg/dL (70-99) Test 05/07/19 16:44 Glucose (Fingerstick) 111 mg/dL (70-99) LEIDY GUTIERREZ MD May 07, 2019 17:13
--- NOTE | 2019-05-07 20:30 | NUR ---
Pt returned from dialysis at approx. 1999. Pt's 1700 Phoslo and Midodrine non-administered. BP 144/59.
[2019-05-07] MEDS: INSULIN GLARGINE SYRINGE. SQ SCH (21:16)
[2019-05-08 03:00] VITALS: BP 177/65
[2019-05-08 05:10] LABS: CALCIUM 8.6 mg/dL (8.5-10.1); GFR 6.2; POTASSIUM 3.7 mmol/L (3.5-5.1)
[2019-05-08 07:00] VITALS: BP 153/59
[2019-05-08] MEDS: MIDODRINE 5 MG TABLET PO SCH ×3 (08:00→17:00)
[2019-05-08] MEDS: INSULIN LISPRO 300 UNITS/3 ML VIAL. SQ SCH ×3 (08:00→17:00)
[2019-05-08] MEDS: CLOPIDOGREL BISULFATE 75 MG TABLET PO SCH (08:17)
[2019-05-08] MEDS: CALCITRIOL 0.25 MCG CAPSULE. PO SCH (08:17)
[2019-05-08] MEDS: FOLIC/VIT B COMP W-C (RENAL) TABLET. PO SCH (08:17)
[2019-05-08] MEDS: DULoxetine HCL 30 MG CAPSULE.DR PO SCH (08:17)
[2019-05-08] MEDS: POTASSIUM CHLORIDE 20 MEQ TABLET.ER. PO SCH (08:17)
[2019-05-08] MEDS: PANTOPRAZOLE 40 MG TABLET.DR. PO SCH (08:17)
[2019-05-08] MEDS: CALCIUM ACETATE 667 MG CAPSULE PO SCH ×3 (08:17→17:27)
[2019-05-08] MEDS: ASPIRIN ENTERIC COATED 81 MG TABLET.DR. PO SCH (08:17)
[2019-05-08] MEDS: CHOLECALCIFEROL (VITAMIN D3) 5,000 UNIT CAPSULE PO SCH (08:17)
[2019-05-08 11:00] VITALS: BP 143/68
--- NOTE | 2019-05-08 11:02 | PDOC ---
PROGRESS NOTES Chief Complaint Chief Complaint ESRD on HD AOCD Gait ataxia new onset and met enceph started 24 hrs ago and seems persisting Afebrile, no sepsis HTN now with hx ORTHOSTATIC HYPOTENSION on MIDODRINE (per acct) FAlls - 12 falls this yr (in and out [facility] - ar mid feb 2019) History of Present Illness History of Present Illness Out having EEG per neuro ESR 56 LUmbar spine abn - some chronic back pain IMPRESSION: 1. Multilevel degenerative change involving the lumbar spine, described in detail above. This is associated with mild left foraminal stenosis at L3-L4, moderate bilateral foraminal and central canal stenosis at L4-5 and mild left greater than right foraminal stenosis at L5-S1. 2. Grade 1 anterolisthesis of L4 and L5. 3. Nodular thickening of the adrenal glands with possible superimposed 2.1 cm nodule within the inferior lateral limb of the left adrenal gland. This is similar compared to an MRI dated 01/12/2016, allowing for differences in imaging modality. 4. Multiple suspected right renal cysts. Astute RN up on held the [facility] midodrine bec bp 140s tells me ever since HD - BP has been high (not low when he was on PD) We talked about when to hold midodrine at home relays readmission at [facility] after being admitted [facility] Feb 2019 Seems like they just want to do HH instead of SNU or rehab PLAn: Await from EEG So far work up of enceph and gait issues unrevealing Consult physiatry, re rehab - 12 falls this yr) Midodrine with holding parameters Renal diet HD per renal FUll code Vitals Vitals Vital Signs Date Time Temp Pulse Resp B/P (MAP) Pulse Ox O2 Delivery O2 Flow Rate FiO2 05/08/19 08:00 Room Air 05/08/19 08:00 67 153/59 05/08/19 07:00 98.0 16 100 98.0 Physical Exam General: Alert, Oriented X3, Cooperative, No acute distress, Other (sleepy) Heart: Regular rate, Normal S1, Normal S2, No murmurs Lungs: Clear Abdomen: Normal bowel sounds, Soft, No tenderness, No hepatosplenomegaly, No masses Extremities: Other (left arm fistula with good bruit and pulses distally) Skin: No rashes, No breakdown, No significant lesion Labs LABS Laboratory Tests Test 05/07/19 12:04 05/07/19 16:44 05/07/19 20:48 05/08/19 04:20 Glucose (Fingerstick) 206 mg/dL (70-99) 111 mg/dL (70-99) 115 mg/dL (70-99) Sodium Level 139 mmol/L (136-145) Potassium Level 3.7 mmol/L (3.5-5.1) Chloride Level 100 mmol/L (98-107) Carbon Dioxide Level 29 mmol/L (21-32) Anion Gap 10 (6-14) Blood Urea Nitrogen 43 mg/dL (8-26) Creatinine 10.0 mg/dL (0.7-1.3) Estimated GFR (Cockcroft-Gault) 6.2 Glucose Level 99 mg/dL (70-99) Calcium Level 8.6 mg/dL (8.5-10.1) Test 05/08/19 07:44 05/08/19 08:55 Glucose (Fingerstick) 59 mg/dL (70-99) 104 mg/dL (70-99) Review of Systems Review of Systems out having eeg Comment Review of Relevant I have reviewed the following items roger (where applicable) has been applied. Labs Laboratory Tests Test 05/06/19 23:24 05/07/19 08:10 05/07/19 08:28 05/07/19 12:04 White Blood Count 9.8 x10^3/uL (4.0-11.0) Red Blood Count 3.13 x10^6/uL (4.30-5.70) Hemoglobin 9.9 g/dL (13.0-17.5) Hematocrit 29.2 % (39.0-53.0) Mean Corpuscular Volume 93 fL (79-100) Mean Corpuscular Hemoglobin 32 pg (25-35) Mean Corpuscular Hemoglobin Concent 34 g/dL (31-37) Red Cell Distribution Width 20.0 % (11.5-14.5) Platelet Count 139 x10^3/uL (140-400) Neutrophils (%) (Auto) 79 % (31-73) Lymphocytes (%) (Auto) 8 % (24-48) Monocytes (%) (Auto) 9 % (0-9) Eosinophils (%) (Auto) 3 % (0-3) Basophils (%) (Auto) 0 % (0-3) Neutrophils # (Auto) 7.7 x10^3/uL (1.8-7.7) Lymphocytes # (Auto) 0.8 x10^3/uL (1.0-4.8) Monocytes # (Auto) 0.9 x10^3/uL (0.0-1.1) Eosinophils # (Auto) 0.3 x10^3/uL (0.0-0.7) Basophils # (Auto) 0.0 x10^3/uL (0.0-0.2) Prothrombin Time 14.2 SEC (11.7-14.0) Prothromb Time International Ratio 1.1 (0.8-1.1) Sodium Level 139 mmol/L (136-145) Potassium Level 3.5 mmol/L (3.5-5.1) Chloride Level 98 mmol/L (98-107) Carbon Dioxide Level 28 mmol/L (21-32) Anion Gap 13 (6-14) Blood Urea Nitrogen 54 mg/dL (8-26) Creatinine 13.2 mg/dL (0.7-1.3) Estimated GFR (Cockcroft-Gault) 4.5 BUN/Creatinine Ratio 4 (6-20) Glucose Level 177 mg/dL (70-99) Calcium Level 9.2 mg/dL (8.5-10.1) Magnesium Level 2.9 mg/dL (1.8-2.4) Total Bilirubin 0.5 mg/dL (0.2-1.0) Aspartate Amino Transf (AST/SGOT) 13 U/L (15-37) Alanine Aminotransferase (ALT/SGPT) < 6 U/L (16-63) Alkaline Phosphatase 90 U/L (46-116) Troponin I Quantitative < 0.017 ng/mL (0.000-0.055) QP-Haf-T-Type Natriuretic Peptide 75269 pg/mL (0-124) Total Protein 6.5 g/dL (6.4-8.2) Albumin 2.9 g/dL (3.4-5.0) Albumin/Globulin Ratio 0.8 (1.0-1.7) Erythrocyte Sedimentation Rate 56 (0-15) Vitamin B12 Level 722 pg/mL (247-911) Hepatitis B Surface Antigen Nonreactive (Nonreactive) Hepatitis B Surface Antibody, Quant 30.2 mIU/mL (Immunity>9.9) Glucose (Fingerstick) 138 mg/dL (70-99) 206 mg/dL (70-99) Test 05/07/19 16:44 05/07/19 20:48 05/08/19 04:20 05/08/19 07:44 Glucose (Fingerstick) 111 mg/dL (70-99) 115 mg/dL (70-99) 59 mg/dL (70-99) Sodium Level 139 mmol/L (136-145) Potassium Level 3.7 mmol/L (3.5-5.1) Chloride Level 100 mmol/L (98-107) Carbon Dioxide Level 29 mmol/L (21-32) Anion Gap 10 (6-14) Blood Urea Nitrogen 43 mg/dL (8-26) Creatinine 10.0 mg/dL (0.7-1.3) Estimated GFR (Cockcroft-Gault) 6.2 Glucose Level 99 mg/dL (70-99) Calcium Level 8.6 mg/dL (8.5-10.1) Test 05/08/19 08:55 Glucose (Fingerstick) 104 mg/dL (70-99) Laboratory Tests Test 05/07/19 12:04 05/07/19 16:44 05/07/19 20:48 05/08/19 04:20 Glucose (Fingerstick) 206 mg/dL (70-99) 111 mg/dL (70-99) 115 mg/dL (70-99) Sodium Level 139 mmol/L (136-145) Potassium Level 3.7 mmol/L (3.5-5.1) Chloride Level 100 mmol/L (98-107) Carbon Dioxide Level 29 mmol/L (21-32) Anion Gap 10 (6-14) Blood Urea Nitrogen 43 mg/dL (8-26) Creatinine 10.0 mg/dL (0.7-1.3) Estimated GFR (Cockcroft-Gault) 6.2 Glucose Level 99 mg/dL (70-99) Calcium Level 8.6 mg/dL (8.5-10.1) Test 05/08/19 07:44 05/08/19 08:55 Glucose (Fingerstick) 59 mg/dL (70-99) 104 mg/dL (70-99) Medications Current Medications Clonidine HCl (Catapres) 0.1 mg 1X ONCE PO Last administered on 05/07/19 00:24; Start 05/07/19 at 00:15; Stop 05/07/19 at 00:16; Status DC Hydralazine HCl (Apresoline Inj) 10 mg PRN Q4HRS PRN IVP ELEVATED BP, SEE COMMENTS; Start 05/07/19 at 07:45; Stop 05/07/19 at 07:51; Status DC Aspirin (Ecotrin) 81 mg DAILY PO Last administered on 05/08/19 08:17; Start 05/07/19 at 09:00 Calcitriol (Rocaltrol) 0.25 mcg DAILY PO Last administered on 05/08/19 08:17; Start 05/07/19 at 09:00 Clopidogrel Bisulfate (Plavix) 75 mg DAILY PO Last administered on 05/08/19 08:17; Start 05/07/19 at 09:00 Duloxetine HCl (Cymbalta) 30 mg DAILY PO Last administered on 05/08/19at 08:17; Start 05/07/19 at 09:00 Vitamin B Complex/ Vitamin C (Rocio-Taylor) 1 tab DAILY PO Last administered on 05/08/19 08:17; Start 05/07/19 at 09:00 Midodrine (Proamatine) 5 mg TID@0800,1200,1700 PO ; Start 05/07/19 at 08:00 Polyethylene Glycol (miraLAX PACKET) 17 gm DAILY PRN PO CONSTIPATION; Start 05/07/19 at 07:45 Calcium Acetate (Phoslo) 2,001 mg TIDWMEALS PO Last administered on 05/08/19 08:17; Start 05/07/19 at 08:00 Vitamin D (Vitamin D3) 5,000 unit DAILY PO Last administered on 05/08/19 08:17; Start 05/07/19 at 09:00 Darbepoetin José (ARANESP for DIALYSIS PTS) 100 mcg WEEKLYHS SQ ; Start 05/08/19 at 21:00 Insulin Glargine (Lantus Syringe) 50 unit QHS SQ Last administered on 05/07/19at 21:16; Start 05/07/19 at 21:00 Loperamide HCl (Imodium) 2 mg PRN Q15MIN PRN PO DIARRHEA; Start 05/07/19 at 08:00 Pantoprazole Sodium (Protonix) 40 mg DAILYAC PO Last administered on 05/08/19at 08:17; Start 05/07/19 at 08:00 Potassium Chloride (Klor-Con) 20 meq DAILYWBKFT PO Last administered on 05/08/19at 08:17; Start 05/07/19 at 08:00 Ondansetron HCl (Zofran) 4 mg PRN Q6HRS PRN IVP NAUSEA/VOMITING; Start 05/07/19 at 07:45 Acetaminophen/ Hydrocodone Bitart (Lortab 5/325) 1 tab PRN Q4HRS PRN PO MODERATE PAIN, SEVERE PAIN; Start 05/07/19 at 07:45 Acetaminophen (Tylenol) 500 mg PRN Q6HRS PRN PO MILD PAIN / TEMP; Start 05/07/19 at 07:45 Meclizine HCl (Antivert) 12.5 mg PRN Q6HRS PRN PO DIZZINESS; Start 05/07/19 at 07:45 Insulin Human Lispro (HumaLOG) 0-9 UNITS TIDWMEALS SQ Last administered on 05/07/19at 12:15; Start 05/07/19 at 08:00 Dextrose (Dextrose 50%-Water Syringe) 12.5 gm PRN Q15MIN PRN IV SEE COMMENTS; Start 05/07/19 at 07:45 Hydralazine HCl (Apresoline Inj) 5 mg PRN Q4HRS PRN IVP ELEVATED BP, SEE COMMENTS; Start 05/07/19 at 08:00 Sodium Chloride 1,000 ml @ 1,000 mls/hr Q1H PRN IV hypotension; Start 05/07/19 at 15:36; Stop 05/07/19 at 21:35; Status DC Diphenhydramine HCl (Benadryl) 25 mg 1X PRN PRN IV ITCHING; Start 05/07/19 at 15:45; Stop 05/07/19 at 21:00; Status DC Diphenhydramine HCl (Benadryl) 25 mg 1X PRN PRN IV ITCHING; Start 05/07/19 at 15:45; Stop 05/07/19 at 21:00; Status DC Sodium Chloride 1,000 ml @ 400 mls/hr Q2H30M PRN IV PATENCY; Start 05/07/19 at 15:36; Stop 05/08/19 at 03:35; Status DC Info (PHARMACY MONITORING -- do not chart) 1 each PRN DAILY PRN MC SEE COMMENTS; Start 05/07/19 at 15:45 Lidocaine HCl (Xylocaine-Mpf 1% 2ml Vial) 0.5 ml 1X STAT ID Last administered on 05/07/19at 15:47; Start 05/07/19 at 15:38; Stop 05/07/19 at 15:41; Status DC Active Scripts Active Rocio-Taylor Tablet (Folic Acid/Vitamin B Comp W-C) 0.8 Mg Tablet 1 Tab PO DAILY 30 Days Reported Clopidogrel (Clopidogrel Bisulfate) 75 Mg Tablet 1 Tab PO DAILY 45 Days Midodrine Hcl 5 Mg Tablet 5 Mg PO TID Epogen (Epoetin José) 20,000 Unit/2 Ml Vial 40,000 Unit SQ QTH K-Tab ER (Potassium Chloride) 20 Meq Tablet.er 20 Meq PO DAILY Omeprazole 40 Mg Capsule.dr 1 Cap PO DAILY Cymbalta (Duloxetine Hcl) 30 Mg Capsule.dr 1 Cap PO DAILY Calcium Acetate 667 Mg Tablet 667 Mg PO TID PRN MDD 2001 MG Calcium Acetate 667 Mg Tablet 2,001 Mg PO TIDWMEALS Loperamide (Loperamide Hcl) 2 Mg Tablet 2 Mg PO PRN PRN Miralax (Polyethylene Glycol 3350) 17 Gm Powd.pack 1 Pkt PO DAILY PRN Vitamin D3 (Cholecalciferol (Vitamin D3)) 5,000 Unit Tablet 1 Tab PO DAILY Calcitriol 0.25 Mcg Capsule 1 Cap PO DAILY Tresiba Flextouch U-200 (Insulin Degludec) 200 Unit/1 Ml Insuln.pen 50 Units SQ HS Aspir 81 (Aspirin) 81 Mg Tablet.dr 81 Mg PO DAILY Vitals/I & O Vital Sign - Last 24 Hours 05/07/19 05/07/19 05/07/19 05/07/19 11:00 12:00 14:46 17:00 Temp 97.7 97.8 97.7 97.8 Pulse 66 66 66 69 Resp 16 14 B/P (MAP) 141/43 (75) 141/43 175/56 (95) 144/59 Pulse Ox 98 98 O2 Delivery Room Air Room Air 05/07/19 05/07/19 05/07/19 05/08/19 19:00 20:00 23:00 03:00 Temp 98.1 98.6 99.3 98.1 98.6 99.3 Pulse 68 69 70 Resp 16 16 20 B/P (MAP) 136/58 (84) 144/59 (87) 177/65 (102) Pulse Ox 98 99 98 O2 Delivery Room Air Room Air 05/08/19 05/08/19 05/08/19 07:00 08:00 08:00 Temp 98.0 98.0 Pulse 67 67 Resp 16 B/P (MAP) 153/59 (90) 153/59 Pulse Ox 100 O2 Delivery Room Air Room Air Intake and Output 05/07/19 05/07/19 05/08/19 15:00 23:00 07:00 Intake Total 280 ml 0 ml Balance 280 ml 0 ml JUAN ANTONIO PABON MD May 08, 2019 11:02
--- NOTE | 2019-05-08 12:06 | EEG ---
DATE OF SERVICE: 05/08/2019 EEG NUMBER: [id number]. OBJECTIVE: This is a 73-year-old -[place] male patient with symptoms of confusion and mental status changes. EEG was requested to evaluate cerebral activity. METHODS: Twenty electrodes were applied according to the international 10-20 electrode placement system. EKG monitoring, hyperventilation, intermittent photic stimulation, monopolar and bipolar montages are routinely utilized. The record was obtained on a digital system with video monitoring. FINDINGS: 1. Background: The patient was recorded in the awake, drowsy, and sleep states. The overall background amplitude is 10-20 microvolts. A posterior dominant rhythm of 8 Hz is observed. 2. Abnormalities: No specific epileptiform discharge or electrographic seizure is seen. No focal or diffuse slowing. 3. Activation: Hyperventilation was performed with fair efforts. Intermittent photic stimulation was performed with photic driving. IMPRESSION: This EEG is within the normal limits of the study for the awake, drowsy, and sleep states. No focal, lateralizing, specific epileptiform discharge or electrographic seizure is seen. LEIDY GUTIERREZ MD DR: SARAH/katty JOB#: [id number] / [id number] NIMA
--- NOTE | 2019-05-08 12:17 | PDOC ---
SUBJECTIVE ROS Better per and Pt OBJECTIVE Vital Signs Vital Signs Date Time Temp Pulse Resp B/P (MAP) Pulse Ox O2 Delivery O2 Flow Rate FiO2 05/08/19 11:00 97.9 82 18 143/68 (93) 98 Room Air 97.9 I & 0 Intake and Output 05/08/19 07:00 Intake Total 280 ml Balance 280 ml Intake Oral 280 ml # Voids 2 PHYSICAL EXAM Physical Exam General: No acute distress HEENT: OM moist Neck Supple Lungs: Clear to auscultation, Non labored Heart: S1S2, RRR, Abdomen: Soft, No tenderness, Extremities: left arm fistula with good bruit and thrill Skin: No rashes, Neuro: Grossly normal -no Rollins DIAGNOSIS/ASSESSMENT Assessment & Plan ESRD- was on PD switched to HD, was scheduled for 1st OP Hemo on 05/07, Dialyzed yesterday while inpatient , no problems with Graft \ No indication for Hd today Gait ataxia new onset and met enceph Improved HTN now with hx orthostatic hypotension on Midodrine DM Anemia- On ASHISH COMMENT/RELEVANT DATA Meds Current Medications Medications (Trade) Dose Ordered Sig/Deacon Start Time Stop Time Status Last Admin Dose Admin Acetaminophen (Tylenol) 500 mg PRN Q6HRS PRN 05/07/19 07:45 Acetaminophen/ Hydrocodone Bitart (Lortab 5/325) 1 tab PRN Q4HRS PRN 05/07/19 07:45 Aspirin (Ecotrin) 81 mg DAILY 05/07/19 09:00 05/08/19 08:17 81 MG Calcitriol (Rocaltrol) 0.25 mcg DAILY 05/07/19 09:00 05/08/19 08:17 0.25 MCG Calcium Acetate (Phoslo) 2,001 mg TIDWMEALS 05/07/19 08:00 05/08/19 11:45 2,001 MG Clonidine HCl (Catapres) 0.1 mg 1X ONCE 05/07/19 00:15 05/07/19 00:16 DC 05/07/19 00:24 0.1 MG Clopidogrel Bisulfate (Plavix) 75 mg DAILY 05/07/19 09:00 05/08/19 08:17 75 MG Darbepoetin José (ARANESP for DIALYSIS PTS) 100 mcg WEEKLYHS 05/08/19 21:00 Dextrose (Dextrose 50%-Water Syringe) 12.5 gm PRN Q15MIN PRN 05/07/19 07:45 Diphenhydramine HCl (Benadryl) 25 mg 1X PRN PRN 05/07/19 15:45 05/07/19 21:00 DC Duloxetine HCl (Cymbalta) 30 mg DAILY 05/07/19 09:00 05/08/19 08:17 30 MG Guaifenesin (Mucinex) 600 mg 1X ONCE 05/08/19 11:15 05/08/19 11:16 DC 05/08/19 11:44 600 MG Hydralazine HCl (Apresoline Inj) 5 mg PRN Q4HRS PRN 05/07/19 08:00 Info (PHARMACY MONITORING -- do not chart) 1 each PRN DAILY PRN 05/07/19 15:45 Insulin Glargine (Lantus Syringe) 50 unit QHS 05/07/19 21:00 05/07/19 21:16 50 UNIT Insulin Human Lispro (HumaLOG) 0-9 UNITS TIDWMEALS 05/07/19 08:00 05/07/19 12:15 5 UNITS Lidocaine HCl (Xylocaine-Mpf 1% 2ml Vial) 0.5 ml 1X STAT 05/07/19 15:38 05/07/19 15:41 DC 05/07/19 15:47 0.5 ML Loperamide HCl (Imodium) 2 mg PRN Q15MIN PRN 05/07/19 08:00 Meclizine HCl (Antivert) 12.5 mg PRN Q6HRS PRN 05/07/19 07:45 Midodrine (Proamatine) 5 mg TID@0800,1200,1700 05/07/19 08:00 Ondansetron HCl (Zofran) 4 mg PRN Q6HRS PRN 05/07/19 07:45 Pantoprazole Sodium (Protonix) 40 mg DAILYAC 05/07/19 08:00 05/08/19 08:17 40 MG Polyethylene Glycol (miraLAX PACKET) 17 gm DAILY PRN 05/07/19 07:45 Potassium Chloride (Klor-Con) 20 meq DAILYWBKFT 05/07/19 08:00 05/08/19 08:17 20 MEQ Sodium Chloride 1,000 ml @ 400 mls/hr Q2H30M PRN 05/07/19 15:36 05/08/19 03:35 DC Vitamin B Complex/ Vitamin C (Rocio-Taylor) 1 tab DAILY 05/07/19 09:00 05/08/19 08:17 1 TAB Vitamin D (Vitamin D3) 5,000 unit DAILY 05/07/19 09:00 05/08/19 08:17 5,000 UNIT Lab Laboratory Tests Test 05/07/19 16:44 05/07/19 20:48 05/08/19 04:20 05/08/19 07:44 Glucose (Fingerstick) 111 mg/dL (70-99) 115 mg/dL (70-99) 59 mg/dL (70-99) Sodium Level 139 mmol/L (136-145) Potassium Level 3.7 mmol/L (3.5-5.1) Chloride Level 100 mmol/L (98-107) Carbon Dioxide Level 29 mmol/L (21-32) Anion Gap 10 (6-14) Blood Urea Nitrogen 43 mg/dL (8-26) Creatinine 10.0 mg/dL (0.7-1.3) Estimated GFR (Cockcroft-Gault) 6.2 Glucose Level 99 mg/dL (70-99) Calcium Level 8.6 mg/dL (8.5-10.1) Test 05/08/19 08:55 05/08/19 11:31 Glucose (Fingerstick) 104 mg/dL (70-99) 118 mg/dL (70-99) Results All relevant outside records, renal labs, imaging studies, telemetry/EKG's were reviewed. SHERLEY ALBERTS MD May 08, 2019 12:17
--- NOTE | 2019-05-08 13:00 | CONS ---
DATE OF CONSULTATION: 05/08/2019 ATTENDING PHYSICIAN: Nicki Duncan MD REASON FOR CONSULTATION: The patient was seen at the request of Dr. Duncan for rehab evaluation. HISTORY OF PRESENT ILLNESS: This is a 73-year-old male known to me since his admission earlier this month. The patient was admitted on 05/07/2019 with confusion and ataxia for the last 24 hours prior to the hospitalization. The patient had previously on peritoneal dialysis, was started on hemodialysis as of yesterday. He had left arm fistula placed. The patient with known hypertension, diabetes mellitus with peripheral neuropathy, gastroesophageal reflux disease, anemia, cholelithiasis, depression and degenerative joint disease, chronic renal failure and renal cell carcinoma, hyperparathyroidism, status post permanent pacemaker placement, appendectomy, cholecystectomy, cataract surgery. FAMILY HISTORY: Diabetes mellitus and hypertension. ALLERGIES: He is not known allergic to any medication. He lives with his family and has been independent with his mobility until this recent episode of confusion. Since admission, he had radiological studies including CT scan of the brain, which revealed diffuse dilatation of the ventricles, stable. CT scan of lumbar spine revealed multilevel degenerative disk disease and degenerative joint disease with neural foraminal and central spinal stenosis at multiple levels and also grade 1 anterolisthesis of L4 on L5, multiple suspected right renal cysts, nodular thickening of the adrenal glands with possible superimposed 2.1 cm nodule within the inferior lateral limb of left adrenal gland. No significant change since MRI scan done on 01/12/2016. The patient admits pain in his left elbow and forearm area where he had some vascular procedure done this morning. PHYSICAL EXAMINATION: On physical examination today revealed a middle-aged male. He is alert, oriented to time, place, person and circumstance and follows commands appropriately, moves all 4 extremities voluntarily where he had 4+/5 grade muscle strength with relatively increased weakness of dorsiflexor muscles of both feet, left more than right side and also hand intrinsic muscles. Deep tendon reflexes are decreased to absent at both knees and ankles. He had mild crepitus on range of motion of both knee joints with mild knee joint effusion and he had painful range of motion of his hip joints. Minimal tenderness to palpation over sacroiliac joint area and straight leg raising test is negative bilaterally. He is independent with bed mobility and transfers. Once up, he can walk using a roller walker at bedside. He had some edema of his left elbow and forearm area and diffuse tenderness to palpation in that area. ASSESSMENT: A middle-aged male with diabetes mellitus with peripheral neuropathy, end-stage renal disease, on hemodialysis, degenerative joint disease of both knees, chronic lower back pain from degenerative disk disease and degenerative joint disease of lumbar vertebrae without any clinical evidence of ongoing lumbar radiculopathy, hypertension, gastroesophageal reflux disease, anemia, depression, history of renal cell carcinoma, hyperparathyroidism. RECOMMENDATIONS: To get him up as tolerated. Home, when medically stable with outpatient followup by dialysis clinic. Dr. Duncan, appreciate asking me to participate in the care of this interesting patient. I will be glad to see him for followup with you on as needed basis. MARCIO CLARK MD DR: VICENTA/katty JOB#: [id number] / [id number] [facility] ABDIFATAH GODFREY MD
--- NOTE | 2019-05-08 13:27 | PDOC ---
PROGRESS NOTES Assessment Assessment Gait instability for over a year worse recently. Metabolic encephalopathy. Intermittent confusion. Right failure on dialysis planned. LE weakness for 2-3 months, R>L. Falls. AFib. DM. HTN. Orthostatic hypotension. Renal cancer, per Hx. NPH? HLD. Spinal stenosis. Degenerative spine and joint disease. Pacemaker in place. RECOMMENDATIONS/PLAN: Treat medical diseases. Consulted Dr. Oakes. See Neurosurgery for spinal stenosis as out-patient. OT/PT. Rehab as needed. Discussed with his at bedside on a daily basis. EEG on 05/08/19: WNL. History of Present Illness This is a 73-year-old AA male patient with multiple medical diseases complained worsening of chronic gait instability. He and his stated he has been having gait unsteadiness for over a year but it became worse recently. He also has symptoms of weakness in his LE for several months and was seen on [facility] in 01/31 and was diagnosed as having diabetic polyneuropathy. He had spine imaging there and was told to have spine stenosis. He said his right LE weakness is worse, but no urinary of bowel dysfunction. He had 13 falls so far this year per his . Past Medical History Cardiovascular: HTN Pulmonary: Other CENTRAL NERVOUS SYSTEM: Peripheral neuropathy GI: GERD Heme/Onc: Anemia NOS Hepatobiliary: Cholelithiasis Psych: Depression Musculoskeletal: Osteoarthritis Rheumatologic: No pertinent hx Infectious disease: Other Renal/: Chronic renal failure, Renal Ca. Endocrine: Diabetes, Hyperparathyroidism, Other Past Surgical History Pacemaker, Appendectomy, Cholecystectomy, Cataract Removal, Other Family History Diabetes, Hypertension ALLERGY: NKDA MEDICATIONS: Refer to MAR SOCIAL HISTORY: Lives with his . Denies current smoking, drinking, and illicit drug use. REVIEW OF SYSTEMS: Constitutional: Obese. Head: No recent traumatic brain or head injury. Skin: No edema, or rash. Ear: No infection, tinnitus. Eyes: No vision loss or color blindness. Nose: No bleeding or purulent discharges. Hearing: Mild hearing decrease. Neck: No injury. Cardiac: AFib, Pacemaker Placement, HLD, orthostatic hypotension. Pulmonary: No COPD. GI: No GI ulcer, GI bleeding. Urinary/genital: Renal failure. Endocrinologic: Diabetes Mellitus, obesity. Skeletomuscular: Generalized weakness. Neurological: see HP. Psychiatric: Denies drug use/abuse. Otherwise, not [id number] review of systems. PHYSICAL EXAMINATION: General appearance is in subacute on chronic distress. HEENT: Normocephalic and nontraumatic. Eyes, nose, ears, and throat are unremarkable. Neck is supple. No lymphadenopathy. No crepitus. Cardiovascular: S1, S2 Pulmonary: mildly decreased to auscultation bilaterally. Abdomen: Bowel sounds are positive. Extremities: No rash, lesions. No restriction of range of motion NEUROLOGICAL EXAMINATION: Awake. Oriented to time, place and person. PERRL. EOMI. CN: no focal findings. Muscle tone: within normal. Muscle strength: 5 UE, 4 LE. DTR: 2- UE, 0 at knee. Plantar reflex: Neutral response bilaterally Gait: Able to walk with a walker. Sensory exam: no abnormal findings in UE, but decreased temperature and light tough below the knee. No cerebellar signs elicited. F-T-N test fine. Objective Objective Vital Signs Date Time Temp Pulse Resp B/P (MAP) Pulse Ox O2 Delivery O2 Flow Rate FiO2 05/08/19 11:00 97.9 82 18 143/68 (93) 98 Room Air 97.9 Intake and Output 05/08/19 07:00 Intake Total 280 ml Balance 280 ml Intake Oral 280 ml # Voids 2 Vitals Signs Vitals VS - Last 72 Hours, by Label Date Time Temp Pulse Resp B/P (MAP) Pulse Ox O2 Delivery O2 Flow Rate FiO2 05/08/19 11:00 97.9 82 18 143/68 (93) 98 Room Air 97.9 05/08/19 08:00 Room Air 05/08/19 08:00 67 153/59 05/08/19 07:00 98.0 67 16 153/59 (90) 100 Room Air 98.0 05/08/19 03:00 99.3 70 20 177/65 (102) 98 Room Air 99.3 05/07/19 23:00 98.6 69 16 144/59 (87) 99 98.6 05/07/19 20:00 Room Air 05/07/19 19:00 98.1 68 16 136/58 (84) 98 98.1 05/07/19 17:00 69 144/59 05/07/19 14:46 97.8 66 14 175/56 (95) 98 Room Air 97.8 05/07/19 12:00 66 141/43 05/07/19 11:00 97.7 66 16 141/43 (75) 98 Room Air 97.7 05/07/19 08:00 Room Air 05/07/19 08:00 66 148/49 05/07/19 07:00 98.5 66 16 148/49 (82) 97 Room Air 98.5 Laboratory Laboratory Laboratory Tests Test 05/07/19 16:44 05/07/19 20:48 05/08/19 04:20 05/08/19 07:44 Glucose (Fingerstick) 111 mg/dL (70-99) 115 mg/dL (70-99) 59 mg/dL (70-99) Sodium Level 139 mmol/L (136-145) Potassium Level 3.7 mmol/L (3.5-5.1) Chloride Level 100 mmol/L (98-107) Carbon Dioxide Level 29 mmol/L (21-32) Anion Gap 10 (6-14) Blood Urea Nitrogen 43 mg/dL (8-26) Creatinine 10.0 mg/dL (0.7-1.3) Estimated GFR (Cockcroft-Gault) 6.2 Glucose Level 99 mg/dL (70-99) Calcium Level 8.6 mg/dL (8.5-10.1) Test 05/08/19 08:55 05/08/19 11:31 Glucose (Fingerstick) 104 mg/dL (70-99) 118 mg/dL (70-99) Medication Medications Current Medications Darbepoetin José (ARANESP for DIALYSIS PTS) 100 mcg WEEKLYHS SQ ; Start 05/08/19 at 21:00 Diphenhydramine HCl (Benadryl) 25 mg 1X PRN PRN IV ITCHING; Start 05/07/19 at 15:45; Stop 05/07/19 at 21:00; Status DC Diphenhydramine HCl (Benadryl) 25 mg 1X PRN PRN IV ITCHING; Start 05/07/19 at 15:45; Stop 05/07/19 at 21:00; Status DC Guaifenesin (Mucinex) 600 mg 1X ONCE PO Last administered on 05/08/19at 11:44; Start 05/08/19 at 11:15; Stop 05/08/19 at 11:16; Status DC Guaifenesin (Mucinex) 600 mg BID PO ; Start 05/08/19 at 21:00 Info (PHARMACY MONITORING -- do not chart) 1 each PRN DAILY PRN MC SEE COMMENTS; Start 05/07/19 at 15:45 Insulin Glargine (Lantus Syringe) 50 unit QHS SQ Last administered on 05/07/19at 21:16; Start 05/07/19 at 21:00 Lidocaine HCl (Xylocaine-Mpf 1% 2ml Vial) 0.5 ml 1X STAT ID Last administered on 05/07/19at 15:47; Start 05/07/19 at 15:38; Stop 05/07/19 at 15:41; Status DC Multi-Ingred Cream/Lotion/Oil/ Oint (Hydrocerin Cream) 1 zoila BID TP ; Start 05/08/19 at 21:00 Sodium Chloride 1,000 ml @ 400 mls/hr Q2H30M PRN IV PATENCY; Start 05/07/19 at 15:36; Stop 05/08/19 at 03:35; Status DC Sodium Chloride 1,000 ml @ 1,000 mls/hr Q1H PRN IV hypotension; Start 05/07/19 at 15:36; Stop 05/07/19 at 21:35; Status DC Comment Review of Relevant I have reviewed the following items roger (where applicable) has been applied. LEIDY GUTIERREZ MD May 08, 2019 13:26
[2019-05-08 15:01] VITALS: BP 145/67
--- NOTE | 2019-05-08 15:47 | NUR ---
SW following for discharge planning. Chart reviewed, discussed with RN. Pt is from home with , has been to [facility] before. SW met with pt to discuss discharge planning. 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. Pt reported there is 1 step to get into his house and steps to the basement, where he does not go. Pt reports he uses a walker at home, and has a shower chair. Per pt, the home is on one level. Pt's cooks, cleans and drives pt to appointments. PT/OT recommending SNU. Pt does not want to go to a facility, he feels it is not beneficial. Pt declined any services from SW, reporting he does not want home health either. Pt did not want SW to contact his . RN notified. SW will continue to follow for any discharge planning needs.
[2019-05-08 19:00] VITALS: BP 182/70
[2019-05-08] MEDS ORDERED: DARBEPOETIN ALFA 100 MCG/0.5 ML DISP.SYRIN. SQ SCH (21:00)
[2019-05-08] MEDS ORDERED: MINERAL OIL/PETROLATUM TOPICAL CREAM 113GM JAR. TP SCH (21:00)
[2019-05-08] MEDS: INSULIN GLARGINE SYRINGE. SQ SCH (21:00)
[2019-05-08 22:17] VITALS: BP 168/72
[2019-05-09 03:00] VITALS: BP 180/77
[2019-05-09 07:00] VITALS: BP 163/65
[2019-05-09] MEDS: INSULIN LISPRO 300 UNITS/3 ML VIAL. SQ SCH (08:00)
[2019-05-09] MEDS ORDERED: IV NORMAL SALINE 1000ML BAG 1,000 ML IV PRN ×2 (08:47)
[2019-05-09] MEDS ORDERED: DIALYSIS PATIENT. MC PRN (09:00)
[2019-05-09] MEDS ORDERED: diphenhydrAMINE 50 MG/ML VIAL IV PRN ×2 (09:00)
[2019-05-09] MEDS ORDERED: MECL12.52 PO (09:06)
[2019-05-09] MEDS ORDERED: GUAI600T47 PO (09:06)
--- NOTE | 2019-05-09 09:08 | SNU/HH DC ---
DISCHARGE WITH HOME HEALTH DISCHARGE INFORMATION: Discharge Date: May 09, 2019 Condition on Discharge: Stable CODE STATUS: Code Status: Full HOME HEALTH: Face to Face: I certify this patient is under my care and that I, or a nurse practitioner or karla dona's clerical administrative assistant working with me, had a face to face encounter that meets the physician face to face encounter requirements with this patient on []. RN For Eval/Treatment: Yes Physical Therapy For: Evalulation/Treatment Occupational Therapy For: Evaluation/Treatment Speech Language Pathology For: Evaluation/Treatment Home Health Aide For: Self-care RUG FRAME MOUNTER For: Community Resources Pt Meets Homebound Status: Unsteady balance w/ amb, POST DISCHARGE ORDERS: Activity Instructions for Disc: Activity as tolerated Weight Bearing Status after Di: As tolerated Bathing Instructions: Shower-keep dressing dry DIET AFTER DISCHARGE: Cardiac Wound/Incision Care: Other, see below CHECKS AFTER DISCHARGE: Checks after discharge: Check blood sugar, ac/hs FOLLOW-UP: PCP to follow Home Health: make sure gait steady, he can be weak and fall- high risk, lots of rehab in past, wof orthostasis - NONE recently (on midodrine - not needing to give lat khushboo) Follow up with: re BP , overall heatlth TREATMENT/EQUIPMENT ORDERS: Adaptive Equipment Issued: Four wheeled walker CERTIFICATION STATEMENT: Certification Statement: Certification Statement: Based on the above finding, I certify that this patient is confined to the home and needs intermittent assisted care, physical therapy and/or speech therapy, or continues to need occupational therapy.~ This patient is under my care, and I have initiated the establishment of the plan of care.~ This patient will be followed by myself or a community physician who will periodically review the plan of care. Home Meds Active Scripts Meclizine Hcl (MECLIZINE HCL) 12.5 Mg Tablet, 12.5 MG PO PRN Q6HRS PRN for DIZZINESS, #30 TAB Prov:JUAN ANTONIO PABON MD 05/09/19 Guaifenesin (MUCINEX) 600 Mg Tablet.er, 600 MG PO BID for cough, #14 TAB.SR Prov:JUAN ANTONIO PABON MD 05/09/19 Folic Acid/Vitamin B Comp W-C (MIKEL-BEST TABLET) 0.8 Mg Tablet, 1 TAB PO DAILY for 30 Days, #30 TAB Prov:JUAN ANTONIO PABON MD 04/23/18 Reported Medications Clopidogrel Bisulfate (CLOPIDOGREL) 75 Mg Tablet, 1 TAB PO DAILY for post procedure for 45 Days, #45 TAB 1 Refill 05/07/19 Midodrine Hcl (MIDODRINE HCL) 5 Mg Tablet, 5 MG PO TID, TAB 05/07/19 Epoetin José (EPOGEN) 20,000 Unit/2 Ml Vial, 40041 UNIT SQ QTH for red blood cells, EACH 02/04/19 Potassium Chloride (K-Tab ER) 20 Meq Tablet.er, 20 MEQ PO DAILY for low potassium, TAB.SR 02/04/19 Omeprazole (OMEPRAZOLE) 40 Mg Capsule.dr, 1 CAP PO DAILY for gerd, #30 CAP 3 Refills 02/04/19 Duloxetine Hcl (CYMBALTA) 30 Mg Capsule.dr, 1 CAP PO DAILY for depression, #30 CAP 5 Refills 02/04/19 Calcium Acetate (CALCIUM ACETATE) 667 Mg Tablet, 2001 MG PO TIDWMEALS for DIALYSIS PATIENTS, CAP 02/04/19 Loperamide Hcl (LOPERAMIDE) 2 Mg Tablet, 2 MG PO PRN PRN for DIARRHEA, TAB 02/26/18 Polyethylene Glycol 3350 (MIRALAX) 17 Gm Powd.pack, 1 PKT PO DAILY PRN for CONSTIPATION, PKT 02/26/18 Cholecalciferol (Vitamin D3) (VITAMIN D3) 5,000 Unit Tablet, 1 TAB PO DAILY, #30 TAB 3 Refills 02/26/18 Calcitriol (CALCITRIOL) 0.25 Mcg Capsule, 1 CAP PO DAILY, #90 CAP 3 Refills 02/26/18 Insulin Degludec (Tresiba Flextouch U-200) 200 Unit/1 Ml Insuln.pen, 50 UNITS SQ HS 02/26/18 Aspirin (ASPIR 81) 81 Mg Tablet.dr, 81 MG PO DAILY, TAB 11/14/13 Discontinued Reported Medications Calcium Acetate (CALCIUM ACETATE) 667 Mg Tablet, 667 MG PO TID PRN for PHOSLOW MDD 2001 MG, CAP 02/04/19 JUAN ANTONIO PABON MD May 09, 2019 09:08
--- NOTE | 2019-05-09 09:49 | PDOC ---
PROGRESS NOTES Subjective Subjective No new complaints. Objective Objective Vital Signs Date Time Temp Pulse Resp B/P (MAP) Pulse Ox O2 Delivery O2 Flow Rate FiO2 05/09/19 07:00 98.0 66 16 163/65 (97) 100 Room Air 98.0 Intake and Output 05/09/19 07:00 Intake Total 600 ml Balance 600 ml Intake Oral 600 ml Physical Exam Physical Exam He is alert,on dialysis bed and he continues with weakness of dorsiflexor muscles of both feet,left>right. He is walking with roller walker. Plan Plan of Jail when medically stable and I have advised him to use roller walker while up and to consider left AFO if needed. Comment Review of Relevant I have reviewed the following items roger (where applicable) has been applied. Labs Laboratory Tests Test 05/07/19 12:04 05/07/19 16:44 05/07/19 20:48 05/08/19 04:20 Glucose (Fingerstick) 206 mg/dL (70-99) 111 mg/dL (70-99) 115 mg/dL (70-99) Sodium Level 139 mmol/L (136-145) Potassium Level 3.7 mmol/L (3.5-5.1) Chloride Level 100 mmol/L (98-107) Carbon Dioxide Level 29 mmol/L (21-32) Anion Gap 10 (6-14) Blood Urea Nitrogen 43 mg/dL (8-26) Creatinine 10.0 mg/dL (0.7-1.3) Estimated GFR (Cockcroft-Gault) 6.2 Glucose Level 99 mg/dL (70-99) Calcium Level 8.6 mg/dL (8.5-10.1) Test 05/08/19 07:44 05/08/19 08:55 05/08/19 11:31 05/08/19 16:48 Glucose (Fingerstick) 59 mg/dL (70-99) 104 mg/dL (70-99) 118 mg/dL (70-99) 97 mg/dL (70-99) Test 05/08/19 20:09 05/09/19 07:13 Glucose (Fingerstick) 154 mg/dL (70-99) 113 mg/dL (70-99) Laboratory Tests Test 05/08/19 11:31 05/08/19 16:48 05/08/19 20:09 05/09/19 07:13 Glucose (Fingerstick) 118 mg/dL (70-99) 97 mg/dL (70-99) 154 mg/dL (70-99) 113 mg/dL (70-99) Medications Current Medications Clonidine HCl (Catapres) 0.1 mg 1X ONCE PO Last administered on 05/07/19 00:24; Start 05/07/19 at 00:15; Stop 05/07/19 at 00:16; Status DC Hydralazine HCl (Apresoline Inj) 10 mg PRN Q4HRS PRN IVP ELEVATED BP, SEE COMMENTS; Start 05/07/19 at 07:45; Stop 05/07/19 at 07:51; Status DC Aspirin (Ecotrin) 81 mg DAILY PO Last administered on 05/08/19 08:17; Start 05/07/19 at 09:00 Calcitriol (Rocaltrol) 0.25 mcg DAILY PO Last administered on 05/08/19 08:17; Start 05/07/19 at 09:00 Clopidogrel Bisulfate (Plavix) 75 mg DAILY PO Last administered on 05/08/19 08:17; Start 05/07/19 at 09:00 Duloxetine HCl (Cymbalta) 30 mg DAILY PO Last administered on 05/08/19 08:17; Start 05/07/19 at 09:00 Vitamin B Complex/ Vitamin C (Rocio-Taylor) 1 tab DAILY PO Last administered on 05/08/19 08:17; Start 05/07/19 at 09:00 Midodrine (Proamatine) 5 mg TID@0800,1200,1700 PO ; Start 05/07/19 at 08:00 Polyethylene Glycol (miraLAX PACKET) 17 gm DAILY PRN PO CONSTIPATION; Start 05/07/19 at 07:45 Calcium Acetate (Phoslo) 2,001 mg TIDWMEALS PO Last administered on 05/08/19 17:27; Start 05/07/19 at 08:00 Vitamin D (Vitamin D3) 5,000 unit DAILY PO Last administered on 05/08/19 08:17; Start 05/07/19 at 09:00 Darbepoetin José (ARANESP for DIALYSIS PTS) 100 mcg WEEKLYHS SQ Last administered on 10/24/19at 21:18; Start 05/08/19 at 21:00 Insulin Glargine (Lantus Syringe) 50 unit QHS SQ Last administered on 05/08/19at 21:00; Start 05/07/19 at 21:00 Loperamide HCl (Imodium) 2 mg PRN Q15MIN PRN PO DIARRHEA; Start 05/07/19 at 08:00 Pantoprazole Sodium (Protonix) 40 mg DAILYAC PO Last administered on 05/08/19at 08:17; Start 05/07/19 at 08:00 Potassium Chloride (Klor-Con) 20 meq DAILYWBKFT PO Last administered on 05/08/19at 08:17; Start 05/07/19 at 08:00 Ondansetron HCl (Zofran) 4 mg PRN Q6HRS PRN IVP NAUSEA/VOMITING; Start 05/07/19 at 07:45 Acetaminophen/ Hydrocodone Bitart (Lortab 5/325) 1 tab PRN Q4HRS PRN PO MODERATE PAIN, SEVERE PAIN; Start 05/07/19 at 07:45 Acetaminophen (Tylenol) 500 mg PRN Q6HRS PRN PO MILD PAIN / TEMP; Start 05/07/19 at 07:45 Meclizine HCl (Antivert) 12.5 mg PRN Q6HRS PRN PO DIZZINESS; Start 05/07/19 at 07:45 Insulin Human Lispro (HumaLOG) 0-9 UNITS TIDWMEALS SQ Last administered on 05/07/19at 12:15; Start 05/07/19 at 08:00 Dextrose (Dextrose 50%-Water Syringe) 12.5 gm PRN Q15MIN PRN IV SEE COMMENTS; Start 05/07/19 at 07:45 Hydralazine HCl (Apresoline Inj) 5 mg PRN Q4HRS PRN IVP ELEVATED BP, SEE COMMENTS; Start 05/07/19 at 08:00 Sodium Chloride 1,000 ml @ 1,000 mls/hr Q1H PRN IV hypotension; Start 05/07/19 at 15:36; Stop 05/07/19 at 21:35; Status DC Diphenhydramine HCl (Benadryl) 25 mg 1X PRN PRN IV ITCHING; Start 05/07/19 at 15:45; Stop 05/07/19 at 21:00; Status DC Diphenhydramine HCl (Benadryl) 25 mg 1X PRN PRN IV ITCHING; Start 05/07/19 at 15:45; Stop 05/07/19 at 21:00; Status DC Sodium Chloride 1,000 ml @ 400 mls/hr Q2H30M PRN IV PATENCY; Start 05/07/19 at 15:36; Stop 05/08/19 at 03:35; Status DC Info (PHARMACY MONITORING -- do not chart) 1 each PRN DAILY PRN MC SEE COMMENTS; Start 05/07/19 at 15:45; Stop 05/09/19 at 08:58; Status DC Lidocaine HCl (Xylocaine-Mpf 1% 2ml Vial) 0.5 ml 1X STAT ID Last administered on 05/07/19at 15:47; Start 05/07/19 at 15:38; Stop 05/07/19 at 15:41; Status DC Guaifenesin (Mucinex) 600 mg BID PO Last administered on 05/08/19at 21:17; Start 05/08/19 at 21:00 Guaifenesin (Mucinex) 600 mg 1X ONCE PO Last administered on 05/08/19at 11:44; Start 05/08/19 at 11:15; Stop 05/08/19 at 11:16; Status DC Multi-Ingred Cream/Lotion/Oil/ Oint (Hydrocerin Cream) 1 zoila BID TP Last adm inistered on 05/08/19at 21:17; Start 05/08/19 at 21:00 Sodium Chloride 1,000 ml @ 1,000 mls/hr Q1H PRN IV hypotension; Start 05/09/19 at 08:47; Stop 05/09/19 at 14:46 Diphenhydramine HCl (Benadryl) 25 mg 1X PRN PRN IV ITCHING; Start 05/09/19 at 09:00; Stop 05/10/19 at 08:59 Diphenhydramine HCl (Benadryl) 25 mg 1X PRN PRN IV ITCHING; Start 05/09/19 at 09:00; Stop 05/10/19 at 08:59 Sodium Chloride 1,000 ml @ 400 mls/hr Q2H30M PRN IV PATENCY; Start 05/09/19 at 08:47; Stop 05/09/19 at 20:46 Info (PHARMACY MONITORING -- do not chart) 1 each PRN DAILY PRN MC SEE COMMENTS; Start 05/09/19 at 09:00 Active Scripts Active Meclizine Hcl 12.5 Mg Tablet 12.5 Mg PO PRN Q6HRS PRN Mucinex (Guaifenesin) 600 Mg Tablet.er 600 Mg PO BID Rocio-Taylor Tablet (Folic Acid/Vitamin B Comp W-C) 0.8 Mg Tablet 1 Tab PO DAILY 30 Days Reported Clopidogrel (Clopidogrel Bisulfate) 75 Mg Tablet 1 Tab PO DAILY 45 Days Midodrine Hcl 5 Mg Tablet 5 Mg PO TID Epogen (Epoetin José) 20,000 Unit/2 Ml Vial 40,000 Unit SQ QTH K-Tab ER (Potassium Chloride) 20 Meq Tablet.er 20 Meq PO DAILY Omeprazole 40 Mg Capsule.dr 1 Cap PO DAILY Cymbalta (Duloxetine Hcl) 30 Mg Capsule.dr 1 Cap PO DAILY Calcium Acetate 667 Mg Tablet 2,001 Mg PO TIDWMEALS Loperamide (Loperamide Hcl) 2 Mg Tablet 2 Mg PO PRN PRN Miralax (Polyethylene Glycol 3350) 17 Gm Powd.pack 1 Pkt PO DAILY PRN Vitamin D3 (Cholecalciferol (Vitamin D3)) 5,000 Unit Tablet 1 Tab PO DAILY Calcitriol 0.25 Mcg Capsule 1 Cap PO DAILY Tresiba Flextouch U-200 (Insulin Degludec) 200 Unit/1 Ml Insuln.pen 50 Units SQ HS Aspir 81 (Aspirin) 81 Mg Tablet.dr 81 Mg PO DAILY Vitals/I & O Vital Sign - Last 24 Hours 05/08/19 05/08/19 05/08/19 05/08/19 11:00 15:01 17:00 19:00 Temp 97.9 98.3 98.1 97.9 98.3 98.1 Pulse 82 69 69 75 Resp 18 16 18 B/P (MAP) 143/68 (93) 145/67 (93) 145/67 182/70 (107) Pulse Ox 98 97 99 O2 Delivery Room Air Room Air Room Air 05/08/19 05/08/19 05/09/19 05/09/19 20:00 22:17 03:00 07:00 Temp 98.2 97.9 98.0 98.2 97.9 98.0 Pulse 76 80 66 Resp 18 18 16 B/P (MAP) 168/72 (104) 180/77 (111) 163/65 (97) Pulse Ox 99 100 100 O2 Delivery Room Air Room Air Room Air Room Air Intake and Output 05/08/19 05/08/19 05/09/19 15:00 23:00 07:00 Intake Total 160 ml 440 ml Balance 160 ml 440 ml MARCIO CLARK MD May 09, 2019 09:49
--- NOTE | 2019-05-09 11:41 | PDOC3 ---
Discharge Summary Visit Information Date of Admission: May 07, 2019 Date of Discharge: May 09, 2019 Admitting Diagnosis Comment: ESRD on HD AOCD Gait ataxia new onset and met enceph started 24 hrs ago and seems persisting Afebrile, no sepsis HTN now with hx ORTHOSTATIC HYPOTENSION on MIDODRINE (per acct) FAlls - 12 falls this yr (in and out [facility] - dc mid feb 2019) Brief Hospital Course Allergies Allergies Coded Allergies Type Severity Reaction Last Updated Verified No Known Drug Allergies 02/27/18 No Vital Signs Vital Signs Date Time Temp Pulse Resp B/P (MAP) Pulse Ox O2 Delivery O2 Flow Rate FiO2 05/09/19 07:00 98.0 66 16 163/65 (97) 100 Room Air 98.0 Lab Results Laboratory Tests Test 05/07/19 12:04 05/07/19 16:44 05/07/19 20:48 05/08/19 04:20 Glucose (Fingerstick) 206 mg/dL (70-99) 111 mg/dL (70-99) 115 mg/dL (70-99) Sodium Level 139 mmol/L (136-145) Potassium Level 3.7 mmol/L (3.5-5.1) Chloride Level 100 mmol/L (98-107) Carbon Dioxide Level 29 mmol/L (21-32) Anion Gap 10 (6-14) Blood Urea Nitrogen 43 mg/dL (8-26) Creatinine 10.0 mg/dL (0.7-1.3) Estimated GFR (Cockcroft-Gault) 6.2 Glucose Level 99 mg/dL (70-99) Calcium Level 8.6 mg/dL (8.5-10.1) Test 05/08/19 07:44 05/08/19 08:55 05/08/19 11:31 05/08/19 16:48 Glucose (Fingerstick) 59 mg/dL (70-99) 104 mg/dL (70-99) 118 mg/dL (70-99) 97 mg/dL (70-99) Test 05/08/19 20:09 05/09/19 07:13 Glucose (Fingerstick) 154 mg/dL (70-99) 113 mg/dL (70-99) Laboratory Tests Test 05/08/19 16:48 05/08/19 20:09 05/09/19 07:13 Glucose (Fingerstick) 97 mg/dL (70-99) 154 mg/dL (70-99) 113 mg/dL (70-99) Brief Hospital Course Mr. Garza is a 73 old AA male prev on PD but now ESRD MWF< admitted for 12 falls in a yr and ataxia but neuro work up is neg, LS spine some old known abN, COnsulted physiatry, no new recs, Pt does not want to go anymore to rehab (has been to [facility] 2x), refuses HH anymore, Will go home with , Some frustration evident with this pleasant couple. BUt medical etiology of prob has been ruled out at least this admission, HX of orthostasis on midodrine BUT WE HAVE BEEN NEEDING to hold midodrine actually bec of systolic 140s Dw wiife Seen in HD dc < 30 Discharge Information Condition at Discharge: Improved, Stable Disposition/Orders: D/C to Home Scheduled Aspirin (Aspir 81) 81 Mg Tablet.dr, 81 MG PO DAILY, (Reported) Entered as Reported by: UMANG GIL on 11/14/131949 Last Action: Continued on 05/07/19743 by JUAN ANTONIO PABON Calcitriol (Calcitriol) 0.25 Mcg Capsule, 1 CAP PO DAILY, #90 Ref 3 (Reported) Entered as Reported by: LETI RIVAS on 02/26/182200 Last Action: Continued on 05/07/19743 by JUAN ANTONIO PABON Calcium Acetate (Calcium Acetate) 667 Mg Tablet, 2,001 MG PO TIDWMEALS for DIALYSIS PATIENTS, (Reported) Entered as Reported by: Wilian Giles on 02/04/1935 Last Action: Converted on 05/07/19743 by JUAN ANTONIO PABON Cholecalciferol (Vitamin D3) (Vitamin D3) 5,000 Unit Tablet, 1 TAB PO DAILY, #30 Ref 3 (Reported) Entered as Reported by: LETI RIVAS on 02/26/182200 Last Action: Converted on 05/07/19743 by JUAN ANTONIO PABON Clopidogrel Bisulfate (Clopidogrel) 75 Mg Tablet, 1 TAB PO DAILY for post procedure for 45 Days, #45 Ref 1 (Reported) Entered as Reported by: SADIA FRANKLIN RN on 05/07/1916 Last Action: Continued on 05/07/19743 by JUAN ANTONIO PABON Duloxetine Hcl (Cymbalta) 30 Mg Capsule.dr, 1 CAP PO DAILY for depression, #30 Ref 5 (Reported) Entered as Reported by: Wilian Giles on 02/04/1936 Last Action: Continued on 05/07/19743 by JUAN ANTONIO PABON Epoetin José (Epogen) 20,000 Unit/2 Ml Vial, 40,000 UNIT SQ QTH for red blood cells, (Reported) Entered as Reported by: Wilian Giles on 02/04/1958 Last Action: Converted on 05/07/19743 by JUAN ANTONIO PABNO Folic Acid/Vitamin B Comp W-C (Rocio-Taylor Tablet) 0.8 Mg Tablet, 1 TAB PO DAILY for 30 Days, #30 Prescribed by: JUAN ANTONIO PABON on 04/23/18 0759 Last Action: Continued on 05/07/19743 by JUAN ANTONIO PABON Guaifenesin (Mucinex) 600 Mg Tablet.er, 600 MG PO BID for cough, #14 Prescribed by: JUAN ANTONIO PABON on 05/09/19 09 Insulin Degludec (Tresiba Flextouch U-200) 200 Unit/1 Ml Insuln.pen, 50 UNITS SQ HS, (Reported) Entered as Reported by: LETI RIVAS on 02/26/182200 Last Action: Converted on 05/07/19743 by JUAN ANTONIO PABON Midodrine Hcl (Midodrine Hcl) 5 Mg Tablet, 5 MG PO TID, (Reported) Entered as Reported by: SADIA FRANKILN RN on 05/07/1916 Last Action: Continued on 05/07/19743 by JAUN ANTONIO PABON Omeprazole (Omeprazole) 40 Mg Capsule.dr, 1 CAP PO DAILY for gerd, #30 Ref 3 (Reported) Entered as Reported by: Wilian Giles on 02/04/1937 Last Action: Converted on 05/07/19743 by JUAN ANTONIO PABON Potassium Chloride (K-Tab ER) 20 Meq Tablet.er, 20 MEQ PO DAILY for low potassium, (Reported) Entered as Reported by: Wilian Giles on 02/04/1939 Last Action: Converted on 05/07/19743 by JUAN ANTONIO PABON Scheduled PRN Loperamide Hcl (Loperamide) 2 Mg Tablet, 2 MG PO PRN PRN for DIARRHEA, (Re ported) Entered as Reported by: LETI RIVAS on 02/26/182200 Last Action: Converted on 05/07/19743 by JUAN ANTONIO PABON Meclizine Hcl (Meclizine Hcl) 12.5 Mg Tablet, 12.5 MG PO PRN Q6HRS PRN for DIZZINESS, #30 Prescribed by: JUAN ANTONIO PABON on 05/09/19905 Polyethylene Glycol 3350 (Miralax) 17 Gm Powd.pack, 1 PKT PO DAILY PRN for CONSTIPATION, (Reported) Entered as Reported by: LETI RIVAS on 02/26/182200 Last Action: Continued on 05/07/19743 by JUAN ANTONIO PABON Discontinued Medications Calcium Acetate (Calcium Acetate) 667 Mg Tablet, 667 MG PO TID PRN for PHOSLOW MDD 2001 MG, (Reported) Entered as Reported by: Wilian Giles on 02/04/19 0036 Last Action: HELD on 05/07/19743 by JUAN ANTONIO POSADAS MD May 09, 2019 11:41
--- NOTE | 2019-05-09 12:37 | NUR ---
SW following. Discussed with RN, pt discharging home today with self care. Pt declined SNF and HH. No further SW needs.
--- NOTE | 2019-05-09 12:58 | PDOC ---
SUBJECTIVE ROS Stable on HD OBJECTIVE Vital Signs Vital Signs Date Time Temp Pulse Resp B/P (MAP) Pulse Ox O2 Delivery O2 Flow Rate FiO2 05/09/19 07:00 98.0 66 16 163/65 (97) 100 Room Air 98.0 I & 0 Intake and Output 05/09/19 07:00 Intake Total 600 ml Balance 600 ml Intake Oral 600 ml PHYSICAL EXAM Physical Exam General: No acute distress HEENT: OM moist Neck Supple Lungs: Clear to auscultation, Non labored Heart: S1S2, RRR, Abdomen: Soft, No tenderness, Extremities: left arm fistula with good bruit and thrill Skin: No rashes, Neuro: Grossly normal -no Rollins DIAGNOSIS/ASSESSMENT DIAGNOSIS/ASSESSMENT Assessment & Plan ESRD- was on PD switched to HD, was scheduled for 1st OP Hemo on 05/07, seen on HD, Tolerating well, no complaints Access - AVG Lt Upper arm Gait ataxia new onset and met enceph Improved HTN now with hx orthostatic hypotension on Midodrine DM Anemia- On ASHISH COMMENT/RELEVANT DATA Meds Current Medications Medications (Trade) Dose Ordered Sig/Deacon Start Time Stop Time Status Last Admin Dose Admin Acetaminophen (Tylenol) 500 mg PRN Q6HRS PRN 05/07/19 07:45 Acetaminophen/ Hydrocodone Bitart (Lortab 5/325) 1 tab PRN Q4HRS PRN 05/07/19 07:45 Aspirin (Ecotrin) 81 mg DAILY 05/07/19 09:00 05/08/19 08:17 81 MG Calcitriol (Rocaltrol) 0.25 mcg DAILY 05/07/19 09:00 05/08/19 08:17 0.25 MCG Calcium Acetate (Phoslo) 2,001 mg TIDWMEALS 05/07/19 08:00 05/08/19 17:27 2,001 MG Clonidine HCl (Catapres) 0.1 mg 1X ONCE 05/07/19 00:15 05/07/19 00:16 DC 05/07/19 00:24 0.1 MG Clopidogrel Bisulfate (Plavix) 75 mg DAILY 05/07/19 09:00 05/08/19 08:17 75 MG Darbepoetin José (ARANESP for DIALYSIS PTS) 100 mcg WEEKLYHS 05/08/19 21:00 05/08/19 21:18 100 MCG Dextrose (Dextrose 50%-Water Syringe) 12.5 gm PRN Q15MIN PRN 05/07/19 07:45 Diphenhydramine HCl (Benadryl) 25 mg 1X PRN PRN 05/09/19 09:00 05/10/19 08:59 Duloxetine HCl (Cymbalta) 30 mg DAILY 05/07/19 09:00 05/08/19 08:17 30 MG Guaifenesin (Mucinex) 600 mg 1X ONCE 05/08/19 11:15 05/08/19 11:16 DC 05/08/19 11:44 600 MG Hydralazine HCl (Apresoline Inj) 5 mg PRN Q4HRS PRN 05/07/19 08:00 Info (PHARMACY MONITORING -- do not chart) 1 each PRN DAILY PRN 05/09/19 09:00 Insulin Glargine (Lantus Syringe) 50 unit QHS 05/07/19 21:00 05/08/19 21:00 50 UNIT Insulin Human Lispro (HumaLOG) 0-9 UNITS TIDWMEALS 05/07/19 08:00 05/07/19 12:15 5 UNITS Lidocaine HCl (Xylocaine-Mpf 1% 2ml Vial) 0.5 ml 1X STAT 05/07/19 15:38 05/07/19 15:41 DC 05/07/19 15:47 0.5 ML Loperamide HCl (Imodium) 2 mg PRN Q15MIN PRN 05/07/19 08:00 Meclizine HCl (Antivert) 12.5 mg PRN Q6HRS PRN 05/07/19 07:45 Midodrine (Proamatine) 5 mg TID@0800,1200,1700 05/07/19 08:00 Multi-Ingred Cream/Lotion/Oil/ Oint (Hydrocerin Cream) 1 zoila BID 05/08/19 21:00 05/08/19 21:17 1 ZOILA Ondansetron HCl (Zofran) 4 mg PRN Q6HRS PRN 05/07/19 07:45 Pantoprazole Sodium (Protonix) 40 mg DAILYAC 05/07/19 08:00 05/08/19 08:17 40 MG Polyethylene Glycol (miraLAX PACKET) 17 gm DAILY PRN 05/07/19 07:45 Potassium Chloride (Klor-Con) 20 meq DAILYWBKFT 05/07/19 08:00 05/08/19 08:17 20 MEQ Sodium Chloride 1,000 ml @ 400 mls/hr Q2H30M PRN 05/09/19 08:47 05/09/19 20:46 Vitamin B Complex/ Vitamin C (Rocio-Taylor) 1 tab DAILY 05/07/19 09:00 05/08/19 08:17 1 TAB Vitamin D (Vitamin D3) 5,000 unit DAILY 05/07/19 09:00 05/08/19 08:17 5,000 UNIT Lab Laboratory Tests Test 05/08/19 16:48 05/08/19 20:09 05/09/19 07:13 Glucose (Fingerstick) 97 mg/dL (70-99) 154 mg/dL (70-99) 113 mg/dL (70-99) Results All relevant outside records, renal labs, imaging studies, telemetry/EKG's were reviewed. SHERLEY ALBERTS MD May 09, 2019 12:58
--- NOTE | 2019-05-09 13:43 | PDOC ---
PROGRESS NOTES Assessment Assessment Gait instability for over a year worse recently. Metabolic encephalopathy. Intermittent confusion. Right failure on dialysis planned. LE weakness for 2-3 months, R>L. Falls. AFib. DM. HTN. Orthostatic hypotension. Renal cancer, per Hx. NPH? HLD. Spinal stenosis. Degenerative spine and joint disease. Pacemaker in place. RECOMMENDATIONS/PLAN: Treat medical diseases. Consulted Dr. Oakes. See Neurosurgery for spinal stenosis[place]/PT. Patient declined Rehab, and persistent to go home. EEG on 05/08/19: WNL. L-spine CT: degenerative changes, stenosis. History of Present Illness This is a 73-year-old AA male patient with multiple medical diseases complained worsening of chronic gait instability. He and his stated he has been having gait unsteadiness for over a year but it became worse recently. He also has symptoms of weakness in his LE for several months and was seen on [facility] in 01/31 and was diagnosed as having diabetic polyneuropathy. He had spine imaging there and was told to have spine stenosis. He said his right LE weakness is worse, but no urinary of bowel dysfunction. He had 13 falls so far this year per his . Past Medical History Cardiovascular: HTN Pulmonary: Other CENTRAL NERVOUS SYSTEM: Peripheral neuropathy GI: GERD Heme/Onc: Anemia NOS Hepatobiliary: Cholelithiasis Psych: Depression Musculoskeletal: Osteoarthritis Rheumatologic: No pertinent hx Infectious disease: Other Renal/: Chronic renal failure, Renal Ca. Endocrine: Diabetes, Hyperparathyroidism, Other Past Surgical History Pacemaker, Appendectomy, Cholecystectomy, Cataract Removal, Other Family History Diabetes, Hypertension ALLERGY: NKDA MEDICATIONS: Refer to MAR SOCIAL HISTORY: Lives with his . Denies current smoking, drinking, and illicit drug use. REVIEW OF SYSTEMS: Constitutional: Obese. Head: No recent traumatic brain or head injury. Skin: No edema, or rash. Ear: No infection, tinnitus. Eyes: No vision loss or color blindness. Nose: No bleeding or purulent discharges. Hearing: Mild hearing decrease. Neck: No injury. Cardiac: AFib, Pacemaker Placement, HLD, orthostatic hypotension. Pulmonary: No COPD. GI: No GI ulcer, GI bleeding. Urinary/genital: Renal failure. Endocrinologic: Diabetes Mellitus, obesity. Skeletomuscular: Generalized weakness. Neurological: see HP. Psychiatric: Denies drug use/abuse. Otherwise, not [id number] review of systems. PHYSICAL EXAMINATION: General appearance is in subacute on chronic distress. HEENT: Normocephalic and nontraumatic. Eyes, nose, ears, and throat are unremarkable. Neck is supple. No lymphadenopathy. No crepitus. Cardiovascular: S1, S2 Pulmonary: mildly decreased to auscultation bilaterally. Abdomen: Bowel sounds are positive. Extremities: No rash, lesions. No restriction of range of motion NEUROLOGICAL EXAMINATION: Awake. Oriented to time, place and person. PERRL. EOMI. CN: no focal findings. Muscle tone: within normal. Muscle strength: 5 UE, 4 LE. DTR: 2- UE, 0 at knee. Plantar reflex: Neutral response bilaterally Gait: Able to walk with a walker. Sensory exam: no abnormal findings in UE, but decreased temperature and light tough below the knee. No cerebellar signs elicited. F-T-N test fine. Objective Objective Vital Signs Date Time Temp Pulse Resp B/P (MAP) Pulse Ox O2 Delivery O2 Flow Rate FiO2 05/09/19 08:00 Room Air 05/09/19 07:00 98.0 66 16 163/65 (97) 100 98.0 Intake and Output 05/09/19 07:00 Intake Total 600 ml Balance 600 ml Intake Oral 600 ml Vitals Signs Vitals VS - Last 72 Hours, by Label Date Time Temp Pulse Resp B/P (MAP) Pulse Ox O2 Delivery O2 Flow Rate FiO2 05/09/19 08:00 Room Air 05/09/19 07:00 98.0 66 16 163/65 (97) 100 Room Air 98.0 05/09/19 03:00 97.9 80 18 180/77 (111) 100 Room Air 97.9 05/08/19 22:17 98.2 76 18 168/72 (104) 99 Room Air 98.2 05/08/19 20:00 Room Air 05/08/19 19:00 98.1 75 18 182/70 (107) 99 Room Air 98.1 05/08/19 17:00 69 145/67 05/08/19 15:01 98.3 69 16 145/67 (93) 97 Room Air 98.3 05/08/19 11:00 97.9 82 18 143/68 (93) 98 Room Air 97.9 05/08/19 08:00 Room Air 05/08/19 08:00 67 153/59 05/08/19 07:00 98.0 67 16 153/59 (90) 100 Room Air 98.0 Laboratory Laboratory Laboratory Tests Test 05/08/19 16:48 05/08/19 20:09 05/09/19 07:13 Glucose (Fingerstick) 97 mg/dL (70-99) 154 mg/dL (70-99) 113 mg/dL (70-99) Medication Medications Current Medications Darbepoetin José (ARANESP for DIALYSIS PTS) 100 mcg WEEKLYHS SQ Last administered on 05/08/19at 21:18; Start 05/08/19 at 21:00 Diphenhydramine HCl (Benadryl) 25 mg 1X PRN PRN IV ITCHING; Start 05/09/19 at 09:00; Stop 05/10/19 at 08:59 Diphenhydramine HCl (Benadryl) 25 mg 1X PRN PRN IV ITCHING; Start 05/09/19 at 09:00; Stop 05/10/19 at 08:59 Guaifenesin (Mucinex) 600 mg BID PO Last administered on 05/08/19at 21:17; Start 05/08/19 at 21:00 Info (PHARMACY MONITORING -- do not chart) 1 each PRN DAILY PRN MC SEE COMMENTS; Start 05/09/19 at 09:00 Multi-Ingred Cream/Lotion/Oil/ Oint (Hydrocerin Cream) 1 zoila BID TP Last administered on 05/08/19at 21:17; Start 05/08/19 at 21:00 Sodium Chloride 1,000 ml @ 400 mls/hr Q2H30M PRN IV PATENCY; Start 05/09/19 at 08:47; Stop 05/09/19 at 20:46 Sodium Chloride 1,000 ml @ 1,000 mls/hr Q1H PRN IV hypotension; Start 05/09/19 at 08:47; Stop 05/09/19 at 14:46 Comment Review of Relevant I have reviewed the following items roger (where applicable) has been applied. LEIDY GUTIERREZ MD May 09, 2019 13:43
--- NOTE | 2019-05-09 15:01 | NUR ---
Discharge Note: JUAN F MOLINA J5 [facility] Discharge instructions and discharge home medications reviewed with Patient and a copy given. All questions have been answered and understanding verbalized. The following instructions and handouts were given: Hemodialysis Discontinued lines and drains: Peripheral IV intact. Patient discharged to Home or Self Care with Spouse via Wheelchair. Patient refused services. Patient did not want to take any medications before he D/C home.
== END 2019-05-09 15:10 | disposition home or self-care (01) | DRG 70 ==
LOC: ER 21:52 → 6 SOUTH 05-07 00:05 → 5 SOUTH 05-07 15:38
PROVIDERS: ADMIT Internal Medicine; ATTEND Internal Medicine
PROC: 5A1D70Z Performance of Urinary Filtration, Intermittent, Less than 6 Hours Per Day (ICD-10-PCS; principal; 2019-05-07)
PROC: 5A1D70Z Performance of Urinary Filtration, Intermittent, Less than 6 Hours Per Day (ICD-10-PCS; 2019-05-09)
DX: G93.41 Metabolic encephalopathy (principal); N18.6 End stage renal disease; I12.0 Hypertensive chronic kidney disease with stage 5 chronic kidney disease or end stage renal disease; E11.42 Type 2 diabetes mellitus with diabetic polyneuropathy; K21.9 Gastro-esophageal reflux disease without esophagitis; F32.9 Major depressive disorder, single episode, unspecified; E11.22 Type 2 diabetes mellitus with diabetic chronic kidney disease; D63.8 Anemia in other chronic diseases classified elsewhere; R29.6 Repeated falls; I48.91 Unspecified atrial fibrillation; I95.1 Orthostatic hypotension; E78.5 Hyperlipidemia, unspecified; M48.061 Spinal stenosis, lumbar region without neurogenic claudication; M48.07 Spinal stenosis, lumbosacral region; M17.0 Bilateral primary osteoarthritis of knee; R26.0 Ataxic gait; G89.29 Other chronic pain; M51.36 Other intervertebral disc degeneration, lumbar region; M47.816 Spondylosis without myelopathy or radiculopathy, lumbar region; E21.3 Hyperparathyroidism, unspecified; Z85.528 Personal history of other malignant neoplasm of kidney; Z90.49 Acquired absence of other specified parts of digestive tract; Z90.5 Acquired absence of kidney; Z99.2 Dependence on renal dialysis; Z82.49 Family history of ischemic heart disease and other diseases of the circulatory system; Z83.3 Family history of diabetes mellitus; Z79.02 Long term (current) use of antithrombotics/antiplatelets; Z79.4 Long term (current) use of insulin; Z79.82 Long term (current) use of aspirin; Z79.899 Other long term (current) drug therapy; Z95.0 Presence of cardiac pacemaker
CPT/HCPCS: 36415; 70450; 71045; 72131; 80048; 80053; 82607; 82962; 83735; 83880; 84484; 85025; 85610; 85651; 86765; 87340; 93005; 95816; J1815; 97116; 97530; G0378

== ENCOUNTER 2019-06-20 12:40 | Emergency (ER) | payer MEDICARE ==
[~2019-06-20] VITALS: Ht 177.8 cm; Wt 105.2 kg
[~2019-06-20 12:40] MED LIST changes: +CLOP75TA PO; +GUAI600T47 PO; +MECL12.52 PO; +MIDO5TAB4 PO
[2019-06-20 12:49] VITALS: BP 193/86
--- NOTE | 2019-06-20 12:58 | EKG ---
[facility] [address] [place] [address] Test Date: 2019-06-20 Test Time: 12:51:48 Pat Name: JUAN F MOLINA Department: Room: Gender: [employer]: : [id number] Requested By: MEGAN MARTIN Order Number: [id number] Reading MD: Heron Thorne MD Measurements Intervals [place] Rate: 63 P: -90 DE: 174 QRS: -69 QRSD: 134 T: 18 QT: 454 QTc: 468 Interpretive Statements SINUS RHYTHM ABNORMAL LEFT AXIS DEVIATION LEFT ANTERIOR FASCICULAR BLOCK RIGHT BUNDLE BRANCH BLOCK BIFASCICULAR BLOCK Electronically Signed On 06-24-2019 13:50:56 SENIOR SUSTAINABILITY ADVISOR by Heron Thorne MD
[2019-06-20 14:20] LABS: BASO % 1 % (0-3); EOS # 0.2 x10^3/uL (0.0-0.7); EOS % 3 % (0-3); HEMATOCRIT 31.2 % (39.0-53.0); HEMOGLOBIN 10.3 g/dL (13.0-17.5); LYMPH # 0.8 x10^3/uL (1.0-4.8); LYMPH % 16 % (24-48); MEAN CORPUSCULAR HEMOGLOBIN 31 pg (25-35); MEAN CORPUSCULAR HGB CONC 33 g/dL (31-37); MEAN CORPUSCULAR VOLUME 93 fL (79-100); MONO # 0.4 x10^3/uL (0.0-1.1); MONO % 9 % (0-9); NEUT # 3.3 x10^3/uL (1.8-7.7); NEUT % 71 % (31-73); PLATELET COUNT 136 x10^3/uL (140-400); RED BLOOD COUNT 3.37 x10^6/uL (4.30-5.70); RED CELL DISTRIBUTION WIDTH 16.1 % (11.5-14.5); WHITE BLOOD COUNT 4.7 x10^3/uL (4.0-11.0)
[2019-06-20 14:32] LABS: CREATININE 9.7 mg/dL (0.7-1.3); GFR 6.4
[2019-06-20 14:33] LABS: PROTHROMBIN TIME PATIENT 14.4 SEC (11.7-14.0)
[2019-06-20 14:35] LABS: ALBUMIN 3.5 g/dL (3.4-5.0); TOTAL BILIRUBIN 0.5 mg/dL (0.2-1.0); TOTAL PROTEIN 6.9 g/dL (6.4-8.2)
--- NOTE | 2019-06-20 15:41 | PHYS DOC ---
Past Medical History Past Medical History: A-Fib, Diabetes-Type II, Hypertension Additional Past Medical Histor: RENAL CANCER, NIGHTLY PERITONEAL DIALYSIS Past Surgical History: Appendectomy, Cholecystectomy, Pacemaker Additional Past Surgical Histo: LEFT NEPHRECTOMY, DIALYSIS SHUNT, RIGHT CHEST Alcohol Use: None Drug Use: None Adult General Chief Complaint Chief Complaint: ABNORMAL LABS HPI HPI Patient is a 73 year old male who had a scheduled KIRAN procedure today at [facility] outpatient procedure center, when he got there, they checked his blood, found that his potassium level was 7.7, he had end-stage renal failure, he is scheduled for hemodialysis this morning. Patient has hemodialysis every Sunday and Sunday. His last hemodialysis was on Sunday. HE denies any headache, no chest pain, no abdominal pain, no trouble breathing. Because his potassium level was high, they sent him to the dialysis center, NO TREATMENT WAS DONE. . His told dialysis nurse that his potassium was measured today and it was 7.7 so they sent him here. Patient denied any chest pain, no abdominal pain, no nausea or vomiting, no shortness of air. All other ROS is negative unless otherwise noted in HPI Review of Systems Review of Systems See above Allergies Allergies Allergies Coded Allergies Type Severity Reaction Last Updated Verified No Known Drug Allergies 02/27/18 No Physical Exam Physical Exam See above Constitutional: Well developed, well nourished, no acute distress, non-toxic appearance. [] HENT: Normocephalic, atraumatic, bilateral external ears normal, oropharynx moist, no oral exudates, nose normal. [] Eyes: PERRLA, EOMI, conjunctiva normal, no discharge. [] Neck: Normal range of motion, no tenderness, supple, no stridor. [] Cardiovascular:Heart rate regular rhythm, no murmur [] Lungs & Thorax: Bilateral breath sounds clear to auscultation [] Abdomen: Bowel sounds normal, soft, no tenderness, no masses, no pulsatile masses. [] Skin: Warm, dry, no erythema, no rash. [] Back: No tenderness, no CVA tenderness. [] Extremities: No tenderness, no cyanosis, no clubbing, ROM intact, no edema. [] Neurologic: Alert and oriented X 3, normal motor function, normal sensory function, no focal deficits noted. [] Psychologic: Affect normal, judgement normal, mood normal. [] Current Patient Data Vital Signs Vital Signs Date Time Temp Pulse Resp B/P (MAP) Pulse Ox O2 Delivery O2 Flow Rate FiO2 06/20/19 12:49 97.9 66 20 193/86 (121) 100 Room Air 97.9 Lab Values Laboratory Tests Test 06/20/19 14:00 White Blood Count 4.7 x10^3/uL (4.0-11.0) Red Blood Count 3.37 x10^6/uL (4.30-5.70) L Hemoglobin 10.3 g/dL (13.0-17.5) L Hematocrit 31.2 % (39.0-53.0) L Mean Corpuscular Volume 93 fL (79-100) Mean Corpuscular Hemoglobin 31 pg (25-35) Mean Corpuscular Hemoglobin Concent 33 g/dL (31-37) Red Cell Distribution Width 16.1 % (11.5-14.5) H Platelet Count 136 x10^3/uL (140-400) L Neutrophils (%) (Auto) 71 % (31-73) Lymphocytes (%) (Auto) 16 % (24-48) L Monocytes (%) (Auto) 9 % (0-9) Eosinophils (%) (Auto) 3 % (0-3) Basophils (%) (Auto) 1 % (0-3) Neutrophils # (Auto) 3.3 x10^3/uL (1.8-7.7) Lymphocytes # (Auto) 0.8 x10^3/uL (1.0-4.8) L Monocytes # (Auto) 0.4 x10^3/uL (0.0-1.1) Eosinophils # (Auto) 0.2 x10^3/uL (0.0-0.7) Basophils # (Auto) 0.0 x10^3/uL (0.0-0.2) Prothrombin Time 14.4 SEC (11.7-14.0) H Prothrombin Time INR 1.2 (0.8-1.1) H Activated Partial Thromboplast Time 39 SEC (24-38) H Sodium Level 142 mmol/L (136-145) Potassium Level 4.0 mmol/L (3.5-5.1) Chloride Level 100 mmol/L (98-107) Carbon Dioxide Level 30 mmol/L (21-32) Anion Gap 12 (6-14) Blood Urea Nitrogen 48 mg/dL (8-26) H Creatinine 9.7 mg/dL (0.7-1.3) H Estimated GFR (Cockcroft-Gault) 6.4 BUN/Creatinine Ratio 5 (6-20) L Glucose Level 115 mg/dL (70-99) H Calcium Level 10.0 mg/dL (8.5-10.1) Total Bilirubin 0.5 mg/dL (0.2-1.0) Aspartate Amino Transferase (AST) 12 U/L (15-37) L Alanine Aminotransferase (ALT) 11 U/L (16-63) L Alkaline Phosphatase 66 U/L (46-116) Total Protein 6.9 g/dL (6.4-8.2) Albumin 3.5 g/dL (3.4-5.0) Albumin/Globulin Ratio 1.0 (1.0-1.7) Laboratory Tests 06/20/19 14:00 Laboratory Tests 06/20/19 14:00 EKG EKG [] Radiology/Procedures Radiology/Procedures [] Course & Med Decision Making Course & Med Decision Making Pertinent Labs and Imaging studies reviewed. (See chart for details) LAB WORK DONE HERE SHOWN NORMAL POTASSIUM LEVEL. PATIENT'S CALLED THE [facility], IS SCHEDULED TO HAVE DIALYSIS TOMORROW MORNING. HIS LAB WORK DONE EARLIER TODAY WAS MOST LIKELY DUE TO HEMOLYSIS. Dragon Disclaimer Dragon Disclaimer This electronic medical record was generated, in whole or in part, using a voice recognition dictation system. Departure Departure Impression: Primary Impression: ESRD (end stage renal disease) Additional Impression: Hypertension Disposition: 01 HOME, SELF-CARE Condition: STABLE Referrals: ABDIFATAH GODFREY MD (PCP) Patient Instructions: End Stage Kidney Disease Problem Qualifiers MEGAN MARTIN DO Jun 20, 2019 15:41
== END 2019-06-20 15:52 | disposition home or self-care (01) ==
LOC: ER 12:40
DX: E11.22 Type 2 diabetes mellitus with diabetic chronic kidney disease (principal); I12.0 Hypertensive chronic kidney disease with stage 5 chronic kidney disease or end stage renal disease; N18.6 End stage renal disease; Z99.2 Dependence on renal dialysis; I48.91 Unspecified atrial fibrillation; Z95.0 Presence of cardiac pacemaker
CPT/HCPCS: 36415; 80053; 85025; 85610; 85730; 93005; 99285

== ENCOUNTER → 2020-01-27 | Outpatient (CLI) | payer MEDICARE ==
[2019-08-01 13:10] VITALS: BP 129/66
[~2020-01-27] MED LIST changes: +DULO20CA18 PO; +HYDR-2761 PO; -MECL12.52 PO; +MECL12.573 PO; +PANT40TA77 PO
--- NOTE | 2020-01-27 11:33 | RAD ---
CT Abdomen and Pelvis without contrast History: Right upper quadrant pain, weight loss, history of renal cell carcinoma Technique: Noncontrast CT imaging was performed of the abdomen and pelvis. Multiplanar images are reviewed. Exposure: One or more of the following individualized dose reduction techniques were utilized for this examination: 1. Automated exposure control 2. Adjustment of the mA and/or kV according to patient size 3. Use of iterative reconstruction technique. Comparison: July 27, 2014 Findings: There is motion degradation. There has been left nephrectomy. There is no significant mass of the left renal fossa. There is fullness of the adrenal glands bilaterally greater on the left as seen previously. There is no hydronephrosis of the right kidney. There is no right renal calculus. There are at least 4 hypodense foci of the right kidney which are overall larger in the interval, largest inferiorly about 1.4 cm. Density measurements are more suggestive of cysts although limited characterization for underlying renal lesion without intravenous contrast. There has been cholecystectomy. Leads from electronic cardiac device are noted. There is bilateral gynecomastia. There is some residual more linear-appearing density of the right lower lobe likely fibrotic change, improved aeration in interval. Accurate evaluation of abdominal visceral organs is limited without intravenous contrast. There is no obvious abnormality of the spleen, liver, or pancreas. Small calcification in region of the descending duodenum posteriorly is more posterior than expected than area of ampulla. There is some splenic artery calcification.. Accurate evaluation of bowel is limited without oral contrast. There is no free air or free fluid. There is stool distention of the rectum, also nonspecific circumferential wall thickening. There is other retained stool variably in the colon. There has been appendectomy. There is mild nonspecific circumferential prominence of urinary bladder hester. There is minimal grade 1 anterior spondylolisthesis at L4-5 at which there is facet degenerative change. There is degree of lateral recess stenosis bilaterally at L4-5. There is at least mild bilateral L4-5 neural foramina compromise. There is some osteoarthritic change of the hips. There is nonspecific strandy change of the left ventral pelvic subcutaneous fat underlying the skin surface somewhat increased, no focal fluid collection in this region. No significantly enlarged nodes are identified. Impression: 1. There is some stool distention of the rectum, also nonspecific wall thickening circumferentially. Colon screening is advised if not already performed. There is other retained stool in the colon. 2. There is no right hydronephrosis or renal calculus. There are some more prominent foci of hypodensity of the right kidney, largest with density characteristics suggestive of cysts. 3. There is bilateral gynecomastia. 4. There is nonspecific prominence of urinary bladder hester circumferentially which may be related to incomplete distention assuming no clinical suspicion for cystitis. Electronically signed by: Seth Jenkins MD (01/27/2020 11:30 AM) [id number]
== END | disposition home or self-care (01) ==
LOC: CT 10:24
PROVIDERS: ATTEND Family Medicine
DX: N62 Hypertrophy of breast (principal); N28.89 Other specified disorders of kidney and ureter; R63.4 Abnormal weight loss; I70.8 Atherosclerosis of other arteries; M43.16 Spondylolisthesis, lumbar region; M48.061 Spinal stenosis, lumbar region without neurogenic claudication; M16.0 Bilateral primary osteoarthritis of hip; Z85.528 Personal history of other malignant neoplasm of kidney; Z90.49 Acquired absence of other specified parts of digestive tract; Z90.89 Acquired absence of other organs; Z90.5 Acquired absence of kidney
CPT/HCPCS: 74176

== ENCOUNTER → 2020-06-08 | Outpatient (CLI) | payer MEDICARE ==
[2019-08-01 13:10] VITALS: BP 129/66
[~2020-06-08] MED LIST changes: +AMLO-187 PO; -AMLO10TA8 PO; +REGADENOSON 0.4 MG/5 ML DISP.SYRIN. IV ONE
--- NOTE | 2020-06-08 18:25 | CARD ---
MR#: [id number] Date of Study: 06/08/2020 Ordering Physician: CARMELA BUNDY, Referring Physician: CARMELA BUNDY, Tech: Lynda Hernandez RDCS APPROVED REPORT EXAM: Two-dimensional and M-mode echocardiogram with Doppler and color Doppler. Other Information Quality : GoodHR: 79bpm Rhythm : PacemakerPacemaker INDICATION Pacemaker. Hx: SSS, Afib, HTN, DM, ESRD. 2D DIMENSIONS RVDd3.3 (2.9-3.5cm)IVSd1.3 (0.7-1.1cm) Aortic Root(2D)3.8 (2.0-3.7cm)LVDd4.4 (3.9-5.9cm) LVOT Diameter2.1 (1.8-2.4cm)PWd1.2 (0.7-1.1cm) LVDs2.9 (2.5-4.0cm)FS (%) 34.0 % SV56.5 ml Aortic Valve AoV Peak Bakari.124.0cm/Orlin Peak GR.6.2mmHg LVOT Peak Bakari.99.9cm/sAVA (VMAX)2.85cm2 Mitral Valve MV E Efkostek18.7cm/sMV DECEL [id number] MV A Eqlgrqiy49.5cm/sE/A Ratio0.8 MV A Tjcpcwix712ve Pulmonary Valve PV Peak Dhpatnqw498.9cm/s Tricuspid Valve TR P. Vxztxbba338fk/sRAP AOLGCTOM3skRq TR Peak Gr.59euSiKETQ11blIl LEFT VENTRICLE The left ventricle is normal size. There is mild concentric left ventricular hypertrophy. The left ve ntricular systolic function is normal. The Ejection Fraction is 55-60%. There is normal LV segmental wall motion. Transmitral Doppler flow pattern is Grade I-abnormal relaxation pattern. RIGHT VENTRICLE The right ventricle is normal size. The right ventricular systolic function is normal. There is a dev ice lead in the right ventricle. ATRIA The left atrium size is normal. The right atrium size is normal. The interatrial septum is intact wit h no evidence for an atrial septal defect or patent foramen ovale as noted on 2-D or Doppler imaging. AORTIC VALVE The aortic valve is normal in structure and function. Doppler and Color Flow revealed trace aortic re gurgitation. There is no significant aortic valvular stenosis. MITRAL VALVE The mitral valve is normal in structure and function. There is no mitral valve stenosis. Doppler and Color-flow revealed mild mitral regurgitation. TRICUSPID VALVE The tricuspid valve is normal in structure and function. Mild tricuspid regurgitation. Estimated PAP is 35mmHg. PULMONIC VALVE The pulmonary valve is normal in structure and function. Trace pulmonic valvular regurgitation. GREAT VESSELS The aortic root measures at the upper limits of normal. The ascending aorta is normal in size. The IV C is normal in size and collapses >50% with inspiration. PERICARDIAL EFFUSION There is no evidence of significant pericardial effusion. Critical Notification Critical Value: No <Conclusion> The left ventricle is normal size. The left ventricular systolic function is normal. The Ejection Fraction is 55-60%. There is mild concentric left ventricular hypertrophy. Doppler and Color Flow revealed trace aortic regurgitation. There is no significant aortic valvular stenosis. Doppler and Color-flow revealed mild mitral regurgitation. Mild tricuspid regurgitation. Estimated PAP is 35mmHg. Signed by : Gurvinder Persaud MD Electronically Approved : 06/08/2020 18:25:30
--- NOTE | 2020-06-08 18:44 | RAD ---
MR#: [id number] Date of Study: 06/08/2020 Ordering Physician: CARMELA BUNDY Referring Physician: ELLIS PALMA Tech: RT Carlos (R) (N) APPROVED REPORT Test Type: Pharmacological Stress Nurse/Tech: JAVIER PEARCE Test Indications: SICK SINUS SYNDROME Cardiac History: PPM, HTN, SSS, SEE EMR Medications: SEE EMR Medical History: SEE EMR Resting ECG: AV PACED Resting Heart Rate: 70 bpm Resting Blood Pressure: 146/57mmHg Pretest Chest Pain: No chest pain Nurse/Tech Notes RATE REGULAR, PACER SPIKES NOTED ON EKG, LUNGS CTA, DENIED SOA OR CP. Consent: The procedure was explained to the patient in lay terms. Informed consent was witnessed. [employer] eout was entered into [employer]. History and Stress Test performed by GENOVEVA Galvin Pharm. Details Pharmacologic stress testing was performed using 0.4mg per 5ml of regadenoson given intravenously ove r 7-10 seconds. Stress Symptoms VSS. PT C/O SOA BRIEFLY DURING INITAL PART OF TESTING. DENIED CHEST PAIN. POST EXERCISE Reason for Termination: Infusion complete Max HR: 81 bpm Max Blood Pressure: 146/57mmHg Blood Pressure response to exercise: Normal blood pressure response during stress. Heart Rate response to exercise: NORMAL HEART RATE RESPONSE DURING STRESS Chest Pain: No. Arrhythmia: No. ST Change: No. INTERPRETATION Stress EKG Conclusion: The resting EKG shows an AV paced rhythm. The patient remains in a paced rhythm throughout the study. Imaging Protocol IMAGE PROTOCOL: Rest Tc-99m/stress Tc-99m 1 day Rest: Stress: Viability: Radiopharm.Tc99m GsfivapztUe45o Sestamibi Xkap57vPd 33mCi Duration 14min. 14min. Img Date 06/08/2020 06/08/2020 Inj-Img Ujpm23fyh. 50min. Rest Admin Site:IV - Right AntecubitalAdministrator:RT Carlos (R)(N) Stress Admin Site: IV - Right AntecubitalAdministrator: GENOVEVA Galvin STRESS DATA End Diast. Vol.117.0mlAv. Heart Rate74.0bpm End Syst. Vol.27.0mlCO Index BSA0.0L/min Myocardial Hoez440.0gEject. Bfckxevw63.0% Stress Rates Pk. Fill Rate3.67EDV/secLVtime Pk. Fill 217.33msec Pk. Empty Rate5.07ESV/secLVtime Pk. Jfvab025.99msec 1/3 Pk. Fill1.44EDV/sec Stress Scores Regional WT0.00Summed WT1.00 Regional WM0.00Summed WM0.00 LV Perfusion The stress scans show no significant abnormalities. The rest scans show no significant abnormalities. Nuclear imaging shows no reversible ischemia or infarct. Wall Motion Left ventricular systolic function is normal with an ejection fraction of greater than 70%. LV Perf. Quant 17 Seg. SSS0.00 17 Seg. SRS2.00 17 Seg. SDS0.00 Stress Defect Extent (% LAD)0.00Rest Defect Extent (% LAD)0.00Rev. Defect Extent (% LAD)0.00 Stress Defect Extent (% LCX) 0.00Rest Defect Extent (% LCX)0.00Rev. Defect Extent (% LCX)0.00 Stress Defect Extent (% RCA)0.00Rest Defect Extent (% RCA)0.00Rev. Defect Extent (% RCA)0.00 Stress Defect Extent (% CONOR)0.00Rest Defect Extent (% CONOR)0.00Rev. Defect Extent (% CONOR)0.00 Conclusion 1. Paced rhythm throughout the study. 2. Nuclear imaging shows no reversible ischemia or infarct. 3. Normal left ventricular systolic function with an ejection fraction of greater than 70%. 4. Low risk Lexiscan nuclear stress test. Signed by : Gurvinder Persaud MD Electronically Approved : 06/08/2020 18:43:26
== END ==
LOC: NM 09:18
PROVIDERS: ATTEND Internal Medicine Cardiovascular Disease
DX: I08.1 Rheumatic disorders of both mitral and tricuspid valves (principal); I49.5 Sick sinus syndrome; Z95.0 Presence of cardiac pacemaker
CPT/HCPCS: 78452; 93017; 93306; A9500; J2785

== ENCOUNTER → 2021-06-14 | Outpatient (CLI) | payer MEDICARE ==
[2019-08-01 13:10] VITALS: BP 129/66
[~2021-06-14] MED LIST changes: -CINA30TA2 PO; +CINA30TA24 PO; +LISI10TA16 PO; -LISI10TA2 PO; -MECL12.573 PO; +MECL12.582 PO; -OMEP40CA45 PO; +OMEP40CA7 PO; -REGADENOSON 0.4 MG/5 ML DISP.SYRIN. IV ONE; +SERT-267 PO; -SERT50TA8 PO
--- NOTE | 2021-06-14 17:20 | CARD ---
MR#: [id number] Date of Study: 06/14/2021 Ordering Physician: CARMELA BUNDY, Referring Physician: CARMELA BUNDY Tech: Vanessa Robertson [facility] APPROVED REPORT EXAM: Two-dimensional and M-mode echocardiogram with Doppler and color Doppler. Other Information Quality : Technically LimitedHR: 67bpm Rhythm : NSR INDICATION Dyspnea Hypertension/HCVD RISK FACTORS Hypertension Obesity Hyperlipidemia Diabetes 2D DIMENSIONS RVDd3.5 (2.9-3.5cm)Left Atrium(2D)4.6 (1.6-4.0cm) IVSd1.2 (0.7-1.1cm)Aortic Root(2D)3.8 (2.0-3.7cm) LVDd5.2 (3.9-5.9cm)LVOT Diameter2.2 (1.8-2.4cm) PWd1.3 (0.7-1.1cm)LVDs2.7 (2.5-4.0cm) FS (%) 47.5 %SV99.6 ml Aortic Valve AoV Peak Bakari.110.1cm/sAoV VTI27.7cm AO Peak GR.4.8mmHgLVOT Peak Bakari.112.9cm/s AO Mean GR.3mmHgAVA (VMAX)3.79cm2 Mitral Valve MV E Resrngar398.4cm/sMV DECEL [id number] MV A Wezezyeb91.6cm/sE/A Ratio1.4 Tricuspid Valve TR P. Toynyiud755dc/sTR Peak Gr.30mmHg LEFT VENTRICLE The left ventricle is normal size. There is mild concentric left ventricular hypertrophy. The left ve ntricular systolic function is normal and the ejection fraction is within normal range. LV ejection fraction is 55 to 60%. There is normal LV segmental wall motion. Transmitral Doppler flow pattern is Grade I-abnormal relaxation pattern. RIGHT VENTRICLE The right ventricle is normal size. There is normal right ventricular wall thickness. The right ventr icular systolic function is normal. ATRIA The left atrium size is normal. The right atrium size is normal. The interatrial septum is intact wit h no evidence for an atrial septal defect or patent foramen ovale as noted on 2-D or Doppler imaging. AORTIC VALVE The aortic valve is normal in structure and function. Doppler and Color Flow revealed no significant aortic regurgitation. There is no significant aortic valvular stenosis. MITRAL VALVE The mitral valve is normal in structure and function. There is no evidence of mitral valve prolapse. There is no mitral valve stenosis. Doppler and Color-flow revealed mild mitral regurgitation. TRICUSPID VALVE The tricuspid valve is normal in structure and function. Doppler and Color Flow revealed mild tricusp id regurgitation. Estimated PAP 35 mmHg. There is no tricuspid valve stenosis. PULMONIC VALVE The pulmonary valve is normal in structure and function. Doppler and Color Flow revealed no pulmonic valvular regurgitation. GREAT VESSELS The aortic root is mildly enlarged. PERICARDIAL EFFUSION There is no evidence of significant pericardial effusion. Critical Notification Critical Value: No <Conclusion> The left ventricle is normal size. The left ventricular systolic function is normal and the ejection fraction is within normal range. LV ejection fraction is 55 to 60%. There is normal LV segmental wall motion. There is mild concentric left ventricular hypertrophy. Doppler and Color Flow revealed no significant aortic regurgitation. There is no significant aortic valvular stenosis. Doppler and Color-flow revealed mild mitral regurgitation. Doppler and Color Flow revealed mild tricuspid regurgitation. Estimated PAP 35 mmHg. Signed by : Gurvinder Persaud MD Electronically Approved : 06/14/2021 17:19:48
== END ==
LOC: ECHO 13:48
PROVIDERS: ATTEND Internal Medicine Cardiovascular Disease
DX: I08.1 Rheumatic disorders of both mitral and tricuspid valves (principal); I77.819 Aortic ectasia, unspecified site; I48.92 Unspecified atrial flutter; R06.00 Dyspnea, unspecified; I10 Essential (primary) hypertension
CPT/HCPCS: 93306